=== PATIENT | male | born 1945 | race Hispanic/Latino ===

== ENCOUNTER 2018-01-17 17:37 | Inpatient (IN) | payer MEDICARE ==
[~2018-01-17] VITALS: Ht 160 cm; Wt 72.0 kg
[~2018-01-17 17:37] MED LIST: ACET1TAB27 PO; ASPI-1005 PO; CILO100T PO; CLOP75TA14 PO; ISOS30TA6 PO; LEVO500T2 PO; LOSA100T20 PO; METO25TA6 PO; NIAC100045 PO; OLOP2.5D5 OU; PANT40TA25 PO; SIMV20TA6 PO; TAMS0.4C32 PO
[2018-01-17 18:33] LABS: BASOPHILS % (AUTO) 0.6 % (0.0-5.0); EOSINOPHILS % (AUTO) 1.4 % (0.0-8.0); HEMATOCRIT 38.8 % (42-54); LYMPHOCYTES % (AUTO) 30.6 % (21.0-51.0); MEAN CORPUSCULAR HEMOGLOBIN 30.4 pg (27.0-33.0); MEAN CORPUSCULAR HGB CONC 33.1 g/dL (32.0-36.0); MEAN CORPUSCULAR VOLUME 91.7 fL (79-99); MONOCYTES % (AUTO) 13.8 % (3.0-13.0); NEUTROPHILS % (AUTO) 53.6 % (40.0-77.0); PLATELET COUNT (AUTO) 221 K/uL (130-400); RED BLOOD CELL COUNT(AUTO) 4.23 MIL/uL (4.50-6.20); RED CELL DISTRIBUTION WIDTH 14.8 % (11.0-15.5); WHITE BLOOD COUNT (AUTO) 6.1 K/uL (4.8-10.8)
[2018-01-17 18:54] LABS: CREATININE 1.1 mg/dL (0.5-1.5); POTASSIUM 3.6 mmol/L (3.5-5.1)
[2018-01-17 18:58] LABS: ALBUMIN 3.3 g/dL (3.5-5.0); BILIRUBIN,TOTAL 0.2 mg/dL (0.2-1.0); TOTAL PROTEIN, SERUM 7.3 g/dL (6.0-8.3)
[2018-01-17] MEDS ORDERED: ASPIRIN 81MG TAB.CHEW ONE (20:00)
[2018-01-17] MEDS ORDERED: SODIUM CHLORIDE 0.9% 10 ML VIAL IVP PRN (20:15)
[2018-01-17 21:53] VITALS: BP 172/82
[2018-01-17] MEDS: ENOXAPARIN SODIUM 40 MG/0.4 ML SYRINGE SQ SCH (22:22)
[2018-01-17] MEDS ORDERED: OXYB10TA PO (22:41)
[2018-01-17] MEDS ORDERED: RANO500T2 PO (22:41)
[2018-01-17] MEDS ORDERED: ICOS1CAP PO (22:41)
[2018-01-17] MEDS ORDERED: MIRA25TA PO (22:41)
[2018-01-17] MEDS ORDERED: MAGN400T40 PO (22:41)
[2018-01-17] MEDS ORDERED: NIAC1CAP PO (22:41)
[2018-01-17] MEDS ORDERED: SUCR1TAB2 PO (22:41)
[2018-01-17] MEDS ORDERED: NITR0.4T50 SL (22:42)
[2018-01-17 23:28] VITALS: BP 156/88
[2018-01-18 00:43] LABS: CREATINE KINASE, TOTAL 89 U/L (21-232); MYOGLOBIN 43 ng/mL (10-92); TROPONIN I < 0.04 ng/mL (0.00-0.06)
[2018-01-18 04:07] VITALS: BP 137/67
[2018-01-18 06:14] LABS: HEMATOCRIT 43.5 % (42-54); MEAN CORPUSCULAR HEMOGLOBIN 31.6 pg (27.0-33.0); MEAN CORPUSCULAR HGB CONC 33.5 g/dL (32.0-36.0); MEAN CORPUSCULAR VOLUME 94.1 fL (79-99); PLATELET COUNT (AUTO) 270 K/uL (130-400); RED BLOOD CELL COUNT(AUTO) 4.62 MIL/uL (4.50-6.20); RED CELL DISTRIBUTION WIDTH 14.7 % (11.0-15.5); WHITE BLOOD COUNT (AUTO) 6.9 K/uL (4.8-10.8)
[2018-01-18 06:30] LABS: CREATINE KINASE, TOTAL 85 U/L (21-232); MYOGLOBIN 48 ng/mL (10-92); TROPONIN I < 0.04 ng/mL (0.00-0.06)
[2018-01-18 07:00] VITALS: BP 147/77
[2018-01-18] MEDS: ENOXAPARIN SODIUM 40 MG/0.4 ML SYRINGE SQ SCH ×2 (09:29→21:44)
[2018-01-18] MEDS: ASPIRIN 325MG EC TAB 325 MG TABLET.DR PO SCH (09:29)
[2018-01-18 11:00] VITALS: BP 154/79
[2018-01-18] MEDS ORDERED: METOPROLOL TARTRATE 25 MG PO SCH (12:00)
[2018-01-18] MEDS ORDERED: SODIUM CHLORIDE 0.9% 500ML 500 ML IV SCH (12:21)
[2018-01-18] MEDS: METOPROLOL TARTRATE 25 MG TAB PO SCH ×2 (13:38→21:43)
[2018-01-18 16:00] VITALS: BP 156/88
[2018-01-18 19:34] VITALS: BP 159/77
[2018-01-18] MEDS ORDERED: METOPROLOL TARTRATE 25 MG TAB PO SCH (21:00)
[2018-01-18] MEDS: CILOSTAZOL 100 MG TAB PO SCH (21:42)
[2018-01-18] MEDS: RANOLAZINE 500 MG TAB.SR.12H PO SCH (21:42)
[2018-01-18] MEDS: MAGNESIUM OXIDE 400 MG TABLET PO SCH (21:44)
[2018-01-18] MEDS: SIMVASTATIN 20 MG TABLET PO SCH (21:45)
[2018-01-18 23:46] VITALS: BP 142/78
[2018-01-19] VITALS (13 sets, daily range): BP systolic 124–162; BP diastolic 59–95
[2018-01-19 03:50] LABS: HEMATOCRIT 42.5 % (42-54); MEAN CORPUSCULAR HEMOGLOBIN 31.4 pg (27.0-33.0); MEAN CORPUSCULAR HGB CONC 33.4 g/dL (32.0-36.0); MEAN CORPUSCULAR VOLUME 93.8 fL (79-99); NUCLEATED RED BLOOD CELLS 0.1 % (0.0-0.19); PLATELET COUNT (AUTO) 264 K/uL (130-400); RED BLOOD CELL COUNT(AUTO) 4.54 MIL/uL (4.50-6.20); RED CELL DISTRIBUTION WIDTH 14.8 % (11.0-15.5); WHITE BLOOD COUNT (AUTO) 7.4 K/uL (4.8-10.8)
[2018-01-19 04:01] LABS: POTASSIUM 3.4 mmol/L (3.5-5.1)
[2018-01-19 05:51] LABS: INR 0.95 (0.85-1.15); PARTIAL THROMBOPLASTIN TIME 32.5 SEC (26.3-35.5)
[2018-01-19] MEDS ORDERED: POTASSIUM CHLORIDE 20MEQ/100ML 100 ML IV PRN ×2 (06:30→13:00)
[2018-01-19] MEDS ORDERED: LIDOCAINE HCL-MPF 1% 2ML VIAL IVP PRN ×2 (06:30→11:45)
[2018-01-19] MEDS ORDERED: LIDOCAINE HCL 2% 20ML ONE (07:27)
[2018-01-19] MEDS ORDERED: IOHEXOL 350 MG/ML 100ML INFUS..BTL IV ONE ×2 (07:27→09:18)
[2018-01-19] MEDS ORDERED: NITROGLYCERIN 5 MG/ML 10 ML VIAL IV ONE (07:27)
[2018-01-19] MEDS ORDERED: BIVALIRUDIN 250 MG/VIAL IV ONE (07:27)
[2018-01-19] MEDS ORDERED: IOHEXOL-350 50ML VIAL IV ONE ×2 (07:27→09:04)
[2018-01-19] MEDS: CILOSTAZOL 100 MG TAB PO SCH ×2 (09:00→21:39)
[2018-01-19] MEDS: ENOXAPARIN SODIUM 40 MG/0.4 ML SYRINGE SQ SCH ×2 (09:00→18:05)
[2018-01-19] MEDS: ASPIRIN 325MG EC TAB 325 MG TABLET.DR PO SCH (09:00)
[2018-01-19] MEDS ORDERED: LABETALOL HCL 5 MG/ML 20ML VIAL IV ONE (09:23)
[2018-01-19] MEDS ORDERED: ASPIRIN 325MG EC TAB 325 MG TABLET.DR PO ONE (09:25)
[2018-01-19] MEDS ORDERED: CLOPIDOGREL BISULFATE 300 MG TAB ONE (09:26)
[2018-01-19] MEDS: MAGNESIUM OXIDE 400 MG TABLET PO SCH ×2 (11:06→21:39)
[2018-01-19] MEDS: FUROSEMIDE 20 MG TABLET PO SCH (11:06)
[2018-01-19] MEDS: METOPROLOL TARTRATE 25 MG TAB PO SCH ×2 (11:06→21:39)
[2018-01-19] MEDS: RANOLAZINE 500 MG TAB.SR.12H PO SCH ×2 (11:06→21:39)
[2018-01-19] MEDS: PANTOPRAZOLE SODIUM 40 MG TABLET.DR PO SCH (11:06)
[2018-01-19] MEDS ORDERED: POTASSIUM CHLORIDE 10% ELIXIR 20 MEQ/15 ML UDCUP PO PRN (11:45)
[2018-01-19] MEDS: POTASSIUM CHLORIDE 20 MEQ ERTAB PO PRN (18:17)
[2018-01-19] MEDS: SIMVASTATIN 20 MG TABLET PO SCH (21:39)
[2018-01-20 04:08] LABS: MEAN CORPUSCULAR HEMOGLOBIN 31.3 pg (27.0-33.0); MEAN CORPUSCULAR HGB CONC 33.5 g/dL (32.0-36.0); MEAN CORPUSCULAR VOLUME 93.5 fL (79-99); PLATELET COUNT (AUTO) 265 K/uL (130-400); WHITE BLOOD COUNT (AUTO) 8.5 K/uL (4.8-10.8)
[2018-01-20 04:10] VITALS: BP 116/52
[2018-01-20 04:20] LABS: CREATININE 1.2 mg/dL (0.5-1.5); POTASSIUM 3.8 mmol/L (3.5-5.1)
[2018-01-20] MEDS: POTASSIUM CHLORIDE 20 MEQ ERTAB PO PRN (05:57)
[2018-01-20] MEDS: PANTOPRAZOLE SODIUM 40 MG TABLET.DR PO SCH (05:57)
[2018-01-20 07:30] VITALS: BP 140/72
[2018-01-20] MEDS: ENOXAPARIN SODIUM 40 MG/0.4 ML SYRINGE SQ SCH (08:10)
[2018-01-20] MEDS: FUROSEMIDE 20 MG TABLET PO SCH (08:11)
[2018-01-20] MEDS: METOPROLOL TARTRATE 25 MG TAB PO SCH (08:11)
[2018-01-20] MEDS: RANOLAZINE 500 MG TAB.SR.12H PO SCH (08:11)
[2018-01-20] MEDS: ASPIRIN 325MG EC TAB 325 MG TABLET.DR PO SCH (08:11)
[2018-01-20] MEDS: MAGNESIUM OXIDE 400 MG TABLET PO SCH (08:11)
[2018-01-20] MEDS: CILOSTAZOL 100 MG TAB PO SCH (08:11)
[2018-01-20] MEDS ORDERED: CLOPIDOGREL BISULFATE 75 MG TAB PO SCH (09:00)
== END 2018-01-20 11:15 | disposition home or self-care (01) | DRG 246 ==
LOC: EDH 17:37 → EDHIP 19:49 → INTOOBSV 19:49 → OBSVTOIN 19:49 → 2DH 21:44
PROVIDERS: ADMIT Family Medicine; ATTEND Family Medicine
PROC: 3E0234Z Introduction of Serum, Toxoid and Vaccine into Muscle, Percutaneous Approach (ICD-10-PCS; principal; 2018-01-19)
PROC: 4A023N7 Measurement of Cardiac Sampling and Pressure, Left Heart, Percutaneous Approach (ICD-10-PCS; 2018-01-19)
PROC: B2151ZZ Fluoroscopy of Left Heart using Low Osmolar Contrast (ICD-10-PCS; 2018-01-19)
PROC: B2111ZZ Fluoroscopy of Multiple Coronary Arteries using Low Osmolar Contrast (ICD-10-PCS; 2018-01-19)
PROC: 027034Z Dilation of Coronary Artery, One Artery with Drug-eluting Intraluminal Device, Percutaneous Approach (ICD-10-PCS; 2018-01-19)
PROC: B2181ZZ Fluoroscopy of Left Internal Mammary Bypass Graft using Low Osmolar Contrast (ICD-10-PCS; 2018-01-19)
PROC: B2131ZZ Fluoroscopy of Multiple Coronary Artery Bypass Grafts using Low Osmolar Contrast (ICD-10-PCS; 2018-01-19)
PROC: B3101ZZ Fluoroscopy of Thoracic Aorta using Low Osmolar Contrast (ICD-10-PCS; 2018-01-19)
PROC: B41F1ZZ Fluoroscopy of Right Lower Extremity Arteries using Low Osmolar Contrast (ICD-10-PCS; 2018-01-19)
PROC: B3121ZZ Fluoroscopy of Left Subclavian Artery using Low Osmolar Contrast (ICD-10-PCS; 2018-01-19)
DX: T82.855A Stenosis of coronary artery stent, initial encounter (principal); I50.33 Acute on chronic diastolic (congestive) heart failure; I42.9 Cardiomyopathy, unspecified; I25.119 Atherosclerotic heart disease of native coronary artery with unspecified angina pectoris; E11.51 Type 2 diabetes mellitus with diabetic peripheral angiopathy without gangrene; F17.200 Nicotine dependence, unspecified, uncomplicated; E78.5 Hyperlipidemia, unspecified; E87.6 Hypokalemia; I35.0 Nonrheumatic aortic (valve) stenosis; J44.9 Chronic obstructive pulmonary disease, unspecified; N40.0 Benign prostatic hyperplasia without lower urinary tract symptoms; I11.0 Hypertensive heart disease with heart failure; Y83.9 Surgical procedure, unspecified as the cause of abnormal reaction of the patient, or of later complication, without mention of misadventure at the time of the procedure; Y83.2 Surgical operation with anastomosis, bypass or graft as the cause of abnormal reaction of the patient, or of later complication, without mention of misadventure at the time of the procedure; Y92.89 Other specified places as the place of occurrence of the external cause; Z95.5 Presence of coronary angioplasty implant and graft; Z95.1 Presence of aortocoronary bypass graft; Z91.19 Patient's noncompliance with other medical treatment and regimen; Z23 Encounter for immunization
CPT/HCPCS: 36415; 71045; 80048; 80053; 82550; 83735; 83874; 83880; 84484; 85025; 85027; 85610; 85730; 93005; 93459; C1760; C1769; C1887; C1894; C9600; J0583; J1644; J1650; J3480; J3490; J7040; Q2038; Q9967

== ENCOUNTER 2018-04-07 16:58 | Observation (INO) | payer MEDICARE ==
[~2018-04-07] VITALS: Ht 160 cm; Wt 71.8 kg
[~2018-04-07 16:58] MED LIST changes: -ACET1TAB27 PO; -ASPI-1005 PO; +ICOS1CAP PO; -ISOS30TA6 PO; -LEVO500T2 PO; -LOSA100T20 PO; +MAGN400T40 PO; +MIRA25TA PO; -NIAC100045 PO; +NIAC1CAP PO; +NITR0.4T50 SL; -OLOP2.5D5 OU; +OXYB10TA PO; +RANO500T2 PO; +SUCR1TAB2 PO
[2018-04-07 17:17] LABS: CREATININE 1.1 mg/dL (0.5-1.5)
[2018-04-07 17:20] LABS: BASOPHILS % (AUTO) 0.6 % (0.0-5.0); EOSINOPHILS % (AUTO) 0.8 % (0.0-8.0); HEMATOCRIT 28.3 % (42-54); LYMPHOCYTES % (AUTO) 39.5 % (21.0-51.0); MEAN CORPUSCULAR HEMOGLOBIN 22.7 pg (27.0-33.0); MEAN CORPUSCULAR HGB CONC 30.3 g/dL (32.0-36.0); MEAN CORPUSCULAR VOLUME 74.9 fL (79-99); MONOCYTES % (AUTO) 9.8 % (3.0-13.0); NEUTROPHILS % (AUTO) 49.3 % (40.0-77.0); NUCLEATED RED BLOOD CELLS 0.3 % (0.0-0.19); PLATELET COUNT (AUTO) 287 K/uL (130-400); RED BLOOD CELL COUNT(AUTO) 3.77 MIL/uL (4.50-6.20); RED CELL DISTRIBUTION WIDTH 22.1 % (11.0-15.5); WHITE BLOOD COUNT (AUTO) 6.9 K/uL (4.8-10.8)
[2018-04-07 17:21] LABS: ALBUMIN 3.4 g/dL (3.5-5.0); BILIRUBIN,DIRECT 0.1 mg/dL (0.0-0.3); BILIRUBIN,TOTAL 0.4 mg/dL (0.2-1.0); TOTAL PROTEIN, SERUM 7.7 g/dL (6.0-8.3)
[2018-04-07] MEDS ORDERED: IPRATROPIUM/ALBUTEROL SULFATE 3 ML SOLUTION IH ONE (17:21)
[2018-04-07 17:31] LABS: B-TYPE NATRIURETIC PEPTIDE 820 pg/mL (0-100)
[2018-04-07] MEDS ORDERED: METHYLPREDNISOLONE SOD SUCC 40MG/ML 1ML ONE (18:57)
[2018-04-07] MEDS ORDERED: FUROSEMIDE 10 MG/ML 4ML VIAL ONE (18:57)
[2018-04-07] MEDS ORDERED: CEFTRIAXONE SODIUM 1 GM ONE (18:57)
[2018-04-07] MEDS ORDERED: AZITHROMYCIN 500MG+NS 250ML 250 ML IV ONE (19:36)
[2018-04-07] MEDS ORDERED: ENOXAPARIN SODIUM 40 MG/0.4 ML SYRINGE SQ ONE (20:02)
[2018-04-07 21:00] VITALS: BP 137/73
[2018-04-07] MEDS ORDERED: POTASSIUM CHLORIDE 10% ELIXIR 20 MEQ/15 ML UDCUP PO PRN (22:15)
[2018-04-07] MEDS ORDERED: GLUCAGON 1MG KIT 1 MG ML IM PRN (22:15)
[2018-04-07] MEDS ORDERED: POTASSIUM CHLORIDE 20MEQ/100ML 100 ML IV PRN (22:15)
[2018-04-07] MEDS ORDERED: LIDOCAINE HCL-MPF 1% 2ML VIAL IJ PRN (22:15)
[2018-04-07] MEDS ORDERED: IPRATROPIUM/ALBUTEROL SULFATE 3 ML SOLUTION IH PRN (22:15)
[2018-04-07] MEDS ORDERED: DEXTROSE 50%-WATER 50 ML DISP.SYRIN IV PRN (22:15)
[2018-04-07] MEDS ORDERED: GUAIFENESIN-DM 200/20 MG 10 ML PO PRN (22:15)
[2018-04-07] MEDS ORDERED: POTASSIUM CHLORIDE 20 MEQ ERTAB PO PRN (22:15)
[2018-04-07 23:00] VITALS: BP 144/78
[2018-04-07] MEDS ORDERED: METO50TA18 PO (23:33)
[2018-04-07] MEDS ORDERED: AEC81 PO (23:49)
[2018-04-07] MEDS ORDERED: PIOG15TA66 PO (23:51)
[2018-04-07] MEDS ORDERED: FLUT1BLS IH (23:51)
[2018-04-08 03:00] VITALS: BP 138/80
[2018-04-08 04:27] LABS: HEMATOCRIT 27.8 % (42-54); MEAN CORPUSCULAR HEMOGLOBIN 22.9 pg (27.0-33.0); MEAN CORPUSCULAR VOLUME 73.8 fL (79-99); NUCLEATED RED BLOOD CELLS 0.1 % (0.0-0.19); PLATELET COUNT (AUTO) 290 K/uL (130-400); RED BLOOD CELL COUNT(AUTO) 3.76 MIL/uL (4.50-6.20); RED CELL DISTRIBUTION WIDTH 22.1 % (11.0-15.5)
[2018-04-08 04:51] LABS: ALBUMIN 3.3 g/dL (3.5-5.0); BILIRUBIN,TOTAL 0.4 mg/dL (0.2-1.0); CREATININE 1.1 mg/dL (0.5-1.5); POTASSIUM 3.7 mmol/L (3.5-5.1); TOTAL PROTEIN, SERUM 7.7 g/dL (6.0-8.3)
[2018-04-08] MEDS ORDERED: METHYLPREDNISOLONE SOD SUCC 125MG/2ML VIAL IVP SCH (06:00)
[2018-04-08] MEDS: IPRATROPIUM/ALBUTEROL SULFATE 3 ML SOLUTION IH SCH ×4 (06:16→19:21)
[2018-04-08] MEDS: INSULIN R PO SS1 SQ SCH ×4 (07:05→21:00)
[2018-04-08] MEDS ORDERED: NITROGLYCERIN 0.4 MG SL TAB SL PRN (07:15)
[2018-04-08] MEDS: PANTOPRAZOLE SODIUM 40 MG TABLET.DR PO SCH (07:51)
[2018-04-08] MEDS: ASPIRIN 81 MG EC TAB PO SCH (07:51)
[2018-04-08] MEDS: SUCRALFATE 1 GM TABLET PO SCH ×3 (07:51→18:41)
[2018-04-08] MEDS: FUROSEMIDE 10 MG/ML 4ML VIAL IVP SCH ×2 (07:52→18:41)
[2018-04-08 08:20] VITALS: BP 126/66
[2018-04-08] MEDS: OXYBUTYNIN CHLORIDE 10 MG PO SCH (09:00)
[2018-04-08] MEDS: PIOGLITAZONE HCL 15 MG TAB PO SCH (10:33)
[2018-04-08] MEDS: TAMSULOSIN HCL 0.4 MG CAP.ER.24H PO SCH (10:33)
[2018-04-08] MEDS: CLOPIDOGREL BISULFATE 75 MG TAB PO SCH (10:33)
[2018-04-08] MEDS: METOPROLOL TARTRATE 50 MG TAB PO SCH ×2 (10:33→21:00)
[2018-04-08] MEDS: RANOLAZINE 500 MG TAB.SR.12H PO SCH ×2 (10:33→21:00)
[2018-04-08] MEDS: PREDNISONE 20 MG TABLET PO SCH (10:33)
[2018-04-08] MEDS: NIACIN 500 MG SRTAB PO SCH (10:33)
[2018-04-08] MEDS: AZITHROMYCIN 500MG+NS 250ML 250 ML IV SCH (10:34)
[2018-04-08] MEDS: ENOXAPARIN SODIUM 40 MG/0.4 ML SYRINGE SQ SCH (10:35)
[2018-04-08] MEDS ORDERED: IPRATROPIUM/ALBUTEROL SULFATE 3 ML SOLUTION IH SCH (12:00)
[2018-04-08 12:02] VITALS: BP 133/65
[2018-04-08 16:11] VITALS: BP 129/75
[2018-04-08] MEDS ORDERED: CEFTRIAXONE SODIUM 1 GM IVP SCH (18:00)
[2018-04-08 19:00] VITALS: BP 119/64
[2018-04-08] MEDS: BUDESONIDE 0.5 MG/2 ML INH IH SCH (19:21)
[2018-04-08] MEDS ORDERED: SIMVASTATIN 20 MG TABLET PO SCH (21:00)
[2018-04-09 00:30] VITALS: BP 118/63
[2018-04-09 04:07] VITALS: BP 125/75
[2018-04-09] MEDS: INSULIN R PO SS1 SQ SCH ×2 (06:11→11:30)
[2018-04-09] MEDS: FUROSEMIDE 10 MG/ML 4ML VIAL IVP SCH (06:15)
[2018-04-09] MEDS: BUDESONIDE 0.5 MG/2 ML INH IH SCH (06:35)
[2018-04-09] MEDS: IPRATROPIUM/ALBUTEROL SULFATE 3 ML SOLUTION IH SCH ×3 (06:35→13:56)
[2018-04-09 07:00] VITALS: BP 102/44
[2018-04-09] MEDS: ASPIRIN 81 MG EC TAB PO SCH (08:48)
[2018-04-09] MEDS: SUCRALFATE 1 GM TABLET PO SCH ×2 (08:49→11:51)
[2018-04-09] MEDS: PIOGLITAZONE HCL 15 MG TAB PO SCH (08:49)
[2018-04-09] MEDS: PANTOPRAZOLE SODIUM 40 MG TABLET.DR PO SCH (08:49)
[2018-04-09] MEDS: CLOPIDOGREL BISULFATE 75 MG TAB PO SCH (08:49)
[2018-04-09] MEDS: METOPROLOL TARTRATE 50 MG TAB PO SCH (08:49)
[2018-04-09] MEDS: TAMSULOSIN HCL 0.4 MG CAP.ER.24H PO SCH (08:49)
[2018-04-09] MEDS: NIACIN 500 MG SRTAB PO SCH (08:49)
[2018-04-09] MEDS: RANOLAZINE 500 MG TAB.SR.12H PO SCH (08:49)
[2018-04-09] MEDS: PREDNISONE 20 MG TABLET PO SCH (08:50)
[2018-04-09] MEDS: ENOXAPARIN SODIUM 40 MG/0.4 ML SYRINGE SQ SCH (08:50)
[2018-04-09] MEDS: AZITHROMYCIN 500MG+NS 250ML 250 ML IV SCH (08:53)
[2018-04-09] MEDS: OXYBUTYNIN CHLORIDE 10 MG PO SCH (08:53)
--- NOTE | 2018-04-09 14:00 | NUR ---
DISCHARGE INSTRUCTIONS GIVEN. IV DISCONTINUED WITH INNER CANNULA INTACT. ALL QUESTIONS ANSWERED. INFORMED PATIENT TO SEE PRIMARY CARE PHYSICIAN AND STOVE CARRIAGE OPERATOR . PRESCRIPTIONS GIVEN AND INFORMATION SHEET PROVIDED. AWAITING RIDE HOME.
== END 2018-04-09 13:45 | disposition home or self-care (01) ==
LOC: EDH 16:58 → EDHIP 18:18 → 3DH 19:47
PROVIDERS: ADMIT Internal Medicine; ATTEND Internal Medicine
DX: J44.0 Chronic obstructive pulmonary disease with (acute) lower respiratory infection (principal); J20.9 Acute bronchitis, unspecified; E11.51 Type 2 diabetes mellitus with diabetic peripheral angiopathy without gangrene; E78.5 Hyperlipidemia, unspecified; I10 Essential (primary) hypertension; I25.10 Atherosclerotic heart disease of native coronary artery without angina pectoris
CPT/HCPCS: 36415 ×2; 71045 ×2; 80053 ×2; 82948 ×7; 83880; 85025; 85027; 87804 ×2; 93005; 93306; 94640 ×8; 94664; 96365; 96366 ×2; 96372 ×2; 96375; 96376 ×2; 99284; A4218; G0378 ×43; J0456 ×3; J0696 ×2; J1650 ×3; J1940 ×4; J2920; 80076

== ENCOUNTER 2018-05-25 11:59 | Observation (INO) | payer MEDICARE ==
[~2018-05-25] VITALS: Ht 160 cm; Wt 70.2 kg
[~2018-05-25 11:59] MED LIST changes: +AEC81 PO; -CILO100T PO; +FLUT1BLS IH; -ICOS1CAP PO; -MAGN400T40 PO; -METO25TA6 PO; +METO50TA18 PO; -MIRA25TA PO; +PIOG15TA66 PO
[2018-05-25 12:37] LABS: BASOPHILS % (AUTO) 0.7 % (0.0-5.0); EOSINOPHILS % (AUTO) 0.8 % (0.0-8.0); HEMATOCRIT 26.6 % (42-54); LYMPHOCYTES % (AUTO) 59.3 % (21.0-51.0); MEAN CORPUSCULAR HEMOGLOBIN 18.5 pg (27.0-33.0); MEAN CORPUSCULAR HGB CONC 28.2 g/dL (32.0-36.0); MEAN CORPUSCULAR VOLUME 65.4 fL (79-99); MONOCYTES % (AUTO) 5.7 % (3.0-13.0); NEUTROPHILS % (AUTO) 33.5 % (40.0-77.0); NUCLEATED RED BLOOD CELLS 0.5 % (0.0-0.19); PLATELET COUNT (AUTO) 336 K/uL (130-400); RED BLOOD CELL COUNT(AUTO) 4.06 MIL/uL (4.50-6.20); RED CELL DISTRIBUTION WIDTH 21.2 % (11.0-15.5); WHITE BLOOD COUNT (AUTO) 7.5 K/uL (4.8-10.8)
[2018-05-25 12:43] LABS: POTASSIUM 4.3 mmol/L (3.5-5.1)
[2018-05-25 12:48] LABS: ALBUMIN 3.8 g/dL (3.5-5.0); BILIRUBIN,TOTAL 0.5 mg/dL (0.2-1.0); TOTAL PROTEIN, SERUM 7.9 g/dL (6.0-8.3)
[2018-05-25 13:26] LABS: B-TYPE NATRIURETIC PEPTIDE 1140 pg/mL (0-100)
[2018-05-25] MEDS ORDERED: FUROSEMIDE 10 MG/ML 4ML VIAL ONE (14:20)
[2018-05-25] MEDS ORDERED: SODIUM CHLORIDE 0.9% 250 ML IV ONE (15:15)
[2018-05-25 17:37] VITALS: BP 142/74
[2018-05-25 17:55] VITALS: BP 145/76
[2018-05-25] MEDS: FUROSEMIDE 10 MG/ML 2ML VIAL IVP SCH ×2 (19:11→22:00)
[2018-05-25 19:17] VITALS: BP 142/71
--- NOTE | 2018-05-25 20:40 | NUR ---
BLOOD CHECKED SECOND UNIT OF BLOOD WITH JEFF DALTON. V/S MONITORED, STABLE. TRANSFUSION STARTED. WILL MONITOR PT CLOSELY.
--- NOTE | 2018-05-25 21:00 | NUR ---
RE-ASSESS PT TOLERATING BLOOD TRANSFUSION WELL WITHOUT ANY UNTOWARD S AND SX. V/S MONITORED, STABLE. KEPT RESTED AND COMFORTABLE. CALL LIGHT WITHIN REACH. RE-ITERATED FALL PRECAUTIONS. WILL MONITOR PT.
[2018-05-26] VITALS: BP 140/77
--- NOTE | 2018-05-26 00:15 | NUR ---
COMPLETED BLOOD TRANSFUSION COMPLETED WITHOUT ANY UNTOWARD S AND SX. V/S MONITORED, STABLE. SALINE LOCKED PT. LASIX GIVEN IV MD ORDERED. ENCOURAGED TO REST AND SLEEP. URINAL WITHIN REACH.
[2018-05-26] MEDS ORDERED: FUROSEMIDE 10 MG/ML 4ML VIAL ONE (00:24)
--- NOTE | 2018-05-26 02:00 | NUR ---
ROUNDS PT FAIRLY ASLEEP WITH RESPIRATIONS EVEN AND UNLABORED. NO DISTRESS NOTED. KEPT RESTED AND COMFORTABLE. CALL LIGHT WITHIN REACH. WILL CONTINUE TO MONITOR.
[2018-05-26 04:00] VITALS: BP 145/85
[2018-05-26 04:42] LABS: HEMATOCRIT 32.1 % (42-54); MEAN CORPUSCULAR HEMOGLOBIN 21.3 pg (27.0-33.0); MEAN CORPUSCULAR HGB CONC 31.2 g/dL (32.0-36.0); MEAN CORPUSCULAR VOLUME 68.2 fL (79-99); NUCLEATED RED BLOOD CELLS 0.4 % (0.0-0.19); PLATELET COUNT (AUTO) 300 K/uL (130-400); RED BLOOD CELL COUNT(AUTO) 4.71 MIL/uL (4.50-6.20); RED CELL DISTRIBUTION WIDTH 25.7 % (11.0-15.5); WHITE BLOOD COUNT (AUTO) 6.3 K/uL (4.8-10.8)
[2018-05-26 05:00] LABS: ALBUMIN 3.3 g/dL (3.5-5.0); CREATININE 1.1 mg/dL (0.5-1.5); TOTAL PROTEIN, SERUM 7.2 g/dL (6.0-8.3)
--- NOTE | 2018-05-26 05:39 | NUR ---
SHOWER PCP IN ROOM TO ASSIST PT TO SHOWER. PT ASKED ABOUT HOME MEDICATIONS AND STATED THAT HIS WILL BE BRINGING IT IN TODAY.
--- NOTE | 2018-05-26 06:12 | NUR ---
PAGED DR KENNEDY HAS NOT MADE ROUNDS YET. PAGED VIA ANSWERING SERVICE, AWAITING CALL BACK.
--- NOTE | 2018-05-26 06:30 | NUR ---
MD DR KENNEDY IN TO SEE PT. NEW ORDERS GIVEN, PLEASE REFER TO CPOE. WILL START MEDS AND ENDORSE TO AM SHIFT FOR MORE CARE.
[2018-05-26] MEDS ORDERED: POTASSIUM CHLORIDE 20 MEQ ERTAB PO ONE (06:43)
[2018-05-26] MEDS ORDERED: COMPOUND IV MISC 1 EACH IVSOLN MISC PRN (06:45)
[2018-05-26] MEDS ORDERED: IRON SUCROSE COMPLEX 200 MG in SODIUM CHLORIDE 0.9% 50 ML IV SCH ×2 (06:45→09:00)
[2018-05-26] MEDS ORDERED: LIDOCAINE HCL-MPF 1% 2ML VIAL IVP PRN (06:45)
[2018-05-26] MEDS ORDERED: POTASSIUM CHLORIDE 20MEQ/100ML 100 ML IV PRN (06:45)
[2018-05-26] MEDS ORDERED: POTASSIUM CHLORIDE 10% ELIXIR 20 MEQ/15 ML UDCUP PO PRN (06:45)
[2018-05-26 08:00] VITALS: BP 131/63
[2018-05-26] MEDS: POTASSIUM CHLORIDE 20 MEQ ERTAB PO PRN ×3 (08:19→13:14)
[2018-05-26 12:00] VITALS: BP 133/70
--- NOTE | 2018-05-26 15:19 | NUR ---
DCP CM met with pt discussed dc plans. Pt is independent prior to admission, lives at home with spouse, daughter lives close by. Has a cane and shower chair at home. Denies any other equipments/services. Pt feels safe to go back home, spouse and daughter able to assist with transportation and needs as necessary. DC plan to home once stable. CM to cont to follow up. Addendum: 05/26/18 at 1520 by NORBERTO PRINCE LVN CM Amended: Links added.
[2018-05-26 16:00] VITALS: BP 139/72
--- NOTE | 2018-05-26 18:41 | NUR ---
PATIENT DISCHARGE PATIENT DISCHARGED, IV DISCONTINUED,BLEEDING CONTROLLED, CATHLON INTACT, PATIENT TOLERATED WITHOUT INCIDENT.
== END 2018-05-26 18:37 | disposition home or self-care (01) ==
LOC: EDH 11:59 → EDHIP 14:17 → 3BH 17:29
PROVIDERS: ADMIT Internal Medicine; ATTEND Internal Medicine
DX: D64.9 Anemia, unspecified (principal); E11.9 Type 2 diabetes mellitus without complications; E87.6 Hypokalemia; E78.5 Hyperlipidemia, unspecified; I10 Essential (primary) hypertension; I25.10 Atherosclerotic heart disease of native coronary artery without angina pectoris; J44.9 Chronic obstructive pulmonary disease, unspecified; K76.0 Fatty (change of) liver, not elsewhere classified
CPT/HCPCS: 36415 ×2; 36430; 71045; 80053 ×2; 82948 ×4; 83880; 84132; 84484; 85025; 85027; 86850; 86900; 86901; 86922 ×2; 93005; 96365; 96375; 99284; G0378 ×28; J1756; J1940 ×3; J7030; P9016 ×2

== ENCOUNTER 2018-06-17 17:44 | Inpatient (IN) | payer MEDICARE | END 2018-06-19 09:50 | disposition home or self-care (01) | LOC: EDH 17:44 → 4BH 06-18 00:09 → EDHIP 19:47 ==

== ENCOUNTER 2019-01-24 16:05 | Inpatient (IN) | payer MEDICARE ==
[~2019-01-24] VITALS: Ht 160 cm; Wt 70.2 kg
[~2019-01-24 16:05] MED LIST changes: +AZIT500T PO; +ERGO500014 PO; +GABA600T10 PO; +OSEL75 PO; -OXYB10TA PO; +OXYB10TA2 PO; +PRED20TA3 PO; +SIMV-43 PO; -SIMV20TA6 PO
[2019-01-24 16:54] LABS: BASOPHILS % (AUTO) 0.4 % (0.0-5.0); EOSINOPHILS % (AUTO) 1.5 % (0.0-8.0); HEMATOCRIT 27.2 % (42-54); LYMPHOCYTES % (AUTO) 24.3 % (21.0-51.0); MEAN CORPUSCULAR HEMOGLOBIN 25.2 pg (27.0-33.0); MEAN CORPUSCULAR HGB CONC 31.7 g/dL (32.0-36.0); MEAN CORPUSCULAR VOLUME 79.7 fL (79-99); MONOCYTES % (AUTO) 13.8 % (3.0-13.0); NUCLEATED RED BLOOD CELLS 0.1 % (0.0-0.19); PLATELET COUNT (AUTO) 305 K/uL (130-400); RED BLOOD CELL COUNT(AUTO) 3.42 MIL/uL (4.50-6.20); RED CELL DISTRIBUTION WIDTH 18.5 % (11.0-15.5); WHITE BLOOD COUNT (AUTO) 6.9 K/uL (4.8-10.8)
[2019-01-24 17:04] LABS: CREATININE 1.2 mg/dL (0.5-1.5); POTASSIUM 3.9 mmol/L (3.5-5.1)
[2019-01-24 17:09] LABS: ALBUMIN 3.4 g/dL (3.5-5.0); BILIRUBIN,TOTAL 0.3 mg/dL (0.2-1.0); TOTAL PROTEIN, SERUM 7.7 g/dL (6.0-8.3)
[2019-01-24 17:17] LABS: B-TYPE NATRIURETIC PEPTIDE 592 pg/mL (0-100)
[2019-01-24] MEDS ORDERED: FUROSEMIDE 10 MG/ML 4ML VIAL ONE (17:20)
[2019-01-24 17:21] LABS: INR 1.02 (0.85-1.15); PARTIAL THROMBOPLASTIN TIME 27.1 SEC (26.3-35.5); PROTHROMBIN TIME 10.7 SEC (9.6-11.6)
[2019-01-24 18:51] LABS: APPEARANCE,URINE Clear (CLEAR); BILIRUBIN,URINE Negative (NEGATIVE); COLOR,URINE Yellow (YELLOW); GLUCOSE, URINE (UA) Negative (NEGATIVE); KETONES,URINE Negative (NEGATIVE); LEUKOCYTE ESTERASE ,URINE Negative (NEGATIVE); NITRATE,URINE Negative (NEGATIVE); OCCULT BLOOD,URINE Negative (NEGATIVE); PH,URINE 6.5 (5.0-8.0); PROTEIN,URINE Negative (NEGATIVE)
[2019-01-24 19:00] VITALS: BP 127/75
[2019-01-24] MEDS ORDERED: ACETAMINOPHEN 325 MG TAB PO PRN ×2 (19:45)
[2019-01-24] MEDS ORDERED: ONDANSETRON HCL 4 MG/2 ML VIAL IVP PRN (20:00)
--- NOTE | 2019-01-24 20:40 | NUR ---
DATA BASE SHIFT ASSESSMENT DONE, PLEASE REFER TO CHART. ADMISSION DATA BASE COMPLETED. DUE MEDS GIVEN. HOME MEDS PLACED IN COMPUTER THEN CONTINUED PER MD ORDER. LUZ LOZA. ORIENTED TO ROOM AND UNIT. FOR MORE CARE AND MANAGEMENT. Addendum: 01/24/19 at 2207 by MATHEW RAMIREZ RN RN Amended: Links added.
[2019-01-24] MEDS: FUROSEMIDE 40 MG TABLET PO SCH (21:09)
[2019-01-24] MEDS ORDERED: MIRA25TA PO (21:34)
[2019-01-24 23:27] VITALS: BP 123/70
--- NOTE | 2019-01-25 02:00 | NUR ---
ROUNDS PT RESTING WELL,FAIRLY ASLEEP. NO DISTRESS NOTED. KEPT UNDISTURBED FOR NOW. WILL MONITOR PT. CALL LIGHT WITHIN REACH.
[2019-01-25 03:00] VITALS: BP 154/78
[2019-01-25 05:25] LABS: HEMATOCRIT 27.6 % (42-54); MEAN CORPUSCULAR HGB CONC 31.7 g/dL (32.0-36.0); MEAN CORPUSCULAR VOLUME 78.9 fL (79-99); NUCLEATED RED BLOOD CELLS 0.1 % (0.0-0.19); PLATELET COUNT (AUTO) 347 K/uL (130-400); RED BLOOD CELL COUNT(AUTO) 3.51 MIL/uL (4.50-6.20); RED CELL DISTRIBUTION WIDTH 18.8 % (11.0-15.5); WHITE BLOOD COUNT (AUTO) 7.3 K/uL (4.8-10.8)
[2019-01-25 05:38] LABS: ALBUMIN 3.3 g/dL (3.5-5.0); BILIRUBIN,TOTAL 0.6 mg/dL (0.2-1.0); CREATININE 1.1 mg/dL (0.5-1.5); POTASSIUM 3.4 mmol/L (3.5-5.1); TOTAL PROTEIN, SERUM 7.4 g/dL (6.0-8.3)
--- NOTE | 2019-01-25 06:15 | NUR ---
SHOWER PT JUST HAD HIS SHOWER, TOLERATED ACTIVITY WELL. KEPT RESTED AND COMFORTABLE IN BED. CALL LIGHT WITHIN REACH. FOR MORE CARE.
[2019-01-25] MEDS: IPRATROPIUM/ALBUTEROL SULFATE 3 ML SOLUTION IH PRN ×2 (07:26→18:29)
[2019-01-25 07:57] VITALS: BP 149/79
[2019-01-25] MEDS: **HM**(Mirabegron (Myrbetriq) 25 MG PO SCH (09:00)
[2019-01-25] MEDS: METOPROLOL TARTRATE 50 MG TAB PO SCH ×2 (09:41→21:19)
[2019-01-25] MEDS: SIMVASTATIN 20 MG TABLET PO SCH (09:41)
[2019-01-25] MEDS: TAMSULOSIN HCL 0.4 MG CAP.ER.24H PO SCH (09:41)
[2019-01-25] MEDS: PANTOPRAZOLE SODIUM 40 MG TABLET.DR PO SCH (09:41)
[2019-01-25] MEDS: ASPIRIN 81 MG EC TAB PO SCH (09:41)
[2019-01-25] MEDS: RANOLAZINE 500 MG TAB.SR.12H PO SCH ×2 (09:41→21:19)
[2019-01-25] MEDS: PIOGLITAZONE HCL 15 MG TAB PO SCH (09:42)
[2019-01-25] MEDS: FUROSEMIDE 40 MG TABLET PO SCH ×2 (09:42→21:19)
[2019-01-25] MEDS: CLOPIDOGREL BISULFATE 75 MG TAB PO SCH (09:42)
[2019-01-25 12:00] VITALS: BP 113/65
--- NOTE | 2019-01-25 14:00 | NUR ---
WALKING IN HALLWAY, OFF O2, NO SOB NOTED.
[2019-01-25 16:00] VITALS: BP 121/67
--- NOTE | 2019-01-25 18:00 | NUR ---
[address] IN PLACE, DR. ESPARZA DIRECT CUSTOMER SERVICE REPRESENTATIVE AND GIVEN MESSAGE TO NURSE PRERNA. PT. WELL KNOWN TO DR. WALKER AND STATES SAW HIM IN OFFICE LAST WEEK
--- NOTE | 2019-01-25 18:18 | NUR ---
SWEETIE MET W PATIENT ALONE, AAOX3, INDP, NO DME,DCP HOME; LIVES W DAUGHTER YUDI WHO WILL SUPPLY TRANSPORT Addendum: 01/25/19 at 1821 by KRISTEN GILL RN CM Amended: Links added.
[2019-01-25 19:15] VITALS: BP 118/72
--- NOTE | 2019-01-25 20:20 | NUR ---
SCUBA DIVING TEACHER BRINDA MYERS, MANSOOR FOR [employer], STILL ON THE FLOOR. REFERRED PT'S KCL LEVEL. ORDERED TO PLACE PT ON POTASSIUM PROTOCOL. PLEASE REFER TO CPOE.
--- NOTE | 2019-01-25 21:19 | NUR ---
MEDS SHIFT ASSESSMENT DONE, PLEASE REFER TO CHART. DUE MEDS ADMINISTERED, TOLERATED WELL. KEPT COMFORTABLE AND RESTED. CALL LIGHT WITHIN REACH. WILL MONITOR PT. Addendum: 01/26/19 at 0230 by MATHEW RAMIREZ RN RN Amended: Links added.
[2019-01-25] MEDS ORDERED: POTASSIUM CHLORIDE 20MEQ/100ML 100 ML IV PRN (21:30)
[2019-01-25] MEDS ORDERED: LIDOCAINE HCL-MPF 1% 2ML VIAL IV PRN (21:30)
[2019-01-25] MEDS ORDERED: POTASSIUM CHLORIDE 10% ELIXIR 20 MEQ/15 ML UDCUP PO PRN (21:30)
[2019-01-25] MEDS: POTASSIUM CHLORIDE 20 MEQ ERTAB PO PRN (22:08)
[2019-01-26] VITALS (14 sets, daily range): BP systolic 101–158; BP diastolic 51–85
[2019-01-26] MEDS: POTASSIUM CHLORIDE 20 MEQ ERTAB PO PRN ×2 (00:45→20:34)
--- NOTE | 2019-01-26 02:00 | NUR ---
ROUNDS PT RESTING WELL, FAIRLY ASLEEP. NO DISTRESS NOTED. KEPT COMFORTABLE AND UNDISTURBED FOR NOW. WILL MONITOR PT. CALL LIGHT WITHIN REACH.
--- NOTE | 2019-01-26 05:30 | NUR ---
SHOWER PT CALLED AND REQUESTED TO SHOWER. PCP IN TO ASSIST PT.
[2019-01-26 06:15] LABS: HEMATOCRIT 31.4 % (42-54); MEAN CORPUSCULAR HGB CONC 31.6 g/dL (32.0-36.0); MEAN CORPUSCULAR VOLUME 79.1 fL (79-99); NUCLEATED RED BLOOD CELLS 0.1 % (0.0-0.19); PLATELET COUNT (AUTO) 354 K/uL (130-400); RED BLOOD CELL COUNT(AUTO) 3.97 MIL/uL (4.50-6.20); RED CELL DISTRIBUTION WIDTH 18.7 % (11.0-15.5); WHITE BLOOD COUNT (AUTO) 6.6 K/uL (4.8-10.8)
--- NOTE | 2019-01-26 06:21 | NUR ---
WALK PT WALKING AROUND THE FLOOR AT THIS TIME. TOLERATING ACTIVITY WELL. DENIES ANY DISCOMFORT AT THIS TIME. FOR MORE CARE.
[2019-01-26 06:41] LABS: CREATININE 1.2 mg/dL (0.5-1.5); POTASSIUM 3.4 mmol/L (3.5-5.1)
[2019-01-26 06:52] LABS: B-TYPE NATRIURETIC PEPTIDE 358 pg/mL (0-100)
[2019-01-26] MEDS: IPRATROPIUM/ALBUTEROL SULFATE 3 ML SOLUTION IH PRN ×2 (06:56→18:12)
[2019-01-26] MEDS: CLOPIDOGREL BISULFATE 75 MG TAB PO SCH (09:00)
[2019-01-26] MEDS: **HM**(Mirabegron (Myrbetriq) 25 MG PO SCH (09:00)
[2019-01-26] MEDS: ASPIRIN 81 MG EC TAB PO SCH (09:00)
--- NOTE | 2019-01-26 09:00 | NUR ---
Patient declined aspirin and Plavix, stating that Dr. Ariza told him yesterday not to take these medications until further notice. Aspirin and Plavix held.
[2019-01-26] MEDS: FUROSEMIDE 40 MG TABLET PO SCH ×2 (09:05→20:26)
[2019-01-26] MEDS: TAMSULOSIN HCL 0.4 MG CAP.ER.24H PO SCH (09:05)
[2019-01-26] MEDS: PANTOPRAZOLE SODIUM 40 MG TABLET.DR PO SCH (09:05)
[2019-01-26] MEDS: SIMVASTATIN 20 MG TABLET PO SCH (09:05)
[2019-01-26] MEDS: PIOGLITAZONE HCL 15 MG TAB PO SCH (09:06)
[2019-01-26] MEDS: METOPROLOL TARTRATE 50 MG TAB PO SCH ×2 (09:06→20:25)
[2019-01-26] MEDS: RANOLAZINE 500 MG TAB.SR.12H PO SCH ×2 (09:06→20:25)
--- NOTE | 2019-01-26 09:30 | NUR ---
Per HAYDEN Arredondo for Dr. Miramontes, patient to go to Business Information Analyst for Lt and Rt Heart cath. Received orders to clip groin and consent for cath today at noon, to be performed by Dr. Pitts.
--- NOTE | 2019-01-26 12:13 | NUR ---
Called centralized scheduling to place Lt and Right Heart Cath for 01/26/19 at noon to be performed by Dr. Pitts, as per verbal order from HAYDEN Arredondo for Dr. Miramontes. Checklist completed, consent obtained.
[2019-01-26] MEDS ORDERED: FENTANYL CITRATE PF 50 MCG/1 ML 2ML VIAL ONE (12:14)
[2019-01-26] MEDS ORDERED: IOHEXOL-350 50ML VIAL IV ONE ×2 (12:14→12:35)
[2019-01-26] MEDS ORDERED: IOHEXOL 350 MG/ML 100ML INFUS..BTL IV ONE ×2 (12:14→13:38)
[2019-01-26] MEDS ORDERED: LIDOCAINE HCL 2% 20ML ONE (12:14)
[2019-01-26] MEDS ORDERED: NITROGLYCERIN 5 MG/ML 10 ML VIAL IV ONE (12:14)
[2019-01-26] MEDS ORDERED: MIDAZOLAM HCL 1 MG/ML 2ML VIAL ONE (12:14)
[2019-01-26] MEDS ORDERED: HEPARIN SODIUM 1000UNIT/ML 10ML VIAL ONE (13:18)
[2019-01-26] MEDS ORDERED: DOBUTAMINE 250MG/D5 250ML 250 ML IV ONE (13:26)
--- NOTE | 2019-01-26 14:45 | NUR ---
RECEIVED PATIENT FROM GRIP ASSEMBLER, S/P CARDIAC CATH BY DR. SYLVESTER. AAO X 3. DENIES PAIN AT THIS TIME. TELE MONITOR PLACED AND READING SR HR 76. RIGHT GROIN AREA WITH VENOUS SHEATH SUTURED IN PLACE. BILATERAL PEDAL PULSES PALPABLE AND WEAK. REVIEWED PLAN OF CARE WITH PATIENT AND FAMILY AT BEDSIDE. VERBALIZED UNDERSTANDING.
--- NOTE | 2019-01-26 15:05 | NUR ---
Notified by JAKOB Diehl from Residential Care Officer that patient to be transferred to . 205. Report provided to charge nurse Rias.
--- NOTE | 2019-01-26 15:20 | NUR ---
DR. SYLVESTER IN TO SEE PATIENT AND SPEAK WITH FAMILY IN REFERENCE TO CATH RESULTS.
--- NOTE | 2019-01-26 16:29 | NUR ---
1557 had pt's sign IM Letter, faxed IM Letter to [phone] and placed in chart under consent tab
--- NOTE | 2019-01-26 18:00 | NUR ---
PTT LEVEL 28.8...WILL REMOVE RIGHT VENOUS SHEATH PER PROTOCOL.
--- NOTE | 2019-01-26 18:30 | NUR ---
RIGHT VENOUS SHEATH REMOVED PER PROTOCOL. APPLIED DIRECT MANUAL PRESSURE FOR 15 MINUTES. NO BLEEDING NOTED. RIGHT GROIN SOFT. APPLIED 4X4 GAUZE AND SECURED WITH CLEAR OPSITE. BILATERAL PEDAL PULSES PALPABLE. TELE MONITOR READING SR HR 78. INSTRUCTED PATIENT ON BEDREST FOR 3 HOURS. VERBALIZED UNDERSTANDING. WILL CONTINUE TO MONITOR.
--- NOTE | 2019-01-26 19:00 | NUR ---
RIGHT GROIN REMAINS SOFT WITH DRESSING DRY AND INTACT.
[2019-01-27 03:34] VITALS: BP 110/49
[2019-01-27 04:42] LABS: BASOPHILS % (AUTO) 0.5 % (0.0-5.0); EOSINOPHILS % (AUTO) 1.3 % (0.0-8.0); HEMATOCRIT 29.3 % (42-54); MEAN CORPUSCULAR HEMOGLOBIN 24.6 pg (27.0-33.0); MEAN CORPUSCULAR HGB CONC 31.6 g/dL (32.0-36.0); MEAN CORPUSCULAR VOLUME 77.9 fL (79-99); MONOCYTES % (AUTO) 11.9 % (3.0-13.0); NEUTROPHILS % (AUTO) 62.3 % (40.0-77.0); PLATELET COUNT (AUTO) 360 K/uL (130-400); RED BLOOD CELL COUNT(AUTO) 3.76 MIL/uL (4.50-6.20); RED CELL DISTRIBUTION WIDTH 19.1 % (11.0-15.5); WHITE BLOOD COUNT (AUTO) 7.7 K/uL (4.8-10.8)
[2019-01-27 05:00] LABS: CREATININE 1.4 mg/dL (0.5-1.5); POTASSIUM 3.4 mmol/L (3.5-5.1); TROPONIN I 0.19 ng/mL (0.00-0.06)
[2019-01-27] MEDS: IPRATROPIUM/ALBUTEROL SULFATE 3 ML SOLUTION IH PRN (06:47)
[2019-01-27 07:00] VITALS: BP 116/62
[2019-01-27] MEDS: **HM**(Mirabegron (Myrbetriq) 25 MG PO SCH (09:00)
[2019-01-27] MEDS: ASPIRIN 81 MG EC TAB PO SCH (09:00)
[2019-01-27] MEDS: CLOPIDOGREL BISULFATE 75 MG TAB PO SCH (09:00)
[2019-01-27] MEDS: RANOLAZINE 500 MG TAB.SR.12H PO SCH (10:05)
[2019-01-27] MEDS: PIOGLITAZONE HCL 15 MG TAB PO SCH (10:05)
[2019-01-27] MEDS: TAMSULOSIN HCL 0.4 MG CAP.ER.24H PO SCH (10:06)
[2019-01-27] MEDS: PANTOPRAZOLE SODIUM 40 MG TABLET.DR PO SCH (10:06)
[2019-01-27] MEDS: METOPROLOL TARTRATE 50 MG TAB PO SCH (10:06)
[2019-01-27] MEDS: FUROSEMIDE 40 MG TABLET PO SCH (10:06)
[2019-01-27] MEDS: SIMVASTATIN 20 MG TABLET PO SCH (10:06)
[2019-01-27 11:00] VITALS: BP 126/64
[2019-01-27] MEDS ORDERED: FURO40TA7 PO (12:44)
[2019-01-31] MEDS ORDERED: ERGOCALCIFEROL (VITAMIN D2) 50,000 UNIT CAPSULE PO SCH (09:00)
== END 2019-01-27 13:09 | disposition home or self-care (01) | DRG 286 ==
LOC: EDH 16:05 → OBSVTOIN 17:45 → EDHIP 17:45 → 3BH 18:29 → 2AH 01-26 14:44
PROVIDERS: ADMIT Internal Medicine Pulmonary Disease; ATTEND Internal Medicine Pulmonary Disease
PROC: 4A023N8 Measurement of Cardiac Sampling and Pressure, Bilateral, Percutaneous Approach (ICD-10-PCS; principal; 2019-01-26)
PROC: B2111ZZ Fluoroscopy of Multiple Coronary Arteries using Low Osmolar Contrast (ICD-10-PCS; 2019-01-26)
PROC: B3101ZZ Fluoroscopy of Thoracic Aorta using Low Osmolar Contrast (ICD-10-PCS; 2019-01-26)
PROC: B2181ZZ Fluoroscopy of Left Internal Mammary Bypass Graft using Low Osmolar Contrast (ICD-10-PCS; 2019-01-26)
PROC: B2121ZZ Fluoroscopy of Single Coronary Artery Bypass Graft using Low Osmolar Contrast (ICD-10-PCS; 2019-01-26)
DX: I13.0 Hypertensive heart and chronic kidney disease with heart failure and stage 1 through stage 4 chronic kidney disease, or unspecified chronic kidney disease (principal); I50.43 Acute on chronic combined systolic (congestive) and diastolic (congestive) heart failure; I35.2 Nonrheumatic aortic (valve) stenosis with insufficiency; I73.9 Peripheral vascular disease, unspecified; I25.10 Atherosclerotic heart disease of native coronary artery without angina pectoris; N40.1 Benign prostatic hyperplasia with lower urinary tract symptoms; K21.9 Gastro-esophageal reflux disease without esophagitis; F17.200 Nicotine dependence, unspecified, uncomplicated; E78.5 Hyperlipidemia, unspecified; I25.5 Ischemic cardiomyopathy; N18.3 Chronic kidney disease, stage 3 (moderate); I77.1 Stricture of artery; N32.81 Overactive bladder; Z95.1 Presence of aortocoronary bypass graft; Z79.899 Other long term (current) drug therapy; Z79.02 Long term (current) use of antithrombotics/antiplatelets; Z79.82 Long term (current) use of aspirin; Z79.51 Long term (current) use of inhaled steroids; Z87.11 Personal history of peptic ulcer disease; Z87.19 Personal history of other diseases of the digestive system; Z95.5 Presence of coronary angioplasty implant and graft
CPT/HCPCS: 36415; 71045; 80048; 80053; 80061; 81003; 82550; 82948; 83874; 83880; 84484; 85025; 85027; 85347; 85610; 85730; 86850; 86900; 86901; 93005; 93306; 93460; 94640; 94664; C1760; C1769; C1894; G0378; J1250; J1644; J1940; J2250; J3010; J3490; Q9967

== ENCOUNTER → 2019-03-07 | Outpatient (CLI) | payer MEDICARE ==
[~2019-03-07] VITALS: Ht 162.6 cm; Wt 72.9 kg
[~2019-03-07] MED LIST changes: -AEC81 PO; -AZIT500T PO; -CLOP75TA14 PO; -FLUT1BLS IH; +FURO40TA7 PO; -GABA600T10 PO; +MIRA25TA PO; -NIAC1CAP PO; -NITR0.4T50 SL; -OSEL75 PO; -OXYB10TA2 PO; -PRED20TA3 PO; -SUCR1TAB2 PO
[2019-03-07 09:46] LABS: APPEARANCE,URINE Clear (CLEAR); BILIRUBIN,URINE Negative (NEGATIVE); COLOR,URINE Yellow (YELLOW); GLUCOSE, URINE (UA) Negative (NEGATIVE); KETONES,URINE Negative (NEGATIVE); LEUKOCYTE ESTERASE ,URINE Small (NEGATIVE); NITRATE,URINE Negative (NEGATIVE); OCCULT BLOOD,URINE Negative (NEGATIVE); PROTEIN,URINE Negative (NEGATIVE); UROBILINOGEN,URINE 0.2 mg/dL (0.2-1.0)
[2019-03-07 09:47] VITALS: BP 129/65
[2019-03-07 10:01] LABS: BASOPHILS % (AUTO) 0.5 % (0.0-5.0); EOSINOPHILS % (AUTO) 1.4 % (0.0-8.0); HEMATOCRIT 25.2 % (42-54); LYMPHOCYTES % (AUTO) 20.6 % (21.0-51.0); MEAN CORPUSCULAR HEMOGLOBIN 19.5 pg (27.0-33.0); MEAN CORPUSCULAR HGB CONC 28.6 g/dL (32.0-36.0); MEAN CORPUSCULAR VOLUME 68.3 fL (79-99); MONOCYTES % (AUTO) 14.8 % (3.0-13.0); NEUTROPHILS % (AUTO) 62.4 % (40.0-77.0); NUCLEATED RED BLOOD CELLS 0.3 % (0.0-0.19); PLATELET COUNT (AUTO) 394 K/uL (130-400); RED BLOOD CELL COUNT(AUTO) 3.69 MIL/uL (4.50-6.20); RED CELL DISTRIBUTION WIDTH 17.7 % (11.0-15.5); WHITE BLOOD COUNT (AUTO) 7.4 K/uL (4.8-10.8)
[2019-03-07 10:05] LABS: BACTERIA,URINE Rare /HPF (None Seen); RBC,URINE 0-1 /HPF (0-1); SQUAMOUS EPITHELIAL CELL,UR Rare /HPF (0-2)
[2019-03-07 10:14] LABS: INR 1.06 (0.85-1.15); PARTIAL THROMBOPLASTIN TIME 25.7 SEC (26.3-35.5); PROTHROMBIN TIME 11.1 SEC (9.6-11.6)
[2019-03-07 10:15] LABS: CREATININE 1.5 mg/dL (0.5-1.5); POTASSIUM 4.2 mmol/L (3.5-5.1)
--- NOTE | 2019-03-07 10:18 | NUR ---
LABS INFORMED KAMILLA OF ABNORMAL H&H. ORDERS RECEIVED TO CANCEL PROCEDURE AND HAVE PT SEE PCP. WILL NEED CLEARANCE FROM PCP PRIOR TO RE-SCHEDULING. INFORMED PT. VERBALIZED UNDERSTANDING.
== END ==
LOC: EDSTATUS 09:00 → DAH 10:00
PROVIDERS: ATTEND Internal Medicine Cardiovascular Disease
DX: Z01.818 Encounter for other preprocedural examination (principal); I25.10 Atherosclerotic heart disease of native coronary artery without angina pectoris
CPT/HCPCS: 36415; 80048; 81001; 85025; 85610; 85730; 93005

== ENCOUNTER → 2019-05-27 | Outpatient (CLI) | payer MEDICARE | END | disposition home or self-care (01) | LOC: RAH 08:18 | PROVIDERS: ATTEND Family Medicine | DX: M79.89 Other specified soft tissue disorders (principal); I70.202 Unspecified atherosclerosis of native arteries of extremities, left leg; M79.672 Pain in left foot | CPT/HCPCS: 73630 ==

== ENCOUNTER 2019-09-06 09:16 | Observation (INO) | payer MEDICARE ==
[~2019-09-06] VITALS: Ht 160 cm; Wt 71.4 kg
[2019-09-06] VITALS (10 sets, daily range): BP systolic 92–130; BP diastolic 57–65
[~2019-09-06 09:16] MED LIST changes: +ASPI-556 PO; +CLOP75TA14 PO; -ERGO500014 PO; -FURO40TA7 PO; +IRON1CAP32 PO; -PANT40TA25 PO; +PANT40TA54 PO
[2019-09-06 09:57] LABS: BASOPHILS % (AUTO) 0.5 % (0.0-5.0); EOSINOPHILS % (AUTO) 1.3 % (0.0-8.0); LYMPHOCYTES % (AUTO) 24.5 % (21.0-51.0); MEAN CORPUSCULAR HEMOGLOBIN 29.5 pg (27.0-33.0); MEAN CORPUSCULAR HGB CONC 31.8 g/dL (32.0-36.0); MONOCYTES % (AUTO) 12.2 % (3.0-13.0); NEUTROPHILS % (AUTO) 61.2 % (40.0-77.0); PLATELET COUNT (AUTO) 299 K/uL (130-400); RED CELL DISTRIBUTION WIDTH 15.6 % (11.0-15.5); WHITE BLOOD COUNT (AUTO) 7.6 K/uL (4.8-10.8)
[2019-09-06 10:12] LABS: INR 0.94 (0.85-1.15); PARTIAL THROMBOPLASTIN TIME 28.5 SEC (26.3-35.5); POTASSIUM 4.7 mmol/L (3.5-5.1); PROTHROMBIN TIME 10.2 SEC (9.6-11.6)
[2019-09-06] MEDS ORDERED: SODIUM CHLORIDE 0.9% 1000ML 1,000 ML IV ONE (10:40)
[2019-09-06 10:44] LABS: APPEARANCE,URINE Clear (CLEAR); BILIRUBIN,URINE Negative (NEGATIVE); COLOR,URINE Dark Yellow (YELLOW); GLUCOSE, URINE (UA) TRACE mg/dL (NEGATIVE); KETONES,URINE Trace mg/dL (NEGATIVE); LEUKOCYTE ESTERASE ,URINE Small (NEGATIVE); NITRATE,URINE Negative (NEGATIVE); OCCULT BLOOD,URINE Negative (NEGATIVE); PROTEIN,URINE POS 2+ mg/dL (NEGATIVE)
[2019-09-06 10:59] LABS: BACTERIA,URINE Few /HPF (None Seen)
[2019-09-06 11:00] LABS: RBC,URINE 0-1 /HPF (0-1); SQUAMOUS EPITHELIAL CELL,UR None Seen /HPF (0-2)
--- NOTE | 2019-09-06 11:28 | NUR ---
TED Ann NOTIFIED WITH UA RESULTS
[2019-09-06] MEDS ORDERED: LIDOCAINE HCL 2% 20ML ONE (11:43)
[2019-09-06] MEDS ORDERED: IOHEXOL 350 MG/ML 100ML INFUS..BTL IV ONE (11:43)
[2019-09-06] MEDS ORDERED: IOHEXOL-350 50ML VIAL IV ONE (11:43)
[2019-09-06] MEDS ORDERED: HEPARIN SODIUM 1000UNIT/ML 10ML VIAL ONE (11:43)
[2019-09-06] MEDS ORDERED: NITROGLYCERIN 2 MG/VIAL VIAL IV ONE (11:43)
[2019-09-06] MEDS ORDERED: ONDANSETRON HCL 4 MG/2 ML VIAL ONE (13:21)
[2019-09-06] MEDS ORDERED: HYDRALAZINE HCL 20 MG/ML VIAL ONE (13:41)
[2019-09-06] MEDS ORDERED: FUROSEMIDE 10 MG/ML 2ML VIAL ONE (13:59)
[2019-09-06] MEDS ORDERED: SODIUM CHLORIDE 0.9% 1000ML 1,000 ML IV SCH (14:13)
[2019-09-06] MEDS ORDERED: ACETAMINOPHEN-CODEINE 300/30MG TAB PO PRN ×2 (14:15)
[2019-09-06] MEDS ORDERED: ONDANSETRON HCL 4 MG/2 ML VIAL IVP PRN (14:15)
[2019-09-06] MEDS ORDERED: DEXTROSE 50%-WATER 50 ML DISP.SYRIN IV PRN (14:15)
[2019-09-06] MEDS: INSULIN HUMULIN R 100 UNIT/ML 3ML SQ SCH ×3 (16:30→21:00)
[2019-09-06] MEDS ORDERED: MAGNESIUM 2GM PREMIX 50ML 50 ML IV PRN (17:15)
[2019-09-06] MEDS: RANOLAZINE 500 MG TAB.SR.12H PO SCH (20:00)
[2019-09-06] MEDS: METOPROLOL TARTRATE 50 MG TAB PO SCH (21:16)
--- NOTE | 2019-09-06 23:27 | NUR ---
PAGED SD ONCALL PENDING ELENI FERNANDEZ TO RETURN PAGE. PT C/O OF EPIGASTRIC PAIN. REPORTS THE ZOFRAN AND TYLENOL WITH CODINE ADMINISTERED AT 2115 WAS NOT EFFECTIVE AND THE PT HAS HAD X2 EMESIS EPISODES. SMALL AMOUNT OF YELLOW EMESIS NOTED IN EMESIS BAG. PT REPORTS THAT HE HAD THIS PAIN PRIOR TO THE PROCEDURE AND THE PAIN HAD GONE AWAY, NOW THAT THE PAIN HAS RETURNED IT FEELS MORE INTENSE.
[2019-09-07] VITALS: BP 134/77
[2019-09-07] MEDS ORDERED: METOCLOPRAMIDE 10 MG/2 ML VIAL IVP ONE
[2019-09-07] MEDS ORDERED: METOCLOPRAMIDE 10 MG/2 ML VIAL IVP PRN
[2019-09-07] MEDS ORDERED: METOCLOPRAMIDE 10 MG/2 ML VIAL ONE (00:45)
[2019-09-07 04:00] VITALS: BP 150/74
[2019-09-07 04:38] LABS: HEMATOCRIT 40.4 % (42-54); MEAN CORPUSCULAR HEMOGLOBIN 29.7 pg (27.0-33.0); MEAN CORPUSCULAR HGB CONC 32.7 g/dL (32.0-36.0); RED BLOOD CELL COUNT(AUTO) 4.44 MIL/uL (4.50-6.20); RED CELL DISTRIBUTION WIDTH 14.8 % (11.0-15.5); WHITE BLOOD COUNT (AUTO) 15.6 K/uL (4.8-10.8)
[2019-09-07 05:03] LABS: CREATININE 1.1 mg/dL (0.5-1.5)
[2019-09-07] MEDS: INSULIN HUMULIN R 100 UNIT/ML 3ML SQ SCH ×4 (05:29→11:28)
[2019-09-07 08:00] VITALS: BP 153/79
[2019-09-07] MEDS ORDERED: ASPIRIN 81 MG EC TAB PO SCH (09:00)
[2019-09-07] MEDS ORDERED: VIT B PO SCH (09:00)
[2019-09-07] MEDS ORDERED: PIOGLITAZONE HCL 15 MG TAB PO SCH (09:00)
[2019-09-07] MEDS ORDERED: [UNRECOGNIZED DRUG - OTHER] PO SCH (09:00)
[2019-09-07] MEDS ORDERED: CLOPIDOGREL BISULFATE 75 MG TAB PO SCH (09:00)
[2019-09-07] MEDS ORDERED: TAMSULOSIN HCL 0.4 MG CAP.ER.24H PO SCH (09:00)
[2019-09-07] MEDS ORDERED: SIMVASTATIN 20 MG TABLET PO SCH (09:00)
[2019-09-07] MEDS ORDERED: C NO 9 PO SCH (09:00)
[2019-09-07] MEDS ORDERED: **HM**(Mirabegron (Myrbetriq) 25 MG PO SCH (09:00)
[2019-09-07] MEDS ORDERED: PANTOPRAZOLE SODIUM 40 MG TABLET.DR PO SCH (09:00)
[2019-09-07] MEDS ORDERED: IRON FUM PO SCH (09:00)
[2019-09-07] MEDS: METOPROLOL TARTRATE 50 MG TAB PO SCH (09:27)
[2019-09-07] MEDS: RANOLAZINE 500 MG TAB.SR.12H PO SCH (09:27)
[2019-09-07 11:29] VITALS: BP 140/79
--- NOTE | 2019-09-07 14:50 | NUR ---
DISCHARGE INSTRUCTIONS GIVEN TO PATIENT AND AT THE BEDSIDE. MADE AWARE OF FOLLOW UP APPOINTMENT WITH DR. ESPARZA. I SPOKE WITH EMIGDIO FROM DR. ESPARZA OFFICE SHE STATED THAT LABS ARE NO LONGER DRAWN IN THE OFFICE. PATIENT MADE AWARE OF ORDER PER DR. ESPARZA TO HAVE CBC, CHEM7, AND BNP DRAWN THIS THURSDAY IN PCP OFFICE AND HAVE THOSE RESULTS FAXED TO [facility]ART CLIN[facility], PROVIDED WITH FAX NUMBER. UNABLE TO SCHEDULE APPOINTMENT WITH DR. FULLER LINE IS BUSY. PRINTED RX GIVEN FOR LASIX AND ALDACTONE. DRESSING TO RIGHT GROIN DRY AND INTACT, NO BLEEDING NOTED. INSTRUCTED ON AFTERCARE. PATIENT AT THIS TIME DENIES SHORTNESS OF BREATH, CHESTPAIN. AAOX4, NO SIGNS AND SYMPTOMS OF DISTRESS NOTED. PATIENT WILL BE PICKED UP BY HIS DAUGHTER. TELE AND IV REMOVED.
--- NOTE | 2019-09-07 15:55 | NUR ---
[id number] patient signed BOYLE Letter, I faxed BOYLE Letter to [phone] and placed in chart under consent tab.
== END 2019-09-07 15:45 | disposition home or self-care (01) ==
LOC: DAH 09:16 → 4CH 09:17 → DAH 09:17 → 4CH 14:52
PROVIDERS: ADMIT Internal Medicine Pulmonary Disease; ATTEND Internal Medicine Pulmonary Disease
DX: I25.118 Atherosclerotic heart disease of native coronary artery with other forms of angina pectoris (principal); I25.5 Ischemic cardiomyopathy; I08.0 Rheumatic disorders of both mitral and aortic valves; I11.0 Hypertensive heart disease with heart failure; I50.30 Unspecified diastolic (congestive) heart failure; N40.0 Benign prostatic hyperplasia without lower urinary tract symptoms; E78.5 Hyperlipidemia, unspecified; E11.9 Type 2 diabetes mellitus without complications; D64.9 Anemia, unspecified; F10.10 Alcohol abuse, uncomplicated; F17.210 Nicotine dependence, cigarettes, uncomplicated; Z79.02 Long term (current) use of antithrombotics/antiplatelets; Z79.899 Other long term (current) drug therapy; Z95.1 Presence of aortocoronary bypass graft
CPT/HCPCS: 36415 ×2; 80048 ×2; 80061; 81001; 82948 ×2; 85025; 85027; 85347 ×2; 85610; 85730; 93005; 93461; 93567; 96374; 96375; A4215; A4216; A4221; A4222; A4223 ×3; A4606; A4663; C1725; C1760; C1769 ×2; C1874; C1887; C1893; C1894; C9600; G0378 ×16; J0360; J1644 ×2; J1940; J2405 ×2; J2765; J3490 ×2; J7030; Q9965 ×2; Q9967 ×2

== ENCOUNTER 2019-10-01 21:34 | Inpatient (IN) | payer MEDICARE ==
[~2019-10-01] VITALS: Ht 160 cm; Wt 73.0 kg
[~2019-10-01 21:34] MED LIST changes: +PANT40TA25 PO; -PANT40TA54 PO
[2019-10-01] MEDS ORDERED: MAG HYDROX/AL HYDROX/SIMETH ES 30 ML SUSP UDCUP ONE (22:21)
[2019-10-01] MEDS ORDERED: LIDOCAINE HCL 2% VISCOUS 15 ML UDCUP ONE (22:21)
[2019-10-01 22:33] LABS: BASOPHILS % (AUTO) 0.2 % (0.0-5.0); EOSINOPHILS % (AUTO) 0.9 % (0.0-8.0); HEMATOCRIT 39.8 % (42-54); LYMPHOCYTES % (AUTO) 6.4 % (21.0-51.0); MEAN CORPUSCULAR HEMOGLOBIN 28.8 pg (27.0-33.0); MEAN CORPUSCULAR HGB CONC 32.7 g/dL (32.0-36.0); MEAN CORPUSCULAR VOLUME 88.2 fL (79-99); MONOCYTES % (AUTO) 11.5 % (3.0-13.0); NEUTROPHILS % (AUTO) 80.6 % (40.0-77.0); PLATELET COUNT (AUTO) 398 K/uL (130-400); RED BLOOD CELL COUNT(AUTO) 4.51 MIL/uL (4.50-6.20); RED CELL DISTRIBUTION WIDTH 16.7 % (11.0-15.5); WHITE BLOOD COUNT (AUTO) 14.1 K/uL (4.8-10.8)
[2019-10-01 22:45] LABS: INR 0.94 (0.85-1.15); PARTIAL THROMBOPLASTIN TIME 27.4 SEC (26.3-35.5); PROTHROMBIN TIME 10.2 SEC (9.6-11.6)
[2019-10-01 23:05] LABS: CREATININE 1.1 mg/dL (0.5-1.5); POTASSIUM 4.4 mmol/L (3.5-5.1)
[2019-10-01 23:20] LABS: ALBUMIN 3.6 g/dL (3.5-5.0); BILIRUBIN,TOTAL 0.4 mg/dL (0.2-1.0)
[2019-10-02] MEDS ORDERED: DEXTROSE 5 % AND 0.9 % NACL 1,000 ML IV ONE (00:51)
[2019-10-02] MEDS ORDERED: ONDANSETRON HCL 4 MG/2 ML VIAL IVP PRN (01:15)
[2019-10-02] MEDS ORDERED: ACETAMINOPHEN 650 MG SUPPOSITORY RC PRN (01:15)
[2019-10-02] MEDS ORDERED: DEXTROSE 5 % AND 0.9 % NACL 1,000 ML IV SCH (01:15)
[2019-10-02] MEDS ORDERED: HYDRALAZINE HCL 20 MG/ML VIAL IV PRN (01:15)
[2019-10-02] MEDS ORDERED: ONDANSETRON HCL 4 MG/2 ML VIAL ONE (04:09)
[2019-10-02] MEDS ORDERED: MORPHINE SULFATE 2 MG/ML 1ML SYG ONE (04:09)
[2019-10-02 04:31] LABS: ALBUMIN 3.4 g/dL (3.5-5.0); BILIRUBIN,TOTAL 0.4 mg/dL (0.2-1.0); CREATININE 0.8 mg/dL (0.5-1.5); POTASSIUM 4.1 mmol/L (3.5-5.1); TOTAL PROTEIN, SERUM 7.5 g/dL (6.0-8.3)
[2019-10-02] MEDS ORDERED: ZOSYN 3.375GM+NS 50ML 50 ML IV ONE (05:25)
[2019-10-02] MEDS: ZOSYN 3.375GM+NS 50ML 50 ML IV SCH ×3 (05:30→22:09)
[2019-10-02] MEDS: FAMOTIDINE 20MG TAB 20 MG TAB PO SCH (09:00)
[2019-10-02 10:23] VITALS: BP 142/73
[2019-10-02] MEDS ORDERED: LACTATED RINGERS 1000ML 1,000 ML IV ONE (10:30)
[2019-10-02] MEDS: MORPHINE SULFATE 2 MG/ML 1ML SYG IVP PRN (10:38)
[2019-10-02] MEDS: ENOXAPARIN SODIUM 40 MG/0.4 ML SYRINGE SQ SCH (10:38)
[2019-10-02] MEDS: LACTATED RINGERS 1000ML 1,000 ML IV SCH ×3 (10:39→22:09)
[2019-10-02 12:09] VITALS: BP 139/74
[2019-10-02 14:56] LABS: APPEARANCE,URINE Clear (CLEAR); BILIRUBIN,URINE Negative (NEGATIVE); COLOR,URINE Yellow (YELLOW); GLUCOSE, URINE (UA) Negative (NEGATIVE); KETONES,URINE Negative (NEGATIVE); LEUKOCYTE ESTERASE ,URINE Negative (NEGATIVE); NITRATE,URINE Negative (NEGATIVE); OCCULT BLOOD,URINE Negative (NEGATIVE); PROTEIN,URINE POS 1+ mg/dL (NEGATIVE); UROBILINOGEN,URINE 0.2 mg/dL (0.2-1.0)
[2019-10-02 15:15] LABS: BACTERIA,URINE Rare /HPF (None Seen); RBC,URINE 0-1 /HPF (0-1); SQUAMOUS EPITHELIAL CELL,UR 0-2 /HPF (0-2); WBC,URINE 0-1 /HPF (0-1)
[2019-10-02] MEDS ORDERED: LIDOCAINE HCL-MPF 1% 2ML VIAL IV PRN (16:15)
[2019-10-02] MEDS ORDERED: DEXTROSE 50%-WATER 50 ML DISP.SYRIN IV PRN (16:15)
[2019-10-02] MEDS ORDERED: GLUCAGON 1MG KIT 1 MG ML IM PRN (16:15)
[2019-10-02] MEDS ORDERED: MAGNESIUM 2GM PREMIX 50ML 50 ML IV PRN (16:15)
[2019-10-02 16:30] VITALS: BP 139/79
[2019-10-02] MEDS ORDERED: INSULIN HUMULIN R 100 UNIT/ML 3ML SQ SCH (16:30)
[2019-10-02] MEDS: ACETAMINOPHEN 325 MG TAB PO PRN (17:49)
[2019-10-02 19:30] VITALS: BP 128/84
[2019-10-02] MEDS ORDERED: SPIR25TA6 PO (20:08)
[2019-10-02] MEDS ORDERED: EMPA25TA PO (20:08)
[2019-10-02] MEDS ORDERED: FURO20TA4 PO (20:08)
[2019-10-02] MEDS ORDERED: METH4TAB15 PO (20:08)
[2019-10-02] MEDS: METOPROLOL TARTRATE 50 MG TAB PO SCH (22:09)
[2019-10-02 23:54] VITALS: BP 129/82
[2019-10-03] MEDS: LACTATED RINGERS 1000ML 1,000 ML IV SCH ×6 (01:30→21:00)
[2019-10-03] MEDS: ACETAMINOPHEN 325 MG TAB PO PRN ×2 (03:43→18:20)
[2019-10-03 03:59] VITALS: BP 125/55
[2019-10-03 05:22] LABS: BASOPHILS % (AUTO) 0.1 % (0.0-5.0); EOSINOPHILS % (AUTO) 1.4 % (0.0-8.0); HEMATOCRIT 34.3 % (42-54); LYMPHOCYTES % (AUTO) 10.2 % (21.0-51.0); MEAN CORPUSCULAR HEMOGLOBIN 29.2 pg (27.0-33.0); MEAN CORPUSCULAR HGB CONC 33.8 g/dL (32.0-36.0); MEAN CORPUSCULAR VOLUME 86.4 fL (79-99); MONOCYTES % (AUTO) 13.4 % (3.0-13.0); NEUTROPHILS % (AUTO) 74.4 % (40.0-77.0); PLATELET COUNT (AUTO) 282 K/uL (130-400); RED BLOOD CELL COUNT(AUTO) 3.97 MIL/uL (4.50-6.20)
[2019-10-03 05:35] LABS: ALBUMIN 2.6 g/dL (3.5-5.0); BILIRUBIN,DIRECT 0.3 mg/dL (0.0-0.3); BILIRUBIN,TOTAL 0.7 mg/dL (0.2-1.0); CREATININE 0.9 mg/dL (0.5-1.5); MAGNESIUM 2.5 mg/dL (1.80-2.40); PHOSPHORUS 2.7 mg/dL (2.5-4.9); POTASSIUM 3.7 mmol/L (3.5-5.1); TOTAL PROTEIN, SERUM 6.7 g/dL (6.0-8.3)
[2019-10-03 05:41] LABS: B-TYPE NATRIURETIC PEPTIDE 397 pg/mL (0-100)
[2019-10-03] MEDS: INSULIN HUMULIN R 100 UNIT/ML 3ML SQ SCH ×4 (06:00→18:00)
[2019-10-03] MEDS: ZOSYN 3.375GM+NS 50ML 50 ML IV SCH ×3 (06:02→20:57)
[2019-10-03 07:49] VITALS: BP 137/64
[2019-10-03] MEDS: METOPROLOL TARTRATE 50 MG TAB PO SCH ×2 (09:00→20:56)
[2019-10-03] MEDS: CLOPIDOGREL BISULFATE 75 MG TAB PO SCH (09:00)
[2019-10-03] MEDS: PIOGLITAZONE HCL 15 MG TAB PO SCH (09:00)
[2019-10-03] MEDS: TAMSULOSIN HCL 0.4 MG CAP.ER.24H PO SCH (09:00)
[2019-10-03] MEDS: FAMOTIDINE 20MG TAB 20 MG TAB PO SCH (09:00)
[2019-10-03] MEDS: ASPIRIN 81 MG EC TAB PO SCH (09:00)
[2019-10-03] MEDS: SPIRONOLACTONE 25 MG TAB PO SCH ×2 (09:00→20:56)
[2019-10-03] MEDS: PANTOPRAZOLE SODIUM 40 MG TABLET.DR PO SCH (09:00)
[2019-10-03] MEDS: SIMVASTATIN 20 MG TABLET PO SCH ×2 (09:00→20:56)
[2019-10-03] MEDS: (Empagliflozin (Jardiance) 25 MG) PO SCH (09:00)
[2019-10-03] MEDS ORDERED: FUROSEMIDE 20 MG TABLET PO SCH (09:00)
[2019-10-03] MEDS: METHYLPREDNISOLONE 4 MG TABLET PO SCH (09:00)
[2019-10-03] MEDS: RANOLAZINE 500 MG TAB.SR.12H PO SCH ×2 (09:00→20:56)
[2019-10-03] MEDS: ENOXAPARIN SODIUM 40 MG/0.4 ML SYRINGE SQ SCH (10:39)
[2019-10-03 11:34] VITALS: BP 141/63
[2019-10-03 16:51] VITALS: BP 122/66
[2019-10-03 20:00] VITALS: BP 112/68
[2019-10-03] MEDS ORDERED: IBUPROFEN 600 MG TABLET PO PRN (20:45)
[2019-10-04] VITALS (7 sets, daily range): BP systolic 112–144; BP diastolic 37–68
[2019-10-04] MEDS: LACTATED RINGERS 1000ML 1,000 ML IV SCH ×5 (01:55→20:46)
[2019-10-04 03:35] LABS: BASOPHILS % (AUTO) 0.1 % (0.0-5.0); EOSINOPHILS % (AUTO) 1.8 % (0.0-8.0); HEMATOCRIT 34.9 % (42-54); LYMPHOCYTES % (AUTO) 9.1 % (21.0-51.0); MEAN CORPUSCULAR VOLUME 87.9 fL (79-99); NEUTROPHILS % (AUTO) 76.3 % (40.0-77.0); PLATELET COUNT (AUTO) 248 K/uL (130-400); RED BLOOD CELL COUNT(AUTO) 3.97 MIL/uL (4.50-6.20); RED CELL DISTRIBUTION WIDTH 16.5 % (11.0-15.5); WHITE BLOOD COUNT (AUTO) 13.6 K/uL (4.8-10.8)
[2019-10-04 03:55] LABS: ALBUMIN 2.5 g/dL (3.5-5.0); BILIRUBIN,DIRECT 0.3 mg/dL (0.0-0.3); BILIRUBIN,TOTAL 0.6 mg/dL (0.2-1.0); MAGNESIUM 2.1 mg/dL (1.80-2.40); PHOSPHORUS 3.2 mg/dL (2.5-4.9); POTASSIUM 3.6 mmol/L (3.5-5.1); TOTAL PROTEIN, SERUM 6.7 g/dL (6.0-8.3)
[2019-10-04] MEDS: ZOSYN 3.375GM+NS 50ML 50 ML IV SCH ×3 (04:33→20:44)
[2019-10-04] MEDS: MORPHINE SULFATE 2 MG/ML 1ML SYG IVP PRN (05:47)
[2019-10-04] MEDS: INSULIN HUMULIN R 100 UNIT/ML 3ML SQ SCH ×4 (05:48→18:00)
[2019-10-04] MEDS: (Empagliflozin (Jardiance) 25 MG) PO SCH (09:00)
[2019-10-04] MEDS: TAMSULOSIN HCL 0.4 MG CAP.ER.24H PO SCH (09:00)
[2019-10-04] MEDS: RANOLAZINE 500 MG TAB.SR.12H PO SCH ×2 (09:00→20:44)
[2019-10-04] MEDS: METOPROLOL TARTRATE 50 MG TAB PO SCH ×2 (09:00→20:44)
[2019-10-04] MEDS: FAMOTIDINE 20MG TAB 20 MG TAB PO SCH (09:00)
[2019-10-04] MEDS: PANTOPRAZOLE SODIUM 40 MG TABLET.DR PO SCH (09:00)
[2019-10-04] MEDS: METHYLPREDNISOLONE 4 MG TABLET PO SCH (09:00)
[2019-10-04] MEDS: CLOPIDOGREL BISULFATE 75 MG TAB PO SCH (09:00)
[2019-10-04] MEDS: ASPIRIN 81 MG EC TAB PO SCH (09:00)
[2019-10-04] MEDS: SPIRONOLACTONE 25 MG TAB PO SCH ×2 (09:00→20:44)
[2019-10-04] MEDS: PIOGLITAZONE HCL 15 MG TAB PO SCH (09:00)
[2019-10-04] MEDS: ENOXAPARIN SODIUM 40 MG/0.4 ML SYRINGE SQ SCH (09:50)
[2019-10-04] MEDS: FUROSEMIDE 10 MG/ML 2ML VIAL IV SCH (12:44)
[2019-10-04] MEDS: SIMVASTATIN 20 MG TABLET PO SCH (20:44)
[2019-10-05] VITALS: BP 126/60
[2019-10-05] MEDS: LACTATED RINGERS 1000ML 1,000 ML IV SCH ×4 (00:45→22:15)
[2019-10-05 03:37] LABS: BASOPHILS % (AUTO) 0.1 % (0.0-5.0); EOSINOPHILS % (AUTO) 0.7 % (0.0-8.0); HEMATOCRIT 31.3 % (42-54); LYMPHOCYTES % (AUTO) 16.5 % (21.0-51.0); MEAN CORPUSCULAR HEMOGLOBIN 28.4 pg (27.0-33.0); MEAN CORPUSCULAR HGB CONC 33.2 g/dL (32.0-36.0); MEAN CORPUSCULAR VOLUME 85.5 fL (79-99); MONOCYTES % (AUTO) 13.2 % (3.0-13.0); NEUTROPHILS % (AUTO) 68.9 % (40.0-77.0); PLATELET COUNT (AUTO) 225 K/uL (130-400); RED BLOOD CELL COUNT(AUTO) 3.66 MIL/uL (4.50-6.20); RED CELL DISTRIBUTION WIDTH 16.2 % (11.0-15.5); WHITE BLOOD COUNT (AUTO) 10.4 K/uL (4.8-10.8)
[2019-10-05 04:00] VITALS: BP 125/63
[2019-10-05 04:23] LABS: CREATININE 0.9 mg/dL (0.5-1.5); MAGNESIUM 1.8 mg/dL (1.80-2.40); POTASSIUM 3.2 mmol/L (3.5-5.1)
[2019-10-05] MEDS: ZOSYN 3.375GM+NS 50ML 50 ML IV SCH ×3 (05:15→20:59)
[2019-10-05] MEDS: POTASSIUM CHLORIDE 20MEQ/100ML 100 ML IV PRN ×2 (05:16→18:44)
[2019-10-05] MEDS: INSULIN HUMULIN R 100 UNIT/ML 3ML SQ SCH ×5 (06:00→20:59)
[2019-10-05 07:56] VITALS: BP 144/70
[2019-10-05] MEDS: FUROSEMIDE 10 MG/ML 2ML VIAL IV SCH (08:49)
[2019-10-05] MEDS: METOPROLOL TARTRATE 50 MG TAB PO SCH ×2 (08:49→20:59)
[2019-10-05] MEDS: (Empagliflozin (Jardiance) 25 MG) PO SCH (08:54)
[2019-10-05] MEDS: PIOGLITAZONE HCL 15 MG TAB PO SCH ×2 (08:54→09:22)
[2019-10-05] MEDS: ASPIRIN 81 MG EC TAB PO SCH ×2 (08:54→09:22)
[2019-10-05] MEDS: TAMSULOSIN HCL 0.4 MG CAP.ER.24H PO SCH ×2 (08:54→09:22)
[2019-10-05] MEDS: METHYLPREDNISOLONE 4 MG TABLET PO SCH ×2 (08:55→09:22)
[2019-10-05] MEDS: FAMOTIDINE 20MG TAB 20 MG TAB PO SCH ×2 (08:55→09:22)
[2019-10-05] MEDS: CLOPIDOGREL BISULFATE 75 MG TAB PO SCH ×2 (08:55→09:22)
[2019-10-05] MEDS: PANTOPRAZOLE SODIUM 40 MG TABLET.DR PO SCH ×2 (08:56→09:21)
[2019-10-05] MEDS: ENOXAPARIN SODIUM 40 MG/0.4 ML SYRINGE SQ SCH (09:21)
[2019-10-05] MEDS: SPIRONOLACTONE 25 MG TAB PO SCH ×2 (09:22→20:59)
[2019-10-05] MEDS: RANOLAZINE 500 MG TAB.SR.12H PO SCH ×2 (09:22→20:59)
[2019-10-05 11:33] VITALS: BP 101/60
[2019-10-05 16:08] VITALS: BP 130/59
[2019-10-05 19:37] VITALS: BP 136/68
[2019-10-05] MEDS: SIMVASTATIN 20 MG TABLET PO SCH (20:59)
[2019-10-06 01:50] VITALS: BP 126/67
[2019-10-06 03:30] VITALS: BP 148/69
[2019-10-06] MEDS: ZOSYN 3.375GM+NS 50ML 50 ML IV SCH ×2 (05:20→12:30)
[2019-10-06 05:50] LABS: BASOPHILS % (AUTO) 0.1 % (0.0-5.0); EOSINOPHILS % (AUTO) 0.8 % (0.0-8.0); HEMATOCRIT 32.4 % (42-54); LYMPHOCYTES % (AUTO) 15.3 % (21.0-51.0); MEAN CORPUSCULAR HEMOGLOBIN 28.6 pg (27.0-33.0); MEAN CORPUSCULAR VOLUME 86.6 fL (79-99); MONOCYTES % (AUTO) 7.9 % (3.0-13.0); NEUTROPHILS % (AUTO) 75.5 % (40.0-77.0); PLATELET COUNT (AUTO) 235 K/uL (130-400); RED BLOOD CELL COUNT(AUTO) 3.74 MIL/uL (4.50-6.20); RED CELL DISTRIBUTION WIDTH 16.1 % (11.0-15.5)
[2019-10-06 06:16] LABS: CREATININE 0.8 mg/dL (0.5-1.5); MAGNESIUM 2.2 mg/dL (1.80-2.40); POTASSIUM 3.8 mmol/L (3.5-5.1)
[2019-10-06] MEDS: INSULIN HUMULIN R 100 UNIT/ML 3ML SQ SCH ×2 (06:16→11:30)
[2019-10-06 07:52] VITALS: BP 135/69
[2019-10-06] MEDS: (Empagliflozin (Jardiance) 25 MG) PO SCH (09:00)
[2019-10-06] MEDS: ASPIRIN 81 MG EC TAB PO SCH (10:14)
[2019-10-06] MEDS: FUROSEMIDE 10 MG/ML 2ML VIAL IV SCH (10:14)
[2019-10-06] MEDS: TAMSULOSIN HCL 0.4 MG CAP.ER.24H PO SCH (10:15)
[2019-10-06] MEDS: RANOLAZINE 500 MG TAB.SR.12H PO SCH (10:15)
[2019-10-06] MEDS: METOPROLOL TARTRATE 50 MG TAB PO SCH (10:15)
[2019-10-06] MEDS: METHYLPREDNISOLONE 4 MG TABLET PO SCH (10:15)
[2019-10-06] MEDS: FAMOTIDINE 20MG TAB 20 MG TAB PO SCH (10:15)
[2019-10-06] MEDS: SPIRONOLACTONE 25 MG TAB PO SCH (10:15)
[2019-10-06] MEDS: PIOGLITAZONE HCL 15 MG TAB PO SCH (10:16)
[2019-10-06] MEDS: CLOPIDOGREL BISULFATE 75 MG TAB PO SCH (10:16)
[2019-10-06] MEDS: ENOXAPARIN SODIUM 40 MG/0.4 ML SYRINGE SQ SCH (10:17)
[2019-10-06] MEDS: LACTATED RINGERS 1000ML 1,000 ML IV SCH (10:17)
[2019-10-06] MEDS: PANTOPRAZOLE SODIUM 40 MG TABLET.DR PO SCH (10:20)
[2019-10-06 11:29] VITALS: BP 129/68
== END 2019-10-06 15:35 | disposition home or self-care (01) | DRG 439 ==
LOC: EDH 21:34 → EDHIP 10-02 00:20 → 3BH 10-02 09:25
PROVIDERS: ADMIT Internal Medicine Critical Care Medicine; ATTEND Internal Medicine Critical Care Medicine
DX: K85.90 Acute pancreatitis without necrosis or infection, unspecified (principal); I50.22 Chronic systolic (congestive) heart failure; K22.10 Ulcer of esophagus without bleeding; D63.8 Anemia in other chronic diseases classified elsewhere; E11.51 Type 2 diabetes mellitus with diabetic peripheral angiopathy without gangrene; E78.5 Hyperlipidemia, unspecified; E87.6 Hypokalemia; I11.0 Hypertensive heart disease with heart failure; I25.10 Atherosclerotic heart disease of native coronary artery without angina pectoris; I35.0 Nonrheumatic aortic (valve) stenosis; K21.9 Gastro-esophageal reflux disease without esophagitis; N40.0 Benign prostatic hyperplasia without lower urinary tract symptoms; Z79.02 Long term (current) use of antithrombotics/antiplatelets; Z79.82 Long term (current) use of aspirin; Z79.899 Other long term (current) drug therapy; Z87.891 Personal history of nicotine dependence; Z95.1 Presence of aortocoronary bypass graft; Z95.5 Presence of coronary angioplasty implant and graft; Z79.84 Long term (current) use of oral hypoglycemic drugs
CPT/HCPCS: 36415; 71045; 74176; 76705; 80048; 80053; 80061; 80076; 81001; 82150; 82550; 82948; 83690; 83735; 83880; 84100; 84145; 84484; 85025; 85610; 85730; 86316; 87040; 93005; 97039; A6250; G0378; J1650; J1940; J2405; J2543; J3475; J3480; J3490; J7042; J7070; J7120; J7509

== ENCOUNTER 2019-10-15 16:49 | Inpatient (IN) | payer MEDICARE ==
[~2019-10-15] VITALS: Ht 160 cm; Wt 69.8 kg
[~2019-10-15 16:49] MED LIST changes: +EMPA25TA PO; +FURO20TA4 PO; +METH4TAB15 PO; -MIRA25TA PO; +SPIR25TA6 PO
[2019-10-15] MEDS ORDERED: ONDANSETRON HCL 4 MG/2 ML VIAL ONE ×2 (17:00→20:44)
[2019-10-15] MEDS ORDERED: MORPHINE SULFATE 4 MG/1ML SYG ONE (17:12)
[2019-10-15 17:36] LABS: BASOPHILS % (AUTO) 0.2 % (0.0-5.0); EOSINOPHILS % (AUTO) 0.9 % (0.0-8.0); HEMATOCRIT 34.5 % (42-54); LYMPHOCYTES % (AUTO) 20.3 % (21.0-51.0); MEAN CORPUSCULAR HEMOGLOBIN 27.7 pg (27.0-33.0); MEAN CORPUSCULAR VOLUME 83.7 fL (79-99); MONOCYTES % (AUTO) 6.2 % (3.0-13.0); NEUTROPHILS % (AUTO) 71.9 % (40.0-77.0); PLATELET COUNT (AUTO) 594 K/uL (130-400); RED BLOOD CELL COUNT(AUTO) 4.12 MIL/uL (4.50-6.20); RED CELL DISTRIBUTION WIDTH 16.4 % (11.0-15.5); WHITE BLOOD COUNT (AUTO) 11.8 K/uL (4.8-10.8)
[2019-10-15 17:39] LABS: CREATININE 1.2 mg/dL (0.5-1.5)
[2019-10-15 17:43] LABS: ALBUMIN 2.8 g/dL (3.5-5.0); BILIRUBIN,TOTAL 0.3 mg/dL (0.2-1.0); TOTAL PROTEIN, SERUM 8.3 g/dL (6.0-8.3)
[2019-10-15 17:55] LABS: B-TYPE NATRIURETIC PEPTIDE 529 pg/mL (0-100)
[2019-10-15 18:29] LABS: APPEARANCE,URINE Clear (CLEAR); BILIRUBIN,URINE Small (NEGATIVE); COLOR,URINE Dark Yellow (YELLOW); GLUCOSE, URINE (UA) Negative (NEGATIVE); KETONES,URINE Trace mg/dL (NEGATIVE); LEUKOCYTE ESTERASE ,URINE Small (NEGATIVE); NITRATE,URINE Negative (NEGATIVE); OCCULT BLOOD,URINE Negative (NEGATIVE); PH,URINE 5.5 (5.0-8.0); PROTEIN,URINE POS 1+ mg/dL (NEGATIVE)
[2019-10-15] MEDS ORDERED: IOHEXOL-350 75 ML VIAL IV ONE (18:41)
[2019-10-15 18:54] LABS: BACTERIA,URINE Few /HPF (None Seen); MUCUS,URINE Few LPF (None Seen); SQUAMOUS EPITHELIAL CELL,UR Few /HPF (0-2)
[2019-10-15] MEDS ORDERED: MORPHINE SULFATE 2 MG/ML 1ML SYG ONE ×2 (20:37→23:45)
[2019-10-15] MEDS ORDERED: ACETAMINOPHEN 650 MG SUPPOSITORY RC PRN (20:45)
[2019-10-15] MEDS: LACTATED RINGERS 1000ML 1,000 ML IV SCH (20:45)
[2019-10-16] MEDS: LACTATED RINGERS 1000ML 1,000 ML IV SCH ×3 (01:45→20:17)
[2019-10-16 05:40] LABS: BASOPHILS % (AUTO) 0.2 % (0.0-5.0); EOSINOPHILS % (AUTO) 0.7 % (0.0-8.0); HEMATOCRIT 30.7 % (42-54); LYMPHOCYTES % (AUTO) 11.1 % (21.0-51.0); MEAN CORPUSCULAR HEMOGLOBIN 28.2 pg (27.0-33.0); MEAN CORPUSCULAR HGB CONC 33.9 g/dL (32.0-36.0); MEAN CORPUSCULAR VOLUME 83.2 fL (79-99); MONOCYTES % (AUTO) 6.7 % (3.0-13.0); NEUTROPHILS % (AUTO) 80.9 % (40.0-77.0); PLATELET COUNT (AUTO) 556 K/uL (130-400); RED BLOOD CELL COUNT(AUTO) 3.69 MIL/uL (4.50-6.20); RED CELL DISTRIBUTION WIDTH 16.5 % (11.0-15.5); WHITE BLOOD COUNT (AUTO) 12.1 K/uL (4.8-10.8)
[2019-10-16 05:46] LABS: CREATININE 0.8 mg/dL (0.5-1.5)
[2019-10-16 05:54] LABS: ALBUMIN 2.2 g/dL (3.5-5.0); BILIRUBIN,TOTAL 0.3 mg/dL (0.2-1.0); TOTAL PROTEIN, SERUM 6.8 g/dL (6.0-8.3)
[2019-10-16] MEDS ORDERED: MORPHINE SULFATE 2 MG/ML 1ML SYG ONE (08:37)
[2019-10-16 14:30] VITALS: BP 139/67
--- NOTE | 2019-10-16 14:45 | NUR ---
- [place] --SPOKE TO TALON BAGLEY FOR DISCHARGE PLANNING STATES PATIENT LIVES WITH SPOUSE AND ANOTHER GROWN DAUGHTER. [facility] PT DOES NOT DRIVE OR USE DME, HAS A SHOWER CHAIR AND A RAMP, IS INDEPENDENT AND MOBILE EXCEPT PAIN TO BLE SECOND TO PVD; [employer] W BATHING / DRESSING, TALON BAGLEY IS PROVIDER 25 HR WEEK AND TAKES TO ALL APPOINTMENTS. [facility] DOES NOT HAVE A [facility] DCP HOME, CM TO FOLLOW Addendum: 10/16/19 at 1448 by KRISTEN GILL RN CM Amended: Links added.
[2019-10-16 16:00] VITALS: BP 143/86
[2019-10-16] MEDS ORDERED: LACTULOSE 20 GM/30 ML UDCUP ONE (17:02)
[2019-10-16] MEDS: CEFEPIME HCL 1 GM VIAL IVP SCH (17:09)
[2019-10-16] MEDS: MORPHINE SULFATE 4 MG/1ML SYG IVP PRN (17:25)
--- NOTE | 2019-10-16 19:30 | NUR ---
PM Assessment Received pt awake, watching TV with LR at 200cc/hr, rate decreased to 150cc/hr as order received x 12 hours, then decreased, pt noted has been admitted since 10/15/2019. Routine assessment done, plan of care discuss, reminded to remain NPO due to Pancreatitis, lipase of [id number] for today. Pt currently denies pain stated had some Morphine earlier. Pt reminded to call for assistance as he claimed he prefers to use the bathroom the using the urinal. Pt made aware we need to measure his urine output as he is on IV Fluids, stated OK. Pt was alos made aware we will apply a LUZ's stocking for circulation purposes. Norma COLVIN requested to do this.
[2019-10-16 19:39] VITALS: BP 125/76
[2019-10-16] MEDS ORDERED: LACTULOSE 20 GM/30 ML UDCUP PO SCH (20:00)
[2019-10-16] MEDS ORDERED: LACTULOSE 20 GM/30 ML UDCUP PO PRN (20:30)
[2019-10-16] MEDS: PANTOPRAZOLE 40 MG/VIAL IVP SCH (21:25)
[2019-10-16] MEDS: METRONIDAZOLE 500MG/100ML BAG 100 ML IV SCH (23:04)
[2019-10-16 23:51] VITALS: BP 102/70
[2019-10-17] MEDS: CEFEPIME HCL 1 GM VIAL IVP SCH ×4 (00:05→21:29)
[2019-10-17] MEDS: LACTATED RINGERS 1000ML 1,000 ML IV SCH ×3 (03:39→16:30)
[2019-10-17 03:55] VITALS: BP 130/72
[2019-10-17] MEDS: METRONIDAZOLE 500MG/100ML BAG 100 ML IV SCH ×3 (05:44→21:29)
[2019-10-17] MEDS: INSULIN R NPO SSI SQ SCH ×4 (05:46→18:00)
[2019-10-17 06:34] LABS: ALBUMIN 2.1 g/dL (3.5-5.0); BILIRUBIN,DIRECT 0.1 mg/dL (0.0-0.3); BILIRUBIN,TOTAL 0.4 mg/dL (0.2-1.0); CREATININE 0.8 mg/dL (0.5-1.5); POTASSIUM 4.1 mmol/L (3.5-5.1); TOTAL PROTEIN, SERUM 6.5 g/dL (6.0-8.3)
--- NOTE | 2019-10-17 06:45 | NUR ---
Re: Transfer to 404 Pt made aware that he will be transferred to another floor due to PUI, re-explained in Danish by Gris COLVIN. Report was given to Millie AGUILAR. Daughter Shanthi Dubose # [phone] made aware & explained why we need to transfer the pt to RM 404 due to PUI & verbalizes understanding.
[2019-10-17] MEDS: MORPHINE SULFATE 4 MG/1ML SYG IVP PRN ×4 (07:28→21:32)
[2019-10-17] MEDS: PANTOPRAZOLE 40 MG/VIAL IVP SCH ×2 (08:29→21:00)
[2019-10-17 11:57] VITALS: BP 159/71
[2019-10-17] MEDS: MORPHINE SULFATE 2 MG/ML 1ML SYG IVP PRN (12:43)
[2019-10-17] MEDS ORDERED: GADODIAMIDE 10 MMOL/20 ML VIAL IV ONE (14:34)
[2019-10-18] VITALS (7 sets, daily range): BP systolic 126–150; BP diastolic 69–76
[2019-10-18] MEDS: DEXTROSE 5 %-0.45 % NACL 1,000 ML IV SCH ×3 (00:49→20:49)
--- NOTE | 2019-10-18 00:49 | NUR ---
Dr Ferrari returned page and informed of pts BS = 75 and Na = 135 and pt currently has LR @150 infusing; physician stated to start pt on D5 1/2 NS @100 at this time. JEFF Lay
[2019-10-18] MEDS ORDERED: DEXTROSE 5 %-0.45 % NACL 1,000 ML IV ONE (00:53)
[2019-10-18] MEDS: LACTATED RINGERS 1000ML 1,000 ML IV SCH (01:00)
[2019-10-18] MEDS: MORPHINE SULFATE 2 MG/ML 1ML SYG IVP PRN ×2 (04:24→08:08)
[2019-10-18] MEDS ORDERED: SODIUM CHLORIDE 0.9% 250 ML IV ONE (05:16)
[2019-10-18] MEDS: INSULIN R NPO SSI SQ SCH ×5 (06:00→23:25)
[2019-10-18 06:01] LABS: BASOPHILS % (AUTO) 0.3 % (0.0-5.0); EOSINOPHILS % (AUTO) 2.3 % (0.0-8.0); HEMATOCRIT 27.3 % (42-54); LYMPHOCYTES % (AUTO) 12.7 % (21.0-51.0); MEAN CORPUSCULAR HEMOGLOBIN 27.6 pg (27.0-33.0); MEAN CORPUSCULAR HGB CONC 33.3 g/dL (32.0-36.0); MEAN CORPUSCULAR VOLUME 82.7 fL (79-99); MONOCYTES % (AUTO) 10.3 % (3.0-13.0); PLATELET COUNT (AUTO) 622 K/uL (130-400); RED CELL DISTRIBUTION WIDTH 16.9 % (11.0-15.5); WHITE BLOOD COUNT (AUTO) 10.3 K/uL (4.8-10.8)
[2019-10-18] MEDS: METRONIDAZOLE 500MG/100ML BAG 100 ML IV SCH ×3 (06:07→21:43)
[2019-10-18 06:40] LABS: BILIRUBIN,DIRECT 0.1 mg/dL (0.0-0.3); BILIRUBIN,TOTAL 0.4 mg/dL (0.2-1.0); CREATININE 0.8 mg/dL (0.5-1.5); POTASSIUM 3.4 mmol/L (3.5-5.1); TOTAL PROTEIN, SERUM 6.3 g/dL (6.0-8.3)
[2019-10-18] MEDS: CEFEPIME HCL 1 GM VIAL IVP SCH ×3 (08:07→23:25)
[2019-10-18] MEDS: ONDANSETRON HCL 4 MG/2 ML VIAL IVP PRN ×3 (08:08→15:14)
[2019-10-18] MEDS: LIDOCAINE HCL-MPF 1% 2ML VIAL IV PRN (10:43)
[2019-10-18] MEDS: PANTOPRAZOLE 40 MG/VIAL IVP SCH ×2 (10:43→21:43)
[2019-10-18] MEDS: POTASSIUM CHLORIDE 20MEQ/100ML 100 ML IV PRN ×2 (10:44→17:05)
[2019-10-18] MEDS: MORPHINE SULFATE 4 MG/1ML SYG IVP PRN ×3 (10:45→18:11)
[2019-10-18 11:39] LABS: LACTATE DEHYDROGENASE 179 U/L (81-234)
[2019-10-18 12:03] LABS: FERRITIN 267 ng/mL (30-400)
[2019-10-19] MEDS: MORPHINE SULFATE 4 MG/1ML SYG IVP PRN ×5 (01:21→19:05)
[2019-10-19 04:45] VITALS: BP 147/78
[2019-10-19] MEDS: METRONIDAZOLE 500MG/100ML BAG 100 ML IV SCH ×3 (05:22→21:20)
[2019-10-19] MEDS: INSULIN R NPO SSI SQ SCH ×3 (05:34→18:00)
[2019-10-19] MEDS: DEXTROSE 5 %-0.45 % NACL 1,000 ML IV SCH ×2 (05:35→17:06)
[2019-10-19 07:00] VITALS: BP 109/45
[2019-10-19 07:49] LABS: HEMATOCRIT 27.5 % (42-54); MEAN CORPUSCULAR HEMOGLOBIN 27.5 pg (27.0-33.0); MEAN CORPUSCULAR HGB CONC 33.1 g/dL (32.0-36.0); MEAN CORPUSCULAR VOLUME 83.1 fL (79-99); RED BLOOD CELL COUNT(AUTO) 3.31 MIL/uL (4.50-6.20); RED CELL DISTRIBUTION WIDTH 16.5 % (11.0-15.5); WHITE BLOOD COUNT (AUTO) 8.9 K/uL (4.8-10.8)
[2019-10-19 08:06] LABS: ALBUMIN 2.1 g/dL (3.5-5.0); BILIRUBIN,TOTAL 0.3 mg/dL (0.2-1.0); CREATININE 0.8 mg/dL (0.5-1.5); POTASSIUM 3.7 mmol/L (3.5-5.1); TOTAL PROTEIN, SERUM 6.4 g/dL (6.0-8.3)
[2019-10-19] MEDS: CEFEPIME HCL 1 GM VIAL IVP SCH ×2 (08:38→17:06)
[2019-10-19] MEDS: PANTOPRAZOLE 40 MG/VIAL IVP SCH ×2 (08:38→21:18)
[2019-10-19 11:00] VITALS: BP 120/76
[2019-10-19 16:00] VITALS: BP 133/65
[2019-10-19] MEDS: ONDANSETRON HCL 4 MG/2 ML VIAL IVP PRN (16:04)
--- NOTE | 2019-10-19 18:15 | NUR ---
LABS Lab result for COVID test positive. Nurse CHAUNCEY AGUILAR translated resluts to patient for this nurse. Daughter Made aware. call manager MD ann aware no new orders at this time. Will pass on to oncoming nurse and day team. Patient accepted news well. Will cont to monitor.
[2019-10-19 20:00] VITALS: BP 125/57
[2019-10-19] MEDS: MORPHINE SULFATE 2 MG/ML 1ML SYG IVP PRN (22:19)
[2019-10-19 23:59] VITALS: BP 125/70
[2019-10-20] MEDS: CEFEPIME HCL 1 GM VIAL IVP SCH ×3 (00:59→16:57)
[2019-10-20] MEDS: MORPHINE SULFATE 2 MG/ML 1ML SYG IVP PRN ×2 (01:20→04:18)
[2019-10-20] MEDS: DEXTROSE 5 %-0.45 % NACL 1,000 ML IV SCH ×3 (03:18→21:10)
[2019-10-20 04:00] VITALS: BP 137/74
[2019-10-20] MEDS: METRONIDAZOLE 500MG/100ML BAG 100 ML IV SCH ×3 (05:25→21:09)
[2019-10-20] MEDS: INSULIN R NPO SSI SQ SCH ×4 (05:48→16:58)
[2019-10-20] MEDS: MORPHINE SULFATE 4 MG/1ML SYG IVP PRN ×5 (07:03→22:06)
[2019-10-20 07:54] LABS: BASOPHILS % (AUTO) 0.2 % (0.0-5.0); EOSINOPHILS % (AUTO) 3.2 % (0.0-8.0); HEMATOCRIT 29.5 % (42-54); LYMPHOCYTES % (AUTO) 16.4 % (21.0-51.0); MEAN CORPUSCULAR HEMOGLOBIN 27.8 pg (27.0-33.0); MEAN CORPUSCULAR HGB CONC 33.2 g/dL (32.0-36.0); MEAN CORPUSCULAR VOLUME 83.6 fL (79-99); MONOCYTES % (AUTO) 11.4 % (3.0-13.0); NEUTROPHILS % (AUTO) 68.6 % (40.0-77.0); PLATELET COUNT (AUTO) 659 K/uL (130-400); RED BLOOD CELL COUNT(AUTO) 3.53 MIL/uL (4.50-6.20); WHITE BLOOD COUNT (AUTO) 8.5 K/uL (4.8-10.8)
[2019-10-20 08:08] LABS: ALBUMIN 2.3 g/dL (3.5-5.0); BILIRUBIN,TOTAL 0.4 mg/dL (0.2-1.0); CREATININE 0.8 mg/dL (0.5-1.5); POTASSIUM 3.5 mmol/L (3.5-5.1)
[2019-10-20 08:30] VITALS: BP 125/76
[2019-10-20] MEDS: LIDOCAINE HCL-MPF 1% 2ML VIAL IV PRN (09:58)
[2019-10-20] MEDS: POTASSIUM CHLORIDE 20MEQ/100ML 100 ML IV PRN ×2 (09:59→18:17)
[2019-10-20] MEDS: ONDANSETRON HCL 4 MG/2 ML VIAL IVP PRN (10:00)
[2019-10-20] MEDS: PANTOPRAZOLE 40 MG/VIAL IVP SCH ×2 (10:00→21:09)
[2019-10-20 12:24] VITALS: BP 126/68
[2019-10-20 16:48] VITALS: BP 130/67
[2019-10-20 20:54] VITALS: BP 124/75
[2019-10-20 23:48] VITALS: BP 123/70
[2019-10-21] MEDS: CEFEPIME HCL 1 GM VIAL IVP SCH ×4 (01:02→23:36)
[2019-10-21] MEDS: MORPHINE SULFATE 4 MG/1ML SYG IVP PRN ×4 (04:10→22:56)
[2019-10-21 04:55] VITALS: BP 123/72
[2019-10-21 05:14] LABS: HEMATOCRIT 29.6 % (42-54); MEAN CORPUSCULAR HGB CONC 32.4 g/dL (32.0-36.0); MEAN CORPUSCULAR VOLUME 83.1 fL (79-99); PLATELET COUNT (AUTO) 559 K/uL (130-400); RED BLOOD CELL COUNT(AUTO) 3.56 MIL/uL (4.50-6.20); RED CELL DISTRIBUTION WIDTH 17.2 % (11.0-15.5); WHITE BLOOD COUNT (AUTO) 7.9 K/uL (4.8-10.8)
[2019-10-21 05:31] LABS: BASOPHILS % (MANUAL) 1 % (0-2); CREATININE 0.8 mg/dL (0.5-1.5); EOSINOPHILS % (MANUAL) 6 % (1-6); LYMPHOCYTES % (MANUAL) 3 % (22-44); MAN.DIFF COMMENT-IMPRESSION MANUAL DIFFERENTIAL; MONOCYTES % (MANUAL) 19 % (2-9); POTASSIUM 3.9 mmol/L (3.5-5.1); SEGMENTED NEUTROPHILS % 71 % (40-70)
[2019-10-21] MEDS: INSULIN R NPO SSI SQ SCH ×5 (05:40→23:36)
[2019-10-21] MEDS: METRONIDAZOLE 500MG/100ML BAG 100 ML IV SCH ×3 (05:43→20:03)
[2019-10-21 08:00] VITALS: BP 113/68
[2019-10-21] MEDS: PANTOPRAZOLE 40 MG/VIAL IVP SCH ×2 (09:00→20:03)
[2019-10-21] MEDS: DEXTROSE 5 %-0.45 % NACL 1,000 ML IV SCH ×2 (09:34→18:50)
[2019-10-21 12:00] VITALS: BP 131/93
[2019-10-21] MEDS: MORPHINE SULFATE 2 MG/ML 1ML SYG IVP PRN ×2 (12:45→17:02)
[2019-10-21 16:00] VITALS: BP 126/63
[2019-10-21 19:00] VITALS: BP 141/78
[2019-10-21 23:00] VITALS: BP 128/80
[2019-10-22] MEDS: MORPHINE SULFATE 4 MG/1ML SYG IVP PRN ×3 (01:24→07:51)
[2019-10-22] MEDS: ONDANSETRON HCL 4 MG/2 ML VIAL IVP PRN ×3 (01:57→13:57)
[2019-10-22] MEDS: DEXTROSE 5 %-0.45 % NACL 1,000 ML IV SCH ×3 (02:04→23:47)
[2019-10-22 03:00] VITALS: BP_SYST 115; BP_SYST 126; BP_DIAS 69; BP_DIAS 82
[2019-10-22 04:41] LABS: BASOPHILS % (AUTO) 0.3 % (0.0-5.0); EOSINOPHILS % (AUTO) 2.1 % (0.0-8.0); HEMATOCRIT 28.4 % (42-54); LYMPHOCYTES % (AUTO) 16.5 % (21.0-51.0); MEAN CORPUSCULAR HEMOGLOBIN 27.2 pg (27.0-33.0); MEAN CORPUSCULAR HGB CONC 33.1 g/dL (32.0-36.0); MEAN CORPUSCULAR VOLUME 82.3 fL (79-99); MONOCYTES % (AUTO) 12.8 % (3.0-13.0); NEUTROPHILS % (AUTO) 67.9 % (40.0-77.0); PLATELET COUNT (AUTO) 624 K/uL (130-400); RED BLOOD CELL COUNT(AUTO) 3.45 MIL/uL (4.50-6.20); RED CELL DISTRIBUTION WIDTH 17.1 % (11.0-15.5)
[2019-10-22 05:04] LABS: ALBUMIN 2.2 g/dL (3.5-5.0); BILIRUBIN,TOTAL 0.3 mg/dL (0.2-1.0); CREATININE 0.8 mg/dL (0.5-1.5); MAGNESIUM 1.5 mg/dL (1.80-2.40); PHOSPHORUS 2.7 mg/dL (2.5-4.9); POTASSIUM 3.7 mmol/L (3.5-5.1); TOTAL PROTEIN, SERUM 6.7 g/dL (6.0-8.3)
[2019-10-22] MEDS: INSULIN R NPO SSI SQ SCH (06:00)
[2019-10-22] MEDS: METRONIDAZOLE 500MG/100ML BAG 100 ML IV SCH ×3 (06:06→20:08)
[2019-10-22] MEDS: PANTOPRAZOLE 40 MG/VIAL IVP SCH ×2 (07:50→20:07)
[2019-10-22] MEDS: CEFEPIME HCL 1 GM VIAL IVP SCH ×3 (07:50→23:47)
[2019-10-22 08:00] VITALS: BP 148/79
[2019-10-22 11:19] VITALS: BP 108/63
[2019-10-22] MEDS: INSULIN HUMULIN R 100 UNIT/ML 3ML SQ SCH ×3 (11:30→21:00)
[2019-10-22] MEDS ORDERED: MAGNESIUM 2GM PREMIX 50ML 50 ML IV SCH (13:00)
[2019-10-22] MEDS: MORPHINE SULFATE 2 MG/ML 1ML SYG IVP PRN (14:31)
[2019-10-22] MEDS ORDERED: IOHEXOL-350 75 ML VIAL IV ONE (15:27)
[2019-10-22 16:00] VITALS: BP 149/77
[2019-10-22 19:00] VITALS: BP 115/69
[2019-10-22] MEDS ORDERED: SODIUM CHLORIDE 0.9% 250 ML IV ONE (20:39)
[2019-10-22 23:00] VITALS: BP 141/78
[2019-10-23] VITALS (7 sets, daily range): BP systolic 120–145; BP diastolic 57–94
[2019-10-23] MEDS: INSULIN HUMULIN R 100 UNIT/ML 3ML SQ SCH ×4 (06:08→20:59)
[2019-10-23] MEDS: METRONIDAZOLE 500MG/100ML BAG 100 ML IV SCH ×3 (06:08→20:29)
[2019-10-23 07:30] LABS: HEMATOCRIT 31.2 % (42-54); MEAN CORPUSCULAR HEMOGLOBIN 27.3 pg (27.0-33.0); MEAN CORPUSCULAR VOLUME 82.8 fL (79-99); RED BLOOD CELL COUNT(AUTO) 3.77 MIL/uL (4.50-6.20); RED CELL DISTRIBUTION WIDTH 17.2 % (11.0-15.5); WHITE BLOOD COUNT (AUTO) 7.9 K/uL (4.8-10.8)
[2019-10-23 07:56] LABS: ABG BASE EXCESS 1.2 mmol/L (-2.0-3.0); ABG HCO3 23.4 mmol/L (21.0-28.0); ABG OXYGEN SATURATION 93.9 % (95.0-99.0); ABG PCO2 31 mmHg (35-48)
[2019-10-23 09:14] LABS: ALANINE AMINOTRANSFERASE 13 U/L (12-78); ALBUMIN 2.3 g/dL (3.5-5.0); ASPARTATE AMINOTRANSFERASE 21 U/L (10-37); BILIRUBIN,TOTAL 0.3 mg/dL (0.2-1.0); CARBON DIOXIDE 28 mmol/L (21-32); CHLORIDE 103 mmol/L (101-111); CREATININE 0.8 mg/dL (0.5-1.5); GLOMERULAR FILTR. RATE CALC 100 mL/min (>60); GLUCOSE,RANDOM 101 mg/dL (70-105); LIPASE 169 U/L (114-286); PHOSPHORUS 2.3 mg/dL (2.5-4.9); POTASSIUM 3.9 mmol/L (3.5-5.1); SODIUM SERUM 137 mmol/L (136-145); UREA NITROGEN, BLOOD 1 mg/dL (7-18)
[2019-10-23] MEDS: DEXTROSE 5 %-0.45 % NACL 1,000 ML IV SCH ×2 (09:50→20:15)
[2019-10-23] MEDS: CEFEPIME HCL 1 GM VIAL IVP SCH ×3 (09:50→23:47)
[2019-10-23] MEDS: PANTOPRAZOLE 40 MG/VIAL IVP SCH ×2 (09:50→20:29)
[2019-10-23] MEDS: ENOXAPARIN SODIUM 40 MG/0.4 ML SYRINGE SQ SCH (09:51)
[2019-10-23] MEDS ORDERED: POTASSIUM PHOS 15 mMOL+NS250ML 250 ML IV PRN (13:00)
[2019-10-23] MEDS: ONDANSETRON HCL 4 MG/2 ML VIAL IVP PRN (13:22)
[2019-10-23] MEDS: SUCRALFATE 1 GM TABLET PO SCH ×3 (13:22→20:29)
[2019-10-24 03:59] VITALS: BP 140/75
[2019-10-24] MEDS: DEXTROSE 5 %-0.45 % NACL 1,000 ML IV SCH ×2 (05:59→14:11)
[2019-10-24] MEDS: METRONIDAZOLE 500MG/100ML BAG 100 ML IV SCH ×2 (06:02→14:04)
[2019-10-24] MEDS: INSULIN HUMULIN R 100 UNIT/ML 3ML SQ SCH ×3 (06:02→16:06)
[2019-10-24] MEDS: SUCRALFATE 1 GM TABLET PO SCH ×3 (06:02→15:39)
--- NOTE | 2019-10-24 06:33 | NUR ---
Pt slept throughout night and woke up early for personal hygiene; medications were administered as ordered and Flagyl is currently infusing; pts morning BS = 110, no coverage needed; pt is resting in bed watching tv; pt denies any requests and/or complaints at this time, no distress noted. Rosanne, RN
[2019-10-24 06:40] LABS: HEMATOCRIT 31.4 % (42-54); MEAN CORPUSCULAR HEMOGLOBIN 27.3 pg (27.0-33.0); MEAN CORPUSCULAR HGB CONC 33.4 g/dL (32.0-36.0); MEAN CORPUSCULAR VOLUME 81.6 fL (79-99); RED BLOOD CELL COUNT(AUTO) 3.85 MIL/uL (4.50-6.20); RED CELL DISTRIBUTION WIDTH 17.1 % (11.0-15.5); WHITE BLOOD COUNT (AUTO) 6.2 K/uL (4.8-10.8)
--- NOTE | 2019-10-24 06:48 | NUR ---
paged [employer] physician hand expansion envelope maker at this time, reference pts Lactic acid = 2.2; Dr Ginette Carroll returned page and informed pt feels fine, is voiding well, no SOB, is on room air sating 97% and denies SOB and/or difficulty breathing. Physician stated to continue current plan of care. JEFF Lay
[2019-10-24 07:00] VITALS: BP 136/71
[2019-10-24 07:18] LABS: ALBUMIN 2.4 g/dL (3.5-5.0); BILIRUBIN,TOTAL 0.3 mg/dL (0.2-1.0); CREATININE 0.8 mg/dL (0.5-1.5); MAGNESIUM 2.1 mg/dL (1.80-2.40); PHOSPHORUS 2.4 mg/dL (2.5-4.9); POTASSIUM 3.1 mmol/L (3.5-5.1); TOTAL PROTEIN, SERUM 7.3 g/dL (6.0-8.3)
[2019-10-24] MEDS: CEFEPIME HCL 1 GM VIAL IVP SCH ×2 (09:00→15:37)
[2019-10-24] MEDS: PANTOPRAZOLE 40 MG/VIAL IVP SCH (09:00)
[2019-10-24] MEDS: ENOXAPARIN SODIUM 40 MG/0.4 ML SYRINGE SQ SCH (09:01)
[2019-10-24 11:00] VITALS: BP 102/73
[2019-10-24 16:00] VITALS: BP 126/69
[2019-10-24] MEDS ORDERED: ACET1TAB12 PO (17:24)
[2019-10-24] MEDS ORDERED: AMOX-426 PO (17:24)
== END 2019-10-24 18:55 | disposition home or self-care (01) | DRG 291 ==
LOC: EDH 16:49 → EDHIP 19:10 → 3CH 10-16 15:04 → 4AH 10-17 07:53
PROVIDERS: ADMIT Internal Medicine Critical Care Medicine; ATTEND Internal Medicine Critical Care Medicine
DX: I11.0 Hypertensive heart disease with heart failure (principal); K85.90 Acute pancreatitis without necrosis or infection, unspecified; U07.1 COVID-19; J96.01 Acute respiratory failure with hypoxia; K86.3 Pseudocyst of pancreas; I50.23 Acute on chronic systolic (congestive) heart failure; D63.8 Anemia in other chronic diseases classified elsewhere; I25.10 Atherosclerotic heart disease of native coronary artery without angina pectoris; E78.5 Hyperlipidemia, unspecified; Z87.19 Personal history of other diseases of the digestive system; Z95.1 Presence of aortocoronary bypass graft; Z95.5 Presence of coronary angioplasty implant and graft; I35.0 Nonrheumatic aortic (valve) stenosis; K21.9 Gastro-esophageal reflux disease without esophagitis; Z79.84 Long term (current) use of oral hypoglycemic drugs; E11.51 Type 2 diabetes mellitus with diabetic peripheral angiopathy without gangrene; N40.0 Benign prostatic hyperplasia without lower urinary tract symptoms; K59.00 Constipation, unspecified; E86.9 Volume depletion, unspecified; Z79.02 Long term (current) use of antithrombotics/antiplatelets; Z79.82 Long term (current) use of aspirin; Z79.899 Other long term (current) drug therapy
CPT/HCPCS: 36415; 36600; 71045; 71250; 74177; 74178; 74183; 80048; 80053; 80076; 81001; 82150; 82728; 82803; 82948; 83605; 83615; 83690; 83735; 83880; 84100; 84132; 84145; 84478; 84484; 85025; 85027; 85378; 86140; 86850; 86900; 86901; 93005; A9579; C9113; G0378; J0692; J1650; J2270; J2405; J3475; J3480; J3490; J7042; J7050; J7120; Q9967; U0003

== ENCOUNTER 2019-11-11 06:21 | Day surgery (SDC) | payer MEDICARE ==
[~2019-11-11] VITALS: Ht 160 cm; Wt 69.4 kg
[~2019-11-11 06:21] MED LIST changes: +ACET1TAB12 PO; +AMOX-426 PO
[2019-11-11] MEDS ORDERED: SODIUM CHLORIDE 0.9% 1000ML 1,000 ML IV ONE (06:23)
[2019-11-11 06:46] VITALS: BP 135/71
[2019-11-11 07:07] LABS: BASOPHILS % (AUTO) 0.2 % (0.0-5.0); EOSINOPHILS % (AUTO) 0.1 % (0.0-8.0); HEMATOCRIT 34.8 % (42-54); LYMPHOCYTES % (AUTO) 9.5 % (21.0-51.0); MEAN CORPUSCULAR HEMOGLOBIN 26.8 pg (27.0-33.0); MEAN CORPUSCULAR HGB CONC 32.8 g/dL (32.0-36.0); MEAN CORPUSCULAR VOLUME 81.9 fL (79-99); MONOCYTES % (AUTO) 11.4 % (3.0-13.0); NEUTROPHILS % (AUTO) 78.3 % (40.0-77.0); PLATELET COUNT (AUTO) 430 K/uL (130-400); RED BLOOD CELL COUNT(AUTO) 4.25 MIL/uL (4.50-6.20); RED CELL DISTRIBUTION WIDTH 18.6 % (11.0-15.5); WHITE BLOOD COUNT (AUTO) 17.7 K/uL (4.8-10.8)
[2019-11-11] MEDS ORDERED: LIDOCAINE HCL 1% 20 ML VIAL ONE (07:12)
[2019-11-11] MEDS ORDERED: PROPOFOL 10 MG/ML 20ML VIAL IV ONE ×2 (07:12→07:30)
[2019-11-11] MEDS ORDERED: LEVOFLOXACIN 500 MG/D5W 100 ML 100 ML ONE (07:18)
[2019-11-11 07:26] LABS: INR 1.14 (0.85-1.15); PROTHROMBIN TIME 12.3 SEC (9.6-11.6)
[2019-11-11 07:50] VITALS: BP 113/70
[2019-11-11 07:55] VITALS: BP 129/76
[2019-11-11 08:00] VITALS: BP 133/73
[2019-11-11 08:05] VITALS: BP 143/66
== END 2019-11-11 08:20 | disposition home or self-care (01) ==
LOC: DAH 06:21 → ENDO 06:21
PROVIDERS: ATTEND Internal Medicine
DX: R10.13 Epigastric pain (principal); K85.90 Acute pancreatitis without necrosis or infection, unspecified; K86.2 Cyst of pancreas; K31.89 Other diseases of stomach and duodenum; D50.9 Iron deficiency anemia, unspecified; K21.9 Gastro-esophageal reflux disease without esophagitis; K59.00 Constipation, unspecified; Z86.010 Personal history of colon polyps; I25.10 Atherosclerotic heart disease of native coronary artery without angina pectoris; I10 Essential (primary) hypertension; J44.9 Chronic obstructive pulmonary disease, unspecified; E78.5 Hyperlipidemia, unspecified; Z79.82 Long term (current) use of aspirin; Z79.899 Other long term (current) drug therapy
CPT/HCPCS: 36415; 43238; 85025; 85610; 93005; A4215 ×2; A4221; A4222; A4223; A4606; A4620; A4663; J1956; J2704 ×2; J7030

== ENCOUNTER 2019-11-17 13:26 | Inpatient (IN) | payer MEDICARE ==
[~2019-11-17] VITALS: Ht 160 cm; Wt 65.2 kg
[~2019-11-17 13:26] MED LIST changes: -ACET1TAB12 PO; -EMPA25TA PO; -METH4TAB15 PO
[2019-11-17 14:01] LABS: BASOPHILS % (AUTO) 0.2 % (0.0-5.0); EOSINOPHILS % (AUTO) 0.7 % (0.0-8.0); HEMATOCRIT 35.9 % (42-54); LYMPHOCYTES % (AUTO) 5.7 % (21.0-51.0); MEAN CORPUSCULAR HEMOGLOBIN 26.3 pg (27.0-33.0); MEAN CORPUSCULAR HGB CONC 33.1 g/dL (32.0-36.0); MEAN CORPUSCULAR VOLUME 79.2 fL (79-99); MONOCYTES % (AUTO) 7.6 % (3.0-13.0); NEUTROPHILS % (AUTO) 85.2 % (40.0-77.0); PLATELET COUNT (AUTO) 515 K/uL (130-400); RED BLOOD CELL COUNT(AUTO) 4.53 MIL/uL (4.50-6.20); RED CELL DISTRIBUTION WIDTH 18.7 % (11.0-15.5); WHITE BLOOD COUNT (AUTO) 21.6 K/uL (4.8-10.8)
[2019-11-17] MEDS ORDERED: ONDANSETRON HCL 4 MG/2 ML VIAL ONE (14:26)
[2019-11-17] MEDS ORDERED: MORPHINE SULFATE 4 MG/1ML SYG ONE (14:26)
[2019-11-17] MEDS ORDERED: SODIUM CHLORIDE 0.9% 1000ML 1,000 ML IV ONE (14:27)
[2019-11-17 14:28] LABS: ALBUMIN 2.1 g/dL (3.5-5.0); BILIRUBIN,TOTAL 1.5 mg/dL (0.2-1.0); CREATININE 1.1 mg/dL (0.5-1.5); TOTAL PROTEIN, SERUM 7.5 g/dL (6.0-8.3)
[2019-11-17 14:33] LABS: INR 1.11 (0.85-1.15); PROTHROMBIN TIME 11.9 SEC (9.6-11.6)
[2019-11-17 14:34] LABS: POTASSIUM 2.8 mmol/L (3.5-5.1)
[2019-11-17 14:38] LABS: APPEARANCE,URINE Cloudy (CLEAR); BILIRUBIN,URINE Moderate (NEGATIVE); COLOR,URINE Dark Yellow (YELLOW); GLUCOSE, URINE (UA) Negative (NEGATIVE); KETONES,URINE Trace mg/dL (NEGATIVE); LEUKOCYTE ESTERASE ,URINE Trace (NEGATIVE); NITRATE,URINE Positive (NEGATIVE); OCCULT BLOOD,URINE Negative (NEGATIVE); PH,URINE 5.5 (5.0-8.0); PROTEIN,URINE POS 2+ mg/dL (NEGATIVE)
[2019-11-17 14:48] LABS: BACTERIA,URINE Moderate /HPF (None Seen); MUCUS,URINE Moderate LPF (None Seen); SQUAMOUS EPITHELIAL CELL,UR Few /HPF (0-2)
[2019-11-17] MEDS ORDERED: POTASSIUM CHLORIDE 20MEQ/100ML 100 ML IV ONE (15:06)
[2019-11-17] MEDS ORDERED: CEFTRIAXONE SODIUM 1 GM ONE (15:06)
[2019-11-17] MEDS ORDERED: LIDOCAINE HCL-MPF 1% 2ML VIAL ONE (15:16)
[2019-11-17 17:00] VITALS: BP 120/85
[2019-11-17] MEDS ORDERED: GLUCAGON 1MG KIT 1 MG ML IM PRN (17:00)
[2019-11-17] MEDS ORDERED: POTASSIUM CHLORIDE 20MEQ/100ML 100 ML IV PRN ×2 (17:00→22:30)
[2019-11-17] MEDS ORDERED: LIDOCAINE HCL-MPF 1% 2ML VIAL IV PRN (17:00)
[2019-11-17] MEDS ORDERED: MAGNESIUM 2GM PREMIX 50ML 50 ML IV PRN (17:00)
[2019-11-17] MEDS ORDERED: HYDROMORPHONE HCL 0.5 MG/0.5 ML ML IVP PRN (17:00)
[2019-11-17] MEDS ORDERED: POTASSIUM CHLORIDE 20 MEQ ERTAB PO PRN (17:00)
[2019-11-17] MEDS ORDERED: POTASSIUM CHLORIDE 10% ELIXIR 20 MEQ/15 ML UDCUP PO PRN (17:00)
[2019-11-17] MEDS ORDERED: DEXTROSE 50%-WATER 50 ML DISP.SYRIN IV PRN (17:00)
[2019-11-17] MEDS ORDERED: HYDRALAZINE HCL 20 MG/ML VIAL IV PRN (17:00)
[2019-11-17] MEDS: SODIUM CHLORIDE 0.9% 1000ML 1,000 ML IV SCH (19:04)
[2019-11-17] MEDS: ZOSYN 3.375GM+NS 50ML 50 ML IV SCH (19:04)
[2019-11-17 20:08] VITALS: BP 135/67
[2019-11-17] MEDS ORDERED: INSULIN HUMULIN R 100 UNIT/ML 3ML SQ SCH (21:00)
--- NOTE | 2019-11-17 22:08 | NUR ---
PATIENT WITH C/O ABD PAIN, MOANING AND SCREAMED OUT. I PAGED AUREA Nur NP VIA ANSWERING SERVICE D/T DILAUDID 0.2 MG IV IS PRN EVERY 6 HRS. PATIENT MADE AWARE. WILL AWAIT FOR CALL BACK.
--- NOTE | 2019-11-17 22:15 | NUR ---
CALL BACK FROM AUREA Nur NP, REFER TO ORDERS.
[2019-11-17] MEDS ORDERED: HYDROMORPHONE HCL 0.5 MG/0.5 ML ML ONE (22:24)
[2019-11-18] MEDS: ONDANSETRON HCL 4 MG/2 ML VIAL IVP PRN ×3 (00:06→15:40)
--- NOTE | 2019-11-18 00:13 | NUR ---
PATIENT VOICES PAIN RELIEF WITH DILAUDID. C/O NAUSEA. PRN ZOFRAN TO BE ADMINISTERED. WILL CONT TO MONITOR CLOSELY.
[2019-11-18 00:18] VITALS: BP 136/53
[2019-11-18] MEDS: ZOSYN 3.375GM+NS 50ML 50 ML IV SCH ×3 (02:15→18:23)
[2019-11-18] MEDS: HYDROMORPHONE HCL 0.5 MG/0.5 ML ML IVP PRN ×3 (02:37→12:13)
[2019-11-18 04:28] VITALS: BP 117/63
--- NOTE | 2019-11-18 05:23 | NUR ---
PATIENT CONT WITH HICCUPS AND NAUSEA. NOTED TO HAVE SPIT UP DARK PHLEGM, NO COFFEE GROUND. WILL CONT TO MONITOR. ZOFRAN PRN ADMINISTERED.
[2019-11-18] MEDS: INSULIN HUMULIN R 100 UNIT/ML 3ML SQ SCH ×4 (06:00→17:05)
[2019-11-18] MEDS ORDERED: PROMETHAZINE HCL 25 MG/ML 1ML AMPULE IM PRN (07:45)
[2019-11-18 08:30] VITALS: BP 105/53
[2019-11-18] MEDS: FAMOTIDINE/PF 20 MG/2 ML VIAL IV SCH (08:31)
[2019-11-18] MEDS: HEPARIN SODIUM 5000UNIT/ML 1ML VIAL SQ SCH (08:33)
[2019-11-18 11:20] VITALS: BP 144/72
[2019-11-18] MEDS: SODIUM CHLORIDE 0.9% 1000ML 1,000 ML IV SCH (11:27)
--- NOTE | 2019-11-18 12:46 | NUR ---
[id number] patient signed IM Letter,I faxed IM Letter to [phone] and placed in chart under consent tab.
[2019-11-18] MEDS ORDERED: KETOROLAC TROMETHAMINE 15MG/ML ONE (15:39)
[2019-11-18] MEDS ORDERED: KETOROLAC TROMETHAMINE 15MG/ML IV PRN (15:45)
--- NOTE | 2019-11-18 16:30 | NUR ---
SPOKE TO PATIENT AT BEDSIDE FOR DC PLANNING STATES LIVES WITH DAUGHTER AND SPOUSE, DAUGHTER YUDI IS PROVIDER AND DOES THE DRIVING, PATIENT HAS A WALKER AND CANE, AND A SHOWER CHAIR; DCP IS HOME, CM TO FOLLOW, NO DC NEEDS ANTICIPATED Addendum: 11/18/19 at 1824 by KRISTEN GILL RN CM Amended: Links added.
[2019-11-18 16:56] VITALS: BP 119/74
[2019-11-18 20:24] VITALS: BP 115/58
[2019-11-19 00:24] VITALS: BP 123/69
[2019-11-19] MEDS: ZOSYN 3.375GM+NS 50ML 50 ML IV SCH ×3 (00:55→17:31)
[2019-11-19] MEDS: HYDROMORPHONE 1 MG/1 ML AMP IVP PRN ×6 (01:07→21:46)
[2019-11-19 04:24] VITALS: BP 116/66
[2019-11-19] MEDS: INSULIN HUMULIN R 100 UNIT/ML 3ML SQ SCH ×4 (06:00→18:00)
[2019-11-19 06:11] LABS: BASOPHILS % (AUTO) 0.2 % (0.0-5.0); HEMATOCRIT 33.6 % (42-54); LYMPHOCYTES % (AUTO) 4.9 % (21.0-51.0); MEAN CORPUSCULAR HEMOGLOBIN 26.4 pg (27.0-33.0); MEAN CORPUSCULAR HGB CONC 32.7 g/dL (32.0-36.0); MEAN CORPUSCULAR VOLUME 80.6 fL (79-99); NEUTROPHILS % (AUTO) 89.2 % (40.0-77.0); PLATELET COUNT (AUTO) 530 K/uL (130-400); RED BLOOD CELL COUNT(AUTO) 4.17 MIL/uL (4.50-6.20); RED CELL DISTRIBUTION WIDTH 18.3 % (11.0-15.5); WHITE BLOOD COUNT (AUTO) 26.2 K/uL (4.8-10.8)
[2019-11-19] MEDS: SODIUM CHLORIDE 0.9% 1000ML 1,000 ML IV SCH (06:34)
[2019-11-19 06:37] LABS: CREATININE 1.1 mg/dL (0.5-1.5); MAGNESIUM 2.1 mg/dL (1.80-2.40); PHOSPHORUS 3.7 mg/dL (2.5-4.9); POTASSIUM 4.3 mmol/L (3.5-5.1)
[2019-11-19 08:22] VITALS: BP 115/72
[2019-11-19] MEDS: FAMOTIDINE/PF 20 MG/2 ML VIAL IV SCH (08:34)
[2019-11-19] MEDS: HEPARIN SODIUM 5000UNIT/ML 1ML VIAL SQ SCH (08:37)
[2019-11-19 11:32] VITALS: BP 131/74
[2019-11-19 16:14] VITALS: BP 134/78
[2019-11-19] MEDS ORDERED: CLINIMIX E 4.25%-5% SOLUTION 2,000 ML IV SCH (17:15)
[2019-11-19 20:16] VITALS: BP 133/75
[2019-11-20 00:20] VITALS: BP 117/65
[2019-11-20] MEDS: ZOSYN 3.375GM+NS 50ML 50 ML IV SCH ×3 (01:08→16:35)
[2019-11-20] MEDS: ONDANSETRON HCL 4 MG/2 ML VIAL IVP PRN ×2 (01:45→06:07)
[2019-11-20] MEDS: HYDROMORPHONE 1 MG/1 ML AMP IVP PRN ×3 (01:45→12:39)
[2019-11-20] MEDS: SODIUM CHLORIDE 0.9% 1000ML 1,000 ML IV SCH ×2 (03:15→23:27)
[2019-11-20 04:11] LABS: BASOPHILS % (AUTO) 0.2 % (0.0-5.0); EOSINOPHILS % (AUTO) 0.1 % (0.0-8.0); HEMATOCRIT 33.8 % (42-54); LYMPHOCYTES % (AUTO) 3.5 % (21.0-51.0); MEAN CORPUSCULAR HEMOGLOBIN 25.8 pg (27.0-33.0); MEAN CORPUSCULAR VOLUME 80.7 fL (79-99); MONOCYTES % (AUTO) 4.4 % (3.0-13.0); NEUTROPHILS % (AUTO) 90.8 % (40.0-77.0); PLATELET COUNT (AUTO) 549 K/uL (130-400); RED BLOOD CELL COUNT(AUTO) 4.19 MIL/uL (4.50-6.20); RED CELL DISTRIBUTION WIDTH 18.3 % (11.0-15.5)
[2019-11-20 04:20] VITALS: BP 126/70
[2019-11-20 04:20] LABS: WHITE BLOOD COUNT (AUTO) 33.1 K/uL (4.8-10.8)
[2019-11-20 04:32] LABS: ALBUMIN 1.7 g/dL (3.5-5.0); MAGNESIUM 2.1 mg/dL (1.80-2.40); PHOSPHORUS 3.2 mg/dL (2.5-4.9); POTASSIUM 3.6 mmol/L (3.5-5.1); TOTAL PROTEIN, SERUM 6.7 g/dL (6.0-8.3)
[2019-11-20 05:30] LABS: BAND NEUTROPHILS % (MANUAL) 9 % (0-2); LYMPHOCYTES % (MANUAL) 1 % (22-44); MAN.DIFF COMMENT-IMPRESSION MANUAL DIFFERENTIAL; MONOCYTES % (MANUAL) 2 % (2-9); SEGMENTED NEUTROPHILS % 88 % (40-70)
[2019-11-20 05:31] LABS: PLATELET MORPHOLOGY COMMENT INCREASED
[2019-11-20] MEDS: INSULIN HUMULIN R 100 UNIT/ML 3ML SQ SCH ×4 (05:42→16:32)
[2019-11-20] MEDS: FAMOTIDINE/PF 20 MG/2 ML VIAL IV SCH ×2 (08:06→22:11)
[2019-11-20 08:09] VITALS: BP 129/74
[2019-11-20] MEDS: HEPARIN SODIUM 5000UNIT/ML 1ML VIAL SQ SCH (08:15)
[2019-11-20] MEDS ORDERED: CLINIMIX E 4.25%-5% SOLUTION 2,000 ML IV SCH (09:00)
[2019-11-20 11:30] VITALS: BP 112/68
[2019-11-20] MEDS ORDERED: IOHEXOL 350 MG/ML 100ML INFUS..BTL IV ONE (11:38)
[2019-11-20 12:14] LABS: HEMATOCRIT 30.4 % (42-54); MEAN CORPUSCULAR HEMOGLOBIN 26.2 pg (27.0-33.0); MEAN CORPUSCULAR HGB CONC 32.6 g/dL (32.0-36.0); MEAN CORPUSCULAR VOLUME 80.4 fL (79-99); PLATELET COUNT (AUTO) 573 K/uL (130-400); RED BLOOD CELL COUNT(AUTO) 3.78 MIL/uL (4.50-6.20); RED CELL DISTRIBUTION WIDTH 18.5 % (11.0-15.5)
[2019-11-20 13:14] LABS: WHITE BLOOD COUNT (AUTO) 34.2 K/uL (4.8-10.8)
[2019-11-20 13:23] LABS: LYMPHOCYTES % (MANUAL) 6 % (22-44); MONOCYTES % (MANUAL) 3 % (2-9); SEGMENTED NEUTROPHILS % 91 % (40-70)
[2019-11-20 13:24] LABS: MAN.DIFF COMMENT-IMPRESSION MANUAL DIFFERENTIAL; PLATELET MORPHOLOGY COMMENT MARKED INCREASE
[2019-11-20] MEDS ORDERED: BISACODYL 10 MG SUPP.RECT RC ONE ×2 (14:15→16:28)
--- NOTE | 2019-11-20 15:00 | NUR ---
TRANSFER SPOKE WITH PRIMARY NURSE, HE STATED THAT DR. LUCIA (GI) HAD SPOKEN TO DR. MARSH FROM [facility] HEPATOBILIARY SURGEON WHO HAD ACCEPTED THE PATIENT AT [facility] A CONSULT. CALLED [facility]SFER [facility] @ [phone] AND SPOKE WITH CHAVA/KERRI, GAVE PERTINENT INFO ON PATIENT. TRIED TO FAX DOCUMENTS @ [phone] BUT DIDN'T GO THROUGH, FAXED WAS BUSY. RE-CALLED AND SPOKE TO KERRI AND SHE GAVE HER WORK EMAIL, I SCANNED DOCUMENTS AND EMAILED THEM. AWAITING CALL BACK.
--- NOTE | 2019-11-20 15:30 | NUR ---
TRANSFER FOLLOWED UP AT [facility] SPOKE WITH KERRI, SHE STATED THAT SHE RECEIVED THE EMAILED DOCUMENTS, SHE DECLINED THE TRANSFER AT THIS TIME DUE TO CAPACITY, NO BEDS. SHE SAID TO TRY TOMORROW. PRIMARY NURSE NOTIFIED.
[2019-11-20 15:54] VITALS: BP 135/71
[2019-11-20] MEDS: METOCLOPRAMIDE 10 MG/2 ML VIAL IVP SCH (16:35)
[2019-11-20] MEDS: METRONIDAZOLE 500MG/100ML BAG 100 ML IV SCH ×2 (16:35→22:11)
[2019-11-20 17:56] LABS: INR 1.03 (0.85-1.15); PROTHROMBIN TIME 11.1 SEC (9.6-11.6)
[2019-11-20 20:20] VITALS: BP 116/50
--- NOTE | 2019-11-20 23:42 | NUR ---
5 FR 2 LUMEN PICC INSERTED TO RIGHT BASILIC VEIN, USING ASEPTIC TECHNIQUE. BOTH PORTS HAVE GOOD BLOOD RETURN, FLUSHED EASILY AND CLAMPED. (+) VPS BULLSEYE INDICATED PICC TIP IN LOWER 1/3 OF SVC OR AT CAVOATRIAL JUNCTION. PICC OK TO USE PER PROTOCOL. RN AWARE.
[2019-11-21 00:20] VITALS: BP 114/61
[2019-11-21] MEDS: ZOSYN 3.375GM+NS 50ML 50 ML IV SCH ×2 (00:56→08:10)
[2019-11-21] MEDS: HYDROMORPHONE 1 MG/1 ML AMP IVP PRN ×3 (01:35→16:20)
[2019-11-21 04:20] VITALS: BP 122/61
[2019-11-21] MEDS: INSULIN HUMULIN R 100 UNIT/ML 3ML SQ SCH ×3 (06:00→11:40)
[2019-11-21] MEDS: METOCLOPRAMIDE 10 MG/2 ML VIAL IVP SCH ×2 (06:38→14:13)
[2019-11-21] MEDS: METRONIDAZOLE 500MG/100ML BAG 100 ML IV SCH (06:38)
[2019-11-21 08:06] VITALS: BP 130/68
[2019-11-21] MEDS: ONDANSETRON HCL 4 MG/2 ML VIAL IVP PRN (08:10)
[2019-11-21] MEDS: FAMOTIDINE/PF 20 MG/2 ML VIAL IV SCH (08:10)
[2019-11-21] MEDS: HEPARIN SODIUM 5000UNIT/ML 1ML VIAL SQ SCH (08:26)
[2019-11-21 11:06] VITALS: BP 136/56
--- NOTE | 2019-11-21 11:45 | NUR ---
RD NOTIFICATION - TPN RECOMMENDATION Recommend Initiate TPN Clinimix 5/15% @70mls/hr. GIR = 2.69. Recommendations faxed to Shanice RN notified. NUTRITION NOTE: Pt admitted with acute pancreatitis. Positive for pancreatic pseudocysts pending biopsy. Ileus as per EMR. N/V, abdominal pain, Reglan in place. TPN pending PEG placement as per EMR. Pending DHR placement. NGT to suction. Recommend to consider J-Tube placement for Enteral nutrition. RD to continue to monitor. Please notify as additional nutrition concerns arise. Thank you. Addendum: 11/21/19 at [address] Amended: Links added.
[2019-11-21] MEDS ORDERED: VANCOMYCIN PROTOCOL PER PHARMACY IV SCH (12:30)
[2019-11-21] MEDS ORDERED: MEROPENEM 1 GM VIAL IVP SCH (12:30)
[2019-11-21] MEDS ORDERED: FLUCONAZOLE 200 MG/NS 100 ML 100 ML IV SCH (12:30)
[2019-11-21] MEDS ORDERED: COMPOUND IV REFRIGERATED 1 EACH IVSOLN MISC PRN (12:45)
--- NOTE | 2019-11-21 12:50 | NUR ---
TRANSFER PLACED A CALL TO R TO REINITIATE TRANSFER FOR A HIGHER LEVEL OF CARE, SPOKE TO JORGE TRANSFER COODINATOR. UPDATED HER ON PT STATUS AND ACCEPTANCE BY DR. MARSH YESTERDAY. SCANNED UPDATED PROGRESS NOTES AWAITING CALL BACK.
[2019-11-21] MEDS ORDERED: VANCOMYCIN 1.25 GM in SODIUM CHLORIDE 0.9% 250 ML IV ONE (14:00)
--- NOTE | 2019-11-21 14:10 | NUR ---
TRANSFER RECEIVED A CALL FROM [facility] STAFF WITH ACCEPTANCE. PT WILL GO TO ROOM 314, ADMITTED BY DR. MARGARETTE ESPARZA, REPORT TO BE CALLED TO [phone]. PRIMARY NURSE NOTIFIED, EMS ARRANGEMENTS ARE UNDERWAY.
[2019-11-21] MEDS ORDERED: M.V.I. IV [ADULT] 10 ML in CLINIMIX E 5%-15% 2,000 ML IV SCH (15:00)
--- NOTE | 2019-11-21 16:00 | NUR ---
NOTE REPORT CALLED TO [facility]. SPOKE TO NURSE TRINA LOWE RN. CALLED EMS FOR TRANSPORT HE WILL GO SOON THERE IS TRANSPORT AVAILABLE.
--- NOTE | 2019-11-21 17:00 | NUR ---
NOTE PATIENT TRANSPORTED TO [facility] IN [place] VIA EMS AT THIS TIME. STABLE UPON LEAVING. HE IS LEAVING WITH NGT AND PICC LINE
[2019-11-21] MEDS ORDERED: METOCLOPRAMIDE 10 MG/2 ML VIAL IVP SCH (22:00)
[2019-11-22] MEDS ORDERED: VANCOMYCIN 750MG + NS 250 ML IV SCH ×2 (02:00)
== END 2019-11-21 17:00 | disposition short-term general hospital (02) | DRG 438 ==
LOC: EDH 13:26 → EDHIP 15:22 → OBSVTOIN 15:22 → 3AH 18:05
PROVIDERS: ADMIT Internal Medicine; ATTEND Internal Medicine
PROC: 02HV33Z Insertion of Infusion Device into Superior Vena Cava, Percutaneous Approach (ICD-10-PCS; principal; 2019-11-17)
DX: K85.90 Acute pancreatitis without necrosis or infection, unspecified (principal); A41.9 Sepsis, unspecified organism; K75.0 Abscess of liver; K86.3 Pseudocyst of pancreas; I50.22 Chronic systolic (congestive) heart failure; K56.7 Ileus, unspecified; K86.2 Cyst of pancreas; Z95.1 Presence of aortocoronary bypass graft; I25.10 Atherosclerotic heart disease of native coronary artery without angina pectoris; E11.9 Type 2 diabetes mellitus without complications; E78.5 Hyperlipidemia, unspecified; I11.0 Hypertensive heart disease with heart failure; I35.0 Nonrheumatic aortic (valve) stenosis; N40.0 Benign prostatic hyperplasia without lower urinary tract symptoms; Y95 Nosocomial condition; Z82.0 Family history of epilepsy and other diseases of the nervous system; Z82.3 Family history of stroke; Z82.49 Family history of ischemic heart disease and other diseases of the circulatory system; Z82.5 Family history of asthma and other chronic lower respiratory diseases; Z83.3 Family history of diabetes mellitus; Z20.828 Contact with and (suspected) exposure to other viral communicable diseases; D50.9 Iron deficiency anemia, unspecified
CPT/HCPCS: 36415; 71045; 71250; 74018; 74176; 74177; 76705; 80048; 80053; 81001; 82150; 82550; 82948; 83605; 83690; 83735; 83880; 84100; 84132; 84484; 85025; 85610; 85730; 87040; 87088; 87426; 93005; C1894; G0378; J0696; J1170; J1450; J1644; J1885; J2185; J2270; J2405; J2543; J2765; J3370; J3480; J3490; J7030; J7050; Q9967; U0003

== ENCOUNTER → 2020-02-08 | Outpatient (CLI) | payer MEDICARE ==
[~2020-02-08] MED LIST changes: -PANT40TA25 PO; +PANT40TA54 PO
--- NOTE | 2020-02-08 12:42 | NUR ---
MBSS COMPLETED. NON-TRANSIENT PENETRATION WITH THIN LIQUIDS. RECOMMEND REGULAR TEXTURE, NECTAR-THICK LIQUIDS; PILLS WHOLE WITH APPLESAUCE. RECOMMENDATIONS: 1. SKILLED SPEECH THERAPY 2 TIMES A WEEK FOR 6 WEEKS TARGETING DYSPHAGIA BUSINESS SERVICES ASSISTANT PROVIDED RESULTS AND RECOMMENDATIONS VIA WRITTEN AND VERBAL MODALITY IN Pt'S [place] LANGUAGE OF [place]. ALL QUESTIONS ANSWERED AT THIS TIME. BUSINESS SERVICES ASSISTANT PROVIDED A CAN OF THICKENER AND DEMONSTRATED HOW TO REACH NECTAR-THICK LIQUIDS. BUSINESS SERVICES ASSISTANT WILL CONTINUE TO FOLLOW Pt. Addendum: 02/08/20 at 1252 by SRINATH NEWMAN, [facility] Amended: Links added.
== END | disposition home or self-care (01) ==
LOC: RAH 08:29
PROVIDERS: ATTEND Internal Medicine Gastroenterology
DX: R13.12 Dysphagia, oropharyngeal phase (principal); R63.3 Feeding difficulties
CPT/HCPCS: 74230; 92611

== ENCOUNTER → 2020-04-18 | Outpatient (CLI) | payer MEDICARE | END | disposition home or self-care (01) | LOC: SHCH 10:05 | PROVIDERS: ATTEND Internal Medicine Cardiovascular Disease | DX: I65.23 Occlusion and stenosis of bilateral carotid arteries (principal); I70.298 Other atherosclerosis of native arteries of extremities, other extremity | CPT/HCPCS: 93306; 93356; 93880; 93925 ==

== ENCOUNTER 2020-05-10 07:06 | Day surgery (SDC) | payer MEDICARE ==
[2020-05-08 10:10] LABS: BASOPHILS % (AUTO) 0.4 % (0.0-5.0); EOSINOPHILS % (AUTO) 2.8 % (0.0-8.0); HEMATOCRIT 33.2 % (42-54); MEAN CORPUSCULAR HEMOGLOBIN 29.6 pg (27.0-33.0); MEAN CORPUSCULAR HGB CONC 31.6 g/dL (32.0-36.0); MEAN CORPUSCULAR VOLUME 93.5 fL (79-99); MONOCYTES % (AUTO) 8.9 % (3.0-13.0); NEUTROPHILS % (AUTO) 65.5 % (40.0-77.0); PLATELET COUNT (AUTO) 357 K/uL (130-400); RED BLOOD CELL COUNT(AUTO) 3.55 MIL/uL (4.50-6.20); RED CELL DISTRIBUTION WIDTH 14.8 % (11.0-15.5); WHITE BLOOD COUNT (AUTO) 7.8 K/uL (4.8-10.8)
[2020-05-08 10:13] LABS: APPEARANCE,URINE Clear (CLEAR); BILIRUBIN,URINE Negative (NEGATIVE); COLOR,URINE Dark Yellow (YELLOW); GLUCOSE, URINE (UA) Negative (NEGATIVE); KETONES,URINE Trace mg/dL (NEGATIVE); LEUKOCYTE ESTERASE ,URINE Trace (NEGATIVE); NITRATE,URINE Negative (NEGATIVE); OCCULT BLOOD,URINE Negative (NEGATIVE); PROTEIN,URINE Negative (NEGATIVE)
[2020-05-08 10:21] LABS: CREATININE 1.1 mg/dL (0.5-1.5); POTASSIUM 3.7 mmol/L (3.5-5.1)
[2020-05-08 10:22] LABS: BACTERIA,URINE None Seen /HPF (None Seen); RBC,URINE 0-1 /HPF (0-1); SQUAMOUS EPITHELIAL CELL,UR 0-2 /HPF (0-2); WBC,URINE 0-1 /HPF (0-1)
[2020-05-08 10:23] LABS: INR 1.08 (0.85-1.15); PROTHROMBIN TIME 11.7 SEC (9.6-11.6)
[2020-05-08 10:24] LABS: PARTIAL THROMBOPLASTIN TIME 29.7 SEC (26.3-35.5)
[2020-05-09 12:32] VITALS: BP 131/77
[~2020-05-10] VITALS: Ht 160 cm; Wt 71.1 kg
[~2020-05-10 07:06] MED LIST changes: -AMOX-426 PO; +ATOR10TA69 PO; +CREON12 PO; +SODIUM CHLORIDE 0.9% 1000ML 1,000 ML IV ONE; -SPIR25TA6 PO; +SULCRAFATE PO; +TRAM50TA4 PO
[2020-05-10 07:12] VITALS: BP 149/68
[2020-05-10] MEDS ORDERED: IODIXANOL 320 MG/ML 100 ML VIAL ONE (13:17)
[2020-05-10] MEDS ORDERED: HEPARIN SODIUM 1000UNIT/ML 10ML VIAL ONE (13:17)
[2020-05-10] MEDS ORDERED: MIDAZOLAM HCL 1 MG/ML 2ML VIAL ONE ×3 (13:17→16:35)
[2020-05-10] MEDS ORDERED: NITROGLYCERIN 2 MG/VIAL VIAL IV ONE (13:17)
[2020-05-10] MEDS ORDERED: FENTANYL CITRATE PF 50 MCG/1 ML 2ML VIAL ONE ×3 (13:17→16:35)
[2020-05-10] MEDS ORDERED: LIDOCAINE HCL 2% 20ML ONE (13:18)
[2020-05-10] MEDS ORDERED: ASPIRIN 325MG EC TAB 325 MG TABLET.DR PO ONE (13:52)
[2020-05-10] MEDS ORDERED: CLOPIDOGREL BISULFATE 300 MG TAB ONE (13:52)
[2020-05-10] MEDS ORDERED: SODIUM CHLORIDE 0.9% 1000ML 1,000 ML IV SCH (17:15)
[2020-05-10 18:00] VITALS: BP 135/79
[2020-05-10 19:00] VITALS: BP 136/63
[2020-05-10 20:00] VITALS: BP 139/74
[2020-05-10 21:00] VITALS: BP 137/83
== END 2020-05-10 21:20 | disposition home or self-care (01) ==
LOC: DAH 07:06
PROVIDERS: ATTEND Internal Medicine Cardiovascular Disease
DX: I70.241 Atherosclerosis of native arteries of left leg with ulceration of thigh (principal); L97.128 Non-pressure chronic ulcer of left thigh with other specified severity; I70.92 Chronic total occlusion of artery of the extremities; I25.10 Atherosclerotic heart disease of native coronary artery without angina pectoris; I10 Essential (primary) hypertension; F17.210 Nicotine dependence, cigarettes, uncomplicated; K21.9 Gastro-esophageal reflux disease without esophagitis; E78.5 Hyperlipidemia, unspecified; D64.9 Anemia, unspecified; Z79.82 Long term (current) use of aspirin; Z79.899 Other long term (current) drug therapy; Z95.1 Presence of aortocoronary bypass graft; Z98.890 Other specified postprocedural states; Z95.5 Presence of coronary angioplasty implant and graft; Z79.01 Long term (current) use of anticoagulants
CPT/HCPCS: 36415; 71045; 75716; 80048; 81001; 82948; 85025; 85610; 85730; 93005; A4215; A4216; A4221; A4222; A4223 ×3; A4606; A4663; C1724 ×2; C1725 ×3; C1727; C1760; C1769 ×4; C1874; C1893; C1894 ×2; C2623; C9767; J1644 ×3; J2250 ×3; J3010 ×3; J3490 ×2; J7030; Q9967; 99156; 99157

== ENCOUNTER 2020-05-17 10:18 | Inpatient (IN) | payer MEDICARE ==
[~2020-05-17] VITALS: Ht 160 cm; Wt 71.7 kg
[~2020-05-17 10:18] MED LIST changes: -SODIUM CHLORIDE 0.9% 1000ML 1,000 ML IV ONE
[2020-05-17 10:41] LABS: BASOPHILS % (AUTO) 0.4 % (0.0-5.0); EOSINOPHILS % (AUTO) 1.8 % (0.0-8.0); HEMATOCRIT 29.1 % (42-54); MEAN CORPUSCULAR HEMOGLOBIN 28.3 pg (27.0-33.0); MEAN CORPUSCULAR HGB CONC 32.3 g/dL (32.0-36.0); MEAN CORPUSCULAR VOLUME 87.7 fL (79-99); NEUTROPHILS % (AUTO) 67.6 % (40.0-77.0); PLATELET COUNT (AUTO) 380 K/uL (130-400); RED BLOOD CELL COUNT(AUTO) 3.32 MIL/uL (4.50-6.20); RED CELL DISTRIBUTION WIDTH 13.8 % (11.0-15.5); WHITE BLOOD COUNT (AUTO) 8.4 K/uL (4.8-10.8)
[2020-05-17 11:00] LABS: ALBUMIN 3.2 g/dL (3.5-5.0); BILIRUBIN,TOTAL 0.3 mg/dL (0.2-1.0); POTASSIUM 3.4 mmol/L (3.5-5.1); TOTAL PROTEIN, SERUM 7.8 g/dL (6.0-8.3)
[2020-05-17] MEDS ORDERED: ONDANSETRON 4MG INJ ONE (11:11)
[2020-05-17] MEDS ORDERED: MORPHINE 2 MG SYG ONE (11:11)
[2020-05-17 11:50] LABS: ERYTHROCYTE SEDIMENTATION RATE 40 MM/HR (0-20)
[2020-05-17 12:24] LABS: INR 1.1 (0.85-1.15); PROTHROMBIN TIME 11.9 SEC (9.6-11.6)
[2020-05-17 12:26] LABS: PARTIAL THROMBOPLASTIN TIME 32.7 SEC (26.3-35.5)
[2020-05-17] MEDS ORDERED: CLOPIDOGREL 75MG TAB PO SCH (14:30)
[2020-05-17] MEDS ORDERED: ASPIRIN 81MG CHEW TAB PO SCH (14:30)
[2020-05-17] MEDS ORDERED: HEPARIN 25,000 UNITS/250ML D5W 250 ML IV SCH ×2 (14:30→15:15)
[2020-05-17] MEDS ORDERED: FUROSEMIDE 20 MG TABLET PO SCH (14:30)
[2020-05-17] MEDS ORDERED: HEPARIN 25,000 UNITS/250ML D5W 250 ML IV ONE (14:41)
[2020-05-17] MEDS ORDERED: FUROSEMIDE 20 MG TABLET ONE (15:14)
[2020-05-17] MEDS ORDERED: ASPIRIN 81MG CHEW TAB ONE (15:14)
[2020-05-17] MEDS ORDERED: TEMAZEPAM 15 MG CAPSULE PO PRN (15:15)
[2020-05-17] MEDS ORDERED: LIDOCAINE HCL-MPF 1% 2ML VIAL IV PRN (15:15)
[2020-05-17] MEDS ORDERED: POTASSIUM CHLORIDE 10% ELIXIR 20 MEQ/15 ML UDCUP PO PRN (15:15)
[2020-05-17] MEDS ORDERED: ASPIRIN 325 MG TABLET PO ONE (15:15)
[2020-05-17] MEDS ORDERED: HYDRALAZINE 20MG/ML VIAL IV PRN (15:15)
[2020-05-17] MEDS ORDERED: ONDANSETRON 4MG INJ IVP PRN (15:15)
[2020-05-17] MEDS ORDERED: GLUCAGON 1MG KIT 1 MG ML IM PRN (15:15)
[2020-05-17] MEDS ORDERED: POTASSIUM CHLORIDE 20MEQ/100ML 100 ML IV PRN (15:15)
[2020-05-17] MEDS ORDERED: CLOPIDOGREL 75MG TAB ONE (15:15)
[2020-05-17] MEDS ORDERED: DEXTROSE 50%-WATER 50 ML DISP.SYRIN IV PRN (15:15)
[2020-05-17] MEDS: 0.9%NACL 1000ML 1,000 ML IV SCH ×2 (15:15→23:15)
[2020-05-17] MEDS ORDERED: CLONIDINE HCL 0.1 MG TABLET PO PRN (15:15)
[2020-05-17] MEDS ORDERED: ACETAMINOPHEN 650 MG SUPPOSITORY RC PRN (15:15)
[2020-05-17] MEDS ORDERED: HYDROCODONE/ACETAMINOPHEN 5/325 MG TAB ONE (15:43)
[2020-05-17 16:35] LABS: BASOPHILS % (AUTO) 0.5 % (0.0-5.0); EOSINOPHILS % (AUTO) 1.7 % (0.0-8.0); HEMATOCRIT 30.6 % (42-54); LYMPHOCYTES % (AUTO) 20.7 % (21.0-51.0); MEAN CORPUSCULAR HEMOGLOBIN 27.9 pg (27.0-33.0); MEAN CORPUSCULAR VOLUME 89.7 fL (79-99); MONOCYTES % (AUTO) 10.7 % (3.0-13.0); NEUTROPHILS % (AUTO) 66.3 % (40.0-77.0); PLATELET COUNT (AUTO) 395 K/uL (130-400); RED BLOOD CELL COUNT(AUTO) 3.41 MIL/uL (4.50-6.20); RED CELL DISTRIBUTION WIDTH 14.1 % (11.0-15.5)
[2020-05-17 18:12] VITALS: BP 149/71
[2020-05-17 20:17] VITALS: BP 135/68
[2020-05-17 22:36] LABS: INR 1.07 (0.85-1.15); PROTHROMBIN TIME 11.6 SEC (9.6-11.6)
[2020-05-17 22:38] LABS: PARTIAL THROMBOPLASTIN TIME 31.9 SEC (26.3-35.5)
[2020-05-17] MEDS: MORPHINE 4 MG SYG IVP PRN (23:17)
[2020-05-17] MEDS: ATORVASTATIN 40 MG TABLET PO SCH (23:40)
[2020-05-17] MEDS: RANOLAZINE 500 MG TAB.SR.12H PO SCH (23:40)
[2020-05-17] MEDS: METOPROLOL TARTRATE 50 MG TAB PO SCH (23:40)
[2020-05-17] MEDS: ACETYLCYSTEINE 20% 200MG/ML 4ML VIAL PO SCH (23:50)
[2020-05-18] VITALS (13 sets, daily range): BP systolic 104–152; BP diastolic 16–72
[2020-05-18] MEDS ORDERED: HEPARIN 5,000 UNIT VIAL ONE (00:08)
[2020-05-18] MEDS: HYDROCODONE/ACETAMINOPHEN 5/325 MG TAB PO PRN ×2 (02:26→17:49)
[2020-05-18] MEDS: MORPHINE 4 MG SYG IVP PRN ×2 (04:03→22:07)
[2020-05-18 04:05] LABS: HEMATOCRIT 29.7 % (42-54); MEAN CORPUSCULAR HEMOGLOBIN 27.8 pg (27.0-33.0); MEAN CORPUSCULAR HGB CONC 32.3 g/dL (32.0-36.0); MEAN CORPUSCULAR VOLUME 86.1 fL (79-99); RED BLOOD CELL COUNT(AUTO) 3.45 MIL/uL (4.50-6.20); RED CELL DISTRIBUTION WIDTH 13.8 % (11.0-15.5); WHITE BLOOD COUNT (AUTO) 8.1 K/uL (4.8-10.8)
[2020-05-18 04:19] LABS: POTASSIUM 3.5 mmol/L (3.5-5.1)
[2020-05-18 04:26] LABS: INR 1.1 (0.85-1.15); PROTHROMBIN TIME 11.9 SEC (9.6-11.6)
[2020-05-18 04:27] LABS: PARTIAL THROMBOPLASTIN TIME 86.9 SEC (26.3-35.5)
[2020-05-18] MEDS: ACETYLCYSTEINE 20% 200MG/ML 4ML VIAL PO SCH ×3 (06:00→17:47)
[2020-05-18] MEDS ORDERED: NICARDIPINE 25MG INJ IV ONE (07:18)
[2020-05-18] MEDS ORDERED: NITROGLYCERIN 2 MG VIAL IV ONE (07:19)
[2020-05-18] MEDS ORDERED: LIDOCAINE HCL 400MG/20ML VIAL ONE (07:19)
[2020-05-18] MEDS ORDERED: MIDAZOLAM HCL 1 MG/ML 2ML VIAL ONE ×2 (07:19→10:49)
[2020-05-18] MEDS ORDERED: HEPARIN 10,000 UNIT/10ML (1,000 UNIT/ML) VIAL ONE (07:19)
[2020-05-18] MEDS ORDERED: IODIXANOL 320 MG/ML 100 ML VIAL ONE (07:19)
[2020-05-18] MEDS ORDERED: FENTANYL CITRATE PF 50 MCG/1 ML 2ML VIAL ONE (08:10)
[2020-05-18] MEDS: ASPIRIN 81MG CHEW TAB PO SCH (09:00)
[2020-05-18] MEDS: CLOPIDOGREL 75MG TAB PO SCH (09:00)
[2020-05-18] MEDS ORDERED: CLOPIDOGREL 300MG TAB ONE (09:03)
[2020-05-18] MEDS ORDERED: ASPIRIN 81MG CHEW TAB ONE (09:03)
[2020-05-18] MEDS ORDERED: 0.9%NACL 1000ML 1,000 ML IV SCH (11:15)
[2020-05-18] MEDS: PANTOPRAZOLE 40 MG TAB DR PO SCH (13:45)
[2020-05-18] MEDS: FUROSEMIDE 20 MG TABLET PO SCH (13:45)
[2020-05-18] MEDS: METOPROLOL TARTRATE 50 MG TAB PO SCH ×2 (13:45→22:06)
[2020-05-18] MEDS: RANOLAZINE 500 MG TAB.SR.12H PO SCH ×2 (13:45→22:06)
[2020-05-18] MEDS: KCL 20 MEQ ERTAB PO PRN ×2 (16:49→17:48)
[2020-05-18] MEDS: ATORVASTATIN 40 MG TABLET PO SCH (22:06)
[2020-05-19] MEDS: MORPHINE 4 MG SYG IVP PRN (03:54)
[2020-05-19 04:31] VITALS: BP 95/56
[2020-05-19 05:19] LABS: HEMATOCRIT 29.4 % (42-54); MEAN CORPUSCULAR HEMOGLOBIN 27.8 pg (27.0-33.0); MEAN CORPUSCULAR HGB CONC 31.3 g/dL (32.0-36.0); MEAN CORPUSCULAR VOLUME 88.8 fL (79-99); RED BLOOD CELL COUNT(AUTO) 3.31 MIL/uL (4.50-6.20); RED CELL DISTRIBUTION WIDTH 14.2 % (11.0-15.5); WHITE BLOOD COUNT (AUTO) 8.7 K/uL (4.8-10.8)
[2020-05-19 05:26] LABS: CREATININE 1.1 mg/dL (0.5-1.5)
[2020-05-19] MEDS: ACETYLCYSTEINE 20% 200MG/ML 4ML VIAL PO SCH ×4 (06:21→19:26)
[2020-05-19 08:00] VITALS: BP 117/62
[2020-05-19] MEDS: RANOLAZINE 500 MG TAB.SR.12H PO SCH ×2 (08:27→21:08)
[2020-05-19] MEDS: CLOPIDOGREL 75MG TAB PO SCH (08:27)
[2020-05-19] MEDS: ASPIRIN 81MG CHEW TAB PO SCH (08:27)
[2020-05-19] MEDS: PANTOPRAZOLE 40 MG TAB DR PO SCH (08:27)
[2020-05-19] MEDS: FUROSEMIDE 20 MG TABLET PO SCH (08:28)
[2020-05-19] MEDS: MORPHINE 2 MG SYG IVP PRN ×3 (08:30→19:27)
[2020-05-19] MEDS: METOPROLOL TARTRATE 50 MG TAB PO SCH ×2 (08:56→21:08)
[2020-05-19 12:03] VITALS: BP 115/58
[2020-05-19] MEDS: HYDROCODONE/ACETAMINOPHEN 5/325 MG TAB PO PRN ×2 (12:34→22:47)
[2020-05-19] MEDS: METRONIDAZOLE 250 MG TABLET PO SCH ×3 (12:35→21:09)
[2020-05-19] MEDS: CEPHALEXIN 500 MG CAPSULE PO SCH ×4 (12:35→21:09)
[2020-05-19 16:00] VITALS: BP 99/44
[2020-05-19 20:00] VITALS: BP 136/59
[2020-05-19] MEDS: ATORVASTATIN 40 MG TABLET PO SCH (21:08)
[2020-05-20] VITALS: BP_SYST 109; BP_SYST 134; BP_DIAS 64; BP_DIAS 66
[2020-05-20 04:00] VITALS: BP 124/58
[2020-05-20] MEDS: MORPHINE 4 MG SYG IVP PRN ×2 (04:35→12:30)
[2020-05-20] MEDS: ACETYLCYSTEINE 20% 200MG/ML 4ML VIAL PO SCH ×3 (06:22→18:31)
[2020-05-20 07:59] VITALS: BP 128/58
[2020-05-20] MEDS: MORPHINE 2 MG SYG IVP PRN (08:28)
[2020-05-20] MEDS: PANTOPRAZOLE 40 MG TAB DR PO SCH (09:57)
[2020-05-20] MEDS: FUROSEMIDE 20 MG TABLET PO SCH (09:57)
[2020-05-20] MEDS: METOPROLOL TARTRATE 50 MG TAB PO SCH ×2 (09:58→22:51)
[2020-05-20] MEDS: METRONIDAZOLE 250 MG TABLET PO SCH ×3 (09:58→22:58)
[2020-05-20] MEDS: CEPHALEXIN 500 MG CAPSULE PO SCH ×4 (09:58→22:52)
[2020-05-20] MEDS: RANOLAZINE 500 MG TAB.SR.12H PO SCH ×2 (09:58→22:52)
[2020-05-20] MEDS: ASPIRIN 81MG CHEW TAB PO SCH (09:58)
[2020-05-20] MEDS: CLOPIDOGREL 75MG TAB PO SCH (09:58)
[2020-05-20] MEDS: HYDROCODONE/ACETAMINOPHEN 5/325 MG TAB PO PRN ×3 (09:59→22:54)
[2020-05-20 11:43] VITALS: BP 120/73
[2020-05-20] MEDS ORDERED: LACTULOSE 20 GM/30 ML UDCUP PO PRN (13:30)
[2020-05-20] MEDS: POLYETHYLENE GLYCOL 3350 17 GM POWD.PACK PO SCH (14:54)
[2020-05-20 16:11] VITALS: BP 146/77
[2020-05-20] MEDS ORDERED: TRAMADOL HCL 50 MG TABLET PO SCH (16:45)
[2020-05-20] MEDS: GABAPENTIN 100 MG CAPSULE PO SCH ×2 (18:31→22:52)
[2020-05-20] MEDS: SUCRALFATE 1 GM TABLET PO SCH (18:32)
[2020-05-20 20:16] VITALS: BP 111/63
[2020-05-21] VITALS (8 sets, daily range): BP systolic 115–139; BP diastolic 58–76
[2020-05-21] MEDS: AMITRIPTYLINE 25 MG TABLET PO SCH ×2 (00:04→21:03)
[2020-05-21] MEDS: ACETYLCYSTEINE 20% 200MG/ML 4ML VIAL PO SCH ×3 (00:04→12:00)
[2020-05-21] MEDS: SUCRALFATE 1 GM TABLET PO SCH (05:18)
[2020-05-21] MEDS: HYDROCODONE/ACETAMINOPHEN 5/325 MG TAB PO PRN ×2 (05:18→12:21)
[2020-05-21] MEDS: LIPASE PO SCH (09:00)
[2020-05-21] MEDS: PROTEASE PO SCH (09:00)
[2020-05-21] MEDS: AMYLASE PO SCH (09:00)
[2020-05-21] MEDS: ASPIRIN 81 MG EC TAB PO SCH (09:15)
[2020-05-21] MEDS: METRONIDAZOLE 250 MG TABLET PO SCH (09:15)
[2020-05-21] MEDS: CEPHALEXIN 500 MG CAPSULE PO SCH (09:15)
[2020-05-21] MEDS: MULTIVITAMIN WITH MINERALS TABLET PO SCH (09:15)
[2020-05-21] MEDS: TAMSULOSIN HCL 0.4 MG CAP.ER.24H PO SCH (09:15)
[2020-05-21] MEDS: ATORVASTATIN 10 MG TABLET PO SCH (09:16)
[2020-05-21] MEDS: METOPROLOL TARTRATE 50 MG TAB PO SCH ×2 (09:16→21:00)
[2020-05-21] MEDS: FUROSEMIDE 20 MG TABLET PO SCH (09:16)
[2020-05-21] MEDS: GABAPENTIN 100 MG CAPSULE PO SCH ×4 (09:16→20:59)
[2020-05-21] MEDS: POLYETHYLENE GLYCOL 3350 17 GM POWD.PACK PO SCH (09:16)
[2020-05-21] MEDS: PANTOPRAZOLE 40 MG TAB DR PO SCH (09:17)
[2020-05-21] MEDS: RANOLAZINE 500 MG TAB.SR.12H PO SCH ×2 (09:17→21:00)
[2020-05-21] MEDS: CLOPIDOGREL 75MG TAB PO SCH (09:17)
[2020-05-21] MEDS ORDERED: VANCOMYCIN PROTOCOL PER PHARMACY IV SCH (13:45)
[2020-05-21] MEDS ORDERED: VANCOMYCIN 1G/250ML KIT 250 ML IV SCH (13:45)
[2020-05-21] MEDS ORDERED: CEPHALEXIN 500 MG CAPSULE ONE (13:50)
[2020-05-21] MEDS ORDERED: COMPOUND IV REFRIGERATED 1 EACH IVSOLN MISC PRN (14:15)
[2020-05-21] MEDS: CEFEPIME HCL 1 GM VIAL IVP SCH (14:52)
[2020-05-21] MEDS ORDERED: VANCOMYCIN 1G 1.5 GM in 0.9% NACL 250ML 250 ML IV ONE (15:00)
[2020-05-21 15:05] LABS: INR 1.06 (0.85-1.15); PROTHROMBIN TIME 11.5 SEC (9.6-11.6)
[2020-05-21 15:06] LABS: PARTIAL THROMBOPLASTIN TIME 30.1 SEC (26.3-35.5)
[2020-05-21] MEDS: MORPHINE 2 MG SYG IVP PRN (21:00)
[2020-05-21] MEDS: VANCOMYCIN 750MG + NS 250 ML IV SCH ×2 (21:01)
[2020-05-22] MEDS: HYDROCODONE/ACETAMINOPHEN 5/325 MG TAB PO PRN ×2 (00:10→09:18)
[2020-05-22] MEDS: CEFEPIME HCL 1 GM VIAL IVP SCH ×2 (02:15→16:05)
[2020-05-22] MEDS: MORPHINE 4 MG SYG IVP PRN ×3 (04:51→17:56)
[2020-05-22 05:07] LABS: BASOPHILS % (AUTO) 0.3 % (0.0-5.0); HEMATOCRIT 26.2 % (42-54); LYMPHOCYTES % (AUTO) 21.1 % (21.0-51.0); MEAN CORPUSCULAR HGB CONC 31.7 g/dL (32.0-36.0); MEAN CORPUSCULAR VOLUME 85.3 fL (79-99); MONOCYTES % (AUTO) 11.9 % (3.0-13.0); NEUTROPHILS % (AUTO) 64.3 % (40.0-77.0); PLATELET COUNT (AUTO) 391 K/uL (130-400); RED BLOOD CELL COUNT(AUTO) 3.07 MIL/uL (4.50-6.20); RED CELL DISTRIBUTION WIDTH 14.3 % (11.0-15.5); WHITE BLOOD COUNT (AUTO) 7.8 K/uL (4.8-10.8)
[2020-05-22 05:25] LABS: CREATININE 1.1 mg/dL (0.5-1.5); POTASSIUM 3.8 mmol/L (3.5-5.1)
[2020-05-22] MEDS: SUCRALFATE 1 GM TABLET PO SCH (05:55)
[2020-05-22 06:07] VITALS: BP 124/64
[2020-05-22 07:35] VITALS: BP 125/63
[2020-05-22] MEDS: LIPASE PO SCH (09:00)
[2020-05-22] MEDS: PROTEASE PO SCH (09:00)
[2020-05-22] MEDS: AMYLASE PO SCH (09:00)
[2020-05-22] MEDS: RANOLAZINE 500 MG TAB.SR.12H PO SCH ×2 (09:18→19:33)
[2020-05-22] MEDS: ASPIRIN 81 MG EC TAB PO SCH (09:18)
[2020-05-22] MEDS: GABAPENTIN 100 MG CAPSULE PO SCH ×4 (09:19→19:33)
[2020-05-22] MEDS: CLOPIDOGREL 75MG TAB PO SCH (09:19)
[2020-05-22] MEDS: TAMSULOSIN HCL 0.4 MG CAP.ER.24H PO SCH (09:19)
[2020-05-22] MEDS: PANTOPRAZOLE 40 MG TAB DR PO SCH (09:19)
[2020-05-22] MEDS: FUROSEMIDE 20 MG TABLET PO SCH (09:19)
[2020-05-22] MEDS: MULTIVITAMIN WITH MINERALS TABLET PO SCH (09:19)
[2020-05-22] MEDS: METOPROLOL TARTRATE 50 MG TAB PO SCH ×2 (09:20→19:33)
[2020-05-22] MEDS: ATORVASTATIN 10 MG TABLET PO SCH (09:20)
[2020-05-22] MEDS: KCL 20 MEQ ERTAB PO PRN ×2 (09:21→11:23)
[2020-05-22] MEDS: POLYETHYLENE GLYCOL 3350 17 GM POWD.PACK PO SCH (09:21)
[2020-05-22] MEDS: VANCOMYCIN 750MG + NS 250 ML IV SCH ×4 (09:22→19:33)
[2020-05-22 11:20] VITALS: BP 137/56
[2020-05-22] MEDS: ACETYLCYSTEINE 20% 200MG/ML 4ML VIAL PO SCH ×2 (12:00→23:21)
[2020-05-22 15:51] VITALS: BP 124/64
[2020-05-22] MEDS: AMITRIPTYLINE 25 MG TABLET PO SCH (19:33)
[2020-05-22 20:13] VITALS: BP 111/72
[2020-05-22] MEDS ORDERED: KETOROLAC 30MG VIAL (30MG/ML) ONE (23:25)
[2020-05-23] VITALS (9 sets, daily range): BP systolic 89–119; BP diastolic 52–70
[2020-05-23] MEDS: HYDROMORPHONE 0.5 MG SYG (0.5MG/0.5ML) IVP PRN ×2 (00:48→16:52)
[2020-05-23] MEDS: CEFEPIME HCL 1 GM VIAL IVP SCH ×2 (00:48→13:16)
[2020-05-23 04:47] LABS: HEMATOCRIT 26.8 % (42-54); MEAN CORPUSCULAR HEMOGLOBIN 27.2 pg (27.0-33.0); MEAN CORPUSCULAR HGB CONC 31.3 g/dL (32.0-36.0); MEAN CORPUSCULAR VOLUME 86.7 fL (79-99); RED BLOOD CELL COUNT(AUTO) 3.09 MIL/uL (4.50-6.20); RED CELL DISTRIBUTION WIDTH 14.5 % (11.0-15.5); WHITE BLOOD COUNT (AUTO) 8.5 K/uL (4.8-10.8)
[2020-05-23 05:05] LABS: CREATININE 1.1 mg/dL (0.5-1.5); MAGNESIUM 1.9 mg/dL (1.80-2.40); POTASSIUM 4.2 mmol/L (3.5-5.1)
[2020-05-23] MEDS: ACETYLCYSTEINE 20% 200MG/ML 4ML VIAL PO SCH ×3 (05:07→16:47)
[2020-05-23] MEDS: SUCRALFATE 1 GM TABLET PO SCH (05:20)
[2020-05-23] MEDS: AMYLASE PO SCH (09:00)
[2020-05-23] MEDS: PROTEASE PO SCH (09:00)
[2020-05-23] MEDS: LIPASE PO SCH (09:00)
[2020-05-23] MEDS: CLOPIDOGREL 75MG TAB PO SCH (11:25)
[2020-05-23] MEDS: ASPIRIN 81 MG EC TAB PO SCH (11:25)
[2020-05-23] MEDS: RANOLAZINE 500 MG TAB.SR.12H PO SCH ×2 (11:25→21:23)
[2020-05-23] MEDS: TAMSULOSIN HCL 0.4 MG CAP.ER.24H PO SCH (11:26)
[2020-05-23] MEDS: METOPROLOL TARTRATE 50 MG TAB PO SCH ×2 (11:26→21:23)
[2020-05-23] MEDS: PANTOPRAZOLE 40 MG TAB DR PO SCH (11:26)
[2020-05-23] MEDS: MULTIVITAMIN WITH MINERALS TABLET PO SCH (11:26)
[2020-05-23] MEDS: ATORVASTATIN 10 MG TABLET PO SCH (11:26)
[2020-05-23] MEDS: VANCOMYCIN 750MG + NS 250 ML IV SCH ×4 (11:27→21:42)
[2020-05-23] MEDS: FUROSEMIDE 20 MG TABLET PO SCH (13:16)
[2020-05-23] MEDS: GABAPENTIN 100 MG CAPSULE PO SCH ×4 (13:16→21:23)
[2020-05-23] MEDS: POLYETHYLENE GLYCOL 3350 17 GM POWD.PACK PO SCH (13:16)
[2020-05-23] MEDS: AMITRIPTYLINE 25 MG TABLET PO SCH (21:22)
[2020-05-23] MEDS: KETOROLAC 15MG/ML VIAL (15MG/ML) IV PRN (21:39)
[2020-05-24] VITALS (7 sets, daily range): BP systolic 112–134; BP diastolic 50–66
[2020-05-24] MEDS: ACETYLCYSTEINE 20% 200MG/ML 4ML VIAL PO SCH ×4 (00:21→17:54)
[2020-05-24] MEDS: HYDROMORPHONE 0.5 MG SYG (0.5MG/0.5ML) IVP PRN ×3 (00:22→18:26)
[2020-05-24] MEDS: CEFEPIME HCL 1 GM VIAL IVP SCH ×2 (02:16→13:56)
[2020-05-24] MEDS: KETOROLAC 15MG/ML VIAL (15MG/ML) IV PRN ×2 (02:17→22:58)
[2020-05-24] MEDS: ACETAMINOPHEN 325 MG TAB PO PRN ×3 (02:25→22:59)
[2020-05-24] MEDS ORDERED: GABAPENTIN 100 MG CAPSULE PO SCH (05:15)
[2020-05-24] MEDS: SUCRALFATE 1 GM TABLET PO SCH (07:10)
[2020-05-24] MEDS: GABAPENTIN 100 MG CAPSULE PO SCH ×4 (08:17→20:40)
[2020-05-24] MEDS: AMYLASE PO SCH (09:00)
[2020-05-24] MEDS: PROTEASE PO SCH (09:00)
[2020-05-24] MEDS: LIPASE PO SCH (09:00)
[2020-05-24] MEDS: POLYETHYLENE GLYCOL 3350 17 GM POWD.PACK PO SCH (09:17)
[2020-05-24] MEDS: VANCOMYCIN 750MG + NS 250 ML IV SCH ×4 (09:17→20:41)
[2020-05-24] MEDS: ASPIRIN 81 MG EC TAB PO SCH (09:18)
[2020-05-24] MEDS: CLOPIDOGREL 75MG TAB PO SCH (09:18)
[2020-05-24] MEDS: MULTIVITAMIN WITH MINERALS TABLET PO SCH (09:18)
[2020-05-24] MEDS: FUROSEMIDE 20 MG TABLET PO SCH (09:19)
[2020-05-24] MEDS: TAMSULOSIN HCL 0.4 MG CAP.ER.24H PO SCH (09:19)
[2020-05-24] MEDS: METOPROLOL TARTRATE 50 MG TAB PO SCH ×2 (09:19→20:40)
[2020-05-24] MEDS: RANOLAZINE 500 MG TAB.SR.12H PO SCH ×2 (09:19→20:40)
[2020-05-24] MEDS: ATORVASTATIN 10 MG TABLET PO SCH (09:19)
[2020-05-24] MEDS: PANTOPRAZOLE 40 MG TAB DR PO SCH (09:19)
[2020-05-24] MEDS ORDERED: GABA100C PO (10:31)
[2020-05-24] MEDS ORDERED: AMIT25TA9 PO (10:31)
[2020-05-24] MEDS ORDERED: Vancomycin Protocol IV (10:31)
[2020-05-24] MEDS ORDERED: Cefepime Hcl IVP (10:31)
[2020-05-24] MEDS: NITROGLYCERIN 1GM OINT 1 INCH/1GM TD SCH ×2 (13:57→20:40)
[2020-05-24] MEDS: AMITRIPTYLINE 25 MG TABLET PO SCH (20:40)
[2020-05-25] MEDS: HYDROMORPHONE 0.5 MG SYG (0.5MG/0.5ML) IVP PRN ×3 (00:17→15:08)
[2020-05-25] MEDS: CEFEPIME HCL 1 GM VIAL IVP SCH ×2 (02:53→13:45)
[2020-05-25] MEDS: NITROGLYCERIN 1GM OINT 1 INCH/1GM TD SCH ×3 (02:55→13:46)
[2020-05-25 04:37] VITALS: BP 100/54
[2020-05-25] MEDS: ACETYLCYSTEINE 20% 200MG/ML 4ML VIAL PO SCH ×4 (06:01→18:00)
[2020-05-25] MEDS: SUCRALFATE 1 GM TABLET PO SCH (06:01)
[2020-05-25] MEDS ORDERED: IOHEXOL-350 50ML VIAL IV ONE (06:56)
[2020-05-25 08:00] VITALS: BP 108/47
[2020-05-25] MEDS: AMYLASE PO SCH (09:00)
[2020-05-25] MEDS: LIPASE PO SCH (09:00)
[2020-05-25] MEDS: PROTEASE PO SCH (09:00)
[2020-05-25] MEDS: ASPIRIN 81 MG EC TAB PO SCH (10:22)
[2020-05-25] MEDS: PANTOPRAZOLE 40 MG TAB DR PO SCH (10:22)
[2020-05-25] MEDS: RANOLAZINE 500 MG TAB.SR.12H PO SCH (10:23)
[2020-05-25] MEDS: CLOPIDOGREL 75MG TAB PO SCH (10:23)
[2020-05-25] MEDS: FUROSEMIDE 20 MG TABLET PO SCH (10:23)
[2020-05-25] MEDS: MULTIVITAMIN WITH MINERALS TABLET PO SCH (10:23)
[2020-05-25] MEDS: METOPROLOL TARTRATE 50 MG TAB PO SCH (10:23)
[2020-05-25] MEDS: TAMSULOSIN HCL 0.4 MG CAP.ER.24H PO SCH (10:23)
[2020-05-25] MEDS: POLYETHYLENE GLYCOL 3350 17 GM POWD.PACK PO SCH (10:24)
[2020-05-25] MEDS ORDERED: HYDROCODONE/ACETAMINOPHEN 7.5/325 MG TAB PO PRN (10:30)
[2020-05-25] MEDS: GABAPENTIN 100 MG CAPSULE PO SCH ×2 (10:31→13:45)
[2020-05-25] MEDS: ATORVASTATIN 10 MG TABLET PO SCH (10:31)
[2020-05-25] MEDS: KETOROLAC 15MG/ML VIAL (15MG/ML) IV PRN (10:32)
[2020-05-25 12:00] VITALS: BP 102/37
[2020-05-25] MEDS: VANCOMYCIN 750MG + NS 250 ML IV SCH ×2 (13:40)
[2020-05-25 16:00] VITALS: BP 106/37
[2020-08-31] MEDS ORDERED: DIPH25 PO (14:34)
[2020-08-31] MEDS ORDERED: FURO10VI4 IV (14:34)
[2020-08-31] MEDS ORDERED: FAMO10VI2 IV (14:34)
[2020-08-31] MEDS ORDERED: LACT10SO9 PO (14:34)
[2020-08-31] MEDS ORDERED: ONDA220I IV (14:34)
[2020-08-31] MEDS ORDERED: ACET1TAB25 PO (14:34)
[2020-08-31] MEDS ORDERED: MAG30ORA12 PO (14:34)
[2020-08-31] MEDS ORDERED: PIPE3.379 IV (14:34)
[2020-08-31] MEDS ORDERED: CLOP75TA32 PO ×2 (14:34→17:08)
[2020-08-31] MEDS ORDERED: RANO500T6 PO (17:08)
[2020-08-31] MEDS ORDERED: ICOS1CAP PO (17:08)
[2020-08-31] MEDS ORDERED: TAMS-1 PO (17:08)
[2020-08-31] MEDS ORDERED: ALPH200C2 PO (17:08)
[2020-08-31] MEDS ORDERED: METO-391 PO (17:08)
[2020-08-31] MEDS ORDERED: GABA-533 PO (17:08)
[2020-08-31] MEDS ORDERED: IRON1CAP30 PO (17:08)
[2020-08-31] MEDS ORDERED: ATOR40TA69 PO (17:08)
[2020-08-31] MEDS ORDERED: SUCR1TAB2 PO (17:08)
[2020-08-31] MEDS ORDERED: CYAN10007 IJ (17:08)
[2020-08-31] MEDS ORDERED: APIX5TAB PO (17:08)
[2020-08-31] MEDS ORDERED: AEC81 PO (17:08)
[2020-08-31] MEDS ORDERED: FURO40TA5 PO (17:08)
[2020-08-31] MEDS ORDERED: PIOG15TA6 PO (17:08)
[2020-08-31] MEDS ORDERED: PANT40TA54 PO (17:08)
[2020-08-31] MEDS ORDERED: MIRA25TA PO (17:08)
[2020-09-12] MEDS ORDERED: APIX5TAB PO (15:49)
[2020-09-12] MEDS ORDERED: FERR500P12 PO (15:49)
[2020-09-12] MEDS ORDERED: THIO200T2 PO (15:49)
[2020-09-12] MEDS ORDERED: HYDR-4379 PO (15:49)
[2020-09-12] MEDS ORDERED: MIRA25TA PO (15:49)
[2020-09-12] MEDS ORDERED: DOCU100T PO (15:49)
[2020-09-12] MEDS ORDERED: CYAN-52 PO (15:49)
[2020-09-12] MEDS ORDERED: FURO40TA5 PO (15:49)
[2020-09-12] MEDS ORDERED: ICOS1CAP PO (15:49)
== END 2020-05-25 19:15 | DRG 270 ==
LOC: EDH 10:18 → OBSVTOIN 15:07 → EDHIP 15:07 → 4CH 17:38
PROVIDERS: ADMIT Internal Medicine; ATTEND Internal Medicine
PROC: B4101ZZ Fluoroscopy of Abdominal Aorta using Low Osmolar Contrast (ICD-10-PCS; principal; 2020-05-18)
PROC: 04CN3ZZ Extirpation of Matter from Left Popliteal Artery, Percutaneous Approach (ICD-10-PCS; 2020-05-18)
PROC: 047S34Z Dilation of Left Posterior Tibial Artery with Drug-eluting Intraluminal Device, Percutaneous Approach (ICD-10-PCS; 2020-05-18)
PROC: 047L34Z Dilation of Left Femoral Artery with Drug-eluting Intraluminal Device, Percutaneous Approach (ICD-10-PCS; 2020-05-18)
PROC: B41G1ZZ Fluoroscopy of Left Lower Extremity Arteries using Low Osmolar Contrast (ICD-10-PCS; 2020-05-18)
PROC: 047N341 Dilation of Left Popliteal Artery with Drug-eluting Intraluminal Device, using Drug-Coated Balloon, Percutaneous Approach (ICD-10-PCS; 2020-05-18)
PROC: 04CS3ZZ Extirpation of Matter from Left Posterior Tibial Artery, Percutaneous Approach (ICD-10-PCS; 2020-05-18)
PROC: 02HV33Z Insertion of Infusion Device into Superior Vena Cava, Percutaneous Approach (ICD-10-PCS; 2020-05-18)
DX: E11.52 Type 2 diabetes mellitus with diabetic peripheral angiopathy with gangrene (principal); I50.23 Acute on chronic systolic (congestive) heart failure; M86.9 Osteomyelitis, unspecified; L03.116 Cellulitis of left lower limb; L97.529 Non-pressure chronic ulcer of other part of left foot with unspecified severity; I70.202 Unspecified atherosclerosis of native arteries of extremities, left leg; I25.5 Ischemic cardiomyopathy; D63.8 Anemia in other chronic diseases classified elsewhere; E11.621 Type 2 diabetes mellitus with foot ulcer; E11.622 Type 2 diabetes mellitus with other skin ulcer; E11.69 Type 2 diabetes mellitus with other specified complication; E66.9 Obesity, unspecified; E78.5 Hyperlipidemia, unspecified; F17.200 Nicotine dependence, unspecified, uncomplicated; I11.0 Hypertensive heart disease with heart failure; I25.10 Atherosclerotic heart disease of native coronary artery without angina pectoris; Z68.28 Body mass index [BMI] 28.0-28.9, adult; Z79.02 Long term (current) use of antithrombotics/antiplatelets; Z79.82 Long term (current) use of aspirin; Z79.899 Other long term (current) drug therapy; Z95.1 Presence of aortocoronary bypass graft; Z98.61 Coronary angioplasty status; Z20.822 Contact with and (suspected) exposure to COVID-19
CPT/HCPCS: 36415; 37227; 37229; 71045; 73660; 73718; 75716; 80048; 80053; 80202; 83605; 83735; 85025; 85027; 85347; 85610; 85651; 85730; 86140; 87426; 99156; 99157; C1725; C1769; C1893; C1894; C9767; G0378; J0692; J1170; J1644; J1885; J2250; J2270; J2405; J3010; J3370; J3490; J7050; J7608; Q9967

== ENCOUNTER 2020-05-29 06:37 | Observation (INO) | payer MEDICARE ==
[2020-05-29] VITALS (10 sets, daily range): BP systolic 105–131; BP diastolic 57–78
[~2020-05-29] VITALS: Ht 160 cm; Wt 74.8 kg
[~2020-05-29 06:37] MED LIST changes: +AMIT25TA9 PO; +Cefepime Hcl IVP; -FURO20TA4 PO; +GABA100C PO; -PIOG15TA66 PO; +Vancomycin Protocol IV
[2020-05-29] MEDS ORDERED: MIDAZOLAM HCL 1 MG/ML 2ML VIAL ONE (13:05)
[2020-05-29] MEDS ORDERED: FENTANYL CITRATE PF 50 MCG/1 ML 2ML VIAL ONE (13:06)
[2020-05-29] MEDS: ONDANSETRON HCL 4 MG/2 ML VIAL IVP PRN (13:21)
[2020-05-29] MEDS: MORPHINE SULFATE 2 MG/ML 1ML SYG IVP PRN (13:22)
[2020-05-29] MEDS ORDERED: MORPHINE SULFATE 4 MG/1ML SYG IVP PRN (14:15)
[2020-05-29] MEDS ORDERED: ALBUTEROL SULFATE 0.083% 2.5 MG/3 ML INH IH PRN (14:15)
[2020-05-29] MEDS ORDERED: ACETAMINOPHEN 650 MG SUPPOSITORY RC PRN (14:15)
[2020-05-29] MEDS ORDERED: CLONIDINE HCL 0.1 MG TABLET PO PRN (14:15)
[2020-05-29] MEDS ORDERED: ONDANSETRON HCL 4 MG/2 ML VIAL IVP PRN (14:15)
[2020-05-29] MEDS ORDERED: LACTULOSE 20 GM/30 ML UDCUP PO PRN (14:15)
[2020-05-29] MEDS ORDERED: ACETAMINOPHEN 325 MG TAB PO PRN (14:15)
[2020-05-29] MEDS ORDERED: MORPHINE SULFATE 2 MG/ML 1ML SYG IVP PRN (14:15)
[2020-05-29] MEDS ORDERED: LIDOCAINE HCL 1% 20 ML VIAL ONE (15:04)
[2020-05-29] MEDS ORDERED: BUPIVACAINE/PF 0.5% 30ML VIAL ONE (15:04)
[2020-05-29] MEDS ORDERED: CEFAZOLIN SODIUM 1 GM VIAL ONE (15:18)
[2020-05-29] MEDS ORDERED: FENTANYL CITRATE PF 50 MCG/1 ML 5ML AMP IV ONE (15:27)
[2020-05-29] MEDS: INSULIN HUMULIN R 100 UNIT/ML 3ML SQ SCH ×2 (16:30→20:40)
[2020-05-29] MEDS: LACTATED RINGERS 1000ML 1,000 ML IV SCH ×2 (18:15→20:31)
[2020-05-30] VITALS (8 sets, daily range): BP systolic 118–164; BP diastolic 50–82
[2020-05-30] MEDS: MORPHINE SULFATE 2 MG/ML 1ML SYG IVP PRN ×2 (00:44→21:44)
[2020-05-30] MEDS: ONDANSETRON HCL 4 MG/2 ML VIAL IVP PRN (02:58)
[2020-05-30] MEDS: HYDROMORPHONE HCL 0.5 MG/0.5 ML ML IVP PRN ×2 (02:59→08:58)
[2020-05-30] MEDS: HYDROCODONE/ACETAMINOPHEN 5/325 MG TAB PO PRN ×3 (04:55→16:19)
[2020-05-30 05:29] LABS: BASOPHILS % (AUTO) 0.3 % (0.0-5.0); EOSINOPHILS % (AUTO) 2.1 % (0.0-8.0); HEMATOCRIT 22.5 % (42-54); LYMPHOCYTES % (AUTO) 22.3 % (21.0-51.0); MEAN CORPUSCULAR HEMOGLOBIN 27.6 pg (27.0-33.0); MEAN CORPUSCULAR HGB CONC 31.6 g/dL (32.0-36.0); MEAN CORPUSCULAR VOLUME 87.5 fL (79-99); MONOCYTES % (AUTO) 10.6 % (3.0-13.0); NEUTROPHILS % (AUTO) 64.3 % (40.0-77.0); PLATELET COUNT (AUTO) 343 K/uL (130-400); RED BLOOD CELL COUNT(AUTO) 2.57 MIL/uL (4.50-6.20); RED CELL DISTRIBUTION WIDTH 15.6 % (11.0-15.5); WHITE BLOOD COUNT (AUTO) 10.3 K/uL (4.8-10.8)
[2020-05-30 05:50] LABS: CREATININE 0.8 mg/dL (0.5-1.5); MAGNESIUM 1.7 mg/dL (1.80-2.40); PHOSPHORUS 3.2 mg/dL (2.5-4.9); POTASSIUM 4.1 mmol/L (3.5-5.1)
[2020-05-30] MEDS: INSULIN HUMULIN R 100 UNIT/ML 3ML SQ SCH ×4 (06:13→21:00)
[2020-05-30] MEDS: LACTATED RINGERS 1000ML 1,000 ML IV SCH (06:14)
[2020-05-30] MEDS ORDERED: MAGNESIUM 2GM PREMIX 50ML 50 ML IV SCH (08:15)
[2020-05-30] MEDS ORDERED: ASPIRIN 81MG TAB.CHEW PO SCH (09:00)
[2020-05-30] MEDS ORDERED: ENOXAPARIN SODIUM 40 MG/0.4 ML SYRINGE SQ SCH (09:00)
== END 2020-05-30 22:31 ==
LOC: INTOOBSV 12:11 → 4DH 12:11
PROVIDERS: ADMIT Internal Medicine Critical Care Medicine; ATTEND Internal Medicine Critical Care Medicine
DX: M86.8X7 Other osteomyelitis, ankle and foot (principal); E11.52 Type 2 diabetes mellitus with diabetic peripheral angiopathy with gangrene; E11.621 Type 2 diabetes mellitus with foot ulcer; L97.529 Non-pressure chronic ulcer of other part of left foot with unspecified severity; I11.0 Hypertensive heart disease with heart failure; I50.22 Chronic systolic (congestive) heart failure; I25.10 Atherosclerotic heart disease of native coronary artery without angina pectoris; E78.5 Hyperlipidemia, unspecified; E11.69 Type 2 diabetes mellitus with other specified complication; E66.9 Obesity, unspecified; Z95.1 Presence of aortocoronary bypass graft; Z79.02 Long term (current) use of antithrombotics/antiplatelets; Z79.82 Long term (current) use of aspirin; Z79.899 Other long term (current) drug therapy; Z68.29 Body mass index [BMI] 29.0-29.9, adult
CPT/HCPCS: 28805; 36415; 71045; 80048; 82948 ×6; 83735; 84100; 85025; 88304; 88307; 88311; 93005; 94664; 96361 ×2; 96365; 96366; 96372; 96375 ×2; 96376; A4649; A6446; C1729; G0378 ×31; J0690; J1170 ×2; J1650; J2250; J2270; J2405 ×2; J3010 ×2; J3475; J3490; J7120 ×2

== ENCOUNTER 2020-06-09 15:17 | Inpatient (IN) | payer MEDICARE ==
[~2020-06-09] VITALS: Ht 154.9 cm; Wt 72.6 kg
[2020-06-09 16:25] VITALS: BP 105/62
[2020-06-09 20:00] VITALS: BP 132/62
[2020-06-09] MEDS: 0.9%NACL 10ML VIAL IV SCH (20:00)
[2020-06-09] MEDS ORDERED: HYDROMORPHONE 1 MG INJ ONE (20:03)
[2020-06-09] MEDS: ATORVASTATIN 10 MG TABLET PO SCH (20:06)
[2020-06-09] MEDS: CLOPIDOGREL 75MG TAB PO SCH (20:06)
[2020-06-09] MEDS: FAMOTIDINE 20MG VIAL IV SCH (20:06)
[2020-06-09] MEDS: ASPIRIN 81MG CHEW TAB PO SCH (20:06)
[2020-06-09] MEDS ORDERED: NITROGLYCERIN 0.4 MG SL TAB SL PRN (20:30)
[2020-06-09] MEDS ORDERED: ACETAMINOPHEN 325 MG TAB PO PRN (20:30)
[2020-06-09] MEDS ORDERED: DEXTROSE 50%-WATER 25 GM/50 ML VIAL IV PRN (20:30)
[2020-06-09] MEDS ORDERED: ONDANSETRON 4MG INJ IVP PRN (20:30)
[2020-06-09] MEDS ORDERED: CLONIDINE HCL 0.1 MG TABLET PO PRN (20:30)
[2020-06-09] MEDS: 0.9% NACL 500ML IV.SOLN 500 ML IV SCH (20:30)
[2020-06-09] MEDS ORDERED: ACETAMINOPHEN 650 MG SUPPOSITORY RC PRN (20:30)
[2020-06-09] MEDS ORDERED: HYDROMORPHONE 1 MG INJ IVP SCH (20:52)
[2020-06-09] MEDS ORDERED: DEXTROSE 50%-WATER 50 ML DISP.SYRIN IV PRN (21:00)
[2020-06-09] MEDS: CEFEPIME HCL 2 GM VIAL IVP SCH (21:04)
[2020-06-09] MEDS: RANOLAZINE 500 MG TAB.SR.12H PO SCH (21:04)
[2020-06-09] MEDS: GABAPENTIN 100 MG CAPSULE PO SCH (21:04)
[2020-06-09] MEDS: TRAMADOL /APAP 37.5MG/325MG TAB PO SCH (21:05)
[2020-06-09] MEDS: METOPROLOL TARTRATE 25 MG TAB PO SCH (21:05)
[2020-06-09 23:35] VITALS: BP 110/59
[2020-06-10] MEDS: TRAMADOL /APAP 37.5MG/325MG TAB PO SCH ×6 (00:30→20:24)
[2020-06-10] MEDS: HYDROMORPHONE 0.5 MG SYG (0.5MG/0.5ML) IVP PRN ×6 (01:05→20:55)
[2020-06-10] MEDS: 0.9%NACL 10ML VIAL IV SCH ×3 (03:16→20:00)
[2020-06-10 03:53] VITALS: BP 105/60
[2020-06-10 04:52] LABS: BASOPHILS % (AUTO) 0.5 % (0.0-5.0); EOSINOPHILS % (AUTO) 1.7 % (0.0-8.0); HEMATOCRIT 31.6 % (42-54); LYMPHOCYTES % (AUTO) 15.1 % (21.0-51.0); MEAN CORPUSCULAR HEMOGLOBIN 25.3 pg (27.0-33.0); MEAN CORPUSCULAR HGB CONC 31.3 g/dL (32.0-36.0); MEAN CORPUSCULAR VOLUME 80.8 fL (79-99); MONOCYTES % (AUTO) 12.1 % (3.0-13.0); NEUTROPHILS % (AUTO) 70.1 % (40.0-77.0); PLATELET COUNT (AUTO) 316 K/uL (130-400); RED BLOOD CELL COUNT(AUTO) 3.91 MIL/uL (4.50-6.20); RED CELL DISTRIBUTION WIDTH 17.9 % (11.0-15.5); WHITE BLOOD COUNT (AUTO) 6.4 K/uL (4.8-10.8)
[2020-06-10 05:13] LABS: CREATININE 0.8 mg/dL (0.5-1.5); POTASSIUM 3.7 mmol/L (3.5-5.1)
[2020-06-10 07:00] VITALS: BP 129/61
[2020-06-10] MEDS: METOPROLOL TARTRATE 25 MG TAB PO SCH ×2 (07:49→20:23)
[2020-06-10] MEDS: ENOXAPARIN SODIUM 40 MG/0.4 ML SYRINGE SQ SCH (07:49)
[2020-06-10] MEDS: ASPIRIN 81MG CHEW TAB PO SCH (07:50)
[2020-06-10] MEDS: RANOLAZINE 500 MG TAB.SR.12H PO SCH ×2 (07:50→20:24)
[2020-06-10] MEDS: LISINOPRIL 10 MG TABLET PO SCH (07:50)
[2020-06-10] MEDS: GABAPENTIN 100 MG CAPSULE PO SCH ×3 (07:51→21:00)
[2020-06-10] MEDS: ATORVASTATIN 10 MG TABLET PO SCH (07:52)
[2020-06-10] MEDS: PANTOPRAZOLE 40 MG TAB DR PO SCH (07:52)
[2020-06-10] MEDS: CEFEPIME HCL 2 GM VIAL IVP SCH ×2 (08:07→20:23)
[2020-06-10] MEDS: FAMOTIDINE 20MG VIAL IV SCH ×2 (09:00→20:24)
[2020-06-10 11:20] VITALS: BP 106/55
[2020-06-10] MEDS: CLOPIDOGREL 75MG TAB PO SCH (13:31)
[2020-06-10 16:00] VITALS: BP 106/73
[2020-06-10 20:20] VITALS: BP 136/66
[2020-06-10] MEDS: 0.9% NACL 500ML IV.SOLN 500 ML IV SCH (20:30)
[2020-06-10] MEDS: HYDROCODONE/ACETAMINOPHEN 5/325 MG TAB PO PRN (23:13)
[2020-06-10 23:58] VITALS: BP 118/63
[2020-06-11] MEDS: TRAMADOL /APAP 37.5MG/325MG TAB PO SCH ×5 (01:07→21:18)
[2020-06-11] MEDS: HYDROMORPHONE 0.5 MG SYG (0.5MG/0.5ML) IVP PRN ×4 (01:08→22:34)
[2020-06-11] MEDS: 0.9%NACL 10ML VIAL IV SCH ×2 (04:00→12:00)
[2020-06-11 04:17] VITALS: BP 137/79
[2020-06-11] MEDS: LACTULOSE 20 GM/30 ML UDCUP PO PRN (04:34)
[2020-06-11 06:47] LABS: HEMATOCRIT 24.2 % (42-54); MEAN CORPUSCULAR HEMOGLOBIN 25.1 pg (27.0-33.0); MEAN CORPUSCULAR HGB CONC 30.6 g/dL (32.0-36.0); NUCLEATED RED BLOOD CELLS 1.2 % (0.0-0.19); PLATELET COUNT (AUTO) 453 K/uL (130-400); RED BLOOD CELL COUNT(AUTO) 2.95 MIL/uL (4.50-6.20); RED CELL DISTRIBUTION WIDTH 17.9 % (11.0-15.5); WHITE BLOOD COUNT (AUTO) 10.9 K/uL (4.8-10.8)
[2020-06-11 06:54] LABS: CREATININE 0.9 mg/dL (0.5-1.5)
[2020-06-11] MEDS: ATORVASTATIN 10 MG TABLET PO SCH (08:21)
[2020-06-11] MEDS: GABAPENTIN 100 MG CAPSULE PO SCH ×3 (08:21→21:19)
[2020-06-11] MEDS: RANOLAZINE 500 MG TAB.SR.12H PO SCH ×2 (08:21→21:18)
[2020-06-11] MEDS: CLOPIDOGREL 75MG TAB PO SCH (08:22)
[2020-06-11] MEDS: PANTOPRAZOLE 40 MG TAB DR PO SCH (08:22)
[2020-06-11] MEDS: METOPROLOL TARTRATE 25 MG TAB PO SCH ×2 (08:22→21:19)
[2020-06-11] MEDS: LISINOPRIL 10 MG TABLET PO SCH (08:22)
[2020-06-11] MEDS: ASPIRIN 81MG CHEW TAB PO SCH (08:22)
[2020-06-11] MEDS: CEFEPIME HCL 2 GM VIAL IVP SCH ×2 (08:23→21:18)
[2020-06-11] MEDS: FAMOTIDINE 20MG VIAL IV SCH ×2 (08:23→21:18)
[2020-06-11] MEDS: ENOXAPARIN SODIUM 40 MG/0.4 ML SYRINGE SQ SCH (08:28)
[2020-06-11 10:24] VITALS: BP 156/74
[2020-06-11] MEDS: HYDROCODONE/ACETAMINOPHEN 5/325 MG TAB PO PRN (10:29)
[2020-06-11 12:58] VITALS: BP 142/80
[2020-06-11] MEDS ORDERED: IOHEXOL 350 MG/ML 100ML INFUS..BTL IV ONE (16:58)
[2020-06-11] MEDS ORDERED: IOHEXOL-350 75 ML VIAL IV ONE (17:00)
[2020-06-11] MEDS ORDERED: IOHEXOL-350 50ML VIAL IV ONE (17:01)
[2020-06-11 17:20] VITALS: BP 126/62
[2020-06-11] MEDS ORDERED: 0.9%NACL 1000ML 1,000 ML IV SCH (17:45)
[2020-06-11 20:52] VITALS: BP 129/59
[2020-06-11] MEDS ORDERED: AMITRIPTYLINE 25 MG TABLET PO SCH (22:30)
[2020-06-11] MEDS ORDERED: GABAPENTIN 300 MG CAPSULE PO SCH (22:30)
[2020-06-11 23:29] VITALS: BP 124/55
[2020-06-12] MEDS: TRAMADOL /APAP 37.5MG/325MG TAB PO SCH ×7 (00:30→20:28)
[2020-06-12] MEDS: HYDROMORPHONE 0.5 MG SYG (0.5MG/0.5ML) IVP PRN ×4 (02:32→22:03)
[2020-06-12 03:46] VITALS: BP 121/69
[2020-06-12 05:54] LABS: CREATININE 0.8 mg/dL (0.5-1.5); MAGNESIUM 1.8 mg/dL (1.80-2.40); POTASSIUM 3.9 mmol/L (3.5-5.1)
[2020-06-12 06:05] LABS: HEMATOCRIT 22.5 % (42-54); MEAN CORPUSCULAR HEMOGLOBIN 25.1 pg (27.0-33.0); MEAN CORPUSCULAR HGB CONC 31.1 g/dL (32.0-36.0); MEAN CORPUSCULAR VOLUME 80.6 fL (79-99); NUCLEATED RED BLOOD CELLS 1.3 % (0.0-0.19); RED BLOOD CELL COUNT(AUTO) 2.79 MIL/uL (4.50-6.20); RED CELL DISTRIBUTION WIDTH 17.9 % (11.0-15.5); WHITE BLOOD COUNT (AUTO) 9.5 K/uL (4.8-10.8)
[2020-06-12] MEDS ORDERED: MAGNESIUM 2GM PREMIX 50ML 50 ML IV PRN (06:15)
[2020-06-12] MEDS ORDERED: MAGNESIUM 2GM PREMIX 50ML 50 ML IV ONE (06:19)
[2020-06-12 08:45] VITALS: BP 137/73
[2020-06-12] MEDS ORDERED: GABAPENTIN 100 MG CAPSULE PO SCH (09:00)
[2020-06-12] MEDS: GABAPENTIN 100 MG CAPSULE PO SCH ×3 (09:00→20:28)
[2020-06-12] MEDS: LISINOPRIL 10 MG TABLET PO SCH (09:14)
[2020-06-12] MEDS: CLOPIDOGREL 75MG TAB PO SCH (09:15)
[2020-06-12] MEDS: FAMOTIDINE 20MG VIAL IV SCH ×2 (09:15→20:27)
[2020-06-12] MEDS: PANTOPRAZOLE 40 MG TAB DR PO SCH (09:15)
[2020-06-12] MEDS: ASPIRIN 81MG CHEW TAB PO SCH (09:15)
[2020-06-12] MEDS: METOPROLOL TARTRATE 25 MG TAB PO SCH ×2 (09:15→20:29)
[2020-06-12] MEDS: ATORVASTATIN 10 MG TABLET PO SCH (09:16)
[2020-06-12] MEDS: CEFEPIME HCL 2 GM VIAL IVP SCH ×2 (09:16→20:27)
[2020-06-12] MEDS: RANOLAZINE 500 MG TAB.SR.12H PO SCH ×2 (09:16→20:28)
[2020-06-12 14:24] VITALS: BP 132/81
[2020-06-12 17:26] VITALS: BP 142/80
[2020-06-12] MEDS ORDERED: AMITRIPTYLINE 25 MG TABLET PO ONE (19:14)
[2020-06-12 20:00] VITALS: BP 132/66
[2020-06-12] MEDS: AMITRIPTYLINE 25 MG TABLET PO SCH (20:28)
[2020-06-13] VITALS (7 sets, daily range): BP systolic 126–156; BP diastolic 68–85
[2020-06-13] MEDS: TRAMADOL /APAP 37.5MG/325MG TAB PO SCH ×6 (00:30→22:24)
[2020-06-13] MEDS: HYDROMORPHONE 0.5 MG SYG (0.5MG/0.5ML) IVP PRN ×2 (04:35→13:05)
[2020-06-13 05:50] LABS: BASOPHILS % (AUTO) 0.4 % (0.0-5.0); EOSINOPHILS % (AUTO) 2.3 % (0.0-8.0); HEMATOCRIT 23.2 % (42-54); LYMPHOCYTES % (AUTO) 17.2 % (21.0-51.0); MEAN CORPUSCULAR HEMOGLOBIN 24.6 pg (27.0-33.0); MEAN CORPUSCULAR HGB CONC 30.2 g/dL (32.0-36.0); MEAN CORPUSCULAR VOLUME 81.7 fL (79-99); MONOCYTES % (AUTO) 11.2 % (3.0-13.0); NEUTROPHILS % (AUTO) 68.1 % (40.0-77.0); NUCLEATED RED BLOOD CELLS 1.1 % (0.0-0.19); PLATELET COUNT (AUTO) 383 K/uL (130-400); RED BLOOD CELL COUNT(AUTO) 2.84 MIL/uL (4.50-6.20); RED CELL DISTRIBUTION WIDTH 18.4 % (11.0-15.5); WHITE BLOOD COUNT (AUTO) 9.2 K/uL (4.8-10.8)
[2020-06-13 06:03] LABS: ALBUMIN 2.5 g/dL (3.5-5.0); BILIRUBIN,TOTAL 0.4 mg/dL (0.2-1.0); CREATININE 0.8 mg/dL (0.5-1.5); MAGNESIUM 1.5 mg/dL (1.80-2.40); POTASSIUM 3.9 mmol/L (3.5-5.1)
[2020-06-13 07:00] LABS: INR 1.18 (0.85-1.15); PROTHROMBIN TIME 12.7 SEC (9.6-11.6)
[2020-06-13 07:01] LABS: PARTIAL THROMBOPLASTIN TIME 22.1 SEC (26.3-35.5)
[2020-06-13] MEDS: CLOPIDOGREL 75MG TAB PO SCH (09:05)
[2020-06-13] MEDS: ATORVASTATIN 10 MG TABLET PO SCH (09:06)
[2020-06-13] MEDS: METOPROLOL TARTRATE 25 MG TAB PO SCH ×2 (09:06→22:22)
[2020-06-13] MEDS: ASPIRIN 81MG CHEW TAB PO SCH (09:06)
[2020-06-13] MEDS: RANOLAZINE 500 MG TAB.SR.12H PO SCH ×2 (09:07→22:22)
[2020-06-13] MEDS: LISINOPRIL 10 MG TABLET PO SCH (09:07)
[2020-06-13] MEDS: PANTOPRAZOLE 40 MG TAB DR PO SCH (09:07)
[2020-06-13] MEDS: GABAPENTIN 100 MG CAPSULE PO SCH ×3 (09:08→22:23)
[2020-06-13] MEDS: CEFEPIME HCL 2 GM VIAL IVP SCH (09:08)
[2020-06-13] MEDS: FAMOTIDINE 20MG VIAL IV SCH ×2 (09:08→22:23)
[2020-06-13] MEDS: AMITRIPTYLINE 25 MG TABLET PO SCH (22:22)
[2020-06-13] MEDS: HYDROCODONE/ACETAMINOPHEN 5/325 MG TAB PO PRN (22:24)
[2020-06-14] VITALS (9 sets, daily range): BP systolic 129–149; BP diastolic 52–73
[2020-06-14] MEDS: TRAMADOL /APAP 37.5MG/325MG TAB PO SCH ×5 (01:28→16:30)
[2020-06-14] MEDS: HYDROCODONE/ACETAMINOPHEN 5/325 MG TAB PO PRN ×2 (04:50→22:00)
[2020-06-14] MEDS: ATORVASTATIN 10 MG TABLET PO SCH (10:06)
[2020-06-14] MEDS: METOPROLOL TARTRATE 25 MG TAB PO SCH ×2 (10:06→22:00)
[2020-06-14] MEDS: CLOPIDOGREL 75MG TAB PO SCH (10:07)
[2020-06-14] MEDS: LISINOPRIL 10 MG TABLET PO SCH (10:07)
[2020-06-14] MEDS: PANTOPRAZOLE 40 MG TAB DR PO SCH (10:08)
[2020-06-14] MEDS: ASPIRIN 81MG CHEW TAB PO SCH (10:08)
[2020-06-14] MEDS: GABAPENTIN 100 MG CAPSULE PO SCH ×3 (10:08→22:00)
[2020-06-14] MEDS: FAMOTIDINE 20MG VIAL IV SCH ×2 (10:09→22:00)
[2020-06-14] MEDS: RANOLAZINE 500 MG TAB.SR.12H PO SCH ×2 (10:09→22:00)
[2020-06-14 10:21] LABS: HEMATOCRIT 22.7 % (42-54); MEAN CORPUSCULAR HEMOGLOBIN 25.1 pg (27.0-33.0); MEAN CORPUSCULAR HGB CONC 31.3 g/dL (32.0-36.0); MEAN CORPUSCULAR VOLUME 80.2 fL (79-99); NUCLEATED RED BLOOD CELLS 0.9 % (0.0-0.19); RED BLOOD CELL COUNT(AUTO) 2.83 MIL/uL (4.50-6.20); RED CELL DISTRIBUTION WIDTH 18.3 % (11.0-15.5); WHITE BLOOD COUNT (AUTO) 9.6 K/uL (4.8-10.8)
[2020-06-14 10:34] LABS: CREATININE 0.9 mg/dL (0.5-1.5); POTASSIUM 3.7 mmol/L (3.5-5.1)
[2020-06-14] MEDS: AMITRIPTYLINE 25 MG TABLET PO SCH (22:00)
[2020-06-14] MEDS: ALBUTEROL 0.083% 2.5 MG/3 ML INH IH PRN (23:07)
[2020-06-15 00:04] VITALS: BP 118/69
[2020-06-15 04:00] VITALS: BP 127/83
[2020-06-15 05:31] LABS: HEMATOCRIT 23.8 % (42-54); MEAN CORPUSCULAR HEMOGLOBIN 24.3 pg (27.0-33.0); MEAN CORPUSCULAR HGB CONC 30.7 g/dL (32.0-36.0); MEAN CORPUSCULAR VOLUME 79.1 fL (79-99); RED BLOOD CELL COUNT(AUTO) 3.01 MIL/uL (4.50-6.20); RED CELL DISTRIBUTION WIDTH 18.6 % (11.0-15.5); WHITE BLOOD COUNT (AUTO) 9.9 K/uL (4.8-10.8)
[2020-06-15 06:02] LABS: CREATININE 0.9 mg/dL (0.5-1.5); POTASSIUM 3.9 mmol/L (3.5-5.1)
[2020-06-15] MEDS: ALBUTEROL 0.083% 2.5 MG/3 ML INH IH PRN (06:15)
[2020-06-15] MEDS: HYDROCODONE/ACETAMINOPHEN 5/325 MG TAB PO PRN ×2 (06:23→11:35)
[2020-06-15] MEDS: LACTULOSE 20 GM/30 ML UDCUP PO PRN (07:50)
[2020-06-15 08:03] VITALS: BP 135/72
[2020-06-15] MEDS: METOPROLOL TARTRATE 25 MG TAB PO SCH (10:00)
[2020-06-15] MEDS: PANTOPRAZOLE 40 MG TAB DR PO SCH (10:00)
[2020-06-15] MEDS: GABAPENTIN 100 MG CAPSULE PO SCH ×2 (10:00→15:15)
[2020-06-15] MEDS: FAMOTIDINE 20MG VIAL IV SCH (10:00)
[2020-06-15] MEDS: CLOPIDOGREL 75MG TAB PO SCH (10:00)
[2020-06-15] MEDS: LISINOPRIL 10 MG TABLET PO SCH (10:00)
[2020-06-15] MEDS: RANOLAZINE 500 MG TAB.SR.12H PO SCH (10:00)
[2020-06-15] MEDS: ATORVASTATIN 10 MG TABLET PO SCH (10:02)
[2020-06-15] MEDS: ASPIRIN 81MG CHEW TAB PO SCH (10:02)
[2020-06-15 11:55] VITALS: BP 124/83
[2020-06-15] MEDS ORDERED: MUPIROCIN OINTMENT 22 GM TUBE TP ONE (16:00)
[2020-06-15] MEDS ORDERED: HYDROCODONE/ACETAMINOPHEN 7.5/325 MG TAB PO PRN (17:30)
[2020-08-31] MEDS ORDERED: PIPE3.379 IV (14:34)
[2020-08-31] MEDS ORDERED: ONDA220I IV (14:34)
[2020-08-31] MEDS ORDERED: LACT10SO9 PO (14:34)
[2020-08-31] MEDS ORDERED: ACET1TAB25 PO (14:34)
[2020-08-31] MEDS ORDERED: FAMO10VI2 IV (14:34)
[2020-08-31] MEDS ORDERED: CLOP75TA32 PO ×2 (14:34→17:08)
[2020-08-31] MEDS ORDERED: DIPH25 PO (14:34)
[2020-08-31] MEDS ORDERED: FURO10VI4 IV (14:34)
[2020-08-31] MEDS ORDERED: MAG30ORA12 PO (14:34)
[2020-08-31] MEDS ORDERED: PIOG15TA6 PO (17:08)
[2020-08-31] MEDS ORDERED: PANT40TA54 PO (17:08)
[2020-08-31] MEDS ORDERED: RANO500T6 PO (17:08)
[2020-08-31] MEDS ORDERED: CYAN10007 IJ (17:08)
[2020-08-31] MEDS ORDERED: METO-391 PO (17:08)
[2020-08-31] MEDS ORDERED: TAMS-1 PO (17:08)
[2020-08-31] MEDS ORDERED: MIRA25TA PO (17:08)
[2020-08-31] MEDS ORDERED: ALPH200C2 PO (17:08)
[2020-08-31] MEDS ORDERED: GABA-533 PO (17:08)
[2020-08-31] MEDS ORDERED: ATOR40TA69 PO (17:08)
[2020-08-31] MEDS ORDERED: AEC81 PO (17:08)
[2020-08-31] MEDS ORDERED: IRON1CAP30 PO (17:08)
[2020-08-31] MEDS ORDERED: APIX5TAB PO (17:08)
[2020-08-31] MEDS ORDERED: ICOS1CAP PO (17:08)
[2020-08-31] MEDS ORDERED: FURO40TA5 PO (17:08)
[2020-08-31] MEDS ORDERED: SUCR1TAB2 PO (17:08)
[2020-09-12] MEDS ORDERED: CYAN-52 PO (15:49)
[2020-09-12] MEDS ORDERED: ICOS1CAP PO (15:49)
[2020-09-12] MEDS ORDERED: DOCU100T PO (15:49)
[2020-09-12] MEDS ORDERED: THIO200T2 PO (15:49)
[2020-09-12] MEDS ORDERED: MIRA25TA PO (15:49)
[2020-09-12] MEDS ORDERED: HYDR-4379 PO (15:49)
[2020-09-12] MEDS ORDERED: FURO40TA5 PO (15:49)
[2020-09-12] MEDS ORDERED: FERR500P12 PO (15:49)
[2020-09-12] MEDS ORDERED: APIX5TAB PO (15:49)
== END 2020-06-15 16:20 | disposition home health service (06) | DRG 637 ==
LOC: OBSVTOIN 15:44 → INTOOBSV 15:44 → 3AH 15:44 → 3DH 06-12 11:42 → 3AH 06-12 11:43
PROVIDERS: ADMIT Internal Medicine Pulmonary Disease; ATTEND Internal Medicine Pulmonary Disease
PROC: 02HV33Z Insertion of Infusion Device into Superior Vena Cava, Percutaneous Approach (ICD-10-PCS; principal; 2020-06-13)
DX: E11.69 Type 2 diabetes mellitus with other specified complication (principal); I50.23 Acute on chronic systolic (congestive) heart failure; E11.52 Type 2 diabetes mellitus with diabetic peripheral angiopathy with gangrene; L03.116 Cellulitis of left lower limb; M86.9 Osteomyelitis, unspecified; I70.262 Atherosclerosis of native arteries of extremities with gangrene, left leg; L03.90 Cellulitis, unspecified; I11.0 Hypertensive heart disease with heart failure; E11.621 Type 2 diabetes mellitus with foot ulcer; I25.5 Ischemic cardiomyopathy; E66.9 Obesity, unspecified; Z68.30 Body mass index [BMI] 30.0-30.9, adult; E78.5 Hyperlipidemia, unspecified; G89.29 Other chronic pain; I25.10 Atherosclerotic heart disease of native coronary artery without angina pectoris; I35.0 Nonrheumatic aortic (valve) stenosis; Z82.0 Family history of epilepsy and other diseases of the nervous system; Z82.3 Family history of stroke; Z82.49 Family history of ischemic heart disease and other diseases of the circulatory system; Z82.5 Family history of asthma and other chronic lower respiratory diseases; Z83.3 Family history of diabetes mellitus; Z95.1 Presence of aortocoronary bypass graft; Z95.820 Peripheral vascular angioplasty status with implants and grafts; Z98.61 Coronary angioplasty status; L97.529 Non-pressure chronic ulcer of other part of left foot with unspecified severity
CPT/HCPCS: 36415; 70450; 71045; 75635; 80048; 80053; 82948; 83605; 83735; 85025; 85027; 85610; 85730; 86850; 86900; 86901; 93925; 93970; 94640; 94664; 97039; G0378; J0692; J1170; J1650; J3475; J3490; Q9967

== ENCOUNTER 2020-06-21 15:01 | Inpatient (IN) | payer MEDICARE ==
[~2020-06-21] VITALS: Ht 160 cm; Wt 63.5 kg
[2020-06-21] MEDS ORDERED: LIDOCAINE HCL-MPF 1% 2ML VIAL IV PRN ×2 (15:45)
[2020-06-21] MEDS ORDERED: POTASSIUM CHLORIDE 20MEQ/100ML 100 ML IV PRN ×2 (15:45)
[2020-06-21] MEDS ORDERED: POTASSIUM CHLORIDE 10% ELIXIR 20 MEQ/15 ML UDCUP PO PRN (15:45)
[2020-06-21] MEDS ORDERED: HYDRALAZINE 20MG/ML VIAL IV PRN (15:45)
[2020-06-21] MEDS ORDERED: ACETAMINOPHEN 325 MG TAB PO PRN (15:45)
[2020-06-21] MEDS ORDERED: ONDANSETRON 4MG INJ IVP PRN (15:45)
[2020-06-21] MEDS ORDERED: DEXTROSE 50%-WATER 50 ML DISP.SYRIN IV PRN (15:45)
[2020-06-21] MEDS ORDERED: GLUCAGON 1MG KIT 1 MG ML IM PRN (15:45)
[2020-06-21] MEDS: ZOSYN 3.375GM+NS 50ML 50 ML IV SCH (16:00)
[2020-06-21] MEDS ORDERED: IPRATROPIUM 0.5 MG/2.5 ML INH IH PRN (16:00)
[2020-06-21 16:15] LABS: HEMATOCRIT 26.1 % (42-54); MEAN CORPUSCULAR HGB CONC 30.7 g/dL (32.0-36.0); MEAN CORPUSCULAR VOLUME 78.4 fL (79-99); NUCLEATED RED BLOOD CELLS 0.2 % (0.0-0.19); PLATELET COUNT (AUTO) 455 K/uL (130-400); RED BLOOD CELL COUNT(AUTO) 3.33 MIL/uL (4.50-6.20); RED CELL DISTRIBUTION WIDTH 19.3 % (11.0-15.5); WHITE BLOOD COUNT (AUTO) 10.4 K/uL (4.8-10.8)
[2020-06-21 16:34] LABS: B-TYPE NATRIURETIC PEPTIDE 1320 pg/mL (0-100); CREATININE 1.1 mg/dL (0.5-1.5); POTASSIUM 4.1 mmol/L (3.5-5.1)
[2020-06-21 16:36] LABS: INR 1.17 (0.85-1.15); PROTHROMBIN TIME 12.6 SEC (9.6-11.6)
[2020-06-21 16:39] LABS: BILIRUBIN,TOTAL 0.3 mg/dL (0.2-1.0); TOTAL PROTEIN, SERUM 7.9 g/dL (6.0-8.3)
[2020-06-21 17:33] LABS: APPEARANCE,URINE Clear (CLEAR); BILIRUBIN,URINE Negative (NEGATIVE); COLOR,URINE Yellow (YELLOW); GLUCOSE, URINE (UA) Negative (NEGATIVE); KETONES,URINE Trace mg/dL (NEGATIVE); LEUKOCYTE ESTERASE ,URINE Trace (NEGATIVE); NITRATE,URINE Negative (NEGATIVE); OCCULT BLOOD,URINE Negative (NEGATIVE); PH,URINE 5.5 (5.0-8.0); PROTEIN,URINE POS 2+ mg/dL (NEGATIVE)
[2020-06-21 17:42] LABS: BACTERIA,URINE Rare /HPF (None Seen); RBC,URINE 0-1 /HPF (0-1); SQUAMOUS EPITHELIAL CELL,UR Rare /HPF (0-2); WBC,URINE 0-1 /HPF (0-1)
[2020-06-21] MEDS ORDERED: ONDANSETRON 4MG INJ ONE (18:13)
[2020-06-21] MEDS ORDERED: ZOSYN 3.375GM+NS 50ML 50 ML IV ONE (18:14)
[2020-06-21] MEDS ORDERED: MORPHINE 2 MG SYG ONE ×2 (18:14→22:33)
[2020-06-21] MEDS ORDERED: IOHEXOL-350 75 ML VIAL IV ONE (18:23)
[2020-06-21] MEDS ORDERED: FUROSEMIDE 40MG VIAL IV SCH (18:31)
[2020-06-21] MEDS ORDERED: FUROSEMIDE 40MG VIAL ONE (20:32)
[2020-06-21] MEDS ORDERED: KETOROLAC 15MG/ML VIAL (15MG/ML) ONE (21:02)
[2020-06-21 22:20] LABS: HEMATOCRIT 25.1 % (42-54)
[2020-06-22] VITALS (15 sets, daily range): BP systolic 115–159; BP diastolic 59–91
[2020-06-22] MEDS ORDERED: KETOROLAC 15MG/ML VIAL (15MG/ML) ONE (02:00)
[2020-06-22 03:39] LABS: HEMATOCRIT 25.9 % (42-54)
[2020-06-22 03:45] LABS: CREATININE 1.3 mg/dL (0.5-1.5)
[2020-06-22] MEDS: MORPHINE 2 MG SYG IVP PRN ×4 (04:58→21:25)
[2020-06-22] MEDS: ATORVASTATIN 10 MG TABLET PO SCH (08:49)
[2020-06-22] MEDS: PANTOPRAZOLE 40 MG TAB DR PO SCH (08:49)
[2020-06-22] MEDS: ZOSYN 3.375GM+NS 50ML 50 ML IV SCH ×3 (08:49→18:05)
[2020-06-22] MEDS ORDERED: FUROSEMIDE 40MG VIAL IV SCH (09:00)
[2020-06-22 10:04] LABS: HEMATOCRIT 26.5 % (42-54)
[2020-06-22] MEDS: KETOROLAC 15MG/ML VIAL (15MG/ML) IV PRN ×2 (10:25→18:00)
[2020-06-22] MEDS ORDERED: HYDROCODONE/ACETAMINOPHEN 5/325 MG TAB PO PRN (14:45)
[2020-06-23] MEDS: ZOSYN 3.375GM+NS 50ML 50 ML IV SCH ×3 (00:06→18:17)
[2020-06-23] MEDS: KETOROLAC 15MG/ML VIAL (15MG/ML) IV PRN ×3 (00:06→23:14)
[2020-06-23 00:39] VITALS: BP 140/74
[2020-06-23 04:00] VITALS: BP 154/62
[2020-06-23 05:11] LABS: HEMATOCRIT 24.9 % (42-54); MEAN CORPUSCULAR HEMOGLOBIN 23.6 pg (27.0-33.0); MEAN CORPUSCULAR HGB CONC 30.1 g/dL (32.0-36.0); MEAN CORPUSCULAR VOLUME 78.3 fL (79-99); RED BLOOD CELL COUNT(AUTO) 3.18 MIL/uL (4.50-6.20); RED CELL DISTRIBUTION WIDTH 19.6 % (11.0-15.5)
[2020-06-23 05:17] LABS: CREATININE 1.1 mg/dL (0.5-1.5); POTASSIUM 3.6 mmol/L (3.5-5.1)
[2020-06-23] MEDS: MAGNESIUM 2GM PREMIX 50ML 50 ML IV PRN (05:23)
[2020-06-23] MEDS: MORPHINE 2 MG SYG IVP PRN ×4 (05:23→20:26)
[2020-06-23] MEDS: KCL 20 MEQ ERTAB PO PRN ×3 (06:52→20:31)
[2020-06-23 08:00] VITALS: BP 152/77
[2020-06-23] MEDS: ATORVASTATIN 10 MG TABLET PO SCH (08:20)
[2020-06-23] MEDS: FUROSEMIDE 40MG VIAL IV SCH ×3 (08:20→20:26)
[2020-06-23] MEDS: PANTOPRAZOLE 40 MG TAB DR PO SCH (08:20)
[2020-06-23 11:00] VITALS: BP 123/48
[2020-06-23 16:53] VITALS: BP 142/52
[2020-06-23] MEDS: HYDROCODONE/ACETAMINOPHEN 10/325 MG TAB PO PRN (18:17)
[2020-06-23 19:55] VITALS: BP 150/63
[2020-06-24] VITALS (7 sets, daily range): BP systolic 118–146; BP diastolic 58–81
[2020-06-24] MEDS: ZOSYN 3.375GM+NS 50ML 50 ML IV SCH ×4 (00:38→23:57)
[2020-06-24] MEDS: MORPHINE 2 MG SYG IVP PRN ×3 (01:26→14:05)
[2020-06-24] MEDS: HYDROCODONE/ACETAMINOPHEN 10/325 MG TAB PO PRN ×3 (02:46→22:01)
[2020-06-24] MEDS ORDERED: MORPHINE 2 MG SYG IVP STA (04:13)
[2020-06-24] MEDS: FUROSEMIDE 40MG VIAL IV SCH ×3 (05:30→22:01)
[2020-06-24 06:07] LABS: POTASSIUM 3.5 mmol/L (3.5-5.1)
[2020-06-24] MEDS: KCL 20 MEQ ERTAB PO PRN ×2 (06:35→08:11)
[2020-06-24 07:38] LABS: HEMATOCRIT 26.1 % (42-54); MEAN CORPUSCULAR HEMOGLOBIN 23.9 pg (27.0-33.0); MEAN CORPUSCULAR HGB CONC 30.3 g/dL (32.0-36.0); MEAN CORPUSCULAR VOLUME 78.9 fL (79-99); RED BLOOD CELL COUNT(AUTO) 3.31 MIL/uL (4.50-6.20); RED CELL DISTRIBUTION WIDTH 19.7 % (11.0-15.5); WHITE BLOOD COUNT (AUTO) 7.1 K/uL (4.8-10.8)
[2020-06-24 07:59] LABS: CREATININE 1.1 mg/dL (0.5-1.5)
[2020-06-24] MEDS: ATORVASTATIN 10 MG TABLET PO SCH (08:11)
[2020-06-24] MEDS: PANTOPRAZOLE 40 MG TAB DR PO SCH (08:11)
[2020-06-24] MEDS: KETOROLAC 15MG/ML VIAL (15MG/ML) IV PRN ×3 (11:19→23:57)
[2020-06-24] MEDS: NITROGLYCERIN 1GM OINT 1 INCH/1GM TD SCH ×2 (16:12→20:20)
[2020-06-24] MEDS: MORPHINE 4 MG SYG IV PRN (20:21)
[2020-06-25] MEDS: MORPHINE 4 MG SYG IV PRN ×6 (02:16→23:16)
[2020-06-25] MEDS: NITROGLYCERIN 1GM OINT 1 INCH/1GM TD SCH ×4 (02:16→19:37)
[2020-06-25 03:32] VITALS: BP 122/59
[2020-06-25] MEDS: FUROSEMIDE 40MG VIAL IV SCH ×3 (04:20→23:16)
[2020-06-25] MEDS: HYDROCODONE/ACETAMINOPHEN 10/325 MG TAB PO PRN (04:20)
[2020-06-25 05:17] LABS: HEMATOCRIT 29.3 % (42-54); MEAN CORPUSCULAR HEMOGLOBIN 23.1 pg (27.0-33.0); MEAN CORPUSCULAR HGB CONC 29.4 g/dL (32.0-36.0); MEAN CORPUSCULAR VOLUME 78.6 fL (79-99); RED BLOOD CELL COUNT(AUTO) 3.73 MIL/uL (4.50-6.20); RED CELL DISTRIBUTION WIDTH 19.7 % (11.0-15.5); WHITE BLOOD COUNT (AUTO) 7.1 K/uL (4.8-10.8)
[2020-06-25 05:34] LABS: CREATININE 1.4 mg/dL (0.5-1.5); POTASSIUM 4.5 mmol/L (3.5-5.1)
[2020-06-25] MEDS: ZOSYN 3.375GM+NS 50ML 50 ML IV SCH ×3 (07:59→23:16)
[2020-06-25] MEDS: PANTOPRAZOLE 40 MG TAB DR PO SCH (07:59)
[2020-06-25] MEDS: ATORVASTATIN 10 MG TABLET PO SCH (07:59)
[2020-06-25 08:00] VITALS: BP 113/64
[2020-06-25 12:00] VITALS: BP 112/53
[2020-06-25 16:00] VITALS: BP 108/58
[2020-06-25] MEDS: KETOROLAC 15MG/ML VIAL (15MG/ML) IV PRN (16:50)
[2020-06-25 20:12] VITALS: BP 146/67
[2020-06-26] VITALS (23 sets, daily range): BP systolic 105–155; BP diastolic 57–78
[2020-06-26] MEDS: MORPHINE 4 MG SYG IV PRN ×2 (03:07→17:30)
[2020-06-26] MEDS: NITROGLYCERIN 1GM OINT 1 INCH/1GM TD SCH ×4 (03:07→19:47)
[2020-06-26] MEDS: FUROSEMIDE 40MG VIAL IV SCH ×3 (05:10→22:55)
[2020-06-26 05:51] LABS: HEMATOCRIT 30.9 % (42-54); MEAN CORPUSCULAR HEMOGLOBIN 22.9 pg (27.0-33.0); MEAN CORPUSCULAR HGB CONC 29.4 g/dL (32.0-36.0); MEAN CORPUSCULAR VOLUME 77.8 fL (79-99); RED BLOOD CELL COUNT(AUTO) 3.97 MIL/uL (4.50-6.20); RED CELL DISTRIBUTION WIDTH 19.8 % (11.0-15.5)
[2020-06-26 06:11] LABS: CREATININE 1.5 mg/dL (0.5-1.5); POTASSIUM 4.5 mmol/L (3.5-5.1)
[2020-06-26] MEDS ORDERED: SUCCINYLCHOLINE CHLORIDE 20 MG/ML 10 ML VIAL ONE (07:42)
[2020-06-26] MEDS ORDERED: PHENYLEPHRINE HCL 10 MG/ML 1ML VIAL IV ONE (07:43)
[2020-06-26] MEDS ORDERED: MIDAZOLAM HCL 1 MG/ML 2ML VIAL ONE (07:43)
[2020-06-26] MEDS ORDERED: ROCURONIUM 10MG/1ML SYR 10 MG/ML ML ONE (07:44)
[2020-06-26] MEDS ORDERED: PROPOFOL 10 MG/ML 20ML VIAL IV ONE (07:44)
[2020-06-26] MEDS ORDERED: FENTANYL CITRATE PF 50 MCG/1 ML 2ML VIAL ONE (07:45)
[2020-06-26] MEDS: ZOSYN 3.375GM+NS 50ML 50 ML IV SCH ×4 (08:00→22:55)
[2020-06-26] MEDS ORDERED: NOREPINEPHRINE BITARTRATE 1 MG/1 ML ML IV ONE (08:08)
[2020-06-26] MEDS: ACETAMINOPHEN 500 MG TABLET PO SCH ×3 (08:15→22:56)
[2020-06-26] MEDS ORDERED: DiphenhydrAMINE HCL 50 MG/ML VIAL IVP PRN (08:15)
[2020-06-26] MEDS ORDERED: DIPHENHYDRAMINE HCL 25 MG CAPSULE PO PRN (08:15)
[2020-06-26] MEDS ORDERED: FERROUS FUMARATE 324 MG TABLET PO PRN (08:15)
[2020-06-26] MEDS ORDERED: OXYCODONE HCL 5 MG TAB PO PRN (08:15)
[2020-06-26] MEDS ORDERED: POTASSIUM CHLORIDE 20MEQ/100ML 100 ML IV PRN (08:15)
[2020-06-26] MEDS ORDERED: ONDANSETRON 4MG INJ ONE (08:35)
[2020-06-26] MEDS: ATORVASTATIN 10 MG TABLET PO SCH (08:44)
[2020-06-26] MEDS: PANTOPRAZOLE 40 MG TAB DR PO SCH (08:45)
[2020-06-26] MEDS: POLYETHYLENE GLYCOL 3350 17 GM POWD.PACK PO SCH (08:45)
[2020-06-26] MEDS ORDERED: GLYCOPYRROLATE 1 MG/5 ML SYRINGE ONE (08:51)
[2020-06-26] MEDS ORDERED: NEOSTIGMINE 5MG/5ML SYR IV ONE (08:51)
[2020-06-26] MEDS ORDERED: DEXAMETHASONE SOD PHOSPHATE 10MG/ML 1ML VIAL ONE (08:53)
[2020-06-26] MEDS: PSYLLIUM SEED 1 EACH PACKET PO SCH (11:59)
[2020-06-26] MEDS: KETOROLAC 15MG/ML VIAL (15MG/ML) IV PRN (19:47)
[2020-06-27] VITALS (7 sets, daily range): BP systolic 115–147; BP diastolic 60–77
[2020-06-27] MEDS: NITROGLYCERIN 1GM OINT 1 INCH/1GM TD SCH ×4 (03:34→22:14)
[2020-06-27] MEDS: FUROSEMIDE 40MG VIAL IV SCH ×3 (05:21→22:00)
[2020-06-27 05:39] LABS: HEMATOCRIT 26.5 % (42-54); MEAN CORPUSCULAR HEMOGLOBIN 23.2 pg (27.0-33.0); MEAN CORPUSCULAR HGB CONC 30.9 g/dL (32.0-36.0); MEAN CORPUSCULAR VOLUME 75.1 fL (79-99); RED BLOOD CELL COUNT(AUTO) 3.53 MIL/uL (4.50-6.20); RED CELL DISTRIBUTION WIDTH 19.7 % (11.0-15.5); WHITE BLOOD COUNT (AUTO) 9.1 K/uL (4.8-10.8)
[2020-06-27 05:49] LABS: CREATININE 1.4 mg/dL (0.5-1.5); POTASSIUM 3.4 mmol/L (3.5-5.1)
[2020-06-27] MEDS: KCL 20 MEQ ERTAB PO PRN ×2 (05:56→15:58)
[2020-06-27] MEDS: HYDROCODONE/ACETAMINOPHEN 10/325 MG TAB PO PRN ×2 (06:40→13:24)
[2020-06-27] MEDS: ZOSYN 3.375GM+NS 50ML 50 ML IV SCH (08:09)
[2020-06-27] MEDS: ATORVASTATIN 10 MG TABLET PO SCH (08:10)
[2020-06-27] MEDS: PANTOPRAZOLE 40 MG TAB DR PO SCH (08:11)
[2020-06-27] MEDS: ACETAMINOPHEN 500 MG TABLET PO SCH ×3 (08:11→22:53)
[2020-06-27] MEDS: POLYETHYLENE GLYCOL 3350 17 GM POWD.PACK PO SCH (08:12)
[2020-06-27] MEDS: MORPHINE 4 MG SYG IV PRN (08:12)
[2020-06-27] MEDS ORDERED: GABAPENTIN 300 MG CAPSULE PO SCH (10:45)
[2020-06-27] MEDS ORDERED: AMITRIPTYLINE 25 MG TABLET PO SCH (11:45)
[2020-06-27] MEDS: PSYLLIUM SEED 1 EACH PACKET PO SCH (11:57)
[2020-06-27] MEDS: GABAPENTIN 300 MG CAPSULE PO SCH ×2 (13:25→22:13)
[2020-06-27] MEDS: HYDROMORPHONE 0.5 MG SYG (0.5MG/0.5ML) IVP PRN ×2 (17:25→22:54)
[2020-06-27] MEDS ORDERED: FUROSEMIDE 20MG VIAL ONE (21:55)
[2020-06-28] MEDS: NITROGLYCERIN 1GM OINT 1 INCH/1GM TD SCH ×4 (02:30→19:48)
[2020-06-28 04:38] VITALS: BP 140/74
[2020-06-28 05:52] LABS: HEMATOCRIT 29.7 % (42-54); MEAN CORPUSCULAR HEMOGLOBIN 23.4 pg (27.0-33.0); MEAN CORPUSCULAR HGB CONC 30.6 g/dL (32.0-36.0); MEAN CORPUSCULAR VOLUME 76.3 fL (79-99); RED BLOOD CELL COUNT(AUTO) 3.89 MIL/uL (4.50-6.20); RED CELL DISTRIBUTION WIDTH 19.9 % (11.0-15.5); WHITE BLOOD COUNT (AUTO) 16.6 K/uL (4.8-10.8)
[2020-06-28 06:08] LABS: CREATININE 1.1 mg/dL (0.5-1.5)
[2020-06-28 07:39] VITALS: BP 129/70
[2020-06-28] MEDS: PANTOPRAZOLE 40 MG TAB DR PO SCH (07:57)
[2020-06-28] MEDS: AMITRIPTYLINE 25 MG TABLET PO SCH (07:57)
[2020-06-28] MEDS: ACETAMINOPHEN 500 MG TABLET PO SCH ×3 (07:57→23:33)
[2020-06-28] MEDS: GABAPENTIN 300 MG CAPSULE PO SCH ×3 (07:58→20:33)
[2020-06-28] MEDS: POLYETHYLENE GLYCOL 3350 17 GM POWD.PACK PO SCH (07:58)
[2020-06-28] MEDS: ATORVASTATIN 10 MG TABLET PO SCH (08:03)
[2020-06-28] MEDS ORDERED: BISACODYL 5 MG TABLET.DR PO PRN (08:15)
[2020-06-28 11:15] VITALS: BP 99/57
[2020-06-28] MEDS ORDERED: LACTULOSE 20 GM/30 ML UDCUP PO PRN (11:30)
[2020-06-28 11:59] VITALS: BP 111/59
[2020-06-28] MEDS: PSYLLIUM SEED 1 EACH PACKET PO SCH (12:00)
[2020-06-28] MEDS: FUROSEMIDE 20MG VIAL IV SCH ×2 (15:26→21:35)
[2020-06-28 19:55] VITALS: BP 123/65
[2020-06-28] MEDS: HYDROMORPHONE 0.5 MG SYG (0.5MG/0.5ML) IVP PRN (21:36)
[2020-06-28 23:45] VITALS: BP 134/71
[2020-06-29] MEDS: NITROGLYCERIN 1GM OINT 1 INCH/1GM TD SCH ×5 (02:14→21:04)
[2020-06-29] MEDS: HYDROMORPHONE 0.5 MG SYG (0.5MG/0.5ML) IVP PRN ×2 (02:14→05:04)
[2020-06-29 04:00] VITALS: BP 98/54
[2020-06-29] MEDS: FUROSEMIDE 20MG VIAL IV SCH ×3 (05:04→21:05)
[2020-06-29 05:16] LABS: HEMATOCRIT 28.9 % (42-54); MEAN CORPUSCULAR HEMOGLOBIN 22.3 pg (27.0-33.0); MEAN CORPUSCULAR HGB CONC 29.4 g/dL (32.0-36.0); MEAN CORPUSCULAR VOLUME 75.9 fL (79-99); RED BLOOD CELL COUNT(AUTO) 3.81 MIL/uL (4.50-6.20); RED CELL DISTRIBUTION WIDTH 19.6 % (11.0-15.5); WHITE BLOOD COUNT (AUTO) 19.5 K/uL (4.8-10.8)
[2020-06-29 05:23] LABS: CREATININE 1.1 mg/dL (0.5-1.5); POTASSIUM 3.1 mmol/L (3.5-5.1)
[2020-06-29] MEDS: KCL 20 MEQ ERTAB PO PRN ×3 (05:49→14:08)
[2020-06-29 07:44] VITALS: BP 126/69
[2020-06-29] MEDS ORDERED: BISACODYL 10 MG SUPP.RECT RC PRN (08:15)
[2020-06-29] MEDS: ACETAMINOPHEN 500 MG TABLET PO SCH ×2 (08:42→18:22)
[2020-06-29] MEDS: GABAPENTIN 300 MG CAPSULE PO SCH ×3 (08:42→21:04)
[2020-06-29] MEDS: PANTOPRAZOLE 40 MG TAB DR PO SCH (08:43)
[2020-06-29] MEDS: AMITRIPTYLINE 25 MG TABLET PO SCH (08:43)
[2020-06-29] MEDS: ATORVASTATIN 10 MG TABLET PO SCH (08:43)
[2020-06-29] MEDS: POLYETHYLENE GLYCOL 3350 17 GM POWD.PACK PO SCH (08:46)
[2020-06-29 11:45] VITALS: BP 93/41
[2020-06-29] MEDS: PSYLLIUM SEED 1 EACH PACKET PO SCH (14:04)
[2020-06-29 16:07] VITALS: BP 99/63
[2020-06-29 16:20] VITALS: BP 137/65
[2020-06-29 20:00] VITALS: BP 113/64
[2020-06-29] MEDS: KETOROLAC 15MG/ML VIAL (15MG/ML) IV PRN (21:43)
[2020-06-30] VITALS: BP 130/67
[2020-06-30] MEDS: ACETAMINOPHEN 500 MG TABLET PO SCH ×4 (00:37→23:39)
[2020-06-30] MEDS: NITROGLYCERIN 1GM OINT 1 INCH/1GM TD SCH ×2 (03:09→10:26)
[2020-06-30 04:00] VITALS: BP 115/63
[2020-06-30 05:48] LABS: HEMATOCRIT 30.1 % (42-54); MEAN CORPUSCULAR HEMOGLOBIN 22.4 pg (27.0-33.0); MEAN CORPUSCULAR HGB CONC 29.9 g/dL (32.0-36.0); MEAN CORPUSCULAR VOLUME 75.1 fL (79-99); PLATELET COUNT (AUTO) 460 K/uL (130-400); RED BLOOD CELL COUNT(AUTO) 4.01 MIL/uL (4.50-6.20); RED CELL DISTRIBUTION WIDTH 19.4 % (11.0-15.5); WHITE BLOOD COUNT (AUTO) 21.3 K/uL (4.8-10.8)
[2020-06-30] MEDS: KETOROLAC 15MG/ML VIAL (15MG/ML) IV PRN (05:57)
[2020-06-30 06:00] LABS: CREATININE 1.1 mg/dL (0.5-1.5); POTASSIUM 3.9 mmol/L (3.5-5.1)
[2020-06-30 08:19] VITALS: BP 137/71
[2020-06-30] MEDS ORDERED: VANCOMYCIN 1G/250ML KIT 250 ML IV SCH (09:00)
[2020-06-30] MEDS ORDERED: VANCOMYCIN PROTOCOL PER PHARMACY IV SCH (09:00)
[2020-06-30] MEDS: GABAPENTIN 300 MG CAPSULE PO SCH ×3 (09:59→20:59)
[2020-06-30] MEDS: ATORVASTATIN 10 MG TABLET PO SCH (09:59)
[2020-06-30] MEDS: PANTOPRAZOLE 40 MG TAB DR PO SCH (09:59)
[2020-06-30] MEDS: FUROSEMIDE 20MG VIAL IV SCH (10:00)
[2020-06-30] MEDS: AMITRIPTYLINE 25 MG TABLET PO SCH (10:00)
[2020-06-30] MEDS: POLYETHYLENE GLYCOL 3350 17 GM POWD.PACK PO SCH (10:01)
[2020-06-30] MEDS: PSYLLIUM SEED 1 EACH PACKET PO SCH (12:00)
[2020-06-30 12:37] VITALS: BP 97/37
[2020-06-30] MEDS ORDERED: 0.9%NACL 1000ML 1,000 ML IV ONE (14:00)
[2020-06-30] MEDS: ZOSYN 3.375GM+NS 50ML 50 ML IV SCH ×2 (15:22→20:59)
[2020-06-30] MEDS: 0.9%NACL 1000ML 1,000 ML IV SCH ×2 (15:23→19:27)
[2020-06-30 17:20] VITALS: BP 117/70
[2020-06-30 20:41] VITALS: BP 94/48
[2020-06-30 20:42] LABS: APPEARANCE,URINE Clear (CLEAR); BILIRUBIN,URINE Negative (NEGATIVE); COLOR,URINE Yellow (YELLOW); GLUCOSE, URINE (UA) Negative (NEGATIVE); KETONES,URINE Negative (NEGATIVE); LEUKOCYTE ESTERASE ,URINE Negative (NEGATIVE); NITRATE,URINE Negative (NEGATIVE); OCCULT BLOOD,URINE Negative (NEGATIVE); PROTEIN,URINE Negative (NEGATIVE); UROBILINOGEN,URINE 0.2 mg/dL (0.2-1.0)
[2020-06-30 21:18] LABS: BACTERIA,URINE Rare /HPF (None Seen); RBC,URINE 0-1 /HPF (0-1); SQUAMOUS EPITHELIAL CELL,UR Rare /HPF (0-2); WBC,URINE 0-1 /HPF (0-1)
[2020-07-01] VITALS (7 sets, daily range): BP systolic 114–147; BP diastolic 65–73
[2020-07-01] MEDS ORDERED: ZOLPIDEM TARTRATE 5 MG TAB ONE (00:08)
[2020-07-01] MEDS ORDERED: KETOROLAC 30MG VIAL (30MG/ML) ONE ×2 (00:08→23:26)
[2020-07-01] MEDS ORDERED: ZOLPIDEM TARTRATE 5 MG TAB PO ONE (00:15)
[2020-07-01] MEDS ORDERED: KETOROLAC 15MG/ML VIAL (15MG/ML) IM ONE (00:15)
[2020-07-01] MEDS: ZOSYN 3.375GM+NS 50ML 50 ML IV SCH ×3 (05:07→23:29)
[2020-07-01 06:16] LABS: HEMATOCRIT 25.7 % (42-54); MEAN CORPUSCULAR HEMOGLOBIN 22.7 pg (27.0-33.0); MEAN CORPUSCULAR HGB CONC 30.4 g/dL (32.0-36.0); MEAN CORPUSCULAR VOLUME 74.9 fL (79-99); RED BLOOD CELL COUNT(AUTO) 3.43 MIL/uL (4.50-6.20); RED CELL DISTRIBUTION WIDTH 19.8 % (11.0-15.5); WHITE BLOOD COUNT (AUTO) 16.1 K/uL (4.8-10.8)
[2020-07-01 06:39] LABS: ALBUMIN 2.4 g/dL (3.5-5.0); MAGNESIUM 1.7 mg/dL (1.80-2.40); PHOSPHORUS 3.2 mg/dL (2.5-4.9); POTASSIUM 3.7 mmol/L (3.5-5.1)
[2020-07-01] MEDS: 0.9%NACL 1000ML 1,000 ML IV SCH ×2 (09:00→19:00)
[2020-07-01] MEDS: POLYETHYLENE GLYCOL 3350 17 GM POWD.PACK PO SCH (09:16)
[2020-07-01] MEDS: ATORVASTATIN 10 MG TABLET PO SCH (09:17)
[2020-07-01] MEDS: AMITRIPTYLINE 25 MG TABLET PO SCH (09:17)
[2020-07-01] MEDS: GABAPENTIN 300 MG CAPSULE PO SCH ×3 (09:17→21:21)
[2020-07-01] MEDS: PANTOPRAZOLE 40 MG TAB DR PO SCH (09:17)
[2020-07-01] MEDS: ACETAMINOPHEN 500 MG TABLET PO SCH ×2 (09:18→17:36)
[2020-07-01] MEDS: NITROGLYCERIN 1GM OINT 1 INCH/1GM TD SCH ×3 (11:46→23:28)
[2020-07-01] MEDS: VANCOMYCIN 500MG+NS 100ML 100 ML IV SCH ×2 (11:46→21:25)
[2020-07-01] MEDS: PSYLLIUM SEED 1 EACH PACKET PO SCH (11:47)
[2020-07-01] MEDS ORDERED: ACETAMINOPHEN WITH CODEINE 1 TAB TAB ONE (12:41)
[2020-07-01] MEDS: MAGNESIUM 2GM PREMIX 50ML 50 ML IV PRN (17:35)
[2020-07-01] MEDS: ACETAMINOPHEN WITH CODEINE 1 TAB TAB PO PRN (21:22)
[2020-07-01] MEDS ORDERED: KETOROLAC 15MG/ML VIAL (15MG/ML) IV ONE (23:30)
[2020-07-02] MEDS: ACETAMINOPHEN 500 MG TABLET PO SCH ×4 (01:28→23:55)
[2020-07-02 04:45] VITALS: BP 126/79
[2020-07-02 05:21] LABS: HEMATOCRIT 25.5 % (42-54); MEAN CORPUSCULAR HEMOGLOBIN 22.2 pg (27.0-33.0); MEAN CORPUSCULAR HGB CONC 29.8 g/dL (32.0-36.0); MEAN CORPUSCULAR VOLUME 74.3 fL (79-99); PLATELET COUNT (AUTO) 437 K/uL (130-400); RED BLOOD CELL COUNT(AUTO) 3.43 MIL/uL (4.50-6.20); RED CELL DISTRIBUTION WIDTH 19.5 % (11.0-15.5); WHITE BLOOD COUNT (AUTO) 13.2 K/uL (4.8-10.8)
[2020-07-02] MEDS: ACETAMINOPHEN WITH CODEINE 1 TAB TAB PO PRN ×3 (05:22→21:18)
[2020-07-02] MEDS: NITROGLYCERIN 1GM OINT 1 INCH/1GM TD SCH ×4 (05:23→23:55)
[2020-07-02] MEDS: ZOSYN 3.375GM+NS 50ML 50 ML IV SCH ×3 (05:23→22:26)
[2020-07-02] MEDS: 0.9%NACL 1000ML 1,000 ML IV SCH ×3 (05:25→23:56)
[2020-07-02 05:40] LABS: POTASSIUM 4.2 mmol/L (3.5-5.1)
[2020-07-02 05:59] LABS: BAND NEUTROPHILS % (MANUAL) 7 % (0-2); EOSINOPHILS % (MANUAL) 3 % (1-6); LYMPHOCYTES % (MANUAL) 10 % (22-44); MAN.DIFF COMMENT-IMPRESSION MANUAL DIFFERENTIAL; MONOCYTES % (MANUAL) 13 % (2-9); REACTIVE LYMPHOCYTES 2 % (0-0); SEGMENTED NEUTROPHILS % 65 % (40-70)
[2020-07-02 06:00] LABS: PLATELET MORPHOLOGY COMMENT SLIGHT INCREASED
[2020-07-02 07:54] VITALS: BP 95/71
[2020-07-02] MEDS ORDERED: VANCOMYCIN 1G 1.5 GM in 0.9% NACL 250ML 250 ML IV SCH (08:00)
[2020-07-02] MEDS: GABAPENTIN 300 MG CAPSULE PO SCH ×3 (08:35→20:25)
[2020-07-02] MEDS: ATORVASTATIN 10 MG TABLET PO SCH (08:35)
[2020-07-02] MEDS: PANTOPRAZOLE 40 MG TAB DR PO SCH (08:35)
[2020-07-02] MEDS: POLYETHYLENE GLYCOL 3350 17 GM POWD.PACK PO SCH (08:36)
[2020-07-02] MEDS: AMITRIPTYLINE 25 MG TABLET PO SCH (08:36)
[2020-07-02 11:14] VITALS: BP 137/76
[2020-07-02] MEDS: PSYLLIUM SEED 1 EACH PACKET PO SCH (11:27)
[2020-07-02 16:01] VITALS: BP 141/80
[2020-07-02] MEDS ORDERED: IOHEXOL-350 75 ML VIAL IV ONE (19:12)
[2020-07-02] MEDS ORDERED: IOHEXOL-350 50ML VIAL IV ONE (19:12)
[2020-07-02] MEDS ORDERED: ASPIRIN 325 MG TABLET PO SCH (19:20)
[2020-07-02] MEDS ORDERED: CLOPIDOGREL 300MG TAB PO SCH ×2 (19:20→19:45)
[2020-07-02 19:23] VITALS: BP 124/59
[2020-07-02] MEDS: METOPROLOL TARTRATE 25 MG TAB PO SCH (20:25)
[2020-07-02] MEDS: VANCOMYCIN 500MG+NS 100ML 100 ML IV SCH (20:26)
[2020-07-02 23:16] VITALS: BP 127/73
[2020-07-03 01:07] LABS: INR 1.05 (0.85-1.15); PARTIAL THROMBOPLASTIN TIME 31.2 SEC (26.3-35.5); PROTHROMBIN TIME 10.9 SEC (9.6-11.6)
[2020-07-03] MEDS ORDERED: HEPARIN 5,000 UNIT VIAL ONE (02:10)
[2020-07-03] MEDS: HEPARIN 25,000 UNITS/250ML D5W 250 ML IV SCH ×2 (02:19→09:02)
[2020-07-03] MEDS: ACETAMINOPHEN WITH CODEINE 1 TAB TAB PO PRN ×3 (02:32→20:50)
[2020-07-03 03:32] VITALS: BP 144/51
[2020-07-03 05:02] LABS: HEMATOCRIT 24.6 % (42-54); MEAN CORPUSCULAR HEMOGLOBIN 23.2 pg (27.0-33.0); MEAN CORPUSCULAR HGB CONC 30.9 g/dL (32.0-36.0); MEAN CORPUSCULAR VOLUME 75.2 fL (79-99); RED BLOOD CELL COUNT(AUTO) 3.27 MIL/uL (4.50-6.20); WHITE BLOOD COUNT (AUTO) 14.9 K/uL (4.8-10.8)
[2020-07-03 05:15] LABS: POTASSIUM 4.2 mmol/L (3.5-5.1)
[2020-07-03] MEDS: ZOSYN 3.375GM+NS 50ML 50 ML IV SCH ×3 (06:15→22:35)
[2020-07-03] MEDS: NITROGLYCERIN 1GM OINT 1 INCH/1GM TD SCH ×4 (06:15→23:46)
[2020-07-03 08:00] VITALS: BP 121/77
[2020-07-03 08:28] LABS: INR 1.12 (0.85-1.15); PROTHROMBIN TIME 11.5 SEC (9.6-11.6)
[2020-07-03] MEDS: PANTOPRAZOLE 40 MG TAB DR PO SCH (08:30)
[2020-07-03] MEDS: ACETAMINOPHEN 500 MG TABLET PO SCH ×3 (08:30→23:45)
[2020-07-03] MEDS: AMITRIPTYLINE 25 MG TABLET PO SCH (08:31)
[2020-07-03] MEDS: ASPIRIN 81MG CHEW TAB PO SCH (08:31)
[2020-07-03] MEDS: METOPROLOL TARTRATE 25 MG TAB PO SCH ×2 (08:31→20:50)
[2020-07-03] MEDS: ATORVASTATIN 10 MG TABLET PO SCH (08:32)
[2020-07-03] MEDS: GABAPENTIN 300 MG CAPSULE PO SCH ×3 (08:32→20:50)
[2020-07-03] MEDS: CLOPIDOGREL 75MG TAB PO SCH (08:32)
[2020-07-03] MEDS: VANCOMYCIN 500MG+NS 100ML 100 ML IV SCH ×2 (08:37→20:49)
[2020-07-03] MEDS: POLYETHYLENE GLYCOL 3350 17 GM POWD.PACK PO SCH (08:38)
[2020-07-03] MEDS: PSYLLIUM SEED 1 EACH PACKET PO SCH (12:13)
[2020-07-03] MEDS: 0.9%NACL 1000ML 1,000 ML IV SCH ×2 (12:39→20:51)
[2020-07-03 14:05] VITALS: BP 126/75
[2020-07-03 20:00] VITALS: BP 118/59
[2020-07-03] MEDS: FLUOXETINE HCL 10 MG CAPSULE PO SCH (22:35)
[2020-07-03 23:25] VITALS: BP 115/64
[2020-07-04] MEDS: HEPARIN 25,000 UNITS/250ML D5W 250 ML IV SCH (02:15)
[2020-07-04 05:01] VITALS: BP 112/61
[2020-07-04] MEDS: ZOSYN 3.375GM+NS 50ML 50 ML IV SCH ×3 (05:32→23:33)
[2020-07-04] MEDS: NITROGLYCERIN 1GM OINT 1 INCH/1GM TD SCH ×3 (05:32→23:34)
[2020-07-04] MEDS: ACETAMINOPHEN WITH CODEINE 1 TAB TAB PO PRN ×3 (05:33→23:34)
[2020-07-04 05:38] LABS: HEMATOCRIT 25.1 % (42-54); MEAN CORPUSCULAR HEMOGLOBIN 21.7 pg (27.0-33.0); MEAN CORPUSCULAR HGB CONC 29.1 g/dL (32.0-36.0); MEAN CORPUSCULAR VOLUME 74.7 fL (79-99); RED BLOOD CELL COUNT(AUTO) 3.36 MIL/uL (4.50-6.20); RED CELL DISTRIBUTION WIDTH 19.7 % (11.0-15.5); WHITE BLOOD COUNT (AUTO) 13.8 K/uL (4.8-10.8)
[2020-07-04 06:00] LABS: CREATININE 1.1 mg/dL (0.5-1.5); POTASSIUM 4.2 mmol/L (3.5-5.1)
[2020-07-04 08:00] VITALS: BP 108/80
[2020-07-04] MEDS: ACETAMINOPHEN 500 MG TABLET PO SCH ×2 (08:15→17:33)
[2020-07-04] MEDS: POLYETHYLENE GLYCOL 3350 17 GM POWD.PACK PO SCH (09:00)
[2020-07-04] MEDS ORDERED: HYDROCODONE/ACETAMINOPHEN 5/325 MG TAB PO SCH (10:30)
[2020-07-04] MEDS: CLOPIDOGREL 75MG TAB PO SCH (10:46)
[2020-07-04] MEDS: GABAPENTIN 300 MG CAPSULE PO SCH ×3 (10:49→20:56)
[2020-07-04] MEDS: PANTOPRAZOLE 40 MG TAB DR PO SCH (10:49)
[2020-07-04] MEDS: ATORVASTATIN 10 MG TABLET PO SCH (10:54)
[2020-07-04] MEDS: ASPIRIN 81MG CHEW TAB PO SCH (10:55)
[2020-07-04 11:00] VITALS: BP 112/79
[2020-07-04] MEDS: VANCOMYCIN 500MG+NS 100ML 100 ML IV SCH ×2 (11:32→20:55)
[2020-07-04] MEDS: METOPROLOL TARTRATE 25 MG TAB PO SCH ×2 (11:32→20:57)
[2020-07-04] MEDS: PSYLLIUM SEED 1 EACH PACKET PO SCH (12:00)
[2020-07-04 17:00] VITALS: BP 133/77
[2020-07-04] MEDS: HYDROCODONE/ACETAMINOPHEN 5/325 MG TAB PO PRN (17:02)
[2020-07-04 17:49] LABS: HEMATOCRIT 23.8 % (42-54)
[2020-07-04] MEDS: FERROUS SULFATE 325 MG TABLET.DR PO SCH (20:56)
[2020-07-04] MEDS: AMITRIPTYLINE 25 MG TABLET PO SCH (20:56)
[2020-07-04] MEDS: FLUOXETINE HCL 10 MG CAPSULE PO SCH (20:56)
[2020-07-05] VITALS (7 sets, daily range): BP systolic 116–148; BP diastolic 40–81
[2020-07-05] MEDS: ACETAMINOPHEN 500 MG TABLET PO SCH ×3 (02:21→17:07)
[2020-07-05] MEDS: ZOSYN 3.375GM+NS 50ML 50 ML IV SCH ×3 (05:54→22:50)
[2020-07-05] MEDS: HYDROCODONE/ACETAMINOPHEN 5/325 MG TAB PO PRN ×3 (05:54→21:29)
[2020-07-05] MEDS: NITROGLYCERIN 1GM OINT 1 INCH/1GM TD SCH (05:55)
[2020-07-05] MEDS: HEPARIN 25,000 UNITS/250ML D5W 250 ML IV SCH (06:08)
[2020-07-05 06:19] LABS: HEMATOCRIT 22.7 % (42-54)
[2020-07-05 06:35] LABS: ALBUMIN 2.3 g/dL (3.5-5.0); BILIRUBIN,TOTAL 0.3 mg/dL (0.2-1.0); CREATININE 1.1 mg/dL (0.5-1.5); POTASSIUM 4.2 mmol/L (3.5-5.1); TOTAL PROTEIN, SERUM 7.1 g/dL (6.0-8.3)
[2020-07-05] MEDS: CLOPIDOGREL 75MG TAB PO SCH (08:49)
[2020-07-05] MEDS: AMITRIPTYLINE 25 MG TABLET PO SCH ×2 (08:49→21:27)
[2020-07-05] MEDS: ATORVASTATIN 10 MG TABLET PO SCH (08:50)
[2020-07-05] MEDS: PANTOPRAZOLE 40 MG TAB DR PO SCH (08:50)
[2020-07-05] MEDS: METOPROLOL TARTRATE 25 MG TAB PO SCH ×2 (08:50→21:28)
[2020-07-05] MEDS: GABAPENTIN 300 MG CAPSULE PO SCH ×3 (08:50→21:28)
[2020-07-05] MEDS: POLYETHYLENE GLYCOL 3350 17 GM POWD.PACK PO SCH (08:51)
[2020-07-05] MEDS: FERROUS SULFATE 325 MG TABLET.DR PO SCH ×2 (08:51→21:28)
[2020-07-05] MEDS: ASPIRIN 81MG CHEW TAB PO SCH (09:00)
[2020-07-05] MEDS: VANCOMYCIN 500MG+NS 100ML 100 ML IV SCH ×2 (11:46→21:27)
[2020-07-05] MEDS: PSYLLIUM SEED 1 EACH PACKET PO SCH (13:43)
[2020-07-05 20:03] LABS: HEMATOCRIT 26.6 % (42-54)
[2020-07-05] MEDS: FLUOXETINE HCL 10 MG CAPSULE PO SCH (21:27)
[2020-07-06] VITALS (7 sets, daily range): BP systolic 136–154; BP diastolic 50–86
[2020-07-06] MEDS: ACETAMINOPHEN 500 MG TABLET PO SCH (02:26)
[2020-07-06 05:16] LABS: HEMATOCRIT 26.1 % (42-54)
[2020-07-06 05:30] LABS: POTASSIUM 3.9 mmol/L (3.5-5.1)
[2020-07-06] MEDS: ZOSYN 3.375GM+NS 50ML 50 ML IV SCH ×3 (06:13→22:07)
[2020-07-06] MEDS: HYDROCODONE/ACETAMINOPHEN 5/325 MG TAB PO PRN ×2 (10:26→15:29)
[2020-07-06] MEDS: PANTOPRAZOLE 40 MG TAB DR PO SCH (10:26)
[2020-07-06] MEDS: FERROUS SULFATE 325 MG TABLET.DR PO SCH ×2 (10:26→21:21)
[2020-07-06] MEDS: GABAPENTIN 300 MG CAPSULE PO SCH ×3 (10:26→21:20)
[2020-07-06] MEDS: METOPROLOL TARTRATE 25 MG TAB PO SCH ×2 (10:26→21:19)
[2020-07-06] MEDS: ATORVASTATIN 10 MG TABLET PO SCH (10:26)
[2020-07-06] MEDS: CLOPIDOGREL 75MG TAB PO SCH (10:26)
[2020-07-06] MEDS: PSYLLIUM SEED 1 EACH PACKET PO SCH (10:26)
[2020-07-06] MEDS: AMITRIPTYLINE 25 MG TABLET PO SCH ×2 (10:27→21:21)
[2020-07-06] MEDS: POLYETHYLENE GLYCOL 3350 17 GM POWD.PACK PO SCH (10:27)
[2020-07-06] MEDS: VANCOMYCIN 500MG+NS 100ML 100 ML IV SCH ×2 (10:35→21:19)
[2020-07-06] MEDS ORDERED: FUROSEMIDE 40MG VIAL IV SCH (12:15)
[2020-07-06] MEDS: FLUOXETINE HCL 10 MG CAPSULE PO SCH (21:20)
[2020-07-06] MEDS: APIXABAN 5 MG TABLET PO SCH (21:21)
[2020-07-07] MEDS: ACETAMINOPHEN 500 MG TABLET PO SCH ×4 (01:02→23:58)
[2020-07-07] MEDS: HYDROCODONE/ACETAMINOPHEN 5/325 MG TAB PO PRN ×3 (01:48→18:00)
[2020-07-07 04:14] VITALS: BP 139/80
[2020-07-07 05:37] LABS: HEMATOCRIT 26.1 % (42-54); MEAN CORPUSCULAR HEMOGLOBIN 23.3 pg (27.0-33.0); MEAN CORPUSCULAR VOLUME 75.2 fL (79-99); NUCLEATED RED BLOOD CELLS 0.2 % (0.0-0.19); RED BLOOD CELL COUNT(AUTO) 3.47 MIL/uL (4.50-6.20); RED CELL DISTRIBUTION WIDTH 20.3 % (11.0-15.5)
[2020-07-07 06:14] LABS: POTASSIUM 4.1 mmol/L (3.5-5.1)
[2020-07-07] MEDS: ZOSYN 3.375GM+NS 50ML 50 ML IV SCH (06:21)
[2020-07-07 07:00] VITALS: BP 154/83
[2020-07-07] MEDS: VANCOMYCIN 500MG+NS 100ML 100 ML IV SCH (09:12)
[2020-07-07] MEDS: POLYETHYLENE GLYCOL 3350 17 GM POWD.PACK PO SCH (09:12)
[2020-07-07] MEDS: PANTOPRAZOLE 40 MG TAB DR PO SCH (09:13)
[2020-07-07] MEDS: GABAPENTIN 300 MG CAPSULE PO SCH ×3 (09:13→20:10)
[2020-07-07] MEDS: CLOPIDOGREL 75MG TAB PO SCH (09:13)
[2020-07-07] MEDS: METOPROLOL TARTRATE 25 MG TAB PO SCH ×2 (09:13→20:11)
[2020-07-07] MEDS: AMITRIPTYLINE 25 MG TABLET PO SCH ×2 (09:13→20:11)
[2020-07-07] MEDS: ATORVASTATIN 10 MG TABLET PO SCH (09:13)
[2020-07-07] MEDS: APIXABAN 5 MG TABLET PO SCH ×2 (09:14→20:11)
[2020-07-07] MEDS: FERROUS SULFATE 325 MG TABLET.DR PO SCH ×2 (09:14→20:11)
[2020-07-07 11:30] VITALS: BP 129/74
[2020-07-07] MEDS: PSYLLIUM SEED 1 EACH PACKET PO SCH (12:00)
[2020-07-07 16:16] VITALS: BP 135/75
[2020-07-07 19:51] VITALS: BP 143/85
[2020-07-07] MEDS: FLUOXETINE HCL 10 MG CAPSULE PO SCH (20:11)
[2020-07-07] MEDS: ACETAMINOPHEN WITH CODEINE 1 TAB TAB PO PRN (20:13)
[2020-07-08] VITALS: BP 139/78
[2020-07-08 04:21] VITALS: BP 153/88
[2020-07-08 05:14] LABS: HEMATOCRIT 25.6 % (42-54); MEAN CORPUSCULAR HEMOGLOBIN 23.8 pg (27.0-33.0); MEAN CORPUSCULAR HGB CONC 31.3 g/dL (32.0-36.0); MEAN CORPUSCULAR VOLUME 76.2 fL (79-99); NUCLEATED RED BLOOD CELLS 0.2 % (0.0-0.19); RED BLOOD CELL COUNT(AUTO) 3.36 MIL/uL (4.50-6.20); RED CELL DISTRIBUTION WIDTH 20.5 % (11.0-15.5); WHITE BLOOD COUNT (AUTO) 12.7 K/uL (4.8-10.8)
[2020-07-08 05:41] LABS: CREATININE 0.9 mg/dL (0.5-1.5); POTASSIUM 3.8 mmol/L (3.5-5.1)
[2020-07-08] MEDS: AMITRIPTYLINE 25 MG TABLET PO SCH ×2 (08:22→20:23)
[2020-07-08] MEDS: PANTOPRAZOLE 40 MG TAB DR PO SCH (08:23)
[2020-07-08] MEDS: ACETAMINOPHEN 500 MG TABLET PO SCH ×2 (08:23→16:26)
[2020-07-08] MEDS: GABAPENTIN 300 MG CAPSULE PO SCH ×3 (08:23→20:51)
[2020-07-08] MEDS: METOPROLOL TARTRATE 25 MG TAB PO SCH ×2 (08:23→20:23)
[2020-07-08] MEDS: ATORVASTATIN 10 MG TABLET PO SCH (08:23)
[2020-07-08] MEDS: APIXABAN 5 MG TABLET PO SCH ×2 (08:24→20:23)
[2020-07-08] MEDS: FERROUS SULFATE 325 MG TABLET.DR PO SCH ×2 (08:24→20:22)
[2020-07-08] MEDS: CLOPIDOGREL 75MG TAB PO SCH (08:24)
[2020-07-08] MEDS: POLYETHYLENE GLYCOL 3350 17 GM POWD.PACK PO SCH (09:00)
[2020-07-08 09:06] VITALS: BP 152/92
[2020-07-08 11:57] VITALS: BP 137/80
[2020-07-08] MEDS: ACETAMINOPHEN WITH CODEINE 1 TAB TAB PO PRN ×2 (14:20→20:51)
[2020-07-08] MEDS: PSYLLIUM SEED 1 EACH PACKET PO SCH (14:23)
[2020-07-08 15:47] VITALS: BP 141/70
[2020-07-08 20:09] VITALS: BP 145/78
[2020-07-08] MEDS: FLUOXETINE HCL 10 MG CAPSULE PO SCH (20:23)
[2020-07-09 00:04] VITALS: BP 137/69
[2020-07-09] MEDS: ACETAMINOPHEN 500 MG TABLET PO SCH ×2 (00:25→08:00)
[2020-07-09] MEDS: HYDROCODONE/ACETAMINOPHEN 5/325 MG TAB PO PRN ×2 (01:33→14:56)
[2020-07-09 04:56] VITALS: BP 147/88
[2020-07-09] MEDS: POLYETHYLENE GLYCOL 3350 17 GM POWD.PACK PO SCH (07:59)
[2020-07-09 08:00] VITALS: BP 159/85
[2020-07-09] MEDS: AMITRIPTYLINE 25 MG TABLET PO SCH (08:00)
[2020-07-09] MEDS: APIXABAN 5 MG TABLET PO SCH (08:00)
[2020-07-09] MEDS: PANTOPRAZOLE 40 MG TAB DR PO SCH (08:00)
[2020-07-09] MEDS: FERROUS SULFATE 325 MG TABLET.DR PO SCH (08:00)
[2020-07-09] MEDS: METOPROLOL TARTRATE 25 MG TAB PO SCH (08:01)
[2020-07-09] MEDS: CLOPIDOGREL 75MG TAB PO SCH (08:01)
[2020-07-09] MEDS: ATORVASTATIN 10 MG TABLET PO SCH (08:07)
[2020-07-09] MEDS: GABAPENTIN 300 MG CAPSULE PO SCH ×2 (08:08→14:56)
[2020-07-09] MEDS: ACETAMINOPHEN WITH CODEINE 1 TAB TAB PO PRN (09:48)
[2020-07-09 12:09] VITALS: BP 144/87
[2020-07-09] MEDS: PSYLLIUM SEED 1 EACH PACKET PO SCH (15:03)
[2020-07-09 16:55] VITALS: BP 135/75
[2020-08-31] MEDS ORDERED: LACT10SO9 PO (14:34)
[2020-08-31] MEDS ORDERED: DIPH25 PO (14:34)
[2020-08-31] MEDS ORDERED: FAMO10VI2 IV (14:34)
[2020-08-31] MEDS ORDERED: FURO10VI4 IV (14:34)
[2020-08-31] MEDS ORDERED: CLOP75TA32 PO ×2 (14:34→17:08)
[2020-08-31] MEDS ORDERED: MAG30ORA12 PO (14:34)
[2020-08-31] MEDS ORDERED: ACET1TAB25 PO (14:34)
[2020-08-31] MEDS ORDERED: PIPE3.379 IV (14:34)
[2020-08-31] MEDS ORDERED: ONDA220I IV (14:34)
[2020-08-31] MEDS ORDERED: IRON1CAP30 PO (17:08)
[2020-08-31] MEDS ORDERED: AEC81 PO (17:08)
[2020-08-31] MEDS ORDERED: ICOS1CAP PO (17:08)
[2020-08-31] MEDS ORDERED: PANT40TA54 PO (17:08)
[2020-08-31] MEDS ORDERED: ATOR40TA69 PO (17:08)
[2020-08-31] MEDS ORDERED: APIX5TAB PO (17:08)
[2020-08-31] MEDS ORDERED: TAMS-1 PO (17:08)
[2020-08-31] MEDS ORDERED: ALPH200C2 PO (17:08)
[2020-08-31] MEDS ORDERED: MIRA25TA PO (17:08)
[2020-08-31] MEDS ORDERED: GABA-533 PO (17:08)
[2020-08-31] MEDS ORDERED: CYAN10007 IJ (17:08)
[2020-08-31] MEDS ORDERED: RANO500T6 PO (17:08)
[2020-08-31] MEDS ORDERED: METO-391 PO (17:08)
[2020-08-31] MEDS ORDERED: PIOG15TA6 PO (17:08)
[2020-08-31] MEDS ORDERED: FURO40TA5 PO (17:08)
[2020-08-31] MEDS ORDERED: SUCR1TAB2 PO (17:08)
[2020-09-12] MEDS ORDERED: MIRA25TA PO (15:49)
[2020-09-12] MEDS ORDERED: APIX5TAB PO (15:49)
[2020-09-12] MEDS ORDERED: THIO200T2 PO (15:49)
[2020-09-12] MEDS ORDERED: FERR500P12 PO (15:49)
[2020-09-12] MEDS ORDERED: HYDR-4379 PO (15:49)
[2020-09-12] MEDS ORDERED: ICOS1CAP PO (15:49)
[2020-09-12] MEDS ORDERED: CYAN-52 PO (15:49)
[2020-09-12] MEDS ORDERED: FURO40TA5 PO (15:49)
[2020-09-12] MEDS ORDERED: DOCU100T PO (15:49)
== END 2020-07-09 18:30 | DRG 239 ==
LOC: EDH 15:01 → EDHIP 15:49 → 3CH 21:04 → 2BH 22:31 → 3BH 06-22 15:46 → 3DH 06-30 17:35
PROVIDERS: ADMIT Internal Medicine; ATTEND Internal Medicine
PROC: 0Y6J0Z1 Detachment at Left Lower Leg, High, Open Approach (ICD-10-PCS; principal; 2020-06-26 07:48)
PROC: 30233N1 Transfusion of Nonautologous Red Blood Cells into Peripheral Vein, Percutaneous Approach (ICD-10-PCS; 2020-07-05)
DX: E11.52 Type 2 diabetes mellitus with diabetic peripheral angiopathy with gangrene (principal); I50.23 Acute on chronic systolic (congestive) heart failure; M86.9 Osteomyelitis, unspecified; L03.90 Cellulitis, unspecified; T87.44 Infection of amputation stump, left lower extremity; I11.0 Hypertensive heart disease with heart failure; I25.10 Atherosclerotic heart disease of native coronary artery without angina pectoris; Z95.1 Presence of aortocoronary bypass graft; Z95.5 Presence of coronary angioplasty implant and graft; I35.0 Nonrheumatic aortic (valve) stenosis; I25.5 Ischemic cardiomyopathy; R79.89 Other specified abnormal findings of blood chemistry; D64.9 Anemia, unspecified; E11.69 Type 2 diabetes mellitus with other specified complication; G89.29 Other chronic pain; M79.672 Pain in left foot; Z68.28 Body mass index [BMI] 28.0-28.9, adult; F19.90 Other psychoactive substance use, unspecified, uncomplicated; D63.8 Anemia in other chronic diseases classified elsewhere; E11.621 Type 2 diabetes mellitus with foot ulcer; E66.9 Obesity, unspecified; Z68.24 Body mass index [BMI] 24.0-24.9, adult; F32.9 Major depressive disorder, single episode, unspecified; E11.40 Type 2 diabetes mellitus with diabetic neuropathy, unspecified; L97.529 Non-pressure chronic ulcer of other part of left foot with unspecified severity; T87.89 Other complications of amputation stump; Z20.822 Contact with and (suspected) exposure to COVID-19; Z74.01 Bed confinement status; Z79.01 Long term (current) use of anticoagulants; Z79.02 Long term (current) use of antithrombotics/antiplatelets; Z79.82 Long term (current) use of aspirin; Z79.899 Other long term (current) drug therapy; Y83.8 Other surgical procedures as the cause of abnormal reaction of the patient, or of later complication, without mention of misadventure at the time of the procedure; Y92.89 Other specified places as the place of occurrence of the external cause
CPT/HCPCS: 36415; 36430; 71045; 71275; 73630; 75635; 80048; 80053; 80202; 81001; 82948; 83605; 83735; 83880; 84100; 84132; 84145; 85014; 85018; 85025; 85027; 85378; 85610; 85730; 86850; 86900; 86901; 86923; 87040; 87205; 87426; 88307; 93005; 93926; 97039; G0378; J0330; J1100; J1170; J1200; J1644; J1885; J1940; J2250; J2270; J2370; J2405; J2543; J2704; J2710; J3010; J3370; J3475; J3490; J7030; J7040; J7050; P9016; Q0163; Q9967; U0003

== ENCOUNTER 2020-09-13 08:23 | Day surgery (SDC) | payer MEDICARE ==
[2020-09-10 13:46] LABS: BASOPHILS % (AUTO) 0.2 % (0.0-5.0); EOSINOPHILS % (AUTO) 0.4 % (0.0-8.0); HEMATOCRIT 32.6 % (42-54); MEAN CORPUSCULAR HGB CONC 29.8 g/dL (32.0-36.0); MEAN CORPUSCULAR VOLUME 90.8 fL (79-99); MONOCYTES % (AUTO) 1.9 % (3.0-13.0); PLATELET COUNT (AUTO) 341 K/uL (130-400); RED BLOOD CELL COUNT(AUTO) 3.59 MIL/uL (4.50-6.20); RED CELL DISTRIBUTION WIDTH 19.4 % (11.0-15.5); WHITE BLOOD COUNT (AUTO) 10.6 K/uL (4.8-10.8)
[2020-09-10 13:47] LABS: APPEARANCE,URINE Clear (CLEAR); BILIRUBIN,URINE Negative (NEGATIVE); COLOR,URINE Yellow (YELLOW); GLUCOSE, URINE (UA) Negative (NEGATIVE); KETONES,URINE Negative (NEGATIVE); LEUKOCYTE ESTERASE ,URINE Negative (NEGATIVE); NITRATE,URINE Negative (NEGATIVE); OCCULT BLOOD,URINE Negative (NEGATIVE); PROTEIN,URINE Negative (NEGATIVE); UROBILINOGEN,URINE 0.2 mg/dL (0.2-1.0)
[2020-09-10 13:53] LABS: CREATININE 1.1 mg/dL (0.5-1.5); POTASSIUM 3.3 mmol/L (3.5-5.1)
[2020-09-10 13:57] LABS: INR 1.09 (0.85-1.15); PROTHROMBIN TIME 11.8 SEC (9.6-11.6)
[2020-09-10 13:59] LABS: PARTIAL THROMBOPLASTIN TIME 31.6 SEC (26.3-35.5)
[2020-09-10 14:25] VITALS: BP 135/59
[2020-09-13] VITALS (10 sets, daily range): BP systolic 118–158; BP diastolic 62–80
[~2020-09-13] VITALS: Ht 160 cm; Wt 63.5 kg
[~2020-09-13 08:23] MED LIST changes: +0.9%NACL 500ML 500 ML IV SCH; -AMIT25TA9 PO; +APIX5TAB PO; -ASPI-556 PO; -CREON12 PO; +CYAN-52 PO; -Cefepime Hcl IVP; +DOCU100T PO; +FERR500P12 PO; +FURO40TA5 PO; +HYDR-4379 PO; +ICOS1CAP PO; -IRON1CAP32 PO; +MIRA25TA PO; +NACL 0.9% 1000ML 1,000 ML IV ONE; +NACL 0.9% 1000ML 1,000 ML IV SCH; -SIMV-43 PO; -SULCRAFATE PO; +THIO200T2 PO; -TRAM50TA4 PO; -Vancomycin Protocol IV
[2020-09-13] MEDS ORDERED: METO-391 PO (09:44)
[2020-09-13] MEDS ORDERED: NITROGLYCERIN 2 MG VIAL IV ONE (10:53)
[2020-09-13] MEDS ORDERED: IODIXANOL 320 MG/ML 100 ML VIAL ONE (10:53)
[2020-09-13] MEDS ORDERED: HEPARIN 10,000 UNIT/10ML (1,000 UNIT/ML) VIAL ONE (10:53)
[2020-09-13] MEDS ORDERED: FENTANYL CITRATE PF 50 MCG/1 ML 2ML VIAL ONE ×2 (10:53→12:19)
[2020-09-13] MEDS ORDERED: MIDAZOLAM HCL 1 MG/ML 2ML VIAL ONE ×2 (10:53→12:18)
[2020-09-13] MEDS ORDERED: LIDOCAINE HCL 400MG/20ML VIAL ONE (10:54)
[2020-09-13] MEDS ORDERED: METOPROLOL TARTRATE 1 MG/ML 5ML VIAL IV ONE (12:14)
[2020-09-13] MEDS ORDERED: HYDROCODONE/ACETAMINOPHEN 7.5/325 MG TAB ONE (12:54)
[2020-09-13] MEDS ORDERED: CLOPIDOGREL 75MG TAB PO SCH (13:49)
== END 2020-09-13 16:15 | disposition home or self-care (01) ==
LOC: DAH 08:23
PROVIDERS: ATTEND Internal Medicine Cardiovascular Disease
DX: I70.235 Atherosclerosis of native arteries of right leg with ulceration of other part of foot (principal); I70.92 Chronic total occlusion of artery of the extremities; I11.0 Hypertensive heart disease with heart failure; I50.22 Chronic systolic (congestive) heart failure; E78.5 Hyperlipidemia, unspecified; I25.5 Ischemic cardiomyopathy; I48.0 Paroxysmal atrial fibrillation; D64.9 Anemia, unspecified; I35.0 Nonrheumatic aortic (valve) stenosis; I25.10 Atherosclerotic heart disease of native coronary artery without angina pectoris; I25.2 Old myocardial infarction; F17.210 Nicotine dependence, cigarettes, uncomplicated; K21.9 Gastro-esophageal reflux disease without esophagitis; Z95.5 Presence of coronary angioplasty implant and graft; Z98.890 Other specified postprocedural states; Z79.01 Long term (current) use of anticoagulants; Z79.899 Other long term (current) drug therapy; Z79.82 Long term (current) use of aspirin
CPT/HCPCS: 36246; 36415; 71045; 75625; 75716; 80048; 81003; 82948 ×2; 85025; 85610; 85730; 93005; A4215; A4216; A4221; A4222; A4223 ×3; A4606; A4663; C1760; C1769; C1894 ×2; J1644; J2250 ×2; J3010 ×2; J3490 ×3; J7030; Q9967; 99156; 99157

== ENCOUNTER 2020-09-27 14:30 | Inpatient (IN) | payer MEDICARE ==
[~2020-09-27] VITALS: Ht 160 cm; Wt 67.7 kg
[2020-09-27 12:48] LABS: BASOPHILS % (AUTO) 0.4 % (0.0-5.0); EOSINOPHILS % (AUTO) 1.3 % (0.0-8.0); HEMATOCRIT 30.9 % (42-54); LYMPHOCYTES % (AUTO) 15.3 % (21.0-51.0); MEAN CORPUSCULAR HEMOGLOBIN 26.9 pg (27.0-33.0); MEAN CORPUSCULAR HGB CONC 30.7 g/dL (32.0-36.0); MEAN CORPUSCULAR VOLUME 87.5 fL (79-99); MONOCYTES % (AUTO) 11.7 % (3.0-13.0); PLATELET COUNT (AUTO) 383 K/uL (130-400); RED BLOOD CELL COUNT(AUTO) 3.53 MIL/uL (4.50-6.20); RED CELL DISTRIBUTION WIDTH 17.1 % (11.0-15.5); WHITE BLOOD COUNT (AUTO) 9.1 K/uL (4.8-10.8)
[2020-09-27 12:57] LABS: INR 1.19 (0.85-1.15); PROTHROMBIN TIME 12.8 SEC (9.6-11.6)
[2020-09-27 12:59] LABS: PARTIAL THROMBOPLASTIN TIME 37.9 SEC (26.3-35.5)
[2020-09-27 13:16] LABS: ALBUMIN 2.8 g/dL (3.5-5.0); BILIRUBIN,TOTAL 0.3 mg/dL (0.2-1.0); CREATININE 0.9 mg/dL (0.5-1.5); TOTAL PROTEIN, SERUM 7.6 g/dL (6.0-8.3)
[~2020-09-27 14:30] MED LIST changes: -0.9%NACL 500ML 500 ML IV SCH; -CLOP75TA14 PO; -FERR500P12 PO; -GABA100C PO; +METO-391 PO; -METO50TA18 PO; -NACL 0.9% 1000ML 1,000 ML IV ONE; -NACL 0.9% 1000ML 1,000 ML IV SCH
[2020-09-27 17:14] VITALS: BP 98/54
[2020-09-27] MEDS ORDERED: CLOP75TA14 PO (17:14)
[2020-09-27] MEDS ORDERED: GABA-533 PO (17:14)
[2020-09-27] MEDS ORDERED: FERS325 PO (17:14)
[2020-09-28] VITALS (21 sets, daily range): BP systolic 115–150; BP diastolic 56–85
[2020-09-28] MEDS ORDERED: HEPARIN 10,000 UNIT/10ML (1,000 UNIT/ML) VIAL ONE (11:38)
[2020-09-28] MEDS ORDERED: PROTAMINE SULFATE 10 MG/ML 25ML VIAL IV ONE (11:38)
[2020-09-28] MEDS ORDERED: CEFAZOLIN SODIUM 1 GM VIAL ONE (11:38)
[2020-09-28] MEDS ORDERED: 0.9%NACL 1000ML 1,000 ML IV ONE (12:00)
[2020-09-28] MEDS: CEFAZOLIN SODIUM 1 GM VIAL IVP SCH ×3 (12:25→16:40)
[2020-09-28] MEDS ORDERED: SUCCINYLCHOLINE CHLORIDE 20 MG/ML 10 ML VIAL ONE (13:54)
[2020-09-28] MEDS ORDERED: LIDOCAINE PF 100MG/5ML (2%) SYRINGE 5ML ONE (13:54)
[2020-09-28] MEDS ORDERED: ROCURONIUM 10MG/1ML SYR 10 MG/ML ML ONE ×2 (13:55→17:11)
[2020-09-28] MEDS ORDERED: FENTANYL CITRATE PF 50 MCG/1 ML 2ML VIAL ONE (13:55)
[2020-09-28] MEDS ORDERED: PROPOFOL 10 MG/ML 20ML VIAL IV ONE (13:55)
[2020-09-28] MEDS ORDERED: ALBUHFA IH (14:10)
[2020-09-28] MEDS ORDERED: FENTANYL CITRATE PF 50 MCG/1 ML 5ML AMP IV ONE (15:47)
[2020-09-28 15:51] LABS: CREATININE 0.8 mg/dL (0.5-1.5); POTASSIUM 3.1 mmol/L (3.5-5.1)
[2020-09-28] MEDS ORDERED: POTASSIUM CHLORIDE 20MEQ/100ML 100 ML IV ONE ×2 (16:21→16:31)
[2020-09-28] MEDS ORDERED: EPHEDRINE SULFATE 50 MG/ML AMPULE ONE (17:00)
[2020-09-28] MEDS ORDERED: ONDANSETRON 4MG INJ ONE (17:05)
[2020-09-28 17:13] LABS: ABG BASE EXCESS 1.4 mmol/L (-2.0-3.0); ABG HCO3 25.9 mmol/L (21.0-28.0); ABG OXYGEN SATURATION 99.5 % (95.0-99.0); ABG PCO2 41 mmHg (35-48)
[2020-09-28] MEDS ORDERED: NEOSTIGMINE 5MG/5ML SYR IV ONE (18:56)
[2020-09-28] MEDS ORDERED: GLYCOPYRROLATE 1 MG/5 ML SYRINGE ONE (18:56)
[2020-09-28] MEDS ORDERED: NOREPINEPHRINE BITARTRATE 1 MG/1 ML ML IV ONE (19:11)
[2020-09-28] MEDS ORDERED: PHENYLEPHRINE HCL 10 MG/ML 1ML VIAL IV ONE (19:11)
[2020-09-28] MEDS ORDERED: KETOROLAC 30MG VIAL (30MG/ML) ONE (20:43)
[2020-09-28] MEDS: APIXABAN 5 MG TABLET PO SCH (20:44)
[2020-09-28] MEDS: FERROUS SULFATE 325 MG TABLET.DR PO SCH (20:44)
[2020-09-28] MEDS: RANOLAZINE 500 MG TAB.SR.12H PO SCH (20:44)
[2020-09-28] MEDS: DOCUSATE SODIUM 100 MG CAP PO SCH (20:44)
[2020-09-28] MEDS: GABAPENTIN 100 MG CAPSULE PO SCH (20:44)
[2020-09-28] MEDS: METOPROLOL SUCCINATE 50 MG TAB.SR.24H PO SCH (20:45)
[2020-09-28] MEDS: ICOSAPENT ETHYL 1 GM PO SCH (20:46)
[2020-09-28] MEDS ORDERED: KETOROLAC 30MG VIAL (30MG/ML) IV ONE (21:00)
[2020-09-28] MEDS ORDERED: TRAMADOL HCL 50 MG TABLET PO PRN ×2 (22:00)
[2020-09-29] MEDS: CEFAZOLIN SODIUM 1 GM VIAL IVP SCH ×4 (00:21→17:16)
[2020-09-29 04:12] VITALS: BP 162/86
[2020-09-29 04:12] LABS: HEMATOCRIT 27.1 % (42-54); MEAN CORPUSCULAR HEMOGLOBIN 27.4 pg (27.0-33.0); MEAN CORPUSCULAR VOLUME 88.3 fL (79-99); RED BLOOD CELL COUNT(AUTO) 3.07 MIL/uL (4.50-6.20); WHITE BLOOD COUNT (AUTO) 11.5 K/uL (4.8-10.8)
[2020-09-29 04:29] LABS: CREATININE 0.9 mg/dL (0.5-1.5); POTASSIUM 3.4 mmol/L (3.5-5.1)
[2020-09-29] MEDS: KETOROLAC 15MG/ML VIAL (15MG/ML) IV SCH ×4 (05:42→22:39)
[2020-09-29] MEDS ORDERED: POTASSIUM CHLORIDE 10% ELIXIR 20 MEQ/15 ML UDCUP PO PRN (07:30)
[2020-09-29] MEDS ORDERED: POTASSIUM CHLORIDE 20MEQ/100ML 100 ML IV PRN (07:30)
[2020-09-29] MEDS ORDERED: LIDOCAINE HCL-MPF 1% 2ML VIAL IV PRN (07:30)
[2020-09-29 08:54] VITALS: BP 126/68
[2020-09-29] MEDS: ICOSAPENT ETHYL 1 GM PO SCH ×2 (09:00→20:56)
[2020-09-29] MEDS: MIRABEGRON 25 MG PO SCH (09:00)
[2020-09-29] MEDS: GABAPENTIN 100 MG CAPSULE PO SCH ×2 (10:22→20:55)
[2020-09-29] MEDS: ATORVASTATIN 10 MG TABLET PO SCH (10:22)
[2020-09-29] MEDS: FERROUS SULFATE 325 MG TABLET.DR PO SCH ×2 (10:22→20:55)
[2020-09-29] MEDS: CLOPIDOGREL 75MG TAB PO SCH (10:23)
[2020-09-29] MEDS: APIXABAN 5 MG TABLET PO SCH ×2 (10:23→20:55)
[2020-09-29] MEDS: DOCUSATE SODIUM 100 MG CAP PO SCH ×2 (10:23→20:55)
[2020-09-29] MEDS: TAMSULOSIN HCL 0.4 MG CAP.ER.24H PO SCH (10:23)
[2020-09-29] MEDS: FUROSEMIDE 40 MG TABLET PO SCH (10:23)
[2020-09-29] MEDS: METOPROLOL SUCCINATE 50 MG TAB.SR.24H PO SCH ×2 (10:23→20:55)
[2020-09-29] MEDS: PANTOPRAZOLE 40 MG TAB DR PO SCH (10:23)
[2020-09-29] MEDS: RANOLAZINE 500 MG TAB.SR.12H PO SCH ×2 (10:24→20:56)
[2020-09-29] MEDS: KCL 20 MEQ ERTAB PO PRN ×2 (10:24→13:10)
[2020-09-29] MEDS: ALBUTEROL INHALER 90MCG/INH IH SCH (11:06)
[2020-09-29 11:58] VITALS: BP 120/64
[2020-09-29 20:00] VITALS: BP 116/67
[2020-09-29 23:44] VITALS: BP 104/68
[2020-09-30 03:54] VITALS: BP 120/60
[2020-09-30] MEDS: KETOROLAC 15MG/ML VIAL (15MG/ML) IV SCH ×2 (03:57→09:11)
[2020-09-30 04:01] LABS: CREATININE 0.9 mg/dL (0.5-1.5)
[2020-09-30 07:00] VITALS: BP 142/70
[2020-09-30] MEDS: CEFAZOLIN SODIUM 1 GM VIAL IVP SCH (07:33)
[2020-09-30] MEDS: METOPROLOL SUCCINATE 50 MG TAB.SR.24H PO SCH (08:51)
[2020-09-30] MEDS: PANTOPRAZOLE 40 MG TAB DR PO SCH (08:51)
[2020-09-30] MEDS: APIXABAN 5 MG TABLET PO SCH (08:52)
[2020-09-30] MEDS: GABAPENTIN 100 MG CAPSULE PO SCH (08:52)
[2020-09-30] MEDS: CLOPIDOGREL 75MG TAB PO SCH (08:52)
[2020-09-30] MEDS: TAMSULOSIN HCL 0.4 MG CAP.ER.24H PO SCH (08:52)
[2020-09-30] MEDS: MIRABEGRON 25 MG PO SCH (08:53)
[2020-09-30] MEDS: DOCUSATE SODIUM 100 MG CAP PO SCH (08:53)
[2020-09-30] MEDS: FERROUS SULFATE 325 MG TABLET.DR PO SCH (08:53)
[2020-09-30] MEDS: ICOSAPENT ETHYL 1 GM PO SCH (08:53)
[2020-09-30] MEDS: RANOLAZINE 500 MG TAB.SR.12H PO SCH (08:53)
[2020-09-30] MEDS: ALBUTEROL INHALER 90MCG/INH IH SCH (08:53)
[2020-09-30] MEDS: ATORVASTATIN 10 MG TABLET PO SCH (08:59)
[2020-09-30] MEDS: FUROSEMIDE 40 MG TABLET PO SCH (08:59)
[2020-09-30 11:00] VITALS: BP 108/63
[2020-09-30 15:00] VITALS: BP 138/77
[2020-10-28] MEDS ORDERED: CYANOCOBALAMIN (VITAMIN B-12) 1,000 MCG TABLET PO SCH (09:00)
== END 2020-09-30 16:30 | disposition home health service (06) | DRG 253 ==
LOC: EDSTATUS 14:30 → DAHIP 09-28 10:53 → 4DH 09-28 16:44
PROVIDERS: ADMIT Thoracic Surgery (Cardiothoracic Vascular Surgery); ATTEND Thoracic Surgery (Cardiothoracic Vascular Surgery)
PROC: 041K0KN Bypass Right Femoral Artery to Posterior Tibial Artery with Nonautologous Tissue Substitute, Open Approach (ICD-10-PCS; principal; 2020-09-28 12:00)
DX: E11.52 Type 2 diabetes mellitus with diabetic peripheral angiopathy with gangrene (principal); L97.419 Non-pressure chronic ulcer of right heel and midfoot with unspecified severity; I96 Gangrene, not elsewhere classified; L97.519 Non-pressure chronic ulcer of other part of right foot with unspecified severity; E11.621 Type 2 diabetes mellitus with foot ulcer; Z20.822 Contact with and (suspected) exposure to COVID-19; Z89.512 Acquired absence of left leg below knee
CPT/HCPCS: 36415; 71046; 73630; 78315; 80048; 80053; 82435; 82803; 82947; 83605; 84132; 84295; 85018; 85025; 85027; 85610; 85730; 86850; 86900; 86901; 86923; 87635; 93005; 93926; 97039; A4344; A9503; G0378; J0330; J0690; J1644; J1885; J2001; J2370; J2405; J2704; J2710; J2720; J3010; J3480; J3490; J7030; J7040

== ENCOUNTER → 2020-10-10 | Outpatient (CLI) | payer MEDICARE ==
[~2020-10-10] MED LIST changes: +AEC81 PO; +ALBUHFA IH; +ALPH200C2 PO; +ATOR40TA69 PO; +CLOP75TA14 PO; +CLOP75TA32 PO; +CYAN10007 IJ; +FERS325 PO; +GABA-533 PO; +LIDOCAINE HCL 4% LTA SOL 4 ML VIAL TP ONE; +RANO500T6 PO; +TAMS-1 PO
== END | disposition home or self-care (01) ==
LOC: WHH 10:52
PROVIDERS: ATTEND Podiatrist Foot & Ankle Surgery
DX: E11.621 Type 2 diabetes mellitus with foot ulcer (principal); I70.234 Atherosclerosis of native arteries of right leg with ulceration of heel and midfoot; L97.412 Non-pressure chronic ulcer of right heel and midfoot with fat layer exposed; I70.235 Atherosclerosis of native arteries of right leg with ulceration of other part of foot; L97.512 Non-pressure chronic ulcer of other part of right foot with fat layer exposed; E11.52 Type 2 diabetes mellitus with diabetic peripheral angiopathy with gangrene; I96 Gangrene, not elsewhere classified; I11.0 Hypertensive heart disease with heart failure; I50.9 Heart failure, unspecified; E78.5 Hyperlipidemia, unspecified; I25.10 Atherosclerotic heart disease of native coronary artery without angina pectoris; K21.9 Gastro-esophageal reflux disease without esophagitis; I25.5 Ischemic cardiomyopathy; I06.0 Rheumatic aortic stenosis; I25.2 Old myocardial infarction; I48.0 Paroxysmal atrial fibrillation; E78.00 Pure hypercholesterolemia, unspecified; F41.9 Anxiety disorder, unspecified; F32.9 Major depressive disorder, single episode, unspecified; F17.210 Nicotine dependence, cigarettes, uncomplicated; Z89.512 Acquired absence of left leg below knee; Z95.1 Presence of aortocoronary bypass graft; Z79.82 Long term (current) use of aspirin; Z79.01 Long term (current) use of anticoagulants; Z79.899 Other long term (current) drug therapy; Z79.02 Long term (current) use of antithrombotics/antiplatelets; Z79.84 Long term (current) use of oral hypoglycemic drugs
CPT/HCPCS: 11042; A4450; A6209

== ENCOUNTER → 2020-10-24 | Outpatient (CLI) | payer MEDICARE | END | disposition home or self-care (01) | LOC: WHH 09:48 | PROVIDERS: ATTEND Podiatrist Foot & Ankle Surgery | DX: E11.621 Type 2 diabetes mellitus with foot ulcer (principal); I70.234 Atherosclerosis of native arteries of right leg with ulceration of heel and midfoot; L97.412 Non-pressure chronic ulcer of right heel and midfoot with fat layer exposed; I70.235 Atherosclerosis of native arteries of right leg with ulceration of other part of foot; L97.512 Non-pressure chronic ulcer of other part of right foot with fat layer exposed; E11.52 Type 2 diabetes mellitus with diabetic peripheral angiopathy with gangrene; I96 Gangrene, not elsewhere classified; I11.0 Hypertensive heart disease with heart failure; I50.9 Heart failure, unspecified; E78.5 Hyperlipidemia, unspecified; I25.10 Atherosclerotic heart disease of native coronary artery without angina pectoris; K21.9 Gastro-esophageal reflux disease without esophagitis; I25.5 Ischemic cardiomyopathy; I06.0 Rheumatic aortic stenosis; I25.2 Old myocardial infarction; I48.0 Paroxysmal atrial fibrillation; E78.00 Pure hypercholesterolemia, unspecified; F41.9 Anxiety disorder, unspecified; F32.9 Major depressive disorder, single episode, unspecified; F17.210 Nicotine dependence, cigarettes, uncomplicated; Z89.512 Acquired absence of left leg below knee; Z95.1 Presence of aortocoronary bypass graft; Z79.82 Long term (current) use of aspirin; Z79.01 Long term (current) use of anticoagulants; Z79.899 Other long term (current) drug therapy; Z79.02 Long term (current) use of antithrombotics/antiplatelets; Z79.84 Long term (current) use of oral hypoglycemic drugs | CPT/HCPCS: A4450; A6209; G0463 ==

== ENCOUNTER 2020-12-05 08:59 | Emergency (ER) | payer MEDICARE ==
[~2020-12-05] VITALS: Ht 160 cm; Wt 61.2 kg
[~2020-12-05 08:59] MED LIST changes: -LIDOCAINE HCL 4% LTA SOL 4 ML VIAL TP ONE
[2020-12-05 09:00] VITALS: BP 100/58
[2020-12-05 09:25] LABS: BASOPHILS % (AUTO) 0.3 % (0.0-5.0); EOSINOPHILS % (AUTO) 2.5 % (0.0-8.0); HEMATOCRIT 34.2 % (42-54); LYMPHOCYTES % (AUTO) 24.2 % (21.0-51.0); MEAN CORPUSCULAR HEMOGLOBIN 29.1 pg (27.0-33.0); MEAN CORPUSCULAR HGB CONC 31.9 g/dL (32.0-36.0); MEAN CORPUSCULAR VOLUME 91.4 fL (79-99); MONOCYTES % (AUTO) 10.8 % (3.0-13.0); NEUTROPHILS % (AUTO) 61.9 % (40.0-77.0); PLATELET COUNT (AUTO) 408 K/uL (130-400); RED BLOOD CELL COUNT(AUTO) 3.74 MIL/uL (4.50-6.20); RED CELL DISTRIBUTION WIDTH 17.8 % (11.0-15.5)
[2020-12-05 09:43] LABS: INR 1.02 (0.85-1.15); PROTHROMBIN TIME 11.1 SEC (9.6-11.6)
[2020-12-05 09:49] LABS: POTASSIUM 4.8 mmol/L (3.5-5.1)
[2020-12-05 09:53] LABS: BILIRUBIN,TOTAL 0.4 mg/dL (0.2-1.0); TOTAL PROTEIN, SERUM 8.2 g/dL (6.0-8.3)
== END 2020-12-05 09:43 | disposition home or self-care (01) ==
LOC: EDH 08:59
DX: S81.801A Unspecified open wound, right lower leg, initial encounter (principal); E11.51 Type 2 diabetes mellitus with diabetic peripheral angiopathy without gangrene; I10 Essential (primary) hypertension; I25.10 Atherosclerotic heart disease of native coronary artery without angina pectoris; Z79.01 Long term (current) use of anticoagulants; Z79.02 Long term (current) use of antithrombotics/antiplatelets; Z79.82 Long term (current) use of aspirin; Z79.899 Other long term (current) drug therapy; Z89.612 Acquired absence of left leg above knee; Z95.5 Presence of coronary angioplasty implant and graft; X58.XXXA Exposure to other specified factors, initial encounter; Y93.89 Activity, other specified; Y92.89 Other specified places as the place of occurrence of the external cause; Y99.8 Other external cause status
CPT/HCPCS: 36415; 80053; 85025; 85610; 85730; 86850; 86900; 86901

== ENCOUNTER 2020-12-20 11:50 | Inpatient (IN) | payer MEDICARE ==
[~2020-12-20] VITALS: Ht 160 cm; Wt 62.4 kg
[2020-12-20 12:17] LABS: MEAN CORPUSCULAR HEMOGLOBIN 30.3 pg (27.0-33.0); MEAN CORPUSCULAR VOLUME 91.6 fL (79-99); PLATELET COUNT (AUTO) 344 K/uL (130-400); RED BLOOD CELL COUNT(AUTO) 2.51 MIL/uL (4.50-6.20); RED CELL DISTRIBUTION WIDTH 18.6 % (11.0-15.5); WHITE BLOOD COUNT (AUTO) 9.4 K/uL (4.8-10.8)
[2020-12-20 12:35] LABS: ALBUMIN 3.1 g/dL (3.5-5.0); BILIRUBIN,TOTAL 0.3 mg/dL (0.2-1.0); CREATININE 1.2 mg/dL (0.5-1.5); POTASSIUM 5.2 mmol/L (3.5-5.1); TOTAL PROTEIN, SERUM 7.6 g/dL (6.0-8.3)
[2020-12-20 13:05] LABS: BASOPHILS % (MANUAL) 1 % (0-2); EOSINOPHILS % (MANUAL) 2 % (1-6); LYMPHOCYTES % (MANUAL) 27 % (22-44); MAN.DIFF COMMENT-IMPRESSION MANUAL DIFFERENTIAL; MONOCYTES % (MANUAL) 7 % (2-9); PLATELET MORPHOLOGY COMMENT ADEQUATE; SEGMENTED NEUTROPHILS % 63 % (40-70)
[2020-12-20] MEDS ORDERED: IOHEXOL 350 MG/ML 100ML INFUS..BTL IV ONE (18:02)
[2020-12-20] MEDS ORDERED: MORPHINE 4 MG SYG ONE (20:42)
[2020-12-20] MEDS: MORPHINE 4 MG SYG IM PRN (20:45)
[2020-12-20] MEDS ORDERED: TEMAZEPAM 15 MG CAPSULE PO PRN (23:00)
[2020-12-20] MEDS ORDERED: VANCOMYCIN PROTOCOL PER PHARMACY IV SCH (23:00)
[2020-12-20] MEDS: LACTATED RINGERS 1000ML 1,000 ML IV SCH (23:00)
[2020-12-20] MEDS ORDERED: ACETAMINOPHEN 325 MG TAB PO PRN (23:00)
[2020-12-20] MEDS ORDERED: ACETAMINOPHEN 650 MG SUPPOSITORY RC PRN (23:00)
[2020-12-20] MEDS ORDERED: ONDANSETRON 4MG INJ IVP PRN (23:00)
[2020-12-20] MEDS ORDERED: LACTULOSE 20 GM/30 ML UDCUP PO PRN (23:00)
[2020-12-20] MEDS ORDERED: CLONIDINE HCL 0.1 MG TABLET PO PRN ×2 (23:00)
[2020-12-20] MEDS ORDERED: VANCOMYCIN 1G VIAL IVPB ONE (23:00)
[2020-12-20] MEDS ORDERED: HYDRALAZINE 20MG/ML VIAL IV PRN (23:00)
[2020-12-20] MEDS: MORPHINE 2 MG SYG IVP PRN (23:57)
[2020-12-21] MEDS ORDERED: VANCOMYCIN 1G/250ML KIT 250 ML IV ONE (00:52)
[2020-12-21 01:00] LABS: HEMATOCRIT 21.7 % (42-54)
[2020-12-21] MEDS: ZOSYN 3.375GM+NS 50ML 50 ML IV SCH ×4 (01:12→22:58)
[2020-12-21 01:15] LABS: INR 0.99 (0.85-1.15); PROTHROMBIN TIME 10.8 SEC (9.6-11.6)
[2020-12-21 01:16] LABS: PARTIAL THROMBOPLASTIN TIME 27.4 SEC (26.3-35.5)
[2020-12-21 03:30] LABS: % IRON SATURATION 7.5 % (30-44)
[2020-12-21] MEDS: MORPHINE 2 MG SYG IVP PRN ×2 (03:57→19:57)
[2020-12-21 06:44] LABS: APPEARANCE,URINE Clear (CLEAR); BILIRUBIN,URINE Negative (NEGATIVE); COLOR,URINE Yellow (YELLOW); GLUCOSE, URINE (UA) Negative (NEGATIVE); KETONES,URINE Negative (NEGATIVE); LEUKOCYTE ESTERASE ,URINE Negative (NEGATIVE); NITRATE,URINE Negative (NEGATIVE); OCCULT BLOOD,URINE Negative (NEGATIVE); PROTEIN,URINE Negative (NEGATIVE); UROBILINOGEN,URINE 0.2 mg/dL (0.2-1.0)
[2020-12-21] MEDS: INSULIN HUMULIN R 100 UNIT/ML 3ML SQ SCH ×4 (07:30→19:56)
[2020-12-21] MEDS: PANTOPRAZOLE 40 MG TAB DR PO SCH (08:09)
[2020-12-21] MEDS: POLYETHYLENE GLYCOL 3350 17 GM POWD.PACK PO SCH (08:09)
[2020-12-21] MEDS: FERROUS SULFATE 325 MG TABLET.DR PO SCH (08:09)
[2020-12-21] MEDS: MORPHINE 4 MG SYG IM PRN (08:44)
[2020-12-21 11:26] LABS: BASOPHILS % (AUTO) 0.5 % (0.0-5.0); EOSINOPHILS % (AUTO) 1.3 % (0.0-8.0); HEMATOCRIT 31.5 % (42-54); LYMPHOCYTES % (AUTO) 11.3 % (21.0-51.0); MEAN CORPUSCULAR HEMOGLOBIN 29.3 pg (27.0-33.0); MEAN CORPUSCULAR HGB CONC 32.7 g/dL (32.0-36.0); MEAN CORPUSCULAR VOLUME 89.5 fL (79-99); MONOCYTES % (AUTO) 12.8 % (3.0-13.0); NEUTROPHILS % (AUTO) 73.7 % (40.0-77.0); PLATELET COUNT (AUTO) 291 K/uL (130-400); RED BLOOD CELL COUNT(AUTO) 3.52 MIL/uL (4.50-6.20); RED CELL DISTRIBUTION WIDTH 17.2 % (11.0-15.5); WHITE BLOOD COUNT (AUTO) 8.6 K/uL (4.8-10.8)
[2020-12-21 11:46] LABS: B-TYPE NATRIURETIC PEPTIDE 270 pg/mL (0-100)
[2020-12-21 11:58] LABS: MAGNESIUM 1.9 mg/dL (1.80-2.40); THYROID STIMULATING HORMONE 2.71 uIU/mL (0.36-3.74)
[2020-12-21] MEDS: LACTATED RINGERS 1000ML 1,000 ML IV SCH (13:20)
[2020-12-21 13:45] VITALS: BP 143/60
[2020-12-21 15:10] VITALS: BP 123/63
[2020-12-21] MEDS: VANCOMYCIN 1G/250ML KIT 250 ML IV SCH (19:56)
[2020-12-21 20:07] VITALS: BP 106/53
[2020-12-21] MEDS: TRAMADOL HCL 50 MG TABLET PO PRN (23:04)
[2020-12-22] VITALS (8 sets, daily range): BP systolic 113–137; BP diastolic 49–97
[2020-12-22 00:31] LABS: HEMATOCRIT 27.4 % (42-54)
[2020-12-22] MEDS: MORPHINE 2 MG SYG IVP PRN ×6 (00:41→21:22)
[2020-12-22] MEDS: LACTATED RINGERS 1000ML 1,000 ML IV SCH (01:06)
[2020-12-22 04:22] LABS: HEMATOCRIT 29.3 % (42-54); MEAN CORPUSCULAR HEMOGLOBIN 29.1 pg (27.0-33.0); MEAN CORPUSCULAR HGB CONC 32.8 g/dL (32.0-36.0); MEAN CORPUSCULAR VOLUME 88.8 fL (79-99); RED BLOOD CELL COUNT(AUTO) 3.3 MIL/uL (4.50-6.20); RED CELL DISTRIBUTION WIDTH 17.5 % (11.0-15.5); WHITE BLOOD COUNT (AUTO) 8.7 K/uL (4.8-10.8)
[2020-12-22 04:34] LABS: POTASSIUM 3.9 mmol/L (3.5-5.1)
[2020-12-22] MEDS: ZOSYN 3.375GM+NS 50ML 50 ML IV SCH ×3 (05:50→22:12)
[2020-12-22] MEDS: INSULIN HUMULIN R 100 UNIT/ML 3ML SQ SCH ×4 (05:51→19:57)
[2020-12-22] MEDS: FERROUS SULFATE 325 MG TABLET.DR PO SCH (08:36)
[2020-12-22] MEDS: PANTOPRAZOLE 40 MG TAB DR PO SCH (08:36)
[2020-12-22] MEDS: POLYETHYLENE GLYCOL 3350 17 GM POWD.PACK PO SCH (08:36)
[2020-12-22] MEDS ORDERED: ICOS1CAP2 PO (16:27)
[2020-12-22] MEDS ORDERED: LISI2.5T13 PO (16:29)
[2020-12-22] MEDS ORDERED: METO-391 PO (16:29)
[2020-12-22] MEDS ORDERED: POTA-79 PO (16:29)
[2020-12-22] MEDS ORDERED: PIOG15TA66 PO (16:30)
[2020-12-22] MEDS: VANCOMYCIN 1G/250ML KIT 250 ML IV SCH (19:56)
[2020-12-22] MEDS ORDERED: HYDROMORPHONE 1 MG INJ IVP ONE (22:00)
[2020-12-22] MEDS ORDERED: HYDROMORPHONE 1 MG INJ ONE (22:03)
[2020-12-22 22:16] LABS: HEMATOCRIT 28.8 % (42-54)
[2020-12-22] MEDS: TRAMADOL HCL 50 MG TABLET PO PRN (23:27)
[2020-12-23] MEDS ORDERED: MORPHINE 4 MG SYG IV ONE (01:00)
[2020-12-23] MEDS ORDERED: MORPHINE 4 MG SYG ONE (01:42)
[2020-12-23 03:27] VITALS: BP 133/68
[2020-12-23 03:30] LABS: HEMATOCRIT 29.1 % (42-54); MEAN CORPUSCULAR HEMOGLOBIN 28.9 pg (27.0-33.0); MEAN CORPUSCULAR HGB CONC 32.3 g/dL (32.0-36.0); MEAN CORPUSCULAR VOLUME 89.5 fL (79-99); RED BLOOD CELL COUNT(AUTO) 3.25 MIL/uL (4.50-6.20); RED CELL DISTRIBUTION WIDTH 17.2 % (11.0-15.5); WHITE BLOOD COUNT (AUTO) 9.6 K/uL (4.8-10.8)
[2020-12-23 03:43] LABS: INR 1.05 (0.85-1.15); PROTHROMBIN TIME 11.4 SEC (9.6-11.6)
[2020-12-23 03:44] LABS: PARTIAL THROMBOPLASTIN TIME 30.7 SEC (26.3-35.5); POTASSIUM 3.7 mmol/L (3.5-5.1)
[2020-12-23] MEDS: ZOSYN 3.375GM+NS 50ML 50 ML IV SCH ×3 (05:35→22:39)
[2020-12-23] MEDS: MORPHINE 2 MG SYG IVP PRN ×4 (05:35→20:08)
[2020-12-23] MEDS: INSULIN HUMULIN R 100 UNIT/ML 3ML SQ SCH ×4 (06:00→19:58)
[2020-12-23 08:00] VITALS: BP 143/76
[2020-12-23] MEDS: PANTOPRAZOLE 40 MG TAB DR PO SCH (08:25)
[2020-12-23] MEDS: FERROUS SULFATE 325 MG TABLET.DR PO SCH (08:25)
[2020-12-23] MEDS: POLYETHYLENE GLYCOL 3350 17 GM POWD.PACK PO SCH (08:25)
[2020-12-23 11:39] VITALS: BP 139/78
[2020-12-23 15:54] VITALS: BP 145/61
[2020-12-23 19:59] VITALS: BP 116/57
[2020-12-23] MEDS: VANCOMYCIN 1G/250ML KIT 250 ML IV SCH (20:07)
[2020-12-23 23:15] VITALS: BP 135/76
[2020-12-24] MEDS: MORPHINE 2 MG SYG IVP PRN ×6 (00:08→20:34)
[2020-12-24 03:47] VITALS: BP 148/87
[2020-12-24 04:05] LABS: HEMATOCRIT 27.7 % (42-54); MEAN CORPUSCULAR HEMOGLOBIN 29.2 pg (27.0-33.0); MEAN CORPUSCULAR HGB CONC 32.9 g/dL (32.0-36.0); MEAN CORPUSCULAR VOLUME 88.8 fL (79-99); RED BLOOD CELL COUNT(AUTO) 3.12 MIL/uL (4.50-6.20); WHITE BLOOD COUNT (AUTO) 8.3 K/uL (4.8-10.8)
[2020-12-24 04:17] LABS: POTASSIUM 3.7 mmol/L (3.5-5.1)
[2020-12-24] MEDS: INSULIN HUMULIN R 100 UNIT/ML 3ML SQ SCH ×4 (05:50→20:19)
[2020-12-24] MEDS: ZOSYN 3.375GM+NS 50ML 50 ML IV SCH ×3 (05:50→23:40)
[2020-12-24 07:33] VITALS: BP 137/67
[2020-12-24] MEDS: FERROUS SULFATE 325 MG TABLET.DR PO SCH (08:08)
[2020-12-24] MEDS: PANTOPRAZOLE 40 MG TAB DR PO SCH (08:08)
[2020-12-24] MEDS: POLYETHYLENE GLYCOL 3350 17 GM POWD.PACK PO SCH (08:08)
[2020-12-24] MEDS: ICOSAPENT 2 GM PO SCH ×2 (09:00→20:34)
[2020-12-24] MEDS: RANOLAZINE 500 MG TAB.SR.12H PO SCH ×2 (10:10→20:26)
[2020-12-24] MEDS: ATORVASTATIN 10 MG TABLET PO SCH (10:10)
[2020-12-24] MEDS: METOPROLOL SUCCINATE 50 MG TAB.SR.24H PO SCH (10:10)
[2020-12-24] MEDS: FUROSEMIDE 40 MG TABLET PO SCH (10:10)
[2020-12-24] MEDS: GABAPENTIN 100 MG CAPSULE PO SCH ×2 (10:11→20:25)
[2020-12-24 11:31] VITALS: BP 145/64
[2020-12-24 15:35] VITALS: BP 116/66
[2020-12-24] MEDS ORDERED: IOHEXOL-350 75 ML VIAL IV ONE (17:36)
[2020-12-24] MEDS ORDERED: IOHEXOL-350 50ML VIAL IV ONE (17:37)
[2020-12-24] MEDS ORDERED: LACTULOSE 20 GM/30 ML UDCUP PO PRN (19:30)
[2020-12-24 20:04] VITALS: BP 116/67
[2020-12-24] MEDS: LISINOPRIL 2.5 MG TABLET PO SCH (20:34)
[2020-12-24] MEDS: VANCOMYCIN 1G/250ML KIT 250 ML IV SCH (20:36)
[2020-12-25 00:16] VITALS: BP 135/79
[2020-12-25] MEDS: MORPHINE 2 MG SYG IVP PRN ×6 (00:28→22:40)
[2020-12-25 04:16] VITALS: BP 132/77
[2020-12-25 04:23] LABS: HEMATOCRIT 28.4 % (42-54); MEAN CORPUSCULAR HEMOGLOBIN 29.2 pg (27.0-33.0); RED BLOOD CELL COUNT(AUTO) 3.12 MIL/uL (4.50-6.20); RED CELL DISTRIBUTION WIDTH 16.8 % (11.0-15.5); WHITE BLOOD COUNT (AUTO) 9.3 K/uL (4.8-10.8)
[2020-12-25 04:36] LABS: POTASSIUM 3.4 mmol/L (3.5-5.1)
[2020-12-25] MEDS: INSULIN HUMULIN R 100 UNIT/ML 3ML SQ SCH ×4 (06:13→20:51)
[2020-12-25] MEDS: ZOSYN 3.375GM+NS 50ML 50 ML IV SCH ×3 (06:42→22:42)
[2020-12-25 08:00] VITALS: BP 119/74
[2020-12-25] MEDS: PANTOPRAZOLE 40 MG TAB DR PO SCH (08:33)
[2020-12-25] MEDS: ATORVASTATIN 10 MG TABLET PO SCH (08:33)
[2020-12-25] MEDS: POLYETHYLENE GLYCOL 3350 17 GM POWD.PACK PO SCH (08:33)
[2020-12-25] MEDS: HONEY 1 APPL/ML TUBE TP SCH (08:33)
[2020-12-25] MEDS: FERROUS SULFATE 325 MG TABLET.DR PO SCH (08:33)
[2020-12-25] MEDS: FUROSEMIDE 40 MG TABLET PO SCH (08:33)
[2020-12-25] MEDS: METOPROLOL SUCCINATE 50 MG TAB.SR.24H PO SCH (08:35)
[2020-12-25] MEDS: RANOLAZINE 500 MG TAB.SR.12H PO SCH ×2 (08:35→20:45)
[2020-12-25] MEDS: GABAPENTIN 100 MG CAPSULE PO SCH ×2 (08:35→20:45)
[2020-12-25] MEDS: ICOSAPENT 2 GM PO SCH ×2 (08:57→19:35)
[2020-12-25 12:00] VITALS: BP 110/63
[2020-12-25 16:00] VITALS: BP 100/50
[2020-12-25 20:20] VITALS: BP 110/53
[2020-12-25] MEDS: VANCOMYCIN 1G/250ML KIT 250 ML IV SCH (20:51)
[2020-12-25] MEDS: LISINOPRIL 2.5 MG TABLET PO SCH (23:57)
[2020-12-26] VITALS (7 sets, daily range): BP systolic 92–138; BP diastolic 48–67
[2020-12-26] MEDS ORDERED: MORPHINE 2 MG SYG ONE (03:27)
[2020-12-26 05:19] LABS: HEMATOCRIT 28.8 % (42-54); MEAN CORPUSCULAR HEMOGLOBIN 29.3 pg (27.0-33.0); MEAN CORPUSCULAR HGB CONC 32.6 g/dL (32.0-36.0); MEAN CORPUSCULAR VOLUME 89.7 fL (79-99); RED BLOOD CELL COUNT(AUTO) 3.21 MIL/uL (4.50-6.20); RED CELL DISTRIBUTION WIDTH 16.7 % (11.0-15.5); WHITE BLOOD COUNT (AUTO) 9.2 K/uL (4.8-10.8)
[2020-12-26 05:24] LABS: CREATININE 1.2 mg/dL (0.5-1.5); POTASSIUM 3.5 mmol/L (3.5-5.1)
[2020-12-26 05:31] LABS: INR 1.02 (0.85-1.15); PROTHROMBIN TIME 11.1 SEC (9.6-11.6)
[2020-12-26 05:32] LABS: PARTIAL THROMBOPLASTIN TIME 29.1 SEC (26.3-35.5)
[2020-12-26] MEDS: INSULIN HUMULIN R 100 UNIT/ML 3ML SQ SCH ×4 (06:44→21:00)
[2020-12-26] MEDS: ZOSYN 3.375GM+NS 50ML 50 ML IV SCH ×3 (06:44→22:46)
[2020-12-26] MEDS: POTASSIUM CHLORIDE 20MEQ/100ML 100 ML IV PRN ×2 (07:57→08:57)
[2020-12-26] MEDS ORDERED: LIDOCAINE HCL-MPF 1% 2ML VIAL IV PRN (08:00)
[2020-12-26] MEDS: POLYETHYLENE GLYCOL 3350 17 GM POWD.PACK PO SCH ×2 (08:55→09:00)
[2020-12-26] MEDS: ATORVASTATIN 10 MG TABLET PO SCH ×2 (08:56→15:26)
[2020-12-26] MEDS: PANTOPRAZOLE 40 MG TAB DR PO SCH ×2 (08:56→15:25)
[2020-12-26] MEDS: ASPIRIN 81 MG EC TAB PO SCH ×2 (08:56→09:00)
[2020-12-26] MEDS: GABAPENTIN 100 MG CAPSULE PO SCH ×3 (08:56→19:39)
[2020-12-26] MEDS: RANOLAZINE 500 MG TAB.SR.12H PO SCH ×3 (08:56→19:39)
[2020-12-26] MEDS: FUROSEMIDE 40 MG TABLET PO SCH ×2 (08:56→15:25)
[2020-12-26] MEDS: FERROUS SULFATE 325 MG TABLET.DR PO SCH ×2 (08:57→15:26)
[2020-12-26] MEDS: METOPROLOL SUCCINATE 50 MG TAB.SR.24H PO SCH ×2 (08:57→09:00)
[2020-12-26] MEDS: MORPHINE 2 MG SYG IVP PRN ×3 (08:57→19:49)
[2020-12-26] MEDS: ICOSAPENT 2 GM PO SCH ×2 (09:00→21:00)
[2020-12-26] MEDS: HONEY 1 APPL/ML TUBE TP SCH (09:07)
[2020-12-26] MEDS ORDERED: 0.9%NACL 1000ML 1,000 ML IV ONE (10:50)
[2020-12-26] MEDS ORDERED: CEFAZOLIN SODIUM 1 GM VIAL ONE (11:11)
[2020-12-26] MEDS: LISINOPRIL 2.5 MG TABLET PO SCH (19:39)
[2020-12-26] MEDS: VANCOMYCIN 1G/250ML KIT 250 ML IV SCH (19:40)
[2020-12-27] MEDS: MORPHINE 2 MG SYG IVP PRN ×6 (01:02→20:36)
[2020-12-27 04:18] VITALS: BP 98/58
[2020-12-27] MEDS: ACETAMINOPHEN WITH CODEINE 1 TAB TAB PO PRN (04:36)
[2020-12-27] MEDS: ZOSYN 3.375GM+NS 50ML 50 ML IV SCH ×3 (06:25→22:34)
[2020-12-27] MEDS: INSULIN HUMULIN R 100 UNIT/ML 3ML SQ SCH ×4 (06:44→21:00)
[2020-12-27 08:08] VITALS: BP 104/50
[2020-12-27] MEDS: ICOSAPENT 2 GM PO SCH ×2 (09:00→21:00)
[2020-12-27] MEDS: FUROSEMIDE 40 MG TABLET PO SCH (09:20)
[2020-12-27] MEDS: FERROUS SULFATE 325 MG TABLET.DR PO SCH (09:20)
[2020-12-27] MEDS: PANTOPRAZOLE 40 MG TAB DR PO SCH (09:20)
[2020-12-27] MEDS: RANOLAZINE 500 MG TAB.SR.12H PO SCH ×2 (09:20→20:33)
[2020-12-27] MEDS: ASPIRIN 81 MG EC TAB PO SCH (09:20)
[2020-12-27] MEDS: POLYETHYLENE GLYCOL 3350 17 GM POWD.PACK PO SCH (09:20)
[2020-12-27] MEDS: ATORVASTATIN 10 MG TABLET PO SCH (09:20)
[2020-12-27] MEDS: METOPROLOL SUCCINATE 50 MG TAB.SR.24H PO SCH (09:20)
[2020-12-27] MEDS: GABAPENTIN 100 MG CAPSULE PO SCH ×2 (09:21→20:32)
[2020-12-27] MEDS: HONEY 1 APPL/ML TUBE TP SCH (09:22)
[2020-12-27 11:03] VITALS: BP 119/77
[2020-12-27 16:28] VITALS: BP 116/52
[2020-12-27 19:00] VITALS: BP 97/43
[2020-12-27] MEDS: LISINOPRIL 2.5 MG TABLET PO SCH (20:32)
[2020-12-27] MEDS: VANCOMYCIN 1G/250ML KIT 250 ML IV SCH (22:41)
[2020-12-28] VITALS (21 sets, daily range): BP systolic 72–138; BP diastolic 35–77
[2020-12-28] MEDS: MORPHINE 2 MG SYG IVP PRN ×4 (00:51→12:19)
[2020-12-28] MEDS: ACETAMINOPHEN WITH CODEINE 1 TAB TAB PO PRN (01:51)
[2020-12-28 06:02] LABS: HEMATOCRIT 27.2 % (42-54); MEAN CORPUSCULAR HEMOGLOBIN 29.2 pg (27.0-33.0); MEAN CORPUSCULAR VOLUME 91.3 fL (79-99); RED BLOOD CELL COUNT(AUTO) 2.98 MIL/uL (4.50-6.20); RED CELL DISTRIBUTION WIDTH 16.5 % (11.0-15.5); WHITE BLOOD COUNT (AUTO) 8.7 K/uL (4.8-10.8)
[2020-12-28 06:16] LABS: POTASSIUM 3.9 mmol/L (3.5-5.1)
[2020-12-28] MEDS: ZOSYN 3.375GM+NS 50ML 50 ML IV SCH ×3 (07:00→21:38)
[2020-12-28] MEDS: POLYETHYLENE GLYCOL 3350 17 GM POWD.PACK PO SCH (07:42)
[2020-12-28] MEDS: ICOSAPENT 2 GM PO SCH ×2 (07:43→21:00)
[2020-12-28] MEDS: METOPROLOL SUCCINATE 50 MG TAB.SR.24H PO SCH (08:11)
[2020-12-28] MEDS: FERROUS SULFATE 325 MG TABLET.DR PO SCH (08:11)
[2020-12-28] MEDS: FUROSEMIDE 40 MG TABLET PO SCH (08:11)
[2020-12-28] MEDS: RANOLAZINE 500 MG TAB.SR.12H PO SCH ×2 (08:11→21:38)
[2020-12-28] MEDS: ASPIRIN 81 MG EC TAB PO SCH (08:11)
[2020-12-28] MEDS: ATORVASTATIN 10 MG TABLET PO SCH (08:11)
[2020-12-28] MEDS: PANTOPRAZOLE 40 MG TAB DR PO SCH (08:15)
[2020-12-28] MEDS: GABAPENTIN 100 MG CAPSULE PO SCH ×2 (08:15→21:39)
[2020-12-28] MEDS: INSULIN HUMULIN R 100 UNIT/ML 3ML SQ SCH ×4 (11:30→21:00)
[2020-12-28] MEDS ORDERED: CEFAZOLIN SODIUM 1 GM VIAL ONE (18:50)
[2020-12-28] MEDS ORDERED: LIDOCAINE PF 100MG/5ML (2%) SYRINGE 5ML ONE (19:08)
[2020-12-28] MEDS ORDERED: PROPOFOL 10 MG/ML 20ML VIAL IV ONE (19:09)
[2020-12-28] MEDS ORDERED: ROCURONIUM 10MG/1ML SYR 10 MG/ML ML ONE (19:09)
[2020-12-28] MEDS ORDERED: KETAMINE 50MG/ML SYRINGE 50 MG/ML DISP.SYRIN IV ONE (19:10)
[2020-12-28] MEDS ORDERED: NOREPINEPHRINE BITARTRATE 1 MG/1 ML ML IV ONE (19:10)
[2020-12-28] MEDS ORDERED: GLYCOPYRROLATE 1 MG/5 ML SYRINGE ONE ×2 (19:15→20:15)
[2020-12-28] MEDS ORDERED: HEPARIN 10,000 UNIT/10ML (1,000 UNIT/ML) VIAL ONE (19:46)
[2020-12-28] MEDS ORDERED: PROTAMINE SULFATE 10 MG/ML 5 ML VIAL ONE (20:01)
[2020-12-28] MEDS ORDERED: PROTAMINE SULFATE 10 MG/ML 25ML VIAL IV ONE (20:01)
[2020-12-28] MEDS ORDERED: BUPIVACAINE/PF 0.5% 30ML VIAL ONE (20:05)
[2020-12-28] MEDS ORDERED: LIDOCAINE HCL 1% 20 ML VIAL ONE (20:05)
[2020-12-28] MEDS ORDERED: NEOSTIGMINE 5MG/5ML SYR IV ONE (20:15)
[2020-12-28] MEDS: LISINOPRIL 2.5 MG TABLET PO SCH (21:00)
[2020-12-28] MEDS: VANCOMYCIN 1G/250ML KIT 250 ML IV SCH (21:11)
[2020-12-28] MEDS: HONEY 1 APPL/ML TUBE TP SCH (21:38)
[2020-12-28] MEDS ORDERED: TRAMADOL HCL 50 MG TABLET PO PRN ×2 (22:30)
[2020-12-28] MEDS ORDERED: HYDROMORPHONE 0.5 MG SYG (0.5MG/0.5ML) ONE (22:58)
[2020-12-28] MEDS: HYDROMORPHONE 0.5 MG SYG (0.5MG/0.5ML) IVP PRN (23:00)
[2020-12-29] VITALS (9 sets, daily range): BP systolic 98–140; BP diastolic 52–74
[2020-12-29] MEDS: CEFAZOLIN SODIUM 1 GM VIAL IVP SCH ×3 (03:16→19:56)
[2020-12-29] MEDS: HYDROMORPHONE 0.5 MG SYG (0.5MG/0.5ML) IVP PRN (05:03)
[2020-12-29] MEDS: INSULIN HUMULIN R 100 UNIT/ML 3ML SQ SCH ×4 (05:08→20:03)
[2020-12-29] MEDS ORDERED: ZOSYN 3.375GM+NS 50ML 50 ML ONE (05:17)
[2020-12-29 05:20] LABS: HEMATOCRIT 26.6 % (42-54); MEAN CORPUSCULAR HEMOGLOBIN 29.1 pg (27.0-33.0); MEAN CORPUSCULAR VOLUME 91.1 fL (79-99); RED BLOOD CELL COUNT(AUTO) 2.92 MIL/uL (4.50-6.20); RED CELL DISTRIBUTION WIDTH 16.3 % (11.0-15.5); WHITE BLOOD COUNT (AUTO) 7.9 K/uL (4.8-10.8)
[2020-12-29 05:49] LABS: POTASSIUM 3.2 mmol/L (3.5-5.1)
[2020-12-29] MEDS ORDERED: KCL 20 MEQ ERTAB PO ONE ×2 (05:57→08:06)
[2020-12-29] MEDS ORDERED: LIDOCAINE HCL-MPF 1% 2ML VIAL IV PRN (06:00)
[2020-12-29] MEDS ORDERED: POTASSIUM CHLORIDE 10% ELIXIR 20 MEQ/15 ML UDCUP PO PRN (06:00)
[2020-12-29] MEDS ORDERED: POTASSIUM CHLORIDE 20MEQ/100ML 100 ML IV PRN (06:00)
[2020-12-29] MEDS ORDERED: ZOSYN 3.375GM+NS 50ML 3.38 GM in 0.9%NACL 50ML 50 ML IV SCH (06:00)
[2020-12-29] MEDS: ATORVASTATIN 10 MG TABLET PO SCH (08:12)
[2020-12-29] MEDS: POTASSIUM CHLORIDE 20MEQ/100ML 100 ML IV PRN (08:12)
[2020-12-29] MEDS: FUROSEMIDE 40 MG TABLET PO SCH (08:12)
[2020-12-29] MEDS: PANTOPRAZOLE 40 MG TAB DR PO SCH (08:13)
[2020-12-29] MEDS: ASPIRIN 81 MG EC TAB PO SCH (08:13)
[2020-12-29] MEDS: FERROUS SULFATE 325 MG TABLET.DR PO SCH (08:13)
[2020-12-29] MEDS: POLYETHYLENE GLYCOL 3350 17 GM POWD.PACK PO SCH (08:13)
[2020-12-29] MEDS: RANOLAZINE 500 MG TAB.SR.12H PO SCH ×2 (08:13→19:56)
[2020-12-29] MEDS: GABAPENTIN 100 MG CAPSULE PO SCH ×2 (08:13→19:57)
[2020-12-29] MEDS: METOPROLOL SUCCINATE 50 MG TAB.SR.24H PO SCH (08:14)
[2020-12-29] MEDS: ICOSAPENT 2 GM PO SCH ×2 (08:14→20:55)
[2020-12-29] MEDS ORDERED: ZOSYN 3.375GM+NS 50ML 50 ML IV SCH (08:30)
[2020-12-29] MEDS: CLOPIDOGREL 75MG TAB PO SCH (08:32)
[2020-12-29] MEDS: MORPHINE 2 MG SYG IVP PRN ×5 (08:33→23:59)
[2020-12-29] MEDS: HONEY 1 APPL/ML TUBE TP SCH (09:00)
[2020-12-29] MEDS: KCL 20 MEQ ERTAB PO PRN (11:56)
[2020-12-29] MEDS: ZOSYN 3.375GM+NS 50ML 50 ML IV SCH ×2 (14:48→19:57)
[2020-12-29] MEDS: LISINOPRIL 2.5 MG TABLET PO SCH (19:56)
[2020-12-29] MEDS ORDERED: 0.9% NACL 250ML 250 ML ONE (20:54)
[2020-12-29] MEDS: VANCOMYCIN 1G/250ML KIT 250 ML IV SCH (20:57)
[2020-12-29] MEDS: ACETAMINOPHEN WITH CODEINE 1 TAB TAB PO PRN (21:04)
[2020-12-30] MEDS: ACETAMINOPHEN WITH CODEINE 1 TAB TAB PO PRN ×2 (03:19→06:41)
[2020-12-30 03:37] VITALS: BP 106/53
[2020-12-30] MEDS: ZOSYN 3.375GM+NS 50ML 50 ML IV SCH ×3 (04:02→19:18)
[2020-12-30] MEDS: MORPHINE 2 MG SYG IVP PRN ×5 (04:02→21:04)
[2020-12-30] MEDS: INSULIN HUMULIN R 100 UNIT/ML 3ML SQ SCH ×4 (05:16→20:18)
[2020-12-30 05:39] LABS: HEMATOCRIT 26.6 % (42-54); MEAN CORPUSCULAR HGB CONC 31.6 g/dL (32.0-36.0); MEAN CORPUSCULAR VOLUME 91.7 fL (79-99); RED BLOOD CELL COUNT(AUTO) 2.9 MIL/uL (4.50-6.20); RED CELL DISTRIBUTION WIDTH 16.1 % (11.0-15.5); WHITE BLOOD COUNT (AUTO) 9.3 K/uL (4.8-10.8)
[2020-12-30 06:18] LABS: CREATININE 1.1 mg/dL (0.5-1.5); POTASSIUM 3.2 mmol/L (3.5-5.1)
[2020-12-30] MEDS: KCL 20 MEQ ERTAB PO PRN ×3 (06:38→12:04)
[2020-12-30 08:00] VITALS: BP 94/46
[2020-12-30] MEDS: POLYETHYLENE GLYCOL 3350 17 GM POWD.PACK PO SCH (08:32)
[2020-12-30] MEDS: ASPIRIN 81 MG EC TAB PO SCH (08:32)
[2020-12-30] MEDS: GABAPENTIN 100 MG CAPSULE PO SCH ×2 (08:32→19:18)
[2020-12-30] MEDS: PANTOPRAZOLE 40 MG TAB DR PO SCH (08:33)
[2020-12-30] MEDS: FUROSEMIDE 40 MG TABLET PO SCH (08:33)
[2020-12-30] MEDS: FERROUS SULFATE 325 MG TABLET.DR PO SCH (08:33)
[2020-12-30] MEDS: METOPROLOL SUCCINATE 50 MG TAB.SR.24H PO SCH (08:33)
[2020-12-30] MEDS: RANOLAZINE 500 MG TAB.SR.12H PO SCH ×2 (08:33→20:18)
[2020-12-30] MEDS: CLOPIDOGREL 75MG TAB PO SCH (08:33)
[2020-12-30] MEDS: ATORVASTATIN 10 MG TABLET PO SCH (08:33)
[2020-12-30] MEDS: ICOSAPENT 2 GM PO SCH ×2 (09:00→19:25)
[2020-12-30] MEDS: HONEY 1 APPL/ML TUBE TP SCH (09:28)
[2020-12-30 12:00] VITALS: BP 102/49
[2020-12-30] MEDS: ACETAMINOPHEN 325 MG TAB PO PRN ×2 (13:30→20:17)
[2020-12-30 16:00] VITALS: BP 91/54
[2020-12-30] MEDS ORDERED: 0.9% NACL 250ML 250 ML ONE (19:10)
[2020-12-30] MEDS: VANCOMYCIN 1G/250ML KIT 250 ML IV SCH (19:19)
[2020-12-30] MEDS: LISINOPRIL 2.5 MG TABLET PO SCH (20:18)
[2020-12-30 20:24] VITALS: BP 92/51
[2020-12-30 23:55] VITALS: BP 103/45
[2020-12-31] MEDS: MORPHINE 2 MG SYG IVP PRN ×5 (01:05→16:59)
[2020-12-31 03:35] VITALS: BP 116/51
[2020-12-31] MEDS: ZOSYN 3.375GM+NS 50ML 50 ML IV SCH ×3 (03:36→21:18)
[2020-12-31] MEDS: INSULIN HUMULIN R 100 UNIT/ML 3ML SQ SCH ×4 (05:39→21:00)
[2020-12-31] MEDS: ACETAMINOPHEN WITH CODEINE 1 TAB TAB PO PRN ×3 (06:24→22:46)
[2020-12-31 07:30] VITALS: BP 93/50
[2020-12-31] MEDS ORDERED: VANCOMYCIN 1G/250ML KIT 250 ML IV SCH (07:37)
[2020-12-31] MEDS: PANTOPRAZOLE 40 MG TAB DR PO SCH (08:04)
[2020-12-31] MEDS: RANOLAZINE 500 MG TAB.SR.12H PO SCH ×2 (08:04→21:18)
[2020-12-31] MEDS: ASPIRIN 81 MG EC TAB PO SCH (08:04)
[2020-12-31] MEDS: METOPROLOL SUCCINATE 50 MG TAB.SR.24H PO SCH (08:05)
[2020-12-31] MEDS: CLOPIDOGREL 75MG TAB PO SCH (08:05)
[2020-12-31] MEDS: FERROUS SULFATE 325 MG TABLET.DR PO SCH (08:05)
[2020-12-31] MEDS: FUROSEMIDE 40 MG TABLET PO SCH (08:12)
[2020-12-31] MEDS: ATORVASTATIN 10 MG TABLET PO SCH (08:12)
[2020-12-31] MEDS: GABAPENTIN 100 MG CAPSULE PO SCH ×2 (08:12→21:18)
[2020-12-31] MEDS: POLYETHYLENE GLYCOL 3350 17 GM POWD.PACK PO SCH (08:13)
[2020-12-31] MEDS: HONEY 1 APPL/ML TUBE TP SCH (08:58)
[2020-12-31] MEDS: ICOSAPENT 2 GM PO SCH ×2 (08:58→21:00)
[2020-12-31 11:00] VITALS: BP 114/67
[2020-12-31] MEDS: KCL 20 MEQ ERTAB PO PRN ×2 (11:08→12:57)
[2020-12-31 16:00] VITALS: BP 104/88
[2020-12-31 20:29] VITALS: BP 111/50
[2020-12-31] MEDS ORDERED: VANCOMYCIN 750MG VIAL IVPB SCH (21:00)
[2020-12-31] MEDS: LISINOPRIL 2.5 MG TABLET PO SCH (21:18)
[2020-12-31 23:26] VITALS: BP 96/54
[2021-01-01] MEDS ORDERED: 0.9% NACL 250ML IVPB SCH (00:30)
[2021-01-01] MEDS ORDERED: VANCOMYCIN 750MG VIAL IVPB SCH (00:30)
== END 2020-12-31 23:53 | DRG 253 ==
LOC: EDH 12:01 → EDHIP 22:59 → 4AH 12-21 13:49
PROVIDERS: ADMIT Internal Medicine Critical Care Medicine; ATTEND Internal Medicine Critical Care Medicine
PROC: 30233N1 Transfusion of Nonautologous Red Blood Cells into Peripheral Vein, Percutaneous Approach (ICD-10-PCS; 2020-12-21)
PROC: 02H633Z Insertion of Infusion Device into Right Atrium, Percutaneous Approach (ICD-10-PCS; 2020-12-24)
PROC: 04WY0JZ Revision of Synthetic Substitute in Lower Artery, Open Approach (ICD-10-PCS; principal; 2020-12-28 19:42)
DX: T82.838A Hemorrhage due to vascular prosthetic devices, implants and grafts, initial encounter (principal); E11.52 Type 2 diabetes mellitus with diabetic peripheral angiopathy with gangrene; D62 Acute posthemorrhagic anemia; L97.419 Non-pressure chronic ulcer of right heel and midfoot with unspecified severity; I50.22 Chronic systolic (congestive) heart failure; M86.8X7 Other osteomyelitis, ankle and foot; M86.171 Other acute osteomyelitis, right ankle and foot; E78.5 Hyperlipidemia, unspecified; I11.0 Hypertensive heart disease with heart failure; I35.0 Nonrheumatic aortic (valve) stenosis; E11.69 Type 2 diabetes mellitus with other specified complication; I25.10 Atherosclerotic heart disease of native coronary artery without angina pectoris; I25.5 Ischemic cardiomyopathy; Z20.822 Contact with and (suspected) exposure to COVID-19; E11.621 Type 2 diabetes mellitus with foot ulcer; N40.0 Benign prostatic hyperplasia without lower urinary tract symptoms; G89.4 Chronic pain syndrome; L97.519 Non-pressure chronic ulcer of other part of right foot with unspecified severity; R53.81 Other malaise; Y83.2 Surgical operation with anastomosis, bypass or graft as the cause of abnormal reaction of the patient, or of later complication, without mention of misadventure at the time of the procedure; Y92.89 Other specified places as the place of occurrence of the external cause; Z95.1 Presence of aortocoronary bypass graft; Z95.5 Presence of coronary angioplasty implant and graft; Z79.02 Long term (current) use of antithrombotics/antiplatelets; Z79.82 Long term (current) use of aspirin; Z79.899 Other long term (current) drug therapy; Z89.612 Acquired absence of left leg above knee; Z89.512 Acquired absence of left leg below knee; Z82.49 Family history of ischemic heart disease and other diseases of the circulatory system
CPT/HCPCS: 36415; 71045; 73600; 73620; 73706; 73718; 80048; 80053; 80202; 81003; 82550; 82948; 83036; 83540; 83550; 83605; 83735; 83874; 83880; 84100; 84132; 84145; 84443; 84484; 85014; 85018; 85025; 85027; 85610; 85730; 86850; 86900; 86901; 86923; 87635; 93005; A4344; C1894; G0378; J0690; J1170; J1644; J1815; J2001; J2270; J2405; J2543; J2704; J2710; J2720; J3370; J3480; J3490; J7030; J7040; J7050; J7120; P9016; Q9967

== ENCOUNTER 2021-01-14 08:55 | Inpatient (IN) | payer MEDICARE ==
[~2021-01-14] VITALS: Ht 160 cm; Wt 60.9 kg
[~2021-01-14 08:55] MED LIST changes: -AEC81 PO; -ALPH200C2 PO; -APIX5TAB PO; -ATOR40TA69 PO; -CLOP75TA32 PO; -CYAN-52 PO; -CYAN10007 IJ; -DOCU100T PO; -FERS325 PO; -HYDR-4379 PO; -ICOS1CAP PO; +ICOS1CAP2 PO; +LISI2.5T13 PO; +PIOG15TA66 PO; +POTA-79 PO; -RANO500T2 PO; -TAMS-1 PO; -TAMS0.4C32 PO; -THIO200T2 PO
[2021-01-14] MEDS ORDERED: MORPHINE 2 MG SYG IVP PRN (20:00)
[2021-01-14] MEDS ORDERED: ACETAMINOPHEN 325 MG TAB PO PRN (20:00)
[2021-01-14 20:20] VITALS: BP 117/53
[2021-01-14] MEDS ORDERED: HYDRALAZINE 20MG/ML VIAL IV PRN (20:30)
[2021-01-14] MEDS ORDERED: NITROGLYCERIN 0.4 MG SL TAB SL PRN (20:30)
[2021-01-14] MEDS ORDERED: DEXTROSE 50%-WATER 50 ML DISP.SYRIN IV PRN (20:30)
[2021-01-14] MEDS ORDERED: POTASSIUM CHLORIDE 10% ELIXIR 20 MEQ/15 ML UDCUP PO PRN (20:30)
[2021-01-14] MEDS ORDERED: LACTULOSE 20 GM/30 ML UDCUP PO PRN (20:30)
[2021-01-14] MEDS ORDERED: LIDOCAINE HCL-MPF 1% 2ML VIAL IV PRN (20:30)
[2021-01-14] MEDS ORDERED: CLONIDINE HCL 0.1 MG TABLET PO PRN (20:30)
[2021-01-14] MEDS ORDERED: MAGNESIUM 2GM PREMIX 50ML 50 ML IV PRN (20:30)
[2021-01-14] MEDS ORDERED: GLUCAGON 1MG KIT 1 MG ML IM PRN (20:30)
[2021-01-14] MEDS: ACETAMINOPHEN 325 MG TAB PO PRN (20:48)
[2021-01-14] MEDS ORDERED: HEPARIN 5,000 UNIT VIAL SQ SCH (21:00)
[2021-01-14] MEDS: INSULIN HUMULIN R 100 UNIT/ML 3ML SQ SCH (21:00)
[2021-01-14] MEDS: ATORVASTATIN 10 MG TABLET PO SCH (21:17)
[2021-01-14] MEDS: FISH OIL 1000 MG/CAP PO SCH (21:17)
[2021-01-14] MEDS: RANOLAZINE 500 MG TAB.SR.12H PO SCH (21:17)
[2021-01-14] MEDS: PREGABALIN 25 MG CAP PO SCH (21:17)
[2021-01-14] MEDS: MORPHINE 2 MG SYG IVP PRN (21:18)
[2021-01-14] MEDS: ZOSYN 3.375GM +NS 50ML IV SCH (21:18)
[2021-01-14 21:51] LABS: MEAN CORPUSCULAR HEMOGLOBIN 29.6 pg (27.0-33.0); MEAN CORPUSCULAR HGB CONC 30.9 g/dL (32.0-36.0); MEAN CORPUSCULAR VOLUME 95.8 fL (79-99); PLATELET COUNT (AUTO) 420 K/uL (130-400); RED CELL DISTRIBUTION WIDTH 17.5 % (11.0-15.5); WHITE BLOOD COUNT (AUTO) 9.3 K/uL (4.8-10.8)
[2021-01-14 22:06] LABS: CREATININE 0.9 mg/dL (0.5-1.5); POTASSIUM 3.1 mmol/L (3.5-5.1)
[2021-01-14 22:10] LABS: ALBUMIN 2.4 g/dL (3.5-5.0); BILIRUBIN,TOTAL 0.2 mg/dL (0.2-1.0); TOTAL PROTEIN, SERUM 6.6 g/dL (6.0-8.3)
[2021-01-14] MEDS: ACETAMINOPHEN WITH CODEINE 1 TAB TAB PO PRN (23:11)
[2021-01-14 23:48] VITALS: BP 123/64
[2021-01-15] MEDS: KCL 20 MEQ ERTAB PO PRN ×6 (00:37→15:18)
[2021-01-15] MEDS: MORPHINE 2 MG SYG IVP PRN ×4 (02:56→21:21)
[2021-01-15 03:46] VITALS: BP 120/84
[2021-01-15 04:36] LABS: HEMATOCRIT 21.7 % (42-54); MEAN CORPUSCULAR HEMOGLOBIN 28.9 pg (27.0-33.0); MEAN CORPUSCULAR HGB CONC 31.3 g/dL (32.0-36.0); MEAN CORPUSCULAR VOLUME 92.3 fL (79-99); RED BLOOD CELL COUNT(AUTO) 2.35 MIL/uL (4.50-6.20); RED CELL DISTRIBUTION WIDTH 17.3 % (11.0-15.5)
[2021-01-15 04:52] LABS: INR 1.1 (0.85-1.15); PROTHROMBIN TIME 11.9 SEC (9.6-11.6)
[2021-01-15 04:54] LABS: PARTIAL THROMBOPLASTIN TIME 36.1 SEC (26.3-35.5)
[2021-01-15 04:59] LABS: ALBUMIN 2.2 g/dL (3.5-5.0); BILIRUBIN,TOTAL 0.3 mg/dL (0.2-1.0); CREATININE 0.8 mg/dL (0.5-1.5); TOTAL PROTEIN, SERUM 6.2 g/dL (6.0-8.3)
[2021-01-15] MEDS: ZOSYN 3.375GM +NS 50ML IV SCH ×3 (05:11→21:06)
[2021-01-15 05:14] LABS: POTASSIUM 2.8 mmol/L (3.5-5.1)
[2021-01-15] MEDS: POTASSIUM CHLORIDE 20MEQ/100ML 100 ML IV PRN ×2 (05:33→12:14)
[2021-01-15] MEDS: INSULIN HUMULIN R 100 UNIT/ML 3ML SQ SCH ×4 (06:09→21:00)
[2021-01-15 08:00] VITALS: BP 125/72
[2021-01-15] MEDS ORDERED: IOHEXOL-350 75 ML VIAL IV ONE (08:42)
[2021-01-15] MEDS: METOPROLOL SUCCINATE 50 MG TAB.SR.24H PO SCH (09:00)
[2021-01-15] MEDS: LISINOPRIL 5 MG TABLET PO SCH (09:00)
[2021-01-15 10:26] VITALS: BP 137/66
[2021-01-15] MEDS: FISH OIL 1000 MG/CAP PO SCH ×2 (10:55→21:06)
[2021-01-15] MEDS: PANTOPRAZOLE 40 MG TAB DR PO SCH (10:55)
[2021-01-15] MEDS: FUROSEMIDE 20 MG TABLET PO SCH (10:56)
[2021-01-15] MEDS: RANOLAZINE 500 MG TAB.SR.12H PO SCH ×2 (10:56→21:06)
[2021-01-15] MEDS: VANCOMYCIN KIT 1 GM/250 ML IV.KIT IV SCH (10:59)
[2021-01-15] MEDS: POLYETHYLENE GLYCOL 3350 17 GM POWD.PACK PO SCH (10:59)
[2021-01-15] MEDS: PREGABALIN 25 MG CAP PO SCH ×3 (10:59→21:06)
[2021-01-15] MEDS: FENTANYL 50 MCG/HR PATCH TD SCH (12:13)
[2021-01-15 15:38] VITALS: BP 144/73
[2021-01-15] MEDS: ACETAMINOPHEN WITH CODEINE 1 TAB TAB PO PRN (17:27)
[2021-01-15 19:00] VITALS: BP 127/64
[2021-01-15] MEDS: ATORVASTATIN 10 MG TABLET PO SCH (21:06)
[2021-01-16] VITALS: BP 109/64
[2021-01-16] MEDS: MORPHINE 2 MG SYG IVP PRN ×4 (02:30→19:34)
[2021-01-16 04:00] VITALS: BP 130/63
[2021-01-16] MEDS: ZOSYN 3.375GM +NS 50ML IV SCH ×3 (04:11→19:37)
[2021-01-16 04:13] LABS: HEMATOCRIT 26.6 % (42-54); MEAN CORPUSCULAR HEMOGLOBIN 28.5 pg (27.0-33.0); MEAN CORPUSCULAR HGB CONC 31.6 g/dL (32.0-36.0); MEAN CORPUSCULAR VOLUME 90.2 fL (79-99); RED BLOOD CELL COUNT(AUTO) 2.95 MIL/uL (4.50-6.20); RED CELL DISTRIBUTION WIDTH 17.8 % (11.0-15.5); WHITE BLOOD COUNT (AUTO) 9.4 K/uL (4.8-10.8)
[2021-01-16 04:22] LABS: CREATININE 0.9 mg/dL (0.5-1.5); POTASSIUM 4.2 mmol/L (3.5-5.1)
[2021-01-16] MEDS: INSULIN HUMULIN R 100 UNIT/ML 3ML SQ SCH ×4 (06:40→21:00)
[2021-01-16 07:56] VITALS: BP 144/72
[2021-01-16] MEDS: PREGABALIN 25 MG CAP PO SCH ×3 (08:34→19:37)
[2021-01-16] MEDS: FUROSEMIDE 20 MG TABLET PO SCH (08:35)
[2021-01-16] MEDS: POLYETHYLENE GLYCOL 3350 17 GM POWD.PACK PO SCH (08:35)
[2021-01-16] MEDS: LISINOPRIL 5 MG TABLET PO SCH (08:35)
[2021-01-16] MEDS: FISH OIL 1000 MG/CAP PO SCH ×2 (08:35→19:37)
[2021-01-16] MEDS: METOPROLOL SUCCINATE 50 MG TAB.SR.24H PO SCH (08:36)
[2021-01-16] MEDS: RANOLAZINE 500 MG TAB.SR.12H PO SCH ×2 (08:36→19:37)
[2021-01-16] MEDS: PANTOPRAZOLE 40 MG TAB DR PO SCH (08:36)
[2021-01-16] MEDS: VANCOMYCIN KIT 1 GM/250 ML IV.KIT IV SCH (08:38)
[2021-01-16] MEDS: ACETAMINOPHEN WITH CODEINE 1 TAB TAB PO PRN ×3 (10:03→21:59)
[2021-01-16 11:32] VITALS: BP 122/59
[2021-01-16 15:33] VITALS: BP 129/62
[2021-01-16 19:00] VITALS: BP 114/49
[2021-01-16] MEDS: ATORVASTATIN 10 MG TABLET PO SCH (19:37)
[2021-01-17] VITALS: BP 137/68
[2021-01-17] MEDS: MORPHINE 2 MG SYG IVP PRN ×4 (01:08→19:38)
[2021-01-17 04:00] VITALS: BP 113/59
[2021-01-17 04:52] LABS: HEMATOCRIT 30.3 % (42-54); MEAN CORPUSCULAR HEMOGLOBIN 28.3 pg (27.0-33.0); MEAN CORPUSCULAR VOLUME 91.3 fL (79-99); RED BLOOD CELL COUNT(AUTO) 3.32 MIL/uL (4.50-6.20); RED CELL DISTRIBUTION WIDTH 16.7 % (11.0-15.5); WHITE BLOOD COUNT (AUTO) 10.4 K/uL (4.8-10.8)
[2021-01-17 05:11] LABS: CREATININE 1.1 mg/dL (0.5-1.5); POTASSIUM 3.7 mmol/L (3.5-5.1)
[2021-01-17] MEDS: ZOSYN 3.375GM +NS 50ML IV SCH ×3 (06:24→19:37)
[2021-01-17] MEDS: KCL 20 MEQ ERTAB PO PRN (06:56)
[2021-01-17] MEDS: INSULIN HUMULIN R 100 UNIT/ML 3ML SQ SCH ×4 (07:30→21:00)
[2021-01-17 07:42] VITALS: BP 125/60
[2021-01-17] MEDS: FISH OIL 1000 MG/CAP PO SCH ×2 (08:41→19:38)
[2021-01-17] MEDS: VANCOMYCIN KIT 1 GM/250 ML IV.KIT IV SCH (08:41)
[2021-01-17] MEDS: POLYETHYLENE GLYCOL 3350 17 GM POWD.PACK PO SCH (08:41)
[2021-01-17] MEDS: PREGABALIN 25 MG CAP PO SCH ×3 (08:42→19:37)
[2021-01-17] MEDS: RANOLAZINE 500 MG TAB.SR.12H PO SCH ×2 (08:42→19:38)
[2021-01-17] MEDS: LISINOPRIL 5 MG TABLET PO SCH (08:42)
[2021-01-17] MEDS: METOPROLOL SUCCINATE 50 MG TAB.SR.24H PO SCH (08:42)
[2021-01-17] MEDS: FUROSEMIDE 20 MG TABLET PO SCH (08:42)
[2021-01-17] MEDS: PANTOPRAZOLE 40 MG TAB DR PO SCH (08:43)
[2021-01-17] MEDS: ACETAMINOPHEN WITH CODEINE 1 TAB TAB PO PRN ×3 (08:58→21:32)
[2021-01-17 10:43] VITALS: BP 122/54
[2021-01-17] MEDS: CLOPIDOGREL 75MG TAB PO SCH (14:39)
[2021-01-17 15:14] VITALS: BP 106/58
[2021-01-17 19:00] VITALS: BP 115/56
[2021-01-17] MEDS: ATORVASTATIN 10 MG TABLET PO SCH (19:37)
[2021-01-17] MEDS: ACETAMINOPHEN 325 MG TAB PO PRN (23:51)
[2021-01-18] VITALS (7 sets, daily range): BP systolic 102–127; BP diastolic 55–71
[2021-01-18] MEDS: MORPHINE 2 MG SYG IVP PRN ×5 (01:03→22:25)
[2021-01-18 04:26] LABS: MEAN CORPUSCULAR HEMOGLOBIN 28.4 pg (27.0-33.0); MEAN CORPUSCULAR HGB CONC 31.4 g/dL (32.0-36.0); MEAN CORPUSCULAR VOLUME 90.6 fL (79-99); RED BLOOD CELL COUNT(AUTO) 3.2 MIL/uL (4.50-6.20); RED CELL DISTRIBUTION WIDTH 16.1 % (11.0-15.5); WHITE BLOOD COUNT (AUTO) 10.3 K/uL (4.8-10.8)
[2021-01-18 04:34] LABS: CREATININE 1.1 mg/dL (0.5-1.5)
[2021-01-18] MEDS: ZOSYN 3.375GM +NS 50ML IV SCH ×3 (06:37→21:23)
[2021-01-18] MEDS: INSULIN HUMULIN R 100 UNIT/ML 3ML SQ SCH ×4 (07:30→21:00)
[2021-01-18] MEDS: PREGABALIN 25 MG CAP PO SCH ×3 (08:17→21:23)
[2021-01-18] MEDS: LISINOPRIL 5 MG TABLET PO SCH (08:17)
[2021-01-18] MEDS: FUROSEMIDE 20 MG TABLET PO SCH (08:18)
[2021-01-18] MEDS: METOPROLOL SUCCINATE 50 MG TAB.SR.24H PO SCH (08:18)
[2021-01-18] MEDS: PANTOPRAZOLE 40 MG TAB DR PO SCH (08:18)
[2021-01-18] MEDS: ACETAMINOPHEN WITH CODEINE 1 TAB TAB PO PRN ×2 (08:18→15:20)
[2021-01-18] MEDS: RANOLAZINE 500 MG TAB.SR.12H PO SCH ×2 (08:19→21:23)
[2021-01-18] MEDS: POLYETHYLENE GLYCOL 3350 17 GM POWD.PACK PO SCH (08:19)
[2021-01-18] MEDS: CLOPIDOGREL 75MG TAB PO SCH (09:00)
[2021-01-18] MEDS ORDERED: VANCOMYCIN KIT 1 GM/250 ML IV.KIT IV ONE (09:00)
[2021-01-18] MEDS: FISH OIL 1000 MG/CAP PO SCH ×2 (09:00→21:23)
[2021-01-18] MEDS: FENTANYL 50 MCG/HR PATCH TD SCH (14:04)
[2021-01-18] MEDS: ATORVASTATIN 10 MG TABLET PO SCH (21:23)
[2021-01-19] VITALS (26 sets, daily range): BP systolic 97–134; BP diastolic 50–69
[2021-01-19] MEDS: ACETAMINOPHEN WITH CODEINE 1 TAB TAB PO PRN (01:34)
[2021-01-19] MEDS: MORPHINE 2 MG SYG IVP PRN ×2 (03:26→11:21)
[2021-01-19 04:18] LABS: HEMATOCRIT 28.5 % (42-54); MEAN CORPUSCULAR HEMOGLOBIN 28.6 pg (27.0-33.0); MEAN CORPUSCULAR HGB CONC 32.3 g/dL (32.0-36.0); MEAN CORPUSCULAR VOLUME 88.5 fL (79-99); RED BLOOD CELL COUNT(AUTO) 3.22 MIL/uL (4.50-6.20); RED CELL DISTRIBUTION WIDTH 15.7 % (11.0-15.5); WHITE BLOOD COUNT (AUTO) 10.3 K/uL (4.8-10.8)
[2021-01-19 04:28] LABS: CREATININE 1.1 mg/dL (0.5-1.5); POTASSIUM 4.1 mmol/L (3.5-5.1)
[2021-01-19 04:30] LABS: INR 1.07 (0.85-1.15); PROTHROMBIN TIME 11.6 SEC (9.6-11.6)
[2021-01-19 04:31] LABS: PARTIAL THROMBOPLASTIN TIME 32.2 SEC (26.3-35.5)
[2021-01-19] MEDS: INSULIN HUMULIN R 100 UNIT/ML 3ML SQ SCH ×4 (07:30→20:53)
[2021-01-19] MEDS: ZOSYN 3.375GM +NS 50ML IV SCH ×3 (07:47→20:53)
[2021-01-19] MEDS: METOPROLOL SUCCINATE 50 MG TAB.SR.24H PO SCH (07:47)
[2021-01-19] MEDS ORDERED: KETAMINE 50MG/ML SYRINGE 50 MG/ML DISP.SYRIN IV ONE (07:49)
[2021-01-19] MEDS ORDERED: ROPIVACAINE 0.5% 5MG/ML 30ML IJ ONE (07:49)
[2021-01-19] MEDS ORDERED: LIDOCAINE PF 100MG/5ML (2%) SYRINGE 5ML ONE (07:51)
[2021-01-19] MEDS ORDERED: PROPOFOL 10 MG/ML 20ML VIAL IV ONE (07:52)
[2021-01-19] MEDS ORDERED: MIDAZOLAM HCL 1 MG/ML 2ML VIAL ONE (07:52)
[2021-01-19] MEDS ORDERED: ROCURONIUM 10MG/1ML SYR 10 MG/ML ML ONE (07:53)
[2021-01-19] MEDS ORDERED: GLYCOPYRROLATE 1 MG/5 ML SYRINGE ONE (08:49)
[2021-01-19] MEDS: LISINOPRIL 5 MG TABLET PO SCH (09:00)
[2021-01-19] MEDS ORDERED: PHENYLEPHRINE HCL 10 MG/ML 1ML VIAL IV ONE (09:31)
[2021-01-19] MEDS ORDERED: NEOSTIGMINE 5MG/5ML SYR IV ONE (09:31)
[2021-01-19 09:54] LABS: HEMATOCRIT 27.5 % (42-54)
[2021-01-19] MEDS: PREGABALIN 25 MG CAP PO SCH ×3 (14:00→20:52)
[2021-01-19] MEDS: FUROSEMIDE 20 MG TABLET PO SCH (14:21)
[2021-01-19] MEDS: FISH OIL 1000 MG/CAP PO SCH ×2 (14:21→20:51)
[2021-01-19] MEDS: PANTOPRAZOLE 40 MG TAB DR PO SCH (14:21)
[2021-01-19] MEDS: POLYETHYLENE GLYCOL 3350 17 GM POWD.PACK PO SCH (14:22)
[2021-01-19] MEDS: RANOLAZINE 500 MG TAB.SR.12H PO SCH ×2 (14:24→20:53)
[2021-01-19] MEDS: HYDROMORPHONE 0.5 MG SYG (0.5MG/0.5ML) IVP PRN ×2 (14:41→20:53)
[2021-01-19] MEDS: ATORVASTATIN 10 MG TABLET PO SCH (20:51)
[2021-01-19] MEDS: ONDANSETRON 4MG INJ IVP PRN (20:52)
[2021-01-20] MEDS: ONDANSETRON 4MG INJ IVP PRN ×2 (03:25→23:59)
[2021-01-20] MEDS: HYDROMORPHONE 0.5 MG SYG (0.5MG/0.5ML) IVP PRN ×3 (03:25→23:59)
[2021-01-20 03:54] VITALS: BP 91/52
[2021-01-20 04:29] LABS: HEMATOCRIT 27.5 % (42-54); MEAN CORPUSCULAR HEMOGLOBIN 28.4 pg (27.0-33.0); MEAN CORPUSCULAR HGB CONC 31.3 g/dL (32.0-36.0); MEAN CORPUSCULAR VOLUME 90.8 fL (79-99); PLATELET COUNT (AUTO) 474 K/uL (130-400); RED BLOOD CELL COUNT(AUTO) 3.03 MIL/uL (4.50-6.20); RED CELL DISTRIBUTION WIDTH 15.8 % (11.0-15.5); WHITE BLOOD COUNT (AUTO) 15.7 K/uL (4.8-10.8)
[2021-01-20 04:38] LABS: HEMOGLOBIN A1C 4.5 % (4.0-6.0)
[2021-01-20 04:58] LABS: ALBUMIN 2.6 g/dL (3.5-5.0); BILIRUBIN,TOTAL 0.6 mg/dL (0.2-1.0); MAGNESIUM 1.8 mg/dL (1.80-2.40); POTASSIUM 3.7 mmol/L (3.5-5.1); TOTAL PROTEIN, SERUM 7.4 g/dL (6.0-8.3)
[2021-01-20 05:09] LABS: BAND NEUTROPHILS % (MANUAL) 2 % (0-2); LYMPHOCYTES % (MANUAL) 16 % (22-44); MAN.DIFF COMMENT-IMPRESSION MANUAL DIFFERENTIAL; MONOCYTES % (MANUAL) 9 % (2-9); PLATELET MORPHOLOGY COMMENT SLIGHT INCREASED; SEGMENTED NEUTROPHILS % 73 % (40-70)
[2021-01-20] MEDS: ZOSYN 3.375GM +NS 50ML IV SCH ×3 (05:52→20:34)
[2021-01-20] MEDS: INSULIN HUMULIN R 100 UNIT/ML 3ML SQ SCH ×4 (06:42→20:37)
[2021-01-20 07:00] VITALS: BP 102/57
[2021-01-20] MEDS: FISH OIL 1000 MG/CAP PO SCH ×2 (10:12→20:35)
[2021-01-20] MEDS: FUROSEMIDE 20 MG TABLET PO SCH (10:13)
[2021-01-20] MEDS: PANTOPRAZOLE 40 MG TAB DR PO SCH (10:13)
[2021-01-20] MEDS: RANOLAZINE 500 MG TAB.SR.12H PO SCH ×2 (10:14→20:35)
[2021-01-20] MEDS: POLYETHYLENE GLYCOL 3350 17 GM POWD.PACK PO SCH (10:15)
[2021-01-20] MEDS: METOPROLOL SUCCINATE 50 MG TAB.SR.24H PO SCH (10:15)
[2021-01-20] MEDS: LISINOPRIL 5 MG TABLET PO SCH (10:15)
[2021-01-20] MEDS: PREGABALIN 25 MG CAP PO SCH ×3 (10:21→20:35)
[2021-01-20 11:00] VITALS: BP 116/56
[2021-01-20 16:00] VITALS: BP 99/57
[2021-01-20 20:00] VITALS: BP 100/53
[2021-01-20] MEDS: ATORVASTATIN 10 MG TABLET PO SCH (20:35)
[2021-01-21] VITALS (7 sets, daily range): BP systolic 86–122; BP diastolic 44–59
[2021-01-21 04:50] LABS: BASOPHILS % (AUTO) 0.2 % (0.0-5.0); EOSINOPHILS % (AUTO) 0.8 % (0.0-8.0); HEMATOCRIT 25.3 % (42-54); LYMPHOCYTES % (AUTO) 13.1 % (21.0-51.0); MEAN CORPUSCULAR HEMOGLOBIN 27.9 pg (27.0-33.0); MEAN CORPUSCULAR HGB CONC 31.6 g/dL (32.0-36.0); MEAN CORPUSCULAR VOLUME 88.2 fL (79-99); MONOCYTES % (AUTO) 17.8 % (3.0-13.0); NEUTROPHILS % (AUTO) 67.6 % (40.0-77.0); PLATELET COUNT (AUTO) 420 K/uL (130-400); RED BLOOD CELL COUNT(AUTO) 2.87 MIL/uL (4.50-6.20); RED CELL DISTRIBUTION WIDTH 15.6 % (11.0-15.5); WHITE BLOOD COUNT (AUTO) 14.4 K/uL (4.8-10.8)
[2021-01-21 05:18] LABS: ALBUMIN 2.3 g/dL (3.5-5.0); BILIRUBIN,TOTAL 0.4 mg/dL (0.2-1.0); MAGNESIUM 1.8 mg/dL (1.80-2.40); POTASSIUM 3.4 mmol/L (3.5-5.1); TOTAL PROTEIN, SERUM 6.9 g/dL (6.0-8.3)
[2021-01-21] MEDS: ZOSYN 3.375GM +NS 50ML IV SCH ×3 (06:18→21:23)
[2021-01-21] MEDS: HYDROMORPHONE 0.5 MG SYG (0.5MG/0.5ML) IVP PRN ×3 (06:19→18:55)
[2021-01-21] MEDS: ONDANSETRON 4MG INJ IVP PRN ×2 (06:19→11:27)
[2021-01-21] MEDS: INSULIN HUMULIN R 100 UNIT/ML 3ML SQ SCH ×4 (06:33→19:47)
[2021-01-21] MEDS: POLYETHYLENE GLYCOL 3350 17 GM POWD.PACK PO SCH (09:00)
[2021-01-21] MEDS: PANTOPRAZOLE 40 MG TAB DR PO SCH (09:56)
[2021-01-21] MEDS: FISH OIL 1000 MG/CAP PO SCH ×2 (09:56→21:24)
[2021-01-21] MEDS: FUROSEMIDE 20 MG TABLET PO SCH (09:58)
[2021-01-21] MEDS: PREGABALIN 25 MG CAP PO SCH ×3 (09:58→21:24)
[2021-01-21] MEDS: RANOLAZINE 500 MG TAB.SR.12H PO SCH ×2 (09:59→21:23)
[2021-01-21] MEDS: LISINOPRIL 5 MG TABLET PO SCH (09:59)
[2021-01-21] MEDS: METOPROLOL SUCCINATE 50 MG TAB.SR.24H PO SCH (10:00)
[2021-01-21] MEDS: ACETAMINOPHEN WITH CODEINE 1 TAB TAB PO PRN (10:00)
[2021-01-21] MEDS: KCL 20 MEQ ERTAB PO PRN (21:24)
[2021-01-21] MEDS: ATORVASTATIN 10 MG TABLET PO SCH (21:25)
[2021-01-22] MEDS: KCL 20 MEQ ERTAB PO PRN ×2 (00:08→07:30)
[2021-01-22] MEDS: HYDROMORPHONE 0.5 MG SYG (0.5MG/0.5ML) IVP PRN ×3 (00:08→11:31)
[2021-01-22 03:10] VITALS: BP 112/59
[2021-01-22 04:48] LABS: BASOPHILS % (AUTO) 0.4 % (0.0-5.0); EOSINOPHILS % (AUTO) 1.7 % (0.0-8.0); HEMATOCRIT 27.4 % (42-54); LYMPHOCYTES % (AUTO) 15.5 % (21.0-51.0); MEAN CORPUSCULAR HEMOGLOBIN 27.4 pg (27.0-33.0); MEAN CORPUSCULAR VOLUME 88.4 fL (79-99); MONOCYTES % (AUTO) 13.9 % (3.0-13.0); PLATELET COUNT (AUTO) 467 K/uL (130-400); RED CELL DISTRIBUTION WIDTH 15.9 % (11.0-15.5); WHITE BLOOD COUNT (AUTO) 12.6 K/uL (4.8-10.8)
[2021-01-22] MEDS: ZOSYN 3.375GM +NS 50ML IV SCH (05:31)
[2021-01-22] MEDS: INSULIN HUMULIN R 100 UNIT/ML 3ML SQ SCH ×2 (06:11→11:04)
[2021-01-22] MEDS: RANOLAZINE 500 MG TAB.SR.12H PO SCH ×2 (07:26→21:07)
[2021-01-22] MEDS: METOPROLOL SUCCINATE 50 MG TAB.SR.24H PO SCH (07:26)
[2021-01-22] MEDS: PANTOPRAZOLE 40 MG TAB DR PO SCH (07:26)
[2021-01-22] MEDS: FISH OIL 1000 MG/CAP PO SCH ×2 (07:26→21:00)
[2021-01-22] MEDS: FUROSEMIDE 20 MG TABLET PO SCH (07:27)
[2021-01-22] MEDS: PREGABALIN 25 MG CAP PO SCH ×3 (07:27→21:06)
[2021-01-22] MEDS: POLYETHYLENE GLYCOL 3350 17 GM POWD.PACK PO SCH (07:27)
[2021-01-22] MEDS: LISINOPRIL 5 MG TABLET PO SCH (07:28)
[2021-01-22 08:00] VITALS: BP 98/44
[2021-01-22 11:37] VITALS: BP 139/58
[2021-01-22 16:00] VITALS: BP 114/62
[2021-01-22 20:15] VITALS: BP 112/53
[2021-01-22] MEDS: ATORVASTATIN 10 MG TABLET PO SCH (21:07)
[2021-01-22] MEDS: ACETAMINOPHEN WITH CODEINE 1 TAB TAB PO PRN (21:07)
[2021-01-22] MEDS: ONDANSETRON 4MG INJ IVP PRN (23:12)
[2021-01-22 23:42] VITALS: BP 102/54
[2021-01-23 03:49] VITALS: BP 109/52
[2021-01-23 06:10] LABS: HEMATOCRIT 27.6 % (42-54); MEAN CORPUSCULAR HEMOGLOBIN 27.2 pg (27.0-33.0); MEAN CORPUSCULAR HGB CONC 31.2 g/dL (32.0-36.0); MEAN CORPUSCULAR VOLUME 87.3 fL (79-99); RED BLOOD CELL COUNT(AUTO) 3.16 MIL/uL (4.50-6.20); RED CELL DISTRIBUTION WIDTH 15.9 % (11.0-15.5); WHITE BLOOD COUNT (AUTO) 9.8 K/uL (4.8-10.8)
[2021-01-23 06:20] LABS: CREATININE 0.8 mg/dL (0.5-1.5)
[2021-01-23 07:46] VITALS: BP 133/58
[2021-01-23] MEDS: METOPROLOL SUCCINATE 50 MG TAB.SR.24H PO SCH (09:19)
[2021-01-23] MEDS: RANOLAZINE 500 MG TAB.SR.12H PO SCH (09:19)
[2021-01-23] MEDS: PREGABALIN 25 MG CAP PO SCH ×2 (09:20→13:45)
[2021-01-23] MEDS: PANTOPRAZOLE 40 MG TAB DR PO SCH (09:20)
[2021-01-23] MEDS: FISH OIL 1000 MG/CAP PO SCH (09:20)
[2021-01-23] MEDS: FUROSEMIDE 20 MG TABLET PO SCH (09:20)
[2021-01-23] MEDS: LISINOPRIL 5 MG TABLET PO SCH (09:21)
[2021-01-23] MEDS: ACETAMINOPHEN WITH CODEINE 1 TAB TAB PO PRN ×2 (09:24→13:46)
[2021-01-23] MEDS: POLYETHYLENE GLYCOL 3350 17 GM POWD.PACK PO SCH (09:26)
[2021-01-23 11:45] VITALS: BP 104/50
== END 2021-01-23 17:12 | DRG 239 ==
LOC: EDH 08:55 → 4DH 08:56 → UNDOADMOB 08:57 → OBSVTOIN 17:20 → UNDOADMOB 17:20 → 4DH 17:20 → INTOOBSV 17:20 → 4CH 01-15 05:29
PROVIDERS: ADMIT Internal Medicine Pulmonary Disease; ATTEND Internal Medicine Pulmonary Disease
PROC: 30233N1 Transfusion of Nonautologous Red Blood Cells into Peripheral Vein, Percutaneous Approach (ICD-10-PCS; 2021-01-15)
PROC: 3E0T33Z Introduction of Anti-inflammatory into Peripheral Nerves and Plexi, Percutaneous Approach (ICD-10-PCS; 2021-01-19)
PROC: 0Y6C0Z1 Detachment at Right Upper Leg, High, Open Approach (ICD-10-PCS; principal; 2021-01-19 08:54)
PROC: 3E0T3BZ Introduction of Anesthetic Agent into Peripheral Nerves and Plexi, Percutaneous Approach (ICD-10-PCS; 2021-01-19 08:54)
DX: E11.52 Type 2 diabetes mellitus with diabetic peripheral angiopathy with gangrene (principal); I50.23 Acute on chronic systolic (congestive) heart failure; D62 Acute posthemorrhagic anemia; L03.90 Cellulitis, unspecified; M86.671 Other chronic osteomyelitis, right ankle and foot; L97.419 Non-pressure chronic ulcer of right heel and midfoot with unspecified severity; I25.5 Ischemic cardiomyopathy; I35.0 Nonrheumatic aortic (valve) stenosis; I11.0 Hypertensive heart disease with heart failure; Z20.822 Contact with and (suspected) exposure to COVID-19; E11.621 Type 2 diabetes mellitus with foot ulcer; E11.65 Type 2 diabetes mellitus with hyperglycemia; E11.69 Type 2 diabetes mellitus with other specified complication; E78.00 Pure hypercholesterolemia, unspecified; E78.5 Hyperlipidemia, unspecified; E87.6 Hypokalemia; G89.29 Other chronic pain; I25.10 Atherosclerotic heart disease of native coronary artery without angina pectoris; N40.0 Benign prostatic hyperplasia without lower urinary tract symptoms; Z79.02 Long term (current) use of antithrombotics/antiplatelets; Z79.899 Other long term (current) drug therapy; Z89.512 Acquired absence of left leg below knee; Z89.611 Acquired absence of right leg above knee; Z89.612 Acquired absence of left leg above knee; Z87.891 Personal history of nicotine dependence; Z95.1 Presence of aortocoronary bypass graft; Z87.19 Personal history of other diseases of the digestive system; Z95.5 Presence of coronary angioplasty implant and graft; Z83.3 Family history of diabetes mellitus; Z82.3 Family history of stroke; Z82.49 Family history of ischemic heart disease and other diseases of the circulatory system
CPT/HCPCS: 36415; 36430; 71045; 73706; 80048; 80053; 82948; 83036; 83735; 84132; 85014; 85018; 85025; 85027; 85610; 85730; 86850; 86900; 86901; 86923; 87635; 88307; 88311; 93926; 97039; G0378; J1170; J2001; J2250; J2370; J2405; J2543; J2704; J2710; J2795; J3370; J3480; J3490; J7030; P9016; Q9967

== ENCOUNTER → 2021-09-19 | Outpatient (CLI) | payer MEDICARE | END | disposition home or self-care (01) | LOC: SHCH 12:48 | PROVIDERS: ATTEND Internal Medicine Cardiovascular Disease | DX: I35.0 Nonrheumatic aortic (valve) stenosis (principal) | CPT/HCPCS: 93306 ==

== ENCOUNTER 2022-09-05 11:12 | Emergency (ER) | payer MEDICARE ==
[~2022-09-05] VITALS: Ht 91.4 cm; Wt 64.4 kg
[2022-09-05] MEDS ORDERED: IPRATROPIUM/ALBUTEROL SULFATE 3 ML SOLUTION IH ONE (11:36)
[2022-09-05 11:46] LABS: BASOPHILS % (AUTO) 0.6 % (0.0-5.0); EOSINOPHILS % (AUTO) 1.8 % (0.0-8.0); HEMATOCRIT 30.1 % (42-54); LYMPHOCYTES % (AUTO) 21.1 % (21.0-51.0); MEAN CORPUSCULAR HEMOGLOBIN 26.6 pg (27.0-33.0); MEAN CORPUSCULAR HGB CONC 30.2 g/dL (32.0-36.0); MONOCYTES % (AUTO) 9.1 % (3.0-13.0); NEUTROPHILS % (AUTO) 67.1 % (40.0-77.0); PLATELET COUNT (AUTO) 308 K/uL (130-400); RED BLOOD CELL COUNT(AUTO) 3.42 MIL/uL (4.50-6.20); RED CELL DISTRIBUTION WIDTH 21.3 % (11.0-15.5); WHITE BLOOD COUNT (AUTO) 6.7 K/uL (4.8-10.8)
[2022-09-05] MEDS ORDERED: IPRATROPIUM 0.5 MG/2.5 ML INH IH ONE (12:00)
[2022-09-05] MEDS ORDERED: ALBUTEROL 0.083% 2.5 MG/3 ML INH IH ONE (12:00)
[2022-09-05] MEDS ORDERED: SOLU-MEDROL 125MG VIAL IM ONE (12:00)
[2022-09-05 12:01] LABS: ALBUMIN 3.3 g/dL (3.5-5.0); POTASSIUM 3.3 mmol/L (3.5-5.1); TOTAL PROTEIN, SERUM 7.7 g/dL (6.0-8.3)
[2022-09-05 12:28] LABS: B-TYPE NATRIURETIC PEPTIDE 1210 pg/mL (0-100)
[2022-09-05] MEDS ORDERED: PRED50TA2 PO (13:19)
[2022-09-05] MEDS ORDERED: FURO-152 PO (13:19)
[2022-09-05] MEDS ORDERED: AUD IH (13:19)
[2022-09-05] MEDS ORDERED: ALBUHFA IH (13:19)
[2022-09-05 13:21] VITALS: BP 136/62
[2022-09-05] MEDS ORDERED: FUROSEMIDE 40 MG TABLET PO ONE (13:30)
== END 2022-09-05 14:11 | disposition home or self-care (01) ==
LOC: EDH 11:22
DX: J44.1 Chronic obstructive pulmonary disease with (acute) exacerbation (principal); I11.0 Hypertensive heart disease with heart failure; I50.9 Heart failure, unspecified; E78.00 Pure hypercholesterolemia, unspecified; E11.9 Type 2 diabetes mellitus without complications; F17.200 Nicotine dependence, unspecified, uncomplicated; Z95.1 Presence of aortocoronary bypass graft; Z20.822 Contact with and (suspected) exposure to COVID-19
CPT/HCPCS: 99285; 84484; 80053; 83880; 85025; 87804 ×2; 36415; 87635; 71045; 96372; 93005; 94640; C9803; J2930

== ENCOUNTER 2023-09-13 17:57 | Inpatient (IN) | payer MEDICARE ==
[~2023-09-13] VITALS: Ht 91.4 cm; Wt 58.5 kg
[~2023-09-13 17:57] MED LIST changes: -ALBUHFA IH; +CLOP-31 PO; -CLOP75TA14 PO; +FERR324T4 PO; -FURO40TA5 PO; -GABA-533 PO; +ICOS1CAP PO; -ICOS1CAP2 PO; +MELO-106 PO; -METO-391 PO; +METO50TA9 PO; -MIRA25TA PO; -POTA-79 PO; +PREG100C56 PO; +PROM25TA7 PO; +RANO10005 PO; -RANO500T6 PO; +SENN-279 PO; +TORS20TA4 PO
[2023-09-13 18:40] LABS: BASOPHILS # (AUTO) 0.16 K/uL (0.00-0.20); BASOPHILS % (AUTO) 1.8 % (0.0-5.0); EOSINOPHILS # (AUTO) 0.25 K/uL (0.00-0.70); EOSINOPHILS % (AUTO) 2.8 % (0.0-8.0); HEMATOCRIT 24.8 % (42-54); IMMATURE GRANULOCYTE ABSOLUTE 0.03 K/uL (0-1); LYMPHOCYTES # (AUTO) 2.7 K/uL (1.0-4.8); LYMPHOCYTES % (AUTO) 30.1 % (21.0-51.0); MEAN CORPUSCULAR HEMOGLOBIN 35.1 pg (27.0-33.0); MEAN CORPUSCULAR HGB CONC 32.3 g/dL (32.0-36.0); MEAN CORPUSCULAR VOLUME 108.8 fL (79-99); MONOCYTES # (AUTO) 0.7 K/uL (0.1-1.0); MONOCYTES % (AUTO) 7.6 % (3.0-13.0); NEUTROPHILS # (AUTO) 5.1 K/uL (1.8-7.7); NEUTROPHILS % (AUTO) 57.4 % (40.0-77.0); PLATELET COUNT (AUTO) 161 K/uL (130-400); RED BLOOD CELL COUNT(AUTO) 2.28 MIL/uL (4.50-6.20); RED CELL DISTRIBUTION WIDTH 21.1 % (11.0-15.5); WHITE BLOOD COUNT (AUTO) 8.8 K/uL (4.8-10.8)
[2023-09-13 18:44] LABS: APPEARANCE,URINE CLEAR (CLEAR); BILIRUBIN,URINE NEGATIVE (NEGATIVE); COLOR,URINE YELLOW (YELLOW); GLUCOSE, URINE (UA) NEGATIVE (NEGATIVE); KETONES,URINE NEGATIVE (NEGATIVE); LEUKOCYTE ESTERASE ,URINE NEGATIVE Leu/uL (NEGATIVE); NITRATE,URINE NEGATIVE (NEGATIVE); OCCULT BLOOD,URINE NEGATIVE (NEGATIVE); PH,URINE 5.5 (5.0-8.0); PROTEIN,URINE 10 mg/dL (NEGATIVE); UROBILINOGEN,URINE 0.2 mg/dL (0.2-1.0)
[2023-09-13 18:52] LABS: ADD UA MICROSCOPIC YES; INR 1.07 (0.85-1.15); PARTIAL THROMBOPLASTIN TIME 25.4 SEC (26.3-35.5); PROTHROMBIN TIME 11.3 SEC (9.6-11.6)
[2023-09-13 18:56] LABS: AMPHET/METH SCREEN,URINE NEGATIVE (NEGATIVE); BARBITURATE SCREEN, URINE NEGATIVE (NEGATIVE); BENZODIAZEPINES SCREEN,URINE NEGATIVE (NEGATIVE); CANNABINOID SCREEN,URINE NEGATIVE (NEGATIVE); COCAINE SCREEN,URINE POSITIVE (NEGATIVE); OPIATE SCREEN,URINE NEGATIVE (NEGATIVE); PHENCYCLIDINE SCREEN,URINE NEGATIVE (NEGATIVE)
[2023-09-13 18:56] LABS: OTHER CASTS, URINE 1 /LPF (None Seen); RBC,URINE 0-1 /HPF (0-1); SQUAMOUS EPITHELIAL CELL,UR RARE /HPF (0-2); WBC,URINE 0-1 /HPF (0-1)
[2023-09-13 18:59] LABS: CREATININE 2.2 mg/dL (0.5-1.3); POTASSIUM 4.3 mmol/L (3.5-5.1)
[2023-09-13 19:08] LABS: ALBUMIN 3.1 g/dL (3.5-5.0); BILIRUBIN,TOTAL 0.4 mg/dL (0.2-1.0); MAGNESIUM 2.1 mg/dL (1.80-2.40); TOTAL PROTEIN, SERUM 7.4 g/dL (6.0-8.3)
[2023-09-13 19:10] LABS: ALCOHOL, BLOOD < 3 mg/dL (0-10); AMMONIA 19 umol/L (11-32)
[2023-09-13 19:36] LABS: B-TYPE NATRIURETIC PEPTIDE 1660 pg/mL (0-100)
[2023-09-13] MEDS ORDERED: ONDANSETRON 4MG INJ IVP PRN (20:30)
[2023-09-14 00:15] VITALS: BP 129/63; PULSE 68; RESP 20
[2023-09-14 03:46] VITALS: BP 110/60; PULSE 68; RESP 16
[2023-09-14 05:58] LABS: HEMATOCRIT 23.3 % (42-54); MEAN CORPUSCULAR HEMOGLOBIN 34.4 pg (27.0-33.0); MEAN CORPUSCULAR HGB CONC 32.2 g/dL (32.0-36.0); MEAN CORPUSCULAR VOLUME 106.9 fL (79-99); RED BLOOD CELL COUNT(AUTO) 2.18 MIL/uL (4.50-6.20); RED CELL DISTRIBUTION WIDTH 21.2 % (11.0-15.5); WHITE BLOOD COUNT (AUTO) 6.7 K/uL (4.8-10.8)
[2023-09-14 06:05] LABS: CARBON DIOXIDE 27 mmol/L (21-32); CHLORIDE 101 mmol/L (101-111); CREATININE 2.1 mg/dL (0.5-1.3); GLOMERULAR FILTR. RATE CALC 31 mL/min (>90); GLUCOSE,RANDOM 104 mg/dL (70-105); POTASSIUM 4.2 mmol/L (3.5-5.1); SODIUM SERUM 136 mmol/L (136-145); UREA NITROGEN, BLOOD 49 mg/dL (7-18)
[2023-09-14 06:07] LABS: AMMONIA < 10 umol/L (11-32)
[2023-09-14 08:00] VITALS: BP 140/64; PULSE 70; RESP 18; O2SAT 93
[2023-09-14 12:00] VITALS: BP 146/59; PULSE 71; RESP 19
[2023-09-14 13:15] LABS: THYROID STIMULATING HORMONE 1.02 uIU/mL (0.36-3.74)
[2023-09-14 16:00] VITALS: BP 116/50; PULSE 74; RESP 19
[2023-09-14] MEDS ORDERED: LACE ASSESSMENT (SCORE > 11) MISC SCH (16:00)
[2023-09-14 20:00] VITALS: BP 131/67; PULSE 76; RESP 18; O2SAT 95
[2023-09-14] MEDS: PRIMIDONE 50 MG TAB PO SCH (21:08)
[2023-09-15] VITALS (8 sets, daily range): BP systolic 109–126; BP diastolic 55–76; PULSE 76–109; RESP 17–19; O2SAT 97
[2023-09-15] MEDS: ACETAMINOPHEN 325 MG TAB PO PRN (01:45)
[2023-09-15 05:56] LABS: HEMATOCRIT 26.6 % (42-54); MEAN CORPUSCULAR HEMOGLOBIN 34.6 pg (27.0-33.0); MEAN CORPUSCULAR HGB CONC 31.2 g/dL (32.0-36.0); MEAN CORPUSCULAR VOLUME 110.8 fL (79-99); RED BLOOD CELL COUNT(AUTO) 2.4 MIL/uL (4.50-6.20); RED CELL DISTRIBUTION WIDTH 20.9 % (11.0-15.5); WHITE BLOOD COUNT (AUTO) 7.2 K/uL (4.8-10.8)
[2023-09-15 06:35] LABS: CREATININE 1.6 mg/dL (0.5-1.3); MAGNESIUM 2.1 mg/dL (1.80-2.40); POTASSIUM 4.1 mmol/L (3.5-5.1)
[2023-09-15] MEDS ORDERED: DOCUSATE SODIUM PO PRN (12:00)
[2023-09-15] MEDS ORDERED: SENNOSIDES PO PRN (12:00)
[2023-09-15] MEDS: NITROGLYCERIN 0.4 MG SL TAB SL PRN (19:50)
[2023-09-15] MEDS: PREGABALIN 100 MG CAPSULE PO SCH (20:08)
[2023-09-16 03:55] VITALS: BP 121/67; PULSE 103; RESP 18
[2023-09-16 04:35] LABS: BASOPHILS # (AUTO) 0.19 K/uL (0.00-0.20); BASOPHILS % (AUTO) 3.4 % (0.0-5.0); EOSINOPHILS # (AUTO) 0.05 K/uL (0.00-0.70); EOSINOPHILS % (AUTO) 0.9 % (0.0-8.0); HEMATOCRIT 26.7 % (42-54); IMMATURE GRANULOCYTE ABSOLUTE 0.05 K/uL (0-1); LYMPHOCYTES # (AUTO) 0.9 K/uL (1.0-4.8); LYMPHOCYTES % (AUTO) 15.9 % (21.0-51.0); MEAN CORPUSCULAR HGB CONC 32.2 g/dL (32.0-36.0); MEAN CORPUSCULAR VOLUME 108.5 fL (79-99); MONOCYTES # (AUTO) 0.6 K/uL (0.1-1.0); MONOCYTES % (AUTO) 10.7 % (3.0-13.0); NEUTROPHILS # (AUTO) 3.8 K/uL (1.8-7.7); NEUTROPHILS % (AUTO) 68.2 % (40.0-77.0); PLATELET COUNT (AUTO) 200 K/uL (130-400); RED BLOOD CELL COUNT(AUTO) 2.46 MIL/uL (4.50-6.20); RED CELL DISTRIBUTION WIDTH 21.2 % (11.0-15.5); WHITE BLOOD COUNT (AUTO) 5.6 K/uL (4.8-10.8)
[2023-09-16 04:50] LABS: % IRON SATURATION 17.3 % (30-44)
[2023-09-16 05:05] LABS: B-TYPE NATRIURETIC PEPTIDE 2320 pg/mL (0-100)
[2023-09-16 05:07] LABS: ALBUMIN 3.2 g/dL (3.5-5.0); BILIRUBIN,TOTAL 0.8 mg/dL (0.2-1.0); CREATININE 1.2 mg/dL (0.5-1.3); MAGNESIUM 2.2 mg/dL (1.80-2.40); PHOSPHORUS 3.5 mg/dL (2.5-4.9); POTASSIUM 3.9 mmol/L (3.5-5.1); TOTAL PROTEIN, SERUM 7.8 g/dL (6.0-8.3)
[2023-09-16 08:00] VITALS: BP 94/55; PULSE 99; RESP 16; O2SAT 97
[2023-09-16] MEDS: PIOGLITAZONE 15MG TAB PO SCH (09:50)
[2023-09-16] MEDS: MELOXICAM 7.5 MG TABLET PO SCH (09:50)
[2023-09-16] MEDS: LISINOPRIL 2.5 MG TABLET PO SCH (09:51)
[2023-09-16] MEDS: PANTOPRAZOLE 40 MG TAB DR PO SCH (09:51)
[2023-09-16] MEDS: TORSEMIDE 20 MG TAB PO SCH (09:51)
[2023-09-16] MEDS: ACETAMINOPHEN WITH CODEINE 1 TAB TAB PO PRN (11:20)
[2023-09-16] MEDS ORDERED: ACETAMINOPHEN WITH CODEINE 1 TAB TAB PO PRN (11:30)
[2023-09-16 11:46] VITALS: BP 105/54; PULSE 107; RESP 18
[2023-09-16] MEDS: FUROSEMIDE 20MG VIAL IV ONE (12:02)
[2023-09-16 16:00] VITALS: BP 85/60; PULSE 107; RESP 16
[2023-09-16 20:00] VITALS: BP 80/45; PULSE 106; RESP 20
[2023-09-16 20:09] VITALS: O2SAT 97
[2023-09-16] MEDS: OLANZAPINE ODT 5 MG TAB SL SCH (21:08)
[2023-09-17] VITALS (14 sets, daily range): BP systolic 81–113; BP diastolic 40–68; PULSE 52–108; RESP 16–24; O2SAT 95–100
[2023-09-17 04:51] LABS: BASOPHILS # (AUTO) 0.08 K/uL (0.00-0.20); BASOPHILS % (AUTO) 1.9 % (0.0-5.0); EOSINOPHILS # (AUTO) 0.01 K/uL (0.00-0.70); EOSINOPHILS % (AUTO) 0.2 % (0.0-8.0); HEMATOCRIT 23.6 % (42-54); IMMATURE GRANULOCYTE ABSOLUTE 0.02 K/uL (0-1); LYMPHOCYTES # (AUTO) 1.5 K/uL (1.0-4.8); LYMPHOCYTES % (AUTO) 35.9 % (21.0-51.0); MEAN CORPUSCULAR HEMOGLOBIN 34.7 pg (27.0-33.0); MEAN CORPUSCULAR HGB CONC 32.6 g/dL (32.0-36.0); MEAN CORPUSCULAR VOLUME 106.3 fL (79-99); MONOCYTES # (AUTO) 0.7 K/uL (0.1-1.0); MONOCYTES % (AUTO) 17.7 % (3.0-13.0); NEUTROPHILS # (AUTO) 1.8 K/uL (1.8-7.7); NEUTROPHILS % (AUTO) 43.8 % (40.0-77.0); NUCLEATED RED BLOOD CELLS 0.5 % (0.0-0.19); PLATELET COUNT (AUTO) 171 K/uL (130-400); RED BLOOD CELL COUNT(AUTO) 2.22 MIL/uL (4.50-6.20); RED CELL DISTRIBUTION WIDTH 21.2 % (11.0-15.5); WHITE BLOOD COUNT (AUTO) 4.2 K/uL (4.8-10.8)
[2023-09-17 05:17] LABS: CREATININE 1.9 mg/dL (0.5-1.3); MAGNESIUM 1.8 mg/dL (1.80-2.40); POTASSIUM 3.5 mmol/L (3.5-5.1)
[2023-09-17 05:47] LABS: B-TYPE NATRIURETIC PEPTIDE 1730 pg/mL (0-100)
[2023-09-17] MEDS: OLANZAPINE ODT 5 MG TAB SL SCH (08:17)
[2023-09-17 17:33] LABS: HEMATOCRIT 25.8 % (42-54); MEAN CORPUSCULAR HEMOGLOBIN 35.2 pg (27.0-33.0); MEAN CORPUSCULAR HGB CONC 32.2 g/dL (32.0-36.0); MEAN CORPUSCULAR VOLUME 109.3 fL (79-99); PLATELET COUNT (AUTO) 164 K/uL (130-400); RED BLOOD CELL COUNT(AUTO) 2.36 MIL/uL (4.50-6.20); RED CELL DISTRIBUTION WIDTH 20.8 % (11.0-15.5)
[2023-09-17 17:37] LABS: BASOPHILS # (AUTO) 0.04 K/uL (0.00-0.20); BASOPHILS % (AUTO) 0.8 % (0.0-5.0); IMMATURE GRANULOCYTE ABSOLUTE 0.02 K/uL (0-1); LYMPHOCYTES # (AUTO) 1.9 K/uL (1.0-4.8); LYMPHOCYTES % (AUTO) 38.9 % (21.0-51.0); MONOCYTES # (AUTO) 0.9 K/uL (0.1-1.0); MONOCYTES % (AUTO) 17.6 % (3.0-13.0); NEUTROPHILS # (AUTO) 2.1 K/uL (1.8-7.7); NEUTROPHILS % (AUTO) 42.3 % (40.0-77.0)
[2023-09-17] MEDS ORDERED: MAGNESIUM OXIDE 400 MG TABLET PO PRN (18:00)
[2023-09-17] MEDS ORDERED: 0.9%NACL 50ML IV SCH (18:00)
[2023-09-17] MEDS: ZOSYN 3.375GM +NS 50ML IVPB SCH (18:50)
[2023-09-17] MEDS: KCL 20 MEQ ERTAB PO PRN (18:50)
[2023-09-17 22:12] LABS: ABG BASE EXCESS -2.3 mmol/L (-2.0-3.0); ABG HCO3 21.2 mmol/L (21.0-28.0); ABG OXYGEN SATURATION 96.9 % (95.0-99.0); ABG PCO2 32 mmHg (35-48); ABG PH 7.444 (7.35-7.450); CARBON MONOXIDE 0.3; DEVICE COMMENT N.C 2 LPM RB; HHb 3.1; PO2, ARTERIAL BG 101.7 mmHg (83.0-108.0)
[2023-09-17 22:13] LABS: HEMATOCRIT 24.3 % (42-54); MEAN CORPUSCULAR HEMOGLOBIN 34.7 pg (27.0-33.0); MEAN CORPUSCULAR HGB CONC 32.1 g/dL (32.0-36.0); RED BLOOD CELL COUNT(AUTO) 2.25 MIL/uL (4.50-6.20); RED CELL DISTRIBUTION WIDTH 20.8 % (11.0-15.5); WHITE BLOOD COUNT (AUTO) 5.2 K/uL (4.8-10.8)
[2023-09-17 22:22] LABS: MAGNESIUM 1.8 mg/dL (1.80-2.40); POTASSIUM 3.3 mmol/L (3.5-5.1)
[2023-09-17] MEDS: MIDODRINE HCL 5 MG TABLET PO STA (22:22)
[2023-09-17] MEDS ORDERED: 0.9%NACL 1000ML 1,000 ML IV SCH (22:30)
[2023-09-18] VITALS (13 sets, daily range): BP systolic 80–161; BP diastolic 40–77; PULSE 54–110; RESP 16–20; O2SAT 95–100
[2023-09-18 03:56] LABS: BASOPHILS # (AUTO) 0.04 K/uL (0.00-0.20); BASOPHILS % (AUTO) 0.7 % (0.0-5.0); EOSINOPHILS # (AUTO) 0.01 K/uL (0.00-0.70); EOSINOPHILS % (AUTO) 0.2 % (0.0-8.0); HEMATOCRIT 23.2 % (42-54); IMMATURE GRANULOCYTE ABSOLUTE 0.01 K/uL (0-1); LYMPHOCYTES # (AUTO) 1.7 K/uL (1.0-4.8); LYMPHOCYTES % (AUTO) 30.2 % (21.0-51.0); MEAN CORPUSCULAR HEMOGLOBIN 34.5 pg (27.0-33.0); MEAN CORPUSCULAR HGB CONC 32.8 g/dL (32.0-36.0); MEAN CORPUSCULAR VOLUME 105.5 fL (79-99); MONOCYTES # (AUTO) 0.6 K/uL (0.1-1.0); MONOCYTES % (AUTO) 10.7 % (3.0-13.0); NEUTROPHILS # (AUTO) 3.2 K/uL (1.8-7.7); PLATELET COUNT (AUTO) 156 K/uL (130-400); RED CELL DISTRIBUTION WIDTH 20.6 % (11.0-15.5); WHITE BLOOD COUNT (AUTO) 5.5 K/uL (4.8-10.8)
[2023-09-18 04:09] LABS: CREATININE 1.8 mg/dL (0.5-1.3); MAGNESIUM 1.6 mg/dL (1.80-2.40); POTASSIUM 3.5 mmol/L (3.5-5.1)
[2023-09-18 04:33] LABS: B-TYPE NATRIURETIC PEPTIDE 824 pg/mL (0-100)
[2023-09-18] MEDS: POTASSIUM CHLORIDE 10% ELIXIR 20 MEQ/15 ML UDCUP PO PRN (06:16)
[2023-09-18] MEDS: MAGNESIUM 2GM PREMIX 50ML 50 ML IV PRN (06:16)
[2023-09-18] MEDS: ACETAMINOPHEN 325 MG TAB PO PRN (08:43)
[2023-09-18] MEDS: MIDODRINE HCL 5 MG TABLET PO SCH (08:44)
[2023-09-18] MEDS: SENNOSIDES 8.6 MG TABLET PO PRN (08:44)
[2023-09-18] MEDS ORDERED: PHARMACY COMMUNICATION MISC PRN (13:30)
[2023-09-18] MEDS: CHLORDIAZEPOXIDE HCL 25 MG CAP PO SCH (14:00)
[2023-09-18] MEDS: DEXAMETHASONE SOD PHOSPHATE 4 MG/ML 1ML VIAL IV SCH (14:00)
[2023-09-18] MEDS: INSULIN HUMULIN R 100 UNIT/ML 3ML SQ SCH (16:30)
[2023-09-18] MEDS: DOXYCYCLINE HYCLATE 100 MG TABLET PO SCH (20:26)
[2023-09-19] VITALS (10 sets, daily range): BP systolic 98–124; BP diastolic 52–67; PULSE 63–104; RESP 18–20; O2SAT 92–97
[2023-09-19 05:41] LABS: HEMATOCRIT 21.8 % (42-54); MEAN CORPUSCULAR HEMOGLOBIN 34.6 pg (27.0-33.0); MEAN CORPUSCULAR HGB CONC 32.6 g/dL (32.0-36.0); MEAN CORPUSCULAR VOLUME 106.3 fL (79-99); RED BLOOD CELL COUNT(AUTO) 2.05 MIL/uL (4.50-6.20); RED CELL DISTRIBUTION WIDTH 20.1 % (11.0-15.5)
[2023-09-19 05:59] LABS: ALBUMIN 2.3 g/dL (3.5-5.0); BILIRUBIN,TOTAL 0.4 mg/dL (0.2-1.0); CREATININE 1.4 mg/dL (0.5-1.3); POTASSIUM 3.8 mmol/L (3.5-5.1); TOTAL PROTEIN, SERUM 6.2 g/dL (6.0-8.3)
[2023-09-19] MEDS: FOLIC ACID 1 MG TABLET PO SCH (08:21)
[2023-09-19] MEDS: IRON SUCROSE COMPLEX 100 MG/5 ML VIAL IV SCH (16:35)
[2023-09-19] MEDS: ACETAMINOPHEN 500 MG TABLET PO PRN (20:21)
[2023-09-20] VITALS (7 sets, daily range): BP systolic 99–139; BP diastolic 57–73; PULSE 102–135; RESP 18–20; O2SAT 92
[2023-09-20 04:23] LABS: BASOPHILS # (AUTO) 0.03 K/uL (0.00-0.20); BASOPHILS % (AUTO) 0.4 % (0.0-5.0); HEMATOCRIT 24.3 % (42-54); IMMATURE GRANULOCYTE ABSOLUTE 0.07 K/uL (0-1); LYMPHOCYTES # (AUTO) 1.2 K/uL (1.0-4.8); LYMPHOCYTES % (AUTO) 15.5 % (21.0-51.0); MEAN CORPUSCULAR HEMOGLOBIN 34.7 pg (27.0-33.0); MEAN CORPUSCULAR HGB CONC 31.7 g/dL (32.0-36.0); MEAN CORPUSCULAR VOLUME 109.5 fL (79-99); MONOCYTES # (AUTO) 0.2 K/uL (0.1-1.0); MONOCYTES % (AUTO) 3.1 % (3.0-13.0); NEUTROPHILS # (AUTO) 6.2 K/uL (1.8-7.7); NEUTROPHILS % (AUTO) 80.1 % (40.0-77.0); PLATELET COUNT (AUTO) 151 K/uL (130-400); RED BLOOD CELL COUNT(AUTO) 2.22 MIL/uL (4.50-6.20); RED CELL DISTRIBUTION WIDTH 19.8 % (11.0-15.5); WHITE BLOOD COUNT (AUTO) 7.7 K/uL (4.8-10.8)
[2023-09-20 04:41] LABS: CREATININE 1.1 mg/dL (0.5-1.3); MAGNESIUM 1.9 mg/dL (1.80-2.40); POTASSIUM 3.8 mmol/L (3.5-5.1)
[2023-09-20 05:09] LABS: B-TYPE NATRIURETIC PEPTIDE 1470 pg/mL (0-100)
[2023-09-20] MEDS: KCL 20 MEQ ERTAB PO PRN (05:58)
[2023-09-20] MEDS: FUROSEMIDE 20MG VIAL IV ONE (07:53)
[2023-09-20 15:55] LABS: APPEARANCE,URINE CLEAR (CLEAR); BILIRUBIN,URINE NEGATIVE (NEGATIVE); COLOR,URINE LIGHT-YELLOW (YELLOW); GLUCOSE, URINE (UA) NEGATIVE (NEGATIVE); KETONES,URINE NEGATIVE (NEGATIVE); LEUKOCYTE ESTERASE ,URINE NEGATIVE Leu/uL (NEGATIVE); NITRATE,URINE NEGATIVE (NEGATIVE); OCCULT BLOOD,URINE NEGATIVE (NEGATIVE); PROTEIN,URINE NEGATIVE (NEGATIVE); UROBILINOGEN,URINE 0.2 mg/dL (0.2-1.0)
[2023-09-20 16:09] LABS: ADD UA MICROSCOPIC YES
[2023-09-20] MEDS: METOPROLOL TARTRATE 25 MG TAB PO SCH (20:38)
[2023-09-21] VITALS (8 sets, daily range): BP systolic 91–119; BP diastolic 48–81; PULSE 62–131; RESP 16–18; O2SAT 98–100
[2023-09-21 04:08] LABS: BASOPHILS # (AUTO) 0.02 K/uL (0.00-0.20); BASOPHILS % (AUTO) 0.2 % (0.0-5.0); EOSINOPHILS # (AUTO) 0.01 K/uL (0.00-0.70); EOSINOPHILS % (AUTO) 0.1 % (0.0-8.0); HEMATOCRIT 23.6 % (42-54); IMMATURE GRANULOCYTE ABSOLUTE 0.06 K/uL (0-1); LYMPHOCYTES # (AUTO) 1.1 K/uL (1.0-4.8); LYMPHOCYTES % (AUTO) 9.6 % (21.0-51.0); MEAN CORPUSCULAR HEMOGLOBIN 34.5 pg (27.0-33.0); MEAN CORPUSCULAR HGB CONC 32.2 g/dL (32.0-36.0); MEAN CORPUSCULAR VOLUME 107.3 fL (79-99); MONOCYTES # (AUTO) 0.4 K/uL (0.1-1.0); MONOCYTES % (AUTO) 3.2 % (3.0-13.0); NEUTROPHILS # (AUTO) 9.7 K/uL (1.8-7.7); NEUTROPHILS % (AUTO) 86.4 % (40.0-77.0); PLATELET COUNT (AUTO) 162 K/uL (130-400); RED CELL DISTRIBUTION WIDTH 19.9 % (11.0-15.5); WHITE BLOOD COUNT (AUTO) 11.3 K/uL (4.8-10.8)
[2023-09-21 04:39] LABS: ALBUMIN 2.5 g/dL (3.5-5.0); BILIRUBIN,TOTAL 0.3 mg/dL (0.2-1.0); CREATININE 1.3 mg/dL (0.5-1.3); MAGNESIUM 1.9 mg/dL (1.80-2.40); POTASSIUM 3.6 mmol/L (3.5-5.1); TOTAL PROTEIN, SERUM 6.9 g/dL (6.0-8.3)
[2023-09-21 05:12] LABS: B-TYPE NATRIURETIC PEPTIDE 1390 pg/mL (0-100)
[2023-09-21] MEDS: FUROSEMIDE 20MG VIAL IV ONE (10:31)
[2023-09-21] MEDS: METOPROLOL TARTRATE 25 MG TAB PO SCH (15:31)
[2023-09-21] MEDS ORDERED: IOHEXOL 350 MG/ML 100ML INFUS..BTL IV ONE (16:02)
[2023-09-22] VITALS (9 sets, daily range): BP systolic 105–130; BP diastolic 50–74; PULSE 69–118; RESP 18; O2SAT 94–98
[2023-09-22 03:45] LABS: BASOPHILS # (AUTO) 0.02 K/uL (0.00-0.20); BASOPHILS % (AUTO) 0.2 % (0.0-5.0); HEMATOCRIT 24.5 % (42-54); IMMATURE GRANULOCYTE ABSOLUTE 0.05 K/uL (0-1); LYMPHOCYTES % (AUTO) 11.9 % (21.0-51.0); MEAN CORPUSCULAR HEMOGLOBIN 34.5 pg (27.0-33.0); MEAN CORPUSCULAR HGB CONC 31.8 g/dL (32.0-36.0); MEAN CORPUSCULAR VOLUME 108.4 fL (79-99); MONOCYTES # (AUTO) 0.2 K/uL (0.1-1.0); MONOCYTES % (AUTO) 2.4 % (3.0-13.0); NEUTROPHILS # (AUTO) 7.2 K/uL (1.8-7.7); NEUTROPHILS % (AUTO) 84.9 % (40.0-77.0); PLATELET COUNT (AUTO) 141 K/uL (130-400); RED BLOOD CELL COUNT(AUTO) 2.26 MIL/uL (4.50-6.20); RED CELL DISTRIBUTION WIDTH 19.9 % (11.0-15.5); WHITE BLOOD COUNT (AUTO) 8.5 K/uL (4.8-10.8)
[2023-09-22 04:06] LABS: B-TYPE NATRIURETIC PEPTIDE 1420 pg/mL (0-100)
[2023-09-22 04:28] LABS: ALBUMIN 2.5 g/dL (3.5-5.0); BILIRUBIN,TOTAL 0.3 mg/dL (0.2-1.0); CREATININE 1.2 mg/dL (0.5-1.3); MAGNESIUM 2.1 mg/dL (1.80-2.40); TOTAL PROTEIN, SERUM 6.9 g/dL (6.0-8.3)
[2023-09-22] MEDS: FUROSEMIDE 20MG VIAL IV SCH ×2 (14:01→18:01)
[2023-09-22] MEDS: CLOPIDOGREL 75MG TAB PO SCH (17:59)
[2023-09-22] MEDS: FERROUS SULFATE 325 MG TABLET.DR PO SCH (21:26)
[2023-09-23] VITALS (10 sets, daily range): BP systolic 95–132; BP diastolic 46–74; PULSE 43–108; RESP 18–22; O2SAT 94–97
[2023-09-23] MEDS: ACETAMINOPHEN 325 MG TAB PO PRN (03:52)
[2023-09-23 04:14] LABS: HEMATOCRIT 27.4 % (42-54); MEAN CORPUSCULAR HEMOGLOBIN 34.1 pg (27.0-33.0); MEAN CORPUSCULAR HGB CONC 31.4 g/dL (32.0-36.0); MEAN CORPUSCULAR VOLUME 108.7 fL (79-99); NUCLEATED RED BLOOD CELLS 0.6 % (0.0-0.19); RED BLOOD CELL COUNT(AUTO) 2.52 MIL/uL (4.50-6.20); WHITE BLOOD COUNT (AUTO) 10.4 K/uL (4.8-10.8)
[2023-09-23 04:31] LABS: CREATININE 1.4 mg/dL (0.5-1.3); MAGNESIUM 1.9 mg/dL (1.80-2.40); POTASSIUM 3.5 mmol/L (3.5-5.1)
[2023-09-23] MEDS: LORAZEPAM 2 MG/ML 1 ML VIAL IVP PRN (05:02)
[2023-09-23] MEDS: CLOPIDOGREL 75MG TAB PO SCH (09:00)
[2023-09-23] MEDS: METOPROLOL SUCCINATE 50 MG TAB.SR.24H PO SCH (09:00)
[2023-09-23] MEDS ORDERED: FUROSEMIDE 40MG VIAL IV SCH (10:00)
[2023-09-23] MEDS ORDERED: LACTULOSE 20 GM/30 ML UDCUP PO PRN (15:00)
[2023-09-23] MEDS: FUROSEMIDE 80 MG TABLET PO SCH (15:19)
[2023-09-23] MEDS: METOPROLOL TARTRATE 1 MG/ML 5ML VIAL IV SCH ×2 (16:44→19:00)
[2023-09-23] MEDS: METOPROLOL TARTRATE 1 MG/ML 5ML VIAL IV ONE (17:07)
[2023-09-24] VITALS (7 sets, daily range): BP systolic 105–146; BP diastolic 52–77; PULSE 63–143; RESP 18–21; O2SAT 90–100
[2023-09-24 06:56] LABS: HEMATOCRIT 28.7 % (42-54); MEAN CORPUSCULAR HEMOGLOBIN 34.3 pg (27.0-33.0); MEAN CORPUSCULAR HGB CONC 32.1 g/dL (32.0-36.0); MEAN CORPUSCULAR VOLUME 107.1 fL (79-99); NUCLEATED RED BLOOD CELLS 1.7 % (0.0-0.19); RED BLOOD CELL COUNT(AUTO) 2.68 MIL/uL (4.50-6.20); WHITE BLOOD COUNT (AUTO) 9.4 K/uL (4.8-10.8)
[2023-09-24 07:10] LABS: CREATININE 1.3 mg/dL (0.5-1.3); POTASSIUM 3.7 mmol/L (3.5-5.1)
[2023-09-24] MEDS: POLYETHYLENE GLYCOL 3350 17 GM POWD.PACK PO SCH (08:37)
[2023-09-24] MEDS: METOPROLOL SUCCINATE 50 MG TAB.SR.24H PO SCH (08:38)
[2023-09-24] MEDS: FUROSEMIDE 40 MG TABLET PO SCH (18:23)
[2023-09-25] VITALS (9 sets, daily range): BP systolic 83–128; BP diastolic 51–72; PULSE 61–100; RESP 16–22; O2SAT 94–96
[2023-09-25 04:31] LABS: HEMATOCRIT 26.7 % (42-54); MEAN CORPUSCULAR HEMOGLOBIN 33.8 pg (27.0-33.0); MEAN CORPUSCULAR VOLUME 102.7 fL (79-99); NUCLEATED RED BLOOD CELLS 1.8 % (0.0-0.19); RED BLOOD CELL COUNT(AUTO) 2.6 MIL/uL (4.50-6.20); RED CELL DISTRIBUTION WIDTH 19.9 % (11.0-15.5)
[2023-09-25 04:35] LABS: CREATININE 1.3 mg/dL (0.5-1.3); POTASSIUM 3.7 mmol/L (3.5-5.1)
[2023-09-26] VITALS (8 sets, daily range): BP systolic 102–122; BP diastolic 46–67; PULSE 70–112; RESP 16–21; O2SAT 96–98
[2023-09-26 05:32] LABS: HEMATOCRIT 29.2 % (42-54); MEAN CORPUSCULAR HEMOGLOBIN 33.9 pg (27.0-33.0); MEAN CORPUSCULAR HGB CONC 32.5 g/dL (32.0-36.0); MEAN CORPUSCULAR VOLUME 104.3 fL (79-99); NUCLEATED RED BLOOD CELLS 2.5 % (0.0-0.19); PLATELET COUNT (AUTO) 96 K/uL (130-400); RED CELL DISTRIBUTION WIDTH 20.5 % (11.0-15.5); WHITE BLOOD COUNT (AUTO) 7.6 K/uL (4.8-10.8)
[2023-09-26 06:08] LABS: B-TYPE NATRIURETIC PEPTIDE 999 pg/mL (0-100)
[2023-09-26 06:23] LABS: CREATININE 1.4 mg/dL (0.5-1.3); MAGNESIUM 2.1 mg/dL (1.80-2.40)
[2023-09-26] MEDS: DEXTROSE 5%-WATER 1,000 ML IV SCH (17:24)
[2023-09-26] MEDS: ONDANSETRON 4MG INJ IV PRN (20:37)
[2023-09-27] VITALS (43 sets, daily range): BP systolic 80–151; BP diastolic 46–116; PULSE 69–137; RESP 14–30; O2SAT 94–100
[2023-09-27] MEDS: FUROSEMIDE 40MG VIAL IV SCH (06:33)
[2023-09-27] MEDS: IPRATROPIUM/ALBUTEROL SULFATE 3 ML SOLUTION IH SCH (12:29)
[2023-09-27 16:33] LABS: ABG BASE EXCESS 1.4 mmol/L (-2.0-3.0); ABG HCO3 25.7 mmol/L (21.0-28.0); ABG OXYGEN SATURATION 91.6 % (95.0-99.0); ABG PCO2 39 mmHg (35-48); ABG PH 7.433 (7.35-7.450); CARBON MONOXIDE 0.5; DEVICE COMMENT RN EDDIE; HHb 8.3; PO2, ARTERIAL BG 69.9 mmHg (83.0-108.0); VENT MODE, BG NC (ROOM AIR)
[2023-09-27] MEDS: NOREPINEPHRIN 4MG/NS 250ML 250 ML IV ONE (16:53)
[2023-09-27] MEDS: MIDODRINE HCL 5 MG TABLET PO ONE (16:55)
[2023-09-27] MEDS: POTASSIUM CHLORIDE 20MEQ/100ML 100 ML IV PRN (17:50)
[2023-09-27] MEDS: DEXMEDETOMIDINE 400MCG/NS100ML IV SCH (18:29)
[2023-09-27 19:12] LABS: ABG BASE EXCESS 3.7 mmol/L (-2.0-3.0); ABG HCO3 25.9 mmol/L (21.0-28.0); ABG OXYGEN SATURATION 99.5 % (95.0-99.0); ABG PCO2 32 mmHg (35-48); ABG PH 7.524 (7.35-7.450); CPAP, BG 6 cm H2O; PO2, ARTERIAL BG 203.1 mmHg (83.0-108.0)
[2023-09-27] MEDS: FOLIC ACID 5 MG/ML VIAL IV SCH (19:43)
[2023-09-27] MEDS: MIDODRINE HCL 5 MG TABLET PO SCH (19:44)
[2023-09-27] MEDS: THIAMINE HCL 100 MG/ML 2ML VIAL IM SCH (19:46)
[2023-09-28] VITALS (75 sets, daily range): BP systolic 81–152; BP diastolic 39–78; PULSE 47–90; RESP 5–22; O2SAT 97–100
[2023-09-28 04:43] LABS: HEMATOCRIT 28.8 % (42-54); MEAN CORPUSCULAR HEMOGLOBIN 34.6 pg (27.0-33.0); MEAN CORPUSCULAR HGB CONC 32.3 g/dL (32.0-36.0); MEAN CORPUSCULAR VOLUME 107.1 fL (79-99); PLATELET COUNT (AUTO) 168 K/uL (130-400); RED BLOOD CELL COUNT(AUTO) 2.69 MIL/uL (4.50-6.20); RED CELL DISTRIBUTION WIDTH 20.6 % (11.0-15.5)
[2023-09-28 05:03] LABS: CREATININE 1.2 mg/dL (0.5-1.3); MAGNESIUM 1.9 mg/dL (1.80-2.40); POTASSIUM 3.5 mmol/L (3.5-5.1)
[2023-09-28 05:27] LABS: B-TYPE NATRIURETIC PEPTIDE 1820 pg/mL (0-100)
[2023-09-28] MEDS ORDERED: COMPOUND IV REFRIGERATED 1 EACH IVSOLN MISC PRN (08:30)
[2023-09-28] MEDS ORDERED: THIAMINE HCL 100 MG/ML 2ML VIAL IVP SCH (09:00)
[2023-09-28] MEDS ORDERED: FOLIC ACID 5 MG/ML VIAL IV SCH (09:00)
[2023-09-28] MEDS: DIAZEPAM 2 MG TAB PO PRN (16:57)
[2023-09-28] MEDS: ZOSYN 3.375GM +NS 50ML IVPB SCH (20:11)
[2023-09-29] VITALS (16 sets, daily range): BP systolic 91–111; BP diastolic 44–72; PULSE 67–107; RESP 17–21; TEMP 100.6; O2SAT 95–100
[2023-09-29 05:32] LABS: HEMATOCRIT 27.7 % (42-54); MEAN CORPUSCULAR HEMOGLOBIN 33.8 pg (27.0-33.0); MEAN CORPUSCULAR HGB CONC 31.8 g/dL (32.0-36.0); MEAN CORPUSCULAR VOLUME 106.5 fL (79-99); NUCLEATED RED BLOOD CELLS 0.2 % (0.0-0.19); PLATELET COUNT (AUTO) 151 K/uL (130-400); RED CELL DISTRIBUTION WIDTH 21.3 % (11.0-15.5); WHITE BLOOD COUNT (AUTO) 13.1 K/uL (4.8-10.8)
[2023-09-29 05:44] LABS: CREATININE 1.6 mg/dL (0.5-1.3); MAGNESIUM 2.6 mg/dL (1.80-2.40); POTASSIUM 4.5 mmol/L (3.5-5.1)
[2023-09-29 06:34] LABS: B-TYPE NATRIURETIC PEPTIDE 1660 pg/mL (0-100)
[2023-09-29] MEDS ORDERED: IPRATROPIUM/ALBUTEROL SULFATE 3 ML SOLUTION IH SCH (09:00)
[2023-09-29] MEDS: IPRATROPIUM/ALBUTEROL SULFATE 3 ML SOLUTION IH SCH (11:38)
[2023-09-29] MEDS ORDERED: VANCOMYCIN PROTOCOL PER PHARMACY IV SCH (13:00)
[2023-09-29] MEDS ORDERED: COMPOUND IV MISC 1 EACH IVSOLN MISC PRN (13:30)
[2023-09-29] MEDS: VANCOMYCIN 750MG VIAL IVPB SCH (14:25)
[2023-09-29] MEDS: MEROPENEM 1 GM in 0.9%NACL 100ML 100 ML IVPB SCH (14:25)
[2023-09-30] VITALS (13 sets, daily range): BP systolic 76–125; BP diastolic 34–56; PULSE 48–113; RESP 18–22; O2SAT 96–100
[2023-09-30 06:00] LABS: HEMATOCRIT 24.8 % (42-54); MEAN CORPUSCULAR HEMOGLOBIN 34.5 pg (27.0-33.0); MEAN CORPUSCULAR HGB CONC 31.9 g/dL (32.0-36.0); MEAN CORPUSCULAR VOLUME 108.3 fL (79-99); PLATELET COUNT (AUTO) 151 K/uL (130-400); RED BLOOD CELL COUNT(AUTO) 2.29 MIL/uL (4.50-6.20); RED CELL DISTRIBUTION WIDTH 21.3 % (11.0-15.5); WHITE BLOOD COUNT (AUTO) 10.9 K/uL (4.8-10.8)
[2023-09-30 06:12] LABS: CREATININE 1.5 mg/dL (0.5-1.3); MAGNESIUM 2.2 mg/dL (1.80-2.40); POTASSIUM 3.6 mmol/L (3.5-5.1)
[2023-09-30 06:22] LABS: B-TYPE NATRIURETIC PEPTIDE 1270 pg/mL (0-100)
[2023-10-01] VITALS (63 sets, daily range): BP systolic 71–137; BP diastolic 34–87; PULSE 71–100; RESP 8–28; O2SAT 96–100
[2023-10-01 04:15] LABS: ABG BASE EXCESS 1.8 mmol/L (-2.0-3.0); ABG HCO3 25.1 mmol/L (21.0-28.0); ABG OXYGEN SATURATION 93.5 % (95.0-99.0); ABG PCO2 34 mmHg (35-48); ABG PH 7.488 (7.35-7.450); CARBON MONOXIDE 0.3; HHb 6.4; VENT MODE, BG RA,21 (ROOM AIR)
[2023-10-01 04:28] LABS: HEMATOCRIT 24.7 % (42-54); MEAN CORPUSCULAR HEMOGLOBIN 34.6 pg (27.0-33.0); MEAN CORPUSCULAR HGB CONC 33.2 g/dL (32.0-36.0); MEAN CORPUSCULAR VOLUME 104.2 fL (79-99); PLATELET COUNT (AUTO) 161 K/uL (130-400); RED BLOOD CELL COUNT(AUTO) 2.37 MIL/uL (4.50-6.20); RED CELL DISTRIBUTION WIDTH 21.1 % (11.0-15.5)
[2023-10-01 04:33] LABS: CREATININE 1.2 mg/dL (0.5-1.3); MAGNESIUM 2.1 mg/dL (1.80-2.40)
[2023-10-01] MEDS ORDERED: IOHEXOL-350 75 ML VIAL IV ONE (05:23)
[2023-10-01] MEDS: BALSAM PERU/CASTOR OIL 60 GM TUBE TP SCH (16:26)
[2023-10-01 16:47] LABS: AMPHET/METH SCREEN,URINE NEGATIVE (NEGATIVE); BARBITURATE SCREEN, URINE NEGATIVE (NEGATIVE); BENZODIAZEPINES SCREEN,URINE NEGATIVE (NEGATIVE); CANNABINOID SCREEN,URINE NEGATIVE (NEGATIVE); COCAINE SCREEN,URINE NEGATIVE (NEGATIVE); OPIATE SCREEN,URINE NEGATIVE (NEGATIVE); PHENCYCLIDINE SCREEN,URINE NEGATIVE (NEGATIVE)
[2023-10-01 17:25] LABS: CHOLESTEROL 107 mg/dL (<200); HDL CHOLESTEROL 50 mg/dL (29-71); LDL DIRECT 52 mg/dL (0-99); TRIGLYCERIDES 66 mg/dL (30-200)
[2023-10-01] MEDS: NOREPINEPHRIN 4MG/NS 250ML 250 ML IV PRN (18:34)
[2023-10-02] VITALS (65 sets, daily range): BP systolic 80–140; BP diastolic 31–73; PULSE 71–115; RESP 12–42; O2SAT 98–100
[2023-10-02 04:15] LABS: HEMATOCRIT 25.9 % (42-54); MEAN CORPUSCULAR HEMOGLOBIN 33.6 pg (27.0-33.0); MEAN CORPUSCULAR VOLUME 104.9 fL (79-99); PLATELET COUNT (AUTO) 202 K/uL (130-400); RED BLOOD CELL COUNT(AUTO) 2.47 MIL/uL (4.50-6.20); RED CELL DISTRIBUTION WIDTH 20.6 % (11.0-15.5); WHITE BLOOD COUNT (AUTO) 10.1 K/uL (4.8-10.8)
[2023-10-02 04:26] LABS: MAGNESIUM 2.1 mg/dL (1.80-2.40); POTASSIUM 4.3 mmol/L (3.5-5.1)
[2023-10-02] MEDS: FAMOTIDINE 20MG TAB PO SCH (08:32)
[2023-10-02] MEDS ORDERED: ACETYLCYSTEINE 10% 100MG/ML 4ML VIAL IH SCH (09:30)
[2023-10-02] MEDS: IPRATROPIUM 0.5 MG/2.5 ML INH IH SCH (10:33)
[2023-10-02] MEDS: ENOXAPARIN SODIUM 30 MG/0.3 ML SQ SCH (10:41)
[2023-10-02] MEDS: 0.9%NACL 1000ML 1,000 ML IV ONE (10:42)
[2023-10-02] MEDS: METOPROLOL TARTRATE 25 MG TAB PO ONE (10:56)
[2023-10-02] MEDS: LACTULOSE 20 GM/30 ML UDCUP PO SCH (11:36)
[2023-10-02] MEDS: METOCLOPRAMIDE 10 MG/2 ML VIAL IVP SCH (11:36)
[2023-10-02] MEDS: ACETYLCYSTEINE 10% 100MG/ML 4ML VIAL IH SCH (19:15)
[2023-10-02] MEDS: METOPROLOL TARTRATE 25 MG TAB PO SCH (21:55)
[2023-10-03] VITALS (12 sets, daily range): BP systolic 115–160; BP diastolic 56–93; PULSE 72–100; RESP 15–23; O2SAT 100
[2023-10-03 03:22] LABS: BASOPHILS # (AUTO) 0.21 K/uL (0.00-0.20); BASOPHILS % (AUTO) 2.1 % (0.0-5.0); EOSINOPHILS # (AUTO) 0.12 K/uL (0.00-0.70); EOSINOPHILS % (AUTO) 1.2 % (0.0-8.0); HEMATOCRIT 25.8 % (42-54); IMMATURE GRANULOCYTE ABSOLUTE 0.05 K/uL (0-1); LYMPHOCYTES # (AUTO) 2.1 K/uL (1.0-4.8); LYMPHOCYTES % (AUTO) 21.4 % (21.0-51.0); MEAN CORPUSCULAR HEMOGLOBIN 33.8 pg (27.0-33.0); MEAN CORPUSCULAR HGB CONC 31.4 g/dL (32.0-36.0); MEAN CORPUSCULAR VOLUME 107.5 fL (79-99); MONOCYTES # (AUTO) 0.9 K/uL (0.1-1.0); MONOCYTES % (AUTO) 9.5 % (3.0-13.0); NEUTROPHILS # (AUTO) 6.4 K/uL (1.8-7.7); NEUTROPHILS % (AUTO) 65.3 % (40.0-77.0); PLATELET COUNT (AUTO) 206 K/uL (130-400); WHITE BLOOD COUNT (AUTO) 9.9 K/uL (4.8-10.8)
[2023-10-03 03:30] LABS: CREATININE 0.8 mg/dL (0.5-1.3); MAGNESIUM 2.1 mg/dL (1.80-2.40); POTASSIUM 4.1 mmol/L (3.5-5.1)
== END 2023-10-03 16:30 | DRG 871 ==
LOC: EDH 17:57 → EDHIP 20:28 → 3BH 09-14 00:11 → 2DH 09-17 22:28 → 2AH 09-18 20:27 → 3CH 09-23 16:10 → 2BH 09-27 16:39 → 3DH 09-28 15:00 → 3AH 09-29 17:39 → 2BH 10-01 04:59 → 2DH 10-03 03:00
PROVIDERS: ADMIT Internal Medicine Infectious Disease; ATTEND Internal Medicine Infectious Disease
PROC: 5A09357 Assistance with Respiratory Ventilation, Less than 24 Consecutive Hours, Continuous Positive Airway Pressure (ICD-10-PCS; 2023-09-27)
PROC: 4A00X4Z Measurement of Central Nervous Electrical Activity, External Approach (ICD-10-PCS; principal; 2023-10-01)
DX: A41.89 Other specified sepsis (principal); G93.41 Metabolic encephalopathy; J12.82 Pneumonia due to coronavirus disease 2019; J96.21 Acute and chronic respiratory failure with hypoxia; U07.1 COVID-19; I50.43 Acute on chronic combined systolic (congestive) and diastolic (congestive) heart failure; N17.9 Acute kidney failure, unspecified; R65.21 Severe sepsis with septic shock; R04.2 Hemoptysis; D62 Acute posthemorrhagic anemia; E87.1 Hypo-osmolality and hyponatremia; Z68.45 Body mass index [BMI] 70 or greater, adult; E86.9 Volume depletion, unspecified; F14.10 Cocaine abuse, uncomplicated; I25.10 Atherosclerotic heart disease of native coronary artery without angina pectoris; N18.32 Chronic kidney disease, stage 3b; E11.22 Type 2 diabetes mellitus with diabetic chronic kidney disease; E11.51 Type 2 diabetes mellitus with diabetic peripheral angiopathy without gangrene; N40.0 Benign prostatic hyperplasia without lower urinary tract symptoms; D50.9 Iron deficiency anemia, unspecified; F14.129 Cocaine abuse with intoxication, unspecified; I48.0 Paroxysmal atrial fibrillation; I35.0 Nonrheumatic aortic (valve) stenosis; I95.9 Hypotension, unspecified; D63.1 Anemia in chronic kidney disease; I25.5 Ischemic cardiomyopathy; F12.10 Cannabis abuse, uncomplicated; G25.0 Essential tremor; E66.01 Morbid (severe) obesity due to excess calories; E78.00 Pure hypercholesterolemia, unspecified; F10.10 Alcohol abuse, uncomplicated; F17.210 Nicotine dependence, cigarettes, uncomplicated; F32.A Depression, unspecified; F41.9 Anxiety disorder, unspecified; G47.33 Obstructive sleep apnea (adult) (pediatric); G54.6 Phantom limb syndrome with pain; K59.00 Constipation, unspecified; L89.152 Pressure ulcer of sacral region, stage 2; Y95 Nosocomial condition; Z83.3 Family history of diabetes mellitus; Z89.511 Acquired absence of right leg below knee; Z82.49 Family history of ischemic heart disease and other diseases of the circulatory system; Z95.1 Presence of aortocoronary bypass graft; Z91.199 Patient's noncompliance with other medical treatment and regimen due to unspecified reason; Z95.5 Presence of coronary angioplasty implant and graft; Z89.611 Acquired absence of right leg above knee; Z89.612 Acquired absence of left leg above knee; Z99.3 Dependence on wheelchair; Z91.148 Patient's other noncompliance with medication regimen for other reason; Z74.01 Bed confinement status; Z89.512 Acquired absence of left leg below knee; Z95.2 Presence of prosthetic heart valve
CPT/HCPCS: 36415; 36600; 70450; 70496; 70498; 70551; 71045; 71250; 71270; 74018; 76376; 80048; 80053; 80061; 80202; 80305; 81001; 82140; 82435; 82550; 82803; 82947; 82948; 83540; 83550; 83605; 83735; 83880; 84100; 84132; 84145; 84295; 84439; 84443; 84481; 84484; 85018; 85025; 85027; 85378; 85610; 85651; 85730; 86140; 87040; 87086; 87426; 92610; 93005; 93306; 93308; 93356; 93970; 94640; 94660; 94664; 94760; 95816; A4357; G0378; J1100; J1650; J1756; J1815; J1940; J2060; J2185; J2405; J2543; J2765; J3411; J3475; J3480; J3490; J7070; J7608; Q0161; Q9967; G8980-CH; G8983-CI; G8983-CJ; J3370